=== PATIENT | male | born 1960 | race Caucasian/White ===

== ENCOUNTER 2017-08-27 10:00 | Inpatient (IN) | payer OTHER ==
[2017-08-27] MEDS ORDERED: SODIUM CHLORIDE 0.9% 2,000 ML IV STA (11:15)
[2017-08-27] MEDS ORDERED: SODIUM CHLORIDE 0.9% 1,000 ML IV STA (11:15)
[2017-08-27] MEDS ORDERED: ONDANSETRON 4 MG/2 ML VIAL IVP STA (11:15)
[2017-08-27] MEDS ORDERED: fentaNYL (PF) 50 MCG/ML 2 ML AMP IV STA ×2 (11:16→12:19)
--- NOTE | 2017-08-27 11:18 | ED ---
Nausea/Vomiting/Diarrhea HPI - General Chief complaint: Nausea/Vomiting/Diarrhea Stated complaint: Weakness Time Seen by Provider: 08/27/17 10:00 Source: patient, EMS, RN notes reviewed Mode of arrival: EMS Limitations: no limitations - History of Present Illness Initial comments: This is a 56-year-old male history diabetes and chronic low back pain who states she's had nausea vomiting for past several days not been able keep his medication down either food or drink. He does feel lightheaded and weak with tries walking said sweats he states his glucose was 407 when he was brought in here. He denies any diarrhea no other problems such as cough or phlegm production dysuria hematuria. He states the pain going down his legs from his low back disc problem is severe. MD complaint: nausea, vomiting, abdominal pain - Related Data Home Medications Medication Instructions Recorded Confirmed HYDROcodone/APAP 10-325MG [[place] 1 tab PO Q4HR PRN 08/27/17 08/27/17 10-325] INSULIN LISPRO (humaLOG) [humaLOG] See Protocol SQ AC-TID 08/27/17 08/27/17 Lisinopril [Zestril] 5 mg PO DAILY 08/27/17 08/27/17 Omeprazole 40 mg PO DAILY 08/27/17 08/27/17 Allergies Allergy/AdvReac Type Severity Reaction Status Date / Time No Known Allergies Allergy Verified 08/27/17 10:55 Review of Systems ROS Statement: Those systems with pertinent positive or pertinent negative responses have been documented in the HPI. ROS Other: All systems not noted in ROS Statement are negative. Past Medical History Past Medical History: COPD, Diabetes Mellitus, Hypertension Additional Past Medical History / Comment(s): chronic back pain History of Any Multi-Drug Resistant Organisms: None Reported Past Surgical History: Cholecystectomy Past Psychological History: No Psychological Hx Reported Smoking Status: Current every day smoker Past Alcohol Use History: None Reported Past Drug Use History: None Reported General Exam - General Exam Comments Initial Comments: This is a well-developed molars awake alert oriented 3 male Limitations: no limitations General appearance: alert, anxious, in distress Head exam: Present: atraumatic, normocephalic, normal inspection Eye exam: Present: normal appearance, PERRL, EOMI. Absent: scleral icterus, conjunctival injection, periorbital swelling ENT exam: Present: mucous membranes dry Neck exam: Present: normal inspection. Absent: tenderness, meningismus, lymphadenopathy Respiratory exam: Present: normal lung sounds bilaterally. Absent: respiratory distress, wheezes, rales, rhonchi, stridor Cardiovascular Exam: Present: regular rate, normal rhythm, normal heart sounds. Absent: systolic murmur, diastolic murmur, rubs, gallop, clicks GI/Abdominal exam: Present: soft, normal bowel sounds. Absent: distended, tenderness, guarding, rebound, rigid, bruit, pulsatile mass, hernia Extremities exam: Present: normal inspection, full ROM, normal capillary refill. Absent: tenderness, pedal edema, joint swelling, calf tenderness Back exam: Present: normal inspection Neurological exam: Present: alert, oriented X3, CN II-XII intact Psychiatric exam: Present: normal affect, normal mood Skin exam: Present: warm, dry, intact, normal color. Absent: rash Course Vital Signs 08/27/17 10:07 Temperature 98.6 F Pulse Rate 86 Respiratory 16 Rate Blood Pressure 119/59 O2 Sat by Pulse 95 Oximetry Medical Decision Making - EKG Data -: EKG Interpreted by [facility] EKG shows normal: sinus rhythm (Normal sinus rhythm rate 83. Avoid 50 to QRS 82 QT since QTC 376/[address]-T wave changes) Disposition Referrals: Zarina Smith MD [Primary Care Provider] - 1-2 days
[2017-08-27 11:39] LABS: Basophils # (A) 0.1 k/uL (0-0.2); Basophils % (A) 0 %; Eosinophils % (A) 0 %; HGB 11.5 gm/dL (13.0-17.5); Hypochromasia Slight; Lymphocytes # (A) 1.6 k/uL (1.0-4.8); Lymphocytes % (A) 12 %; MCH 30.7 pg (25.0-35.0); MCHC 31.8 g/dL (31.0-37.0); MCV 96.4 fL (80.0-100.0); Mean Platelet Volume 7.4; Monocytes # (A) 0.5 k/uL (0-1.0); Monocytes % (A) 3 %; Neutrophils # (A) 11.1 k/uL (1.3-7.7); Neutrophils % (A) 84 %; Platelet Count 326 k/uL (150-450); RBC 3.74 m/uL (4.30-5.90); RDW 15.7 % (11.5-15.5); WBC 13.3 k/uL (3.8-10.6)
[2017-08-27 11:50] LABS: Appearance,Urine Clear (Clear); Bilirubin,Urine Negative (Negative); Blood,Urine Negative (Negative); Color,Urine Yellow; Glucose,Urine (UA) 4+ (Negative); Leukocyte Esterase,Urine Negative (Negative); Nitrite,Urine Negative (Negative); Protein,Urine Trace (Negative); Specific Gravity,Urine 1.034 (1.001-1.035); Urobilinogen,Urine <2.0 mg/dL (<2.0)
[2017-08-27 11:52] LABS: ALT 23 U/L (21-72); AST 14 U/L (17-59); Albumin 3.8 g/dL (3.5-5.0); Alkaline Phosphatase 102 U/L (38-126); Amylase 41 U/L (30-110); Anion Gap 18 mmol/L; Blood Urea Nitrogen 14 mg/dL (9-20); Calcium 9.2 mg/dL (8.4-10.2); Carbon Dioxide 21 mmol/L (22-30); Chloride 99 mmol/L (98-107); Glucose 363 mg/dL (74-99); Lipase 46 U/L (23-300); Potassium 4.5 mmol/L (3.5-5.1); Sodium 138 mmol/L (137-145); Total Bilirubin 0.7 mg/dL (0.2-1.3); Total Protein 7.7 g/dL (6.3-8.2)
--- NOTE | 2017-08-27 12:20 | XR ---
Abdomen HISTORY: Pain and vomiting Frontal view of the abdomen submitted on 2 images Surgical clips present in the right upper quadrant. There is no evident bowel obstruction or pneumope ritoneum. Levoscoliosis is present in the mid lumbar spine, there is multilevel spondylosis, degenera tive disc change in the visualized spine. Vascular calcifications present within the pelvis, there ma y be prostate calcifications present. IMPRESSION: Nonobstructive bowel gas pattern. Scoliosis. Degenerative disc disease.
--- NOTE | 2017-08-27 12:21 | XR ---
EXAMINATION TYPE: XR chest 2V DATE OF EXAM: 08/27/2017 COMPARISON: NONE HISTORY: Chest pain TECHNIQUE: Frontal and lateral views of the chest are obtained. FINDINGS: There is a right upper lobe consolidation with volume loss evident as there is elevation o f the minor fissure. Remainder the lungs are clear. Mediastinal prominence could relate to adenopathy or prominent pulmonary vascularity. Cardiomediastinal silhouette is within normal limits. Osseous st ructures are grossly intact with mild multilevel degenerative changes of the thoracic spine and acrom ioclavicular joints. IMPRESSION: Lobar consolidation within the right upper lobe with component of atelectasis as there i s associated volume loss therefore findings could represent either focal pneumonia or obstructive pul monary mass. Correlation with symptomatology is recommended.
[2017-08-27] MEDS ORDERED: KETOROLAC 30 MG/ML 1 ML VIAL IVP STA (12:30)
[2017-08-27 12:34] LABS: Ketones,Urine 3+ (Negative)
[2017-08-27 13:56] LABS: Glucose,Whole Blood 361 mg/dL (75-99)
[2017-08-27] MEDS ORDERED: SODIUM CHLORIDE 0.9% 1,000 ML BAG ONE (16:40)
[2017-08-27 17:43] LABS: Glucose,Whole Blood 402 mg/dL (75-99)
[2017-08-27] MEDS ORDERED: INSULIN REGULAR BOLUS (FROM DRIP BAG) IV ONE (18:32)
[2017-08-27] MEDS ORDERED: Magnesium Replacement Protocol 1 EACH MISC MISCELLANE PRN (18:32)
[2017-08-27] MEDS ORDERED: Potassium Replacement Protocol 1 EACH MISC MISCELLANE PRN (18:32)
[2017-08-27 19:10] LABS: Basophils % (A) 0 %; Eosinophils # (A) 0.1 k/uL (0-0.7); Eosinophils % (A) 1 %; HCT 35.8 % (39.0-53.0); HGB 10.8 gm/dL (13.0-17.5); Hypochromasia Marked; Lymphocytes # (A) 1.3 k/uL (1.0-4.8); Lymphocytes % (A) 10 %; MCH 29.7 pg (25.0-35.0); MCHC 30.2 g/dL (31.0-37.0); MCV 98.4 fL (80.0-100.0); Mean Platelet Volume 7.1; Monocytes # (A) 0.3 k/uL (0-1.0); Monocytes % (A) 2 %; Neutrophils # (A) 10.5 k/uL (1.3-7.7); Neutrophils % (A) 86 %; Platelet Count 299 k/uL (150-450); RBC 3.64 m/uL (4.30-5.90); RDW 15.4 % (11.5-15.5); WBC 12.2 k/uL (3.8-10.6)
[2017-08-27 19:20] LABS: Anion Gap 19 mmol/L; Blood Urea Nitrogen 15 mg/dL (9-20); Carbon Dioxide 21 mmol/L (22-30); Chloride 103 mmol/L (98-107); Glucose 380 mg/dL (74-99); Phosphorus 4.2 mg/dL (2.5-4.5); Potassium 4.5 mmol/L (3.5-5.1); Sodium 143 mmol/L (137-145)
[2017-08-27] MEDS: SODIUM CHLORIDE 0.9% 1,000 ML IV SCH ×2 (19:46→22:22)
[2017-08-27] MEDS: MORPHINE SULFATE 2 MG/ML SYRINGE IVP PRN (19:53)
[2017-08-27] MEDS: ONDANSETRON 4 MG/2 ML VIAL IVP PRN (19:53)
[2017-08-27] MEDS ORDERED: AZITHROMYCIN 500 MG in DEXTROSE 5% IN WATER 250 ML IVPB SCH ×2 (20:00)
[2017-08-27 20:35] LABS: Glucose,Whole Blood 359 mg/dL (75-99)
[2017-08-27 20:44] LABS: Hemoglobin A1C 10.7 % (4.0-6.0)
[2017-08-27] MEDS: INSULIN REGULAR 100 UNIT in SODIUM CHLORIDE 0.9% 100 ML IV SCH (20:45)
[2017-08-27 20:59] LABS: Glucose,Whole Blood 364 mg/dL (75-99)
[2017-08-27] MEDS: cefTRIAXone IN SWFI 1,000 MG/10 ML SYRINGE IVP SCH (21:17)
[2017-08-27 22:07] LABS: Appearance,Urine Clear (Clear); Bilirubin,Urine Negative (Negative); Blood,Urine Negative (Negative); Color,Urine Light Yellow; Glucose,Urine (UA) 4+ (Negative); Leukocyte Esterase,Urine Negative (Negative); Nitrite,Urine Negative (Negative); PH, Urine 5.5 (5.0-8.0); Protein,Urine Negative (Negative); Specific Gravity,Urine 1.027 (1.001-1.035); Urobilinogen,Urine <2.0 mg/dL (<2.0)
[2017-08-27] MEDS: D5-0.45% NACL WITH KCL 20MEQ/L 1,000 ML IV SCH (22:10)
[2017-08-27 22:15] LABS: Ketones,Urine 4+ (Negative)
[2017-08-27 22:26] LABS: Glucose,Whole Blood 282 mg/dL (75-99)
[2017-08-27 23:08] LABS: Glucose,Whole Blood 276 mg/dL (75-99)
[2017-08-28 00:20] LABS: Glucose,Whole Blood 239 mg/dL (75-99)
[2017-08-28] MEDS: MORPHINE SULFATE 2 MG/ML SYRINGE IVP PRN ×7 (00:33→21:19)
[2017-08-28 00:42] LABS: Anion Gap 11 mmol/L; Blood Urea Nitrogen 16 mg/dL (9-20); Carbon Dioxide 28 mmol/L (22-30); Chloride 105 mmol/L (98-107); Glucose 246 mg/dL (74-99); Phosphorus 2.6 mg/dL (2.5-4.5); Sodium 144 mmol/L (137-145)
[2017-08-28 01:22] LABS: Glucose,Whole Blood 222 mg/dL (75-99)
[2017-08-28 02:37] LABS: Glucose,Whole Blood 186 mg/dL (75-99)
[2017-08-28 03:26] LABS: Glucose,Whole Blood 133 mg/dL (75-99)
[2017-08-28] MEDS: D5-0.45% NACL WITH KCL 20MEQ/L 1,000 ML IV SCH ×2 (03:48→09:52)
[2017-08-28 04:11] LABS: Glucose,Whole Blood 119 mg/dL (75-99)
[2017-08-28] MEDS: ONDANSETRON 4 MG/2 ML VIAL IVP PRN ×4 (04:15→22:26)
[2017-08-28 04:41] LABS: Anion Gap 9 mmol/L; Blood Urea Nitrogen 16 mg/dL (9-20); Carbon Dioxide 30 mmol/L (22-30); Chloride 104 mmol/L (98-107); Glucose 123 mg/dL (74-99); Phosphorus 2.6 mg/dL (2.5-4.5); Potassium 4.2 mmol/L (3.5-5.1); Sodium 143 mmol/L (137-145)
[2017-08-28] MEDS: INSULIN REGULAR 100 UNIT in SODIUM CHLORIDE 0.9% 100 ML IV SCH (05:01)
[2017-08-28 05:05] LABS: Glucose,Whole Blood 134 mg/dL (75-99)
[2017-08-28 05:53] LABS: Glucose,Whole Blood 192 mg/dL (75-99)
[2017-08-28 07:17] LABS: Glucose,Whole Blood 235 mg/dL (75-99)
[2017-08-28] MEDS ORDERED: INSULIN NPH 300 UNIT/3 ML VIAL SQ ONE (07:50)
[2017-08-28 08:22] LABS: Glucose,Whole Blood 263 mg/dL (75-99)
[2017-08-28] MEDS: HYDROcodone/APAP 5-325MG 1 EACH TAB PO PRN ×2 (08:58→16:53)
[2017-08-28] MEDS: AZITHROMYCIN 500 MG TAB PO SCH (09:18)
[2017-08-28 09:44] LABS: Basophils % (A) 0 %; Eosinophils # (A) 0.1 k/uL (0-0.7); Eosinophils % (A) 0 %; HCT 36.8 % (39.0-53.0); HGB 11.5 gm/dL (13.0-17.5); Hypochromasia Moderate; Lymphocytes # (A) 2.2 k/uL (1.0-4.8); Lymphocytes % (A) 14 %; MCH 30.4 pg (25.0-35.0); MCHC 31.2 g/dL (31.0-37.0); MCV 97.4 fL (80.0-100.0); Monocytes # (A) 0.8 k/uL (0-1.0); Monocytes % (A) 5 %; Neutrophils # (A) 12.4 k/uL (1.3-7.7); Neutrophils % (A) 79 %; Platelet Count 315 k/uL (150-450); RBC 3.77 m/uL (4.30-5.90); RDW 15.4 % (11.5-15.5); WBC 15.7 k/uL (3.8-10.6)
[2017-08-28] MEDS: cefTRIAXone IN SWFI 1,000 MG/10 ML SYRINGE IVP SCH (09:57)
[2017-08-28 10:00] LABS: Poikilocytosis (M) Present
[2017-08-28 12:19] LABS: Glucose,Whole Blood 277 mg/dL (75-99)
[2017-08-28] MEDS: INSULIN ASPART 100 UNIT/ML 1 ML 10 ML VIAL SQ SCH ×5 (12:39→21:23)
--- NOTE | 2017-08-28 13:34 | P.HPIM ---
History of Present Illness H&P Date: 08/28/17 Chief Complaint: Nausea and vomiting This is a 56-year-old male patient of Dr. Rice. Who presented to the emergency room having nausea and vomiting for several days and unable to his medication down. Patient also states he was feeling lightheaded and weak. Patient has a significant history for diabetes mellitus, COPD, chronic low back pain and hypertension. Urinalysis was positive for ketones and glucose, patient was started on insulin drip and DKA protocol. EKG completed emergency room showing normal sinus rhythm rate Chest x-ray completed emergency room showing lobar consolidation within the right upper lobe with component of atelectasis as there is associated volume loss therefore findings could represent either focal pneumonia obstructive pulmonary. Patient has been started on Rocephin and Zithromax. KUB completed emergency room showing nonobstructive bowel gas pattern. Scoliosis. Degenerative disc disease. Patient's anion gap on admission was 19 and carbon dioxide 21. Patient's anion gap has significantly improved at 9 and has been transitioned off insulin drip. Patient's white blood cell elevated at 15.7, blood and urine culture have been ordered. Patient also complaining of severe abdominal pain with nausea and vomiting. abdominal ultrasound has been ordered along with amylase and lipase. Patient denies chest pain or shortness breath at this time. Patient remains afebrile. Review of Systems Otherwise unremarkable please see HPI Past Medical History Past Medical History: COPD, Diabetes Mellitus, Hypertension Additional Past Medical History / Comment(s): chronic back pain History of Any Multi-Drug Resistant Organisms: None Reported Past Surgical History: Cholecystectomy Past Psychological History: No Psychological Hx Reported Smoking Status: Current every day smoker Past Alcohol Use History: None Reported Past Drug Use History: None Reported Medications and Allergies Home Medications Medication Instructions Recorded Confirmed Type HYDROcodone/APAP 10-325MG [[place] 1 tab PO Q4HR PRN 08/27/17 08/27/17 History 10-325] INSULIN LISPRO (humaLOG) [humaLOG] See Protocol SQ AC-TID 08/27/17 08/27/17 History Lisinopril [Zestril] 5 mg PO DAILY 08/27/17 08/27/17 History Omeprazole 40 mg PO DAILY 08/27/17 08/27/17 History Allergies Allergy/AdvReac Type Severity Reaction Status Date / Time No Known Allergies Allergy Verified 08/27/17 10:55 Physical Exam Vitals: Vital Signs Temp Pulse Resp BP Pulse Ox 08/28/17 08:00 61 18 128/70 90 L 08/28/17 04:00 98.1 F 71 16 118/56 100 08/27/17 23:24 69 16 08/27/17 23:20 97.3 F L 69 16 115/55 92 L 08/27/17 20:00 97.3 F L 85 18 132/65 96 08/27/17 18:27 98.5 F 77 16 135/74 95 Intake and Output 08/27/17 08/28/17 08/28/17 22:59 06:59 14:59 Intake Total 21.104 379.926 Output Total 420 Balance 21.104 -40.074 Intake: IV 322.2 D5-0.45% NaCl with KCl 300 20Meq/l 1,000 ml @ 150 mls/hr IV .Q6H40M [facility] Rx# :[id number] Insulin Regular 100 unit 22.2 In Sodium Chloride 0.9% 100 ml @ 0.1 UNITS/KG/HR 9.16 mls/hr IV .Q11H2M [facility] Rx#:[id number] Intake, IV Titration 21.104 57.726 Amount Insulin Regular 100 unit 21.104 57.726 In Sodium Chloride 0.9% 100 ml @ 0.1 UNITS/KG/HR 9.16 mls/hr IV .Q11H2M [facility] Rx#:[id number] Output: Urine 420 Other: Voiding Method Urinal Urinal Weight 90.718 kg 87.5 kg Head normocephalic Neck supple Lungs clear to auscultation bilaterally no wheezing or crackles Heart regular rate and rhythm S1-S2, no rub or gallop Abdomen is soft nontender nondistended positive bowel sounds no hepatosplenomegaly Extremities no edema Neuro alert and orientated to 3 Results CBC & Chem 7: 08/28/17 04:12 08/28/17 04:12 Labs: Abnormal Lab Results - Last 24 Hours (Table) 08/27/17 08/27/17 08/27/17 Range/Units 10:06 13:26 17:28 WBC (3.8-10.6) k/uL RBC (4.30-5.90) m/uL Hgb (13.0-17.5) gm/dL Hct (39.0-53.0) % MCHC (31.0-37.0) g/dL Neutrophils # (1.3-7.7) k/uL Carbon Dioxide (22-30) mmol/L Creatinine (0.66-1.25) mg/dL Glucose (74-99) mg/dL POC Glucose (mg/dL) 361 H 402 H (75-99) mg/dL Hemoglobin A1c 10.7 H (4.0-6.0) % Urine Glucose (UA) (Negative) Urine Ketones (Negative) 08/27/17 08/27/17 08/27/17 Range/Units 18:45 18:45 20:31 WBC 12.2 H (3.8-10.6) k/uL RBC 3.64 L (4.30-5.90) m/uL Hgb 10.8 L (13.0-17.5) gm/dL Hct 35.8 L (39.0-53.0) % MCHC 30.2 L (31.0-37.0) g/dL Neutrophils # 10.5 H (1.3-7.7) k/uL Carbon Dioxide 21 L (22-30) mmol/L Creatinine 0.60 L (0.66-1.25) mg/dL Glucose 380 H (74-99) mg/dL POC Glucose (mg/dL) 359 H (75-99) mg/dL Hemoglobin A1c (4.0-6.0) % Urine Glucose (UA) (Negative) Urine Ketones (Negative) 08/27/17 08/27/17 08/27/17 Range/Units 20:57 21:57 22:00 WBC (3.8-10.6) k/uL RBC (4.30-5.90) m/uL Hgb (13.0-17.5) gm/dL Hct (39.0-53.0) % MCHC (31.0-37.0) g/dL Neutrophils # (1.3-7.7) k/uL Carbon Dioxide (22-30) mmol/L Creatinine (0.66-1.25) mg/dL Glucose (74-99) mg/dL POC Glucose (mg/dL) 364 H 282 H (75-99) mg/dL Hemoglobin A1c (4.0-6.0) % Urine Glucose (UA) 4+ H (Negative) Urine Ketones 4+ H (Negative) 08/27/17 08/28/17 08/28/17 Range/Units 22:56 00:00 00:22 WBC (3.8-10.6) k/uL RBC (4.30-5.90) m/uL Hgb (13.0-17.5) gm/dL Hct (39.0-53.0) % MCHC (31.0-37.0) g/dL Neutrophils # (1.3-7.7) k/uL Carbon Dioxide (22-30) mmol/L Creatinine 0.50 L (0.66-1.25) mg/dL Glucose 246 H (74-99) mg/dL POC Glucose (mg/dL) 276 H 239 H (75-99) mg/dL Hemoglobin A1c (4.0-6.0) % Urine Glucose (UA) (Negative) Urine Ketones (Negative) 08/28/17 08/28/17 08/28/17 Range/Units 01:07 02:08 03:25 WBC (3.8-10.6) k/uL RBC (4.30-5.90) m/uL Hgb (13.0-17.5) gm/dL Hct (39.0-53.0) % MCHC (31.0-37.0) g/dL Neutrophils # (1.3-7.7) k/uL Carbon Dioxide (22-30) mmol/L Creatinine (0.66-1.25) mg/dL Glucose (74-99) mg/dL POC Glucose (mg/dL) 222 H 186 H 133 H (75-99) mg/dL Hemoglobin A1c (4.0-6.0) % Urine Glucose (UA) (Negative) Urine Ketones (Negative) 08/28/17 08/28/17 08/28/17 Range/Units 04:10 04:12 04:12 WBC 15.7 H (3.8-10.6) k/uL RBC 3.77 L (4.30-5.90) m/uL Hgb 11.5 L (13.0-17.5) gm/dL Hct 36.8 L (39.0-53.0) % MCHC (31.0-37.0) g/dL Neutrophils # 12.4 H (1.3-7.7) k/uL Carbon Dioxide (22-30) mmol/L Creatinine 0.50 L (0.66-1.25) mg/dL Glucose 123 H (74-99) mg/dL POC Glucose (mg/dL) 119 H (75-99) mg/dL Hemoglobin A1c (4.0-6.0) % Urine Glucose (UA) (Negative) Urine Ketones (Negative) 08/28/17 08/28/17 08/28/17 Range/Units 05:03 05:51 06:57 WBC (3.8-10.6) k/uL RBC (4.30-5.90) m/uL Hgb (13.0-17.5) gm/dL Hct (39.0-53.0) % MCHC (31.0-37.0) g/dL Neutrophils # (1.3-7.7) k/uL Carbon Dioxide (22-30) mmol/L Creatinine (0.66-1.25) mg/dL Glucose (74-99) mg/dL POC Glucose (mg/dL) 134 H 192 H 235 H (75-99) mg/dL Hemoglobin A1c (4.0-6.0) % Urine Glucose (UA) (Negative) Urine Ketones (Negative) 08/28/17 08/28/17 Range/Units 08:02 11:47 WBC (3.8-10.6) k/uL RBC (4.30-5.90) m/uL Hgb (13.0-17.5) gm/dL Hct (39.0-53.0) % MCHC (31.0-37.0) g/dL Neutrophils # (1.3-7.7) k/uL Carbon Dioxide (22-30) mmol/L Creatinine (0.66-1.25) mg/dL Glucose (74-99) mg/dL POC Glucose (mg/dL) 263 H 277 H (75-99) mg/dL Hemoglobin A1c (4.0-6.0) % Urine Glucose (UA) (Negative) Urine Ketones (Negative) Thrombosis Risk Factor Assmnt - Choose All That Apply Any of the Below Risk Factors Present?: Yes Each Factor Represents 1 point: Abnormal pulmonary function (COPD), Age 41-60 years Other Risk Factors: No Other congenital or acquired thrombophilia - If yes, enter type in comment: No Thrombosis Risk Factor Assessment Total Risk Factor Score: 2 Thrombosis Risk Factor Assessment Level: Low Risk Assessment and Plan Assessment: 1. Diabetic ketoacidosis. Upon admission urine positive for ketones and glucose and anion gap 19. Patient was on insulin drip has been transitioned off. Anion gap now 9. Patient currently on Levemir 26 units and sliding scale insulin. 2. Abdominal pain with nausea and vomiting. KUB completed in the emergency room showing nonobstructive bowel gas pattern. Scoliosis. Degenerative disc disease. Abdominal ultrasound has been ordered along with amylase and lipase levels 3. Possible pneumonia. Chest x-ray completed emergency room showing lobar consolidation within the right upper lobe component of atelectasis as there is associated volume loss there for findings could represent either focal pneumonia or obstructive pulmonary mass. Patient has been started on Rocephin and Zithromax. Sputum culture has been ordered 4. Leukocytosis. White blood cell 15.7. Blood urine and sputum cultures have been ordered. 5. History of diabetes mellitus type 2. A1c completed 10.7 6. COPD. No acute exacerbation at this time. 7. Hypertension. Continue on home medication lisinopril 8. History of chronic low back pain 9. History of nicotine dependence. Patient educated greater than 3 minutes on smoking cessation. DVT prophylaxis Lovenox, GI prophylaxis Pepcid Time with Patient: Greater than 30 (Greater than 60% of the total time spent in counseling and coordination of care.I performed an examination of the patient and discussed their management with the Nurse Practitioner. I have reviewed the Nurse Practitioner's notes and agree with the documented findings and plan of care)
--- NOTE | 2017-08-28 16:02 | US ---
EXAMINATION TYPE: US abdomen complete DATE OF EXAM: 08/28/2017 COMPARISON: NONE CLINICAL HISTORY: abdominal pain and vomiting. EXAM MEASUREMENTS: Liver Length: 14.5 cm Gallbladder Wall: Surgically absent CBD: 0.3 cm Spleen: 11.6 cm Right Kidney: not visualized sagittal, transverse 5.6 cm Left Kidney: 13.0 x 5.6 x 4.5 cm Severe exam limitations, patient unable to hold breath, exam done out of sequence due to poor patient cooperation. Patient would not let examiner apply pressure due to his pain. Extensive overlying midl ine bowel gas. Unable to evaluate organs fully. Pancreas: Obscured by bowel gas Liver: no evident mass seen in limited evaluation Gallbladder: Surgically absent Evidence for sonographic Cartwright's sign: no CBD: wnl Spleen: enlarged Right Kidney: unable to visualize is sagittal plane due to overlying bowel gas and limited patient cooperation Left Kidney: measures large, partially obscured by bowel gas Upper IVC: wnl Abd Aorta: not visualized Kidneys show normal cortical medullary differentiation. There is no ascites. IMPRESSION: Exam is limited. Splenomegaly. Postop change.
[2017-08-28 17:03] LABS: Glucose,Whole Blood 177 mg/dL (75-99)
[2017-08-28] MEDS: HYDROcodone/APAP 10-325MG 1 EACH TAB PO PRN (17:46)
[2017-08-28 20:51] LABS: Glucose,Whole Blood 223 mg/dL (75-99)
[2017-08-28] MEDS ORDERED: INSULIN DETEMIR 100 UNIT/ML 10 ML VIAL SQ SCH (21:00)
[2017-08-29] MEDS: MORPHINE SULFATE 2 MG/ML SYRINGE IVP PRN ×4 (00:29→08:57)
[2017-08-29] MEDS: HYDROcodone/APAP 10-325MG 1 EACH TAB PO PRN ×2 (01:21→07:34)
[2017-08-29 02:25] LABS: Glucose,Whole Blood 248 mg/dL (75-99)
[2017-08-29] MEDS: ONDANSETRON 4 MG/2 ML VIAL IVP PRN (04:44)
[2017-08-29 06:18] LABS: Basophils % (A) 0 %; Eosinophils # (A) 0.1 k/uL (0-0.7); Eosinophils % (A) 1 %; HCT 35.3 % (39.0-53.0); HGB 10.8 gm/dL (13.0-17.5); Hypochromasia Moderate; Lymphocytes # (A) 2.2 k/uL (1.0-4.8); Lymphocytes % (A) 16 %; MCHC 30.6 g/dL (31.0-37.0); MCV 98.1 fL (80.0-100.0); Macrocytosis Slight; Mean Platelet Volume 6.9; Monocytes # (A) 0.4 k/uL (0-1.0); Monocytes % (A) 3 %; Neutrophils # (A) 11.1 k/uL (1.3-7.7); Neutrophils % (A) 80 %; Platelet Count 253 k/uL (150-450); RDW 15.5 % (11.5-15.5); WBC 13.9 k/uL (3.8-10.6)
[2017-08-29 06:25] LABS: Glucose,Whole Blood 245 mg/dL (75-99)
[2017-08-29 06:46] LABS: ALT 43 U/L (21-72); AST 16 U/L (17-59); Albumin 3.1 g/dL (3.5-5.0); Alkaline Phosphatase 85 U/L (38-126); Amylase 37 U/L (30-110); Anion Gap 12 mmol/L; Blood Urea Nitrogen 14 mg/dL (9-20); Calcium 8.9 mg/dL (8.4-10.2); Carbon Dioxide 27 mmol/L (22-30); Chloride 103 mmol/L (98-107); Glucose 241 mg/dL (74-99); Lipase 37 U/L (23-300); Potassium 4.1 mmol/L (3.5-5.1); Sodium 142 mmol/L (137-145); Total Bilirubin 0.3 mg/dL (0.2-1.3); Total Protein 6.8 g/dL (6.3-8.2)
[2017-08-29] MEDS: cefTRIAXone IN SWFI 1,000 MG/10 ML SYRINGE IVP SCH (07:33)
[2017-08-29] MEDS: INSULIN ASPART 100 UNIT/ML 1 ML 10 ML VIAL SQ SCH ×2 (07:33→08:51)
[2017-08-29] MEDS: AZITHROMYCIN 500 MG TAB PO SCH (07:35)
[2017-08-29] MEDS ORDERED: FAMOTIDINE 20 MG TAB PO SCH (09:00)
[2017-08-29] MEDS ORDERED: ENOXAPARIN 40 MG/0.4 ML SYRINGE SQ SCH (09:00)
[2017-08-29] MEDS ORDERED: LISINOPRIL 5 MG TAB PO SCH (09:00)
[2017-08-29 09:14] VITALS: BP 131/72; PULSE 81; RESP 16; TEMP 98.2
--- NOTE | 2017-08-29 10:02 | P.PN ---
Subjective Progress Note Date: 08/29/17 This is a 56-year-old male patient of Dr. Rice. Who presented to the emergency room having nausea and vomiting for several days and unable to his medication down. Patient also states he was feeling lightheaded and weak. Patient has a significant history for diabetes mellitus, COPD, chronic low back pain and hypertension. Urinalysis was positive for ketones and glucose, patient was started on insulin drip and DKA protocol. EKG completed emergency room showing normal sinus rhythm rate Chest x-ray completed emergency room showing lobar consolidation within the right upper lobe with component of atelectasis as there is associated volume loss therefore findings could represent either focal pneumonia obstructive pulmonary. Patient has been started on Rocephin and Zithromax. KUB completed emergency room showing nonobstructive bowel gas pattern. Scoliosis. Degenerative disc disease. Patient's anion gap on admission was 19 and carbon dioxide 21. Patient's anion gap has significantly improved at 9 and has been transitioned off insulin drip. Patient's white blood cell elevated at 15.7, blood and urine culture have been ordered. Patient also complaining of severe abdominal pain with nausea and vomiting. abdominal ultrasound has been ordered along with amylase and lipase. Patient denies chest pain or shortness breath at this time. Patient remains afebrile. On 08/29/2017 patient currently lying in bed stating that he is still having abdominal pain and that the current pain medications are not working. Ultrasound of abdomen completed but was limited due to poor patient cooperation. Patient's white blood cell 13.9. Patient off insulin drip and on home medications. Denies chest pain or shortness of breath at this time. Objective - Vital Signs Vital signs: Vital Signs Temp 98.2 F 08/29/17 08:00 Pulse 81 08/29/17 08:00 Resp 16 08/29/17 08:00 BP 131/72 08/29/17 08:00 Pulse Ox 96 08/29/17 08:00 Intake & Output 08/28/17 08/29/17 08/29/17 18:59 06:59 18:59 Intake Total 150 1225 Output Total 500 400 Balance -350 825 Weight 89.5 kg Intake: IV 825 normal saline @75mls 825 Intake, IV Titration 150 Amount D5-0.45% NaCl with KCl 150 20Meq/l 1,000 ml @ 150 mls/hr IV .Q6H40M [facility] Rx# :[id number] Oral 400 Output: Urine 500 300 Emesis 100 Other: Voiding Method Urinal Urinal # Voids 1 - Exam Head normocephalic Neck supple Lungs clear to auscultation bilaterally no wheezing or crackles Heart regular rate and rhythm S1-S2, no rub or gallop Abdomen is soft nontender nondistended positive bowel sounds no hepatosplenomegaly Extremities no edema Neuro alert and orientated to 3 - Labs CBC & Chem 7: 08/29/17 05:57 08/29/17 05:57 Labs: Abnormal Lab Results - Last 24 Hours (Table) 08/28/17 08/28/17 08/28/17 Range/Units 04:12 11:47 16:42 WBC 15.7 H (3.8-10.6) k/uL RBC 3.77 L (4.30-5.90) m/uL Hgb 11.5 L (13.0-17.5) gm/dL Hct 36.8 L (39.0-53.0) % MCHC (31.0-37.0) g/dL Neutrophils # 12.4 H (1.3-7.7) k/uL Creatinine (0.66-1.25) mg/dL Glucose (74-99) mg/dL POC Glucose (mg/dL) 277 H 177 H (75-99) mg/dL AST (17-59) U/L Albumin (3.5-5.0) g/dL 08/28/17 08/29/17 08/29/17 Range/Units 20:47 02:23 05:57 WBC 13.9 H (3.8-10.6) k/uL RBC 3.60 L (4.30-5.90) m/uL Hgb 10.8 L (13.0-17.5) gm/dL Hct 35.3 L (39.0-53.0) % MCHC 30.6 L (31.0-37.0) g/dL Neutrophils # 11.1 H (1.3-7.7) k/uL Creatinine (0.66-1.25) mg/dL Glucose (74-99) mg/dL POC Glucose (mg/dL) 223 H 248 H (75-99) mg/dL AST (17-59) U/L Albumin (3.5-5.0) g/dL 08/29/17 08/29/17 Range/Units 05:57 06:20 WBC (3.8-10.6) k/uL RBC (4.30-5.90) m/uL Hgb (13.0-17.5) gm/dL Hct (39.0-53.0) % MCHC (31.0-37.0) g/dL Neutrophils # (1.3-7.7) k/uL Creatinine 0.59 L (0.66-1.25) mg/dL Glucose 241 H (74-99) mg/dL POC Glucose (mg/dL) 245 H (75-99) mg/dL AST 16 L (17-59) U/L Albumin 3.1 L (3.5-5.0) g/dL Microbiology - Last 24 Hours (Table) 08/27/17 17:30 Blood Culture - Preliminary Blood No Growth after 24 hours Assessment and Plan Assessment: 1. Diabetic ketoacidosis. Upon admission urine positive for ketones and glucose and anion gap 19. Patient was on insulin drip has been transitioned off. Anion gap now 9. Patient currently on Levemir 26 units and sliding scale insulin. 2. Abdominal pain with nausea and vomiting. KUB completed in the emergency room showing nonobstructive bowel gas pattern. Scoliosis. Degenerative disc disease. Ultrasound of abdomen completed but was a limited study due to lack of patient cooperation. 3. Possible pneumonia. Chest x-ray completed emergency room showing lobar consolidation within the right upper lobe component of atelectasis as there is associated volume loss there for findings could represent either focal pneumonia or obstructive pulmonary mass. Patient has been started on Rocephin and Zithromax. Sputum culture has been ordered. 4. Leukocytosis. White blood cell 15.7. Blood urine and sputum cultures have been ordered. Blood culture currently negative. White blood cell today 13.9 5. History of diabetes mellitus type 2. A1c completed 10.7 6. COPD. No acute exacerbation at this time. 7. Hypertension. Continue on home medication lisinopril 8. History of chronic low back pain 9. History of nicotine dependence. Patient educated greater than 3 minutes on smoking cessation. DVT prophylaxis Lovenox, GI prophylaxis Pepcid I performed an examination of the patient and discussed their management with the Nurse Practitioner. I have reviewed the Nurse Practitioner's notes and agree with the documented findings and plan of care
[2017-08-29] MEDS ORDERED: IOPAMIDOL-300 CONTRAST 30 ML VIAL (ORAL USE) PO PRN (10:26)
[2017-08-29 10:38] VITALS: BMI 26.0
--- NOTE | 2017-08-29 11:06 | P.DS ---
Providers Date of admission: 08/27/17 16:40 Expected date of discharge: 08/29/17 Attending physician: Crissy Gillespie Consults: 08/29/17 10:29 Consult Physician Routine Consulting Provider: Mitra Logan Consult Reason/Comments: pneumonia Do you want consulting provider notified?: Yes Primary care physician: Zarina Smith Hospital Course: Discharge diagnosis Patient is leaving AMA. 1. Diabetic ketoacidosis. Upon admission urine positive for ketones and glucose and anion gap 19. Patient was on insulin drip has been transitioned off. Anion gap now 9. Patient currently on Levemir 26 units and sliding scale insulin. 2. Abdominal pain with nausea and vomiting. KUB completed in the emergency room showing nonobstructive bowel gas pattern. Scoliosis. Degenerative disc disease. Ultrasound of abdomen completed but was a limited study due to lack of patient cooperation. Wanted to further workup patient with CAT scan but patient wanted to leave AMA. 3. Possible pneumonia. Chest x-ray completed emergency room showing lobar consolidation within the right upper lobe component of atelectasis as there is associated volume loss there for findings could represent either focal pneumonia or obstructive pulmonary mass. Patient has been started on Rocephin and Zithromax. Sputum culture has been ordered. Recommended continued treatment with antibiotics and pulmonary consult patient refused and left AMA 4. Leukocytosis. White blood cell 15.7. Blood urine and sputum cultures have been ordered. Blood culture currently negative. White blood cell today 13.9 5. History of diabetes mellitus type 2. A1c completed 10.7 6. COPD. No acute exacerbation at this time. 7. Hypertension. Continue on home medication lisinopril 8. History of chronic low back pain 9. History of nicotine dependence. Patient educated greater than 3 minutes on smoking cessation. DVT prophylaxis Lovenox, GI prophylaxis Pepcid I performed an examination of the patient and discussed their management with the Nurse Practitioner. I have reviewed the Nurse Practitioner's notes and agree with the documented findings and plan of care Hospital course This is a 56-year-old male patient of Dr. Rice. Who presented to the emergency room having nausea and vomiting for several days and unable to his medication down. Patient also states he was feeling lightheaded and weak. Patient has a significant history for diabetes mellitus, COPD, chronic low back pain and hypertension. Urinalysis was positive for ketones and glucose, patient was started on insulin drip and DKA protocol. EKG completed emergency room showing normal sinus rhythm rate Chest x-ray completed emergency room showing lobar consolidation within the right upper lobe with component of atelectasis as there is associated volume loss therefore findings could represent either focal pneumonia obstructive pulmonary. Patient has been started on Rocephin and Zithromax. KUB completed emergency room showing nonobstructive bowel gas pattern. Scoliosis. Degenerative disc disease. Patient's anion gap on admission was 19 and carbon dioxide 21. Patient's anion gap has significantly improved at 9 and has been transitioned off insulin drip. Patient's white blood cell elevated at 15.7, blood and urine culture have been ordered. Patient also complaining of severe abdominal pain with nausea and vomiting. abdominal ultrasound has been ordered along with amylase and lipase. Patient denies chest pain or shortness breath at this time. Patient remains afebrile. On 08/29/2017 patient currently lying in bed stating that he is still having abdominal pain and that the current pain medications are not working. Ultrasound of abdomen completed but was limited due to poor patient cooperation. Patient's white blood cell 13.9. Patient off insulin drip and on home medications. Denies chest pain or shortness of breath at this time. Patient is leaving AMA. Discussed the need for further workup with CAT scan for abdominal pain, patient declined. Recommended continued treatment with antibiotics and pulmonary consult for possible pneumonia the patient declined. Patient Condition at Discharge: Stable Plan - Discharge Summary Discharge Rx Participant: No New Discharge Prescriptions: No Action Lisinopril [Zestril] 5 mg PO DAILY INSULIN LISPRO (humaLOG) [humaLOG] See Protocol SQ AC-TID HYDROcodone/APAP 10-325MG [[place] 10-325] 1 tab PO Q4HR PRN PRN Reason: Pain Omeprazole 40 mg PO DAILY Discharge Medication List HYDROcodone/APAP 10-325MG [[place] 10-325] 1 tab PO Q4HR PRN 08/27/17 [History] INSULIN LISPRO (humaLOG) [humaLOG] See Protocol SQ AC-TID 08/27/17 [History] Lisinopril [Zestril] 5 mg PO DAILY 08/27/17 [History] Omeprazole 40 mg PO DAILY 08/27/17 [History] Follow up Appointment(s)/Referral(s): Zarina Smith MD [Primary Care Provider] - 1-2 days Patient Instructions/Handouts: Diabetic Ketoacidosis (DC)
== END 2017-08-29 11:31 | disposition left against medical advice (07) | DRG 637 ==
LOC: EC 10:00 → 6SEL 16:40 → EC 18:10
PROVIDERS: ADMIT Internal Medicine; ATTEND Internal Medicine
DX: E11.10 Type 2 diabetes mellitus with ketoacidosis without coma (principal); J18.9 Pneumonia, unspecified organism; J44.0 Chronic obstructive pulmonary disease with (acute) lower respiratory infection; J98.11 Atelectasis; F17.200 Nicotine dependence, unspecified, uncomplicated; Z71.6 Tobacco abuse counseling; I10 Essential (primary) hypertension; M41.9 Scoliosis, unspecified; Z79.4 Long term (current) use of insulin; Z79.899 Other long term (current) drug therapy; G89.29 Other chronic pain; R10.9 Unspecified abdominal pain; R11.2 Nausea with vomiting, unspecified
CPT/HCPCS: 36415; 71046; 74018; 76700; 80051; 80053; 81003; 82009; 82150; 82565; 82947; 83036; 83605; 83690; 83735; 84100; 84520; 85025; 87040; 87086; 93005; 96361; 96374; 96375; 96376; 99285

== ENCOUNTER 2018-05-03 11:20 | Inpatient (IN) | payer OTHER ==
[2018-05-03 11:53] LABS: Glucose,Whole Blood 455 mg/dL (75-99)
[2018-05-03] MEDS ORDERED: HYDROmorphone 0.5 MG/0.5 ML SYRINGE IVP STA ×2 (11:59→14:11)
[2018-05-03] MEDS ORDERED: ONDANSETRON 4 MG/2 ML VIAL IVP STA (11:59)
--- NOTE | 2018-05-03 12:06 | ED ---
Chest Pain HPI - General Chief Complaint: Chest Pain Stated Complaint: SOB Time Seen by Provider: 05/03/18 11:27 Source: patient Mode of arrival: wheelchair Limitations: no limitations - History of Present Illness Initial Comments: is a 57-year-old male presenting for chest pain and abdominal pain. 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 He states that since last night, his been having nausea and vomiting and complaining of shortness of breath. His also had right-sided chest pain as well as diffuse abdominal pain. He does not take any blood thinners and states that he is also been having a cough and fevers or chills. His last chemotherapy was on April 11 and he gets that every Saturday. His last radiation was on April 14 and he gets that Saturday through Saturday. - Related Data Home Medications Medication Instructions Recorded Confirmed HYDROcodone/APAP 10-325MG [[place] 1 tab PO QID 08/27/17 05/03/18 10-325] INSULIN LISPRO (humaLOG) [humaLOG] See Protocol SQ AC-TID 08/27/17 05/03/18 Insulin Glargine [Lantus] 20 unit SQ HS 05/03/18 05/03/18 Morphine Sulfate ER [Ms Contin] 15 mg PO Q12HR 05/03/18 05/03/18 Ondansetron [Zofran] 4 mg PO Q8HR PRN 05/03/18 05/03/18 Allergies Allergy/AdvReac Type Severity Reaction Status Date / Time No Known Allergies Allergy Verified 05/03/18 11:48 Review of Systems ROS Statement: Those systems with pertinent positive or pertinent negative responses have been documented in the HPI. Constitutional: Positive for chills, fatigue and fever. HENT: Negative for congestion. Respiratory: Negative for chest tightness, and wheezing. Positive for cough and shortness of breath Cardiovascular: Positive for chest pain and negative for palpitations. Gastrointestinal: Positive for abdominal pain. Negative for abdominal distention, diarrhea, positive for nausea and vomiting. Genitourinary: Negative for dysuria. Musculoskeletal: Negative for back pain, neck pain and neck stiffness. Skin: Negative for color change. Neurological: Negative for dizziness, speech difficulty, weakness and light- headedness. Psychiatric/Behavioral: Negative for agitation and confusion. Negative for anxiety ROS Other: All systems not noted in ROS Statement are negative. EKG Findings - EKG Comments: EKG Findings:: EKG shows sinus tachycardia with a rate of 1 20 bpm, GA interval 152, QRS 82, QTC 450. Past Medical History Past Medical History: Cancer, COPD, Diabetes Mellitus, Hypertension Additional Past Medical History / Comment(s): chronic back pain, Lung Cancer History of Any Multi-Drug Resistant Organisms: None Reported Past Surgical History: Cholecystectomy Past Psychological History: No Psychological Hx Reported Smoking Status: Current every day smoker Past Alcohol Use History: None Reported Past Drug Use History: None Reported General Exam - General Exam Comments Initial Comments: Constitutional: Pt appears well-developed and well-nourished. Patient is ill- appearing Head: Normocephalic and atraumatic. Eyes: EOM are normal. Neck: Normal range of motion. Neck supple. Cardiovascular: Tachycardia present, regular rhythm, S1 normal, S2 normal and normal heart sounds. Exam reveals no gallop and no friction rub. No murmur heard. Pulmonary/Chest: Effort normal and breath sounds normal. No tachypnea and no bradypnea. No respiratory distress. No wheezes or rales noted. Abdominal: Soft. Bowel sounds are normal. Pt exhibits no shifting dullness, no distension, no pulsatile liver, no fluid wave, no abdominal bruit and no ascites. There is no rigidity, no rebound, no guarding, no tenderness at McBurney's point and negative Cartwright's sign. There is diffuse tenderness Musculoskeletal: Normal range of motion. Neurological: Pt is alert and oriented to person, place, and time. No cranial nerve deficit. Skin: Skin is warm and dry. No rash noted. Pt is not diaphoretic. No erythema. No pallor. Psychiatric: Pt has a normal mood and affect. Pt behavior is normal. Thought content normal. Limitations: no limitations Course Vital Signs 05/03/18 05/03/18 05/03/18 11:24 11:47 12:00 Temperature 97.7 F Pulse Rate 125 H 120 H 121 H Respiratory 18 Rate Blood Pressure 115/72 138/86 138/86 O2 Sat by Pulse 98 97 Oximetry 05/03/18 05/03/18 05/03/18 12:30 13:00 13:30 Temperature Pulse Rate 125 H 113 H 114 H Respiratory Rate Blood Pressure 129/85 128/92 127/92 O2 Sat by Pulse 96 Oximetry 05/03/18 14:00 Temperature Pulse Rate 113 H Respiratory Rate Blood Pressure 135/86 O2 Sat by Pulse 94 L Oximetry Chest Pain MDM - MDM Laboratory studies showed that there was no significant leukocytosis but lactic acid was elevated at 2.1. There is also evidence of hyperglycemia but no evidence of DKA as bicarb was 24. From a cardiac standpoint, troponin was not elevated and EKG showed sinus tachycardia. Urinalysis was negative for infection and CT PE study was performed as well as CT abdomen as the patient was having chest pain and abdominal pain and showed no evidence of pulmonary embolism but did show sigmoid colitis. Because the family was continued to be tachycardic as well as having fevers and chills, patient was started on Zosyn. Explained all labs and diagnostic test results and that we will admit patient to hospital. Pt is agreeable to plan and case has been discussed with Dr. Olson and they agree to accept the pt. Disposition Clinical Impression: Mediastinal mass, Chest pain, Colitis Disposition: ADMITTED IP TO THIS HOSP Condition: Good Referrals: Abe rWight DO [Primary Care Provider] - 1-2 days Decision to Admit Reason: Admit from [facility] Decision Date: 05/03/18 Decision Time: 15:12
[2018-05-03 12:21] LABS: Basophils % (A) 0 %; Eosinophils % (A) 1 %; HCT 46.6 % (39.0-53.0); HGB 14.7 gm/dL (13.0-17.5); Lymphocytes # (A) 0.1 k/uL (1.0-4.8); Lymphocytes % (A) 3 %; MCH 31.5 pg (25.0-35.0); MCHC 31.6 g/dL (31.0-37.0); Macrocytosis Slight; Mean Platelet Volume 7.8; Monocytes # (A) 0.2 k/uL (0-1.0); Monocytes % (A) 3 %; Neutrophils # (A) 4.4 k/uL (1.3-7.7); Neutrophils % (A) 92 %; Platelet Count 122 k/uL (150-450); RBC 4.66 m/uL (4.30-5.90); RDW 15.9 % (11.5-15.5); WBC 4.8 k/uL (3.8-10.6)
[2018-05-03 12:23] LABS: VBG PH 7.41 (7.31-7.41)
[2018-05-03] MEDS: SODIUM CHLORIDE 0.9% 500 ML 500 ML IV SCH ×2 (12:28→13:30)
[2018-05-03 12:31] LABS: INR 0.9 (<1.2); Partial Thromboplastin Time 22.9 sec (22.0-30.0); Prothrombin Time 9.8 sec (9.0-12.0)
[2018-05-03 12:37] LABS: ALT 21 U/L (21-72); AST 13 U/L (17-59); Albumin 5.2 g/dL (3.5-5.0); Alkaline Phosphatase 85 U/L (38-126); Anion Gap 25 mmol/L; Blood Urea Nitrogen 17 mg/dL (9-20); Calcium 10.6 mg/dL (8.4-10.2); Carbon Dioxide 20 mmol/L (22-30); Chloride 98 mmol/L (98-107); Glucose 442 mg/dL (74-99); Lipase 35 U/L (23-300); Potassium 4.5 mmol/L (3.5-5.1); Sodium 143 mmol/L (137-145); Total Bilirubin 1.4 mg/dL (0.2-1.3); Total Protein 8.9 g/dL (6.3-8.2)
[2018-05-03 13:46] LABS: Appearance,Urine Clear (Clear); Bilirubin,Urine Negative (Negative); Blood,Urine Negative (Negative); Color,Urine Yellow; Glucose,Urine (UA) 4+ (Negative); Leukocyte Esterase,Urine Negative (Negative); Mucus,Urine Rare /hpf; Nitrite,Urine Negative (Negative); PH, Urine 5.5 (5.0-8.0); Protein,Urine 1+ (Negative); RBC,Urine <1 /hpf (0-5); Specific Gravity,Urine 1.029 (1.001-1.035); Urobilinogen,Urine <2.0 mg/dL (<2.0)
--- NOTE | 2018-05-03 13:51 | CT ---
EXAMINATION TYPE: CT abdomen pelvis w con, CT chest angio for PE DATE OF EXAM: 05/03/2018 COMPARISON: 08/27/2017 HISTORY: Abdominal pain (accession [id number]), Chest pain (accession [id number]) CT DLP: 538.7 (accession [id number]), 259.9 (accession [id number]) mGycm Automated exposure control for dose reduction was used. TECHNIQUE: Helical acquisition of images was performed from the lung bases through the pelvis. CTA o f the chest was performed with MIP reformatted images of the vasculature performed at a separate work station. CONTRAST: Performed without Oral Contrast and with IV Contrast, patient injected with 100 mL of Isovue 370. FINDINGS: MEDIASTINUM: There is slightly suboptimal bolus timing as there is a clinical and nonopacification of the thoracic aorta and pulmonary arteries. However there is no filling defect seen within the pulmon jodie arteries to suggest embolism. There is encasement of the right main, right segmental to the upper lobe and subsegmental pulmonary arteries to the upper lobe by the known pulmonary mass. This has a g reatest anterior posterior dimension of 9.2 cm on image 43 of series 401 and transverse dimension joseline sured on image 36 measures 4.6 cm. There is downstream atelectasis likely included in this measuremen t. Thoracic adenopathy is seen in the subcarinal lymph node measuring 1.7 cm in short axis, right hil ar adenopathy cannot be distinguished from the surrounding mass, and right paratracheal adenopathy me asures 1.4 cm in short axis. No contralateral adenopathy is seen. Trace pericardial effusion is noted . Severe coronary artery calcifications are seen. No thoracic aortic dissection is noted. LUNGS: The pulmonary mass invading the mediastinum and encasing the right hilar bronchi and pulmonary arteries as discussed above in the mediastinal section given its invasion into the mediastinum. Thro ughout the remainder the lungs there is multifocal subsegmental atelectasis. No additional pulmonary masses are seen. There is slight right hemidiaphragm elevation. LIVER/GB: Focal fatty infiltration is seen near the fissure for the falciform ligament. Gallbladder s urgically absent. PANCREAS: No significant abnormality is seen. SPLEEN: No significant abnormality is seen. ADRENALS: No significant abnormality is seen. KIDNEYS: 1 cm right renal lesion is not definitively cystic and should be further evaluated with ultr asound as it is suspected to represent a cyst with pseudoenhancement. Remainder the kidneys enhance s ymmetrically. FREE AIR: No free air is visualized. ADENOPATHY: No greater than 1 cm short axis lymph nodes are seen within the abdomen or pelvis. OSSEOUS STRUCTURES: Moderate multilevel degenerative changes of the spine are noted. BOWEL: There is long segment sigmoid bowel wall thickening and incomplete distention. Remainder the colon is unremarkable. Appendix is air-filled and within normal limits. Cluster loops of mildly dilat ed small bowel reside within the left mid abdomen. Stomach is dilated and fluid-filled. No evidence o f outlet obstruction within the stomach. OTHER: Right anterior abdominal wall fat stranding either relate to contusion or subcutaneous injecti on site. Extensive atherosclerosis is seen of the abdominal aorta and its branches. IMPRESSION: 1. NO EVIDENCE OF PULMONARY EMBOLISM. THE PATIENT'S KNOWN RIGHT UPPER LUNG PULMONARY MASS INVADES THE MEDIASTINUM AND SURROUNDS THE RIGHT UPPER LOBE PULMONARY ARTERIES ENCASING THE ARTERIES AND BRONCHI WITH DOWNSTREAM ATELECTASIS. NO THORACIC AORTIC DISSECTION. 2. SEVERE CORONARY ARTERY CALCIFICATIONS, A MARKER OF CORONARY ARTERY DISEASE. 3. FINDINGS SUGGESTING SIGMOID COLITIS ALTHOUGH CORRELATION CLINICALLY IS RECOMMENDED THIS COULD A LTERNATIVELY REPRESENT INCOMPLETE DISTENTION. REACTIVE SMALL BOWEL ILEUS IS SEEN IN THE LEFT UPPER QU ADRANT. STOMACH IS ALSO NOTED TO BE DILATED AND FLUID-FILLED WITHOUT EVIDENCE OF OBSTRUCTION. 4. RIGHT RENAL LESION IS FAVORED TO REPRESENT A CYST ALTHOUGH CONFIRMATION WITH ULTRASOUND IS RECOMME NDED.
[2018-05-03 13:59] LABS: Ketones,Urine 3+ (Negative)
--- NOTE | 2018-05-03 14:21 | XR ---
EXAMINATION TYPE: XR chest 2V DATE OF EXAM: 05/03/2018 COMPARISON: 08/27/2017 HISTORY: Lung cancer and fever TECHNIQUE: Frontal and lateral views of the chest are obtained. FINDINGS: Right upper lobe mass is redemonstrated abutting the mediastinum. Right hemidiaphragm elev ation is unchanged. Remainder the lungs are clear. Cardiomediastinal silhouette is within normal limi ts. IMPRESSION: Similar-appearing right upper lobe mass abutting the mediastinal border and right hemith orax volume loss.
[2018-05-03] MEDS: SODIUM CHLORIDE 0.9% 1,000 ML IV SCH ×2 (14:24→23:24)
[2018-05-03] MEDS ORDERED: NALOXONE 0.4 MG/ML 1 ML VIAL IV PRN (15:12)
[2018-05-03] MEDS ORDERED: ONDANSETRON 4 MG/2 ML VIAL IVP PRN (15:12)
[2018-05-03 15:54] LABS: ABG Base Excess -1.8 mmol/L; ABG HCO3 23 mmol/L (21-25); ABG Oxygen Saturation 98.5 % (94-97); ABG PCO2 34 mmHg (35-45); ABG PH 7.43 (7.35-7.45); ABG PO2 101 mmHg (83-108); ABG TCO2 24 mmol/L (19-24)
[2018-05-03] MEDS ORDERED: BENZOCAINE/MENTHOL LOZENG 1 EACH LOZENGE MUCOUS MEM PRN (16:16)
[2018-05-03] MEDS ORDERED: oxyCODONE-APAP 5-325MG 1 EACH TAB PO PRN (16:16)
[2018-05-03] MEDS: PIPERACILLIN-TAZOBACTAM 3.375 GM in SODIUM CHLORIDE 0.9% 100 ML IVPB SCH ×2 (16:37→23:22)
[2018-05-03 16:58] LABS: Glucose,Whole Blood 393 mg/dL (75-99)
--- NOTE | 2018-05-03 17:57 | P.HPIM ---
History of Present Illness H&P Date: 05/03/18 Chief Complaint: Chest discomfort, abdominal pain and nausea vomiting for couple days. This 57-year-old male past medical history significant for hypertension, COPD, chronic back pain, diverticulitis on insulin and recently diagnosed right lung mass currently on radiation and chemotherapy at [place], who was brought to the emergency room with the above complains. Patient stated that he was in his usual state of health until a few days ago when he started having the above symptoms. Patient stated that he is currently receiving chemotherapy every Saturday and radiation therapy to his right upper chest/lung mass daily from Saturday through Saturday. Most recent chemo and radiation treatment was yesterday. Patient described chest pain about a week for less than discomfort over the chest that he has noticed getting worse with the radiation treatment. Patient also complains of having difficulty swallowing due to the soreness in the throat that also started after the radiation treatment. Regarding his abdominal pain patient stated that he is 5 or 10 in intensity and nonradiating lower abdominal and they're constant in nature. Patient reports his it is dull that get worse with activity and nausea and vomiting. Patient reports there is no worsening of the pain with bowel movement and his last bowel movement was this morning. Patient denies fever, chills, cough, phlegm production, headache, dizziness, lightheadedness, palpitation, diaphoresis and denies rest of the review system. Patient was evaluated in the emergency department and EKG was done which showed sinus tachycardia chest x-ray was done which showed right upper lobe mass alrea dy known and CAT scan of the chest with pulmonary embolism protocol was done showed no pulmonary embolism or aortic dissection. Patient was reported to have severe coronary artery disease by calcium deposits in the coronaries. CT of the abdomen and pelvis was done which showed sigmoid colitis with the left-sided upper quadrant reactive his small bowel ES and dilated stomach with fluid filled cavity without evidence of obstruction. The CAT scan also reported that his right renal cyst for which they recommended ultrasound evaluation. Patient was also noted to have elevated anion gap of 25 white Slightly low of 20 and serum acetone which was positive lipase was okay and serum osmolality was increased at 317. Initial VBGs is was done which showed normal pH and bicarb. Patient's lactic acid was 2.1. Patient was then admitted to hospitalist service for further workup and evaluation and management of his condition. Review of Systems All systems: negative Past Medical History Past Medical History: Cancer, COPD, Diabetes Mellitus (Insuline Requiring.), Hypertension Additional Past Medical History / Comment(s): chronic back pain, Lung Cancer History of Any Multi-Drug Resistant Organisms: None Reported Past Surgical History: Cholecystectomy Past Psychological History: No Psychological Hx Reported Smoking Status: Current every day smoker (1 PPD.) Past Alcohol Use History: None Reported Past Drug Use History: None Reported - Past Family History Father Brother(s) Family Medical History: No Reported History Mother Family Medical History: No Reported History Medications and Allergies Home Medications Medication Instructions Recorded Confirmed Type HYDROcodone/APAP 10-325MG [[place] 1 tab PO QID 08/27/17 05/03/18 History 10-325] INSULIN LISPRO (humaLOG) [humaLOG] See Protocol SQ AC-TID 08/27/17 05/03/18 History Insulin Glargine [Lantus] 20 unit SQ HS 05/03/18 05/03/18 History Morphine Sulfate ER [Ms Contin] 15 mg PO Q12HR 05/03/18 05/03/18 History Ondansetron [Zofran] 4 mg PO Q8HR PRN 05/03/18 05/03/18 History Allergies Allergy/AdvReac Type Severity Reaction Status Date / Time No Known Allergies Allergy Verified 05/03/18 11:48 Physical Exam Vitals: Vital Signs Temp Pulse Resp BP Pulse Ox 05/03/18 14:00 113 H 135/86 94 L 05/03/18 13:30 114 H 127/92 96 05/03/18 13:00 113 H 128/92 05/03/18 12:30 125 H 129/85 05/03/18 12:00 121 H 138/86 05/03/18 11:47 120 H 138/86 97 05/03/18 11:24 97.7 F 125 H 18 115/72 98 Intake and Output 05/03/18 05/03/18 05/03/18 06:59 14:59 22:59 Other: Weight 86.636 kg - Constitutional General appearance: average body habitus, cooperative, no acute distress - EENT Eyes: anicteric sclerae, EOMI, PERRLA ENT: NA/AT - Neck Neck: no lymphadenopathy, normal ROM, no rigidity, no stridor, no thyromegaly - Respiratory Overall lungs were clear to auscultation but there are a few scattered wheezes heard more on the right. No crackles, rhonchi appreciated. - Cardiovascular Rhythm: regular Heart sounds: normal: S1, S2 Abnormal Heart Sounds: no systolic murmur, no diastolic murmur, no rub, no S3 Ga llop, no S4 Gallop, no click - Gastrointestinal Patient abdomen was soft, bowel sounds positive on the right upper and lower quadrant and around the umblicus. But there is sluggish to none bowel sounds in the left upper quadrant area. On palpation with mild palpation patient abdomen was sore all over but there was no guarding, rigidity, rebound detected. - Genitourinary Defferd. - Integumentary Integumentary: no cellulitis, no cyanotic, decreased turgor, no flushed, no jaundiced, normal, no pale, no rash, no ulcer - Neurologic Neurologic: CNII-XII intact - Musculoskeletal Unable to assess patient's gait due to his condition. Musculoskeletal: generalized weakness, strength equal bilaterally - Psychiatric Psychiatric: A&O x's 3, intact judgment & insight Results CBC & Chem 7: 05/03/18 12:00 05/03/18 12:00 Labs: Abnormal Lab Results - Last 24 Hours (Table) 05/03/18 05/03/18 05/03/18 Range/Units 11:48 12:00 12:00 RDW 15.9 H (11.5-15.5) % Plt Count 122 L (150-450) k/uL Lymphocytes # 0.1 L (1.0-4.8) k/uL ABG pCO2 (35-45) mmHg ABG O2 Saturation (94-97) % Carbon Dioxide 20 L (22-30) mmol/L Creatinine 0.64 L (0.66-1.25) mg/dL Glucose 442 H (74-99) mg/dL POC Glucose (mg/dL) 455 H (75-99) mg/dL Osmolality 322 H (280-301) mosm/kg Plasma Lactic Acid Rio (0.7-2.0) mmol/L Calcium 10.6 H (8.4-10.2) mg/dL Total Bilirubin 1.4 H (0.2-1.3) mg/dL AST 13 L (17-59) U/L Total Protein 8.9 H (6.3-8.2) g/dL Albumin 5.2 H (3.5-5.0) g/dL Urine Protein (Negative) Urine Glucose (UA) (Negative) Urine Ketones (Negative) Urine Mucus (None) /hpf 05/03/18 05/03/18 05/03/18 Range/Units 12:00 13:30 15:50 RDW (11.5-15.5) % Plt Count (150-450) k/uL Lymphocytes # (1.0-4.8) k/uL ABG pCO2 34 L (35-45) mmHg ABG O2 Saturation 98.5 H (94-97) % Carbon Dioxide (22-30) mmol/L Creatinine (0.66-1.25) mg/dL Glucose (74-99) mg/dL POC Glucose (mg/dL) (75-99) mg/dL Osmolality (280-301) mosm/kg Plasma Lactic Acid Rio 2.1 H* (0.7-2.0) mmol/L Calcium (8.4-10.2) mg/dL Total Bilirubin (0.2-1.3) mg/dL AST (17-59) U/L Total Protein (6.3-8.2) g/dL Albumin (3.5-5.0) g/dL Urine Protein 1+ H (Negative) Urine Glucose (UA) 4+ H (Negative) Urine Ketones 3+ H (Negative) Urine Mucus Rare H (None) /hpf Microbiology - Last 24 Hours (Table) 05/03/18 13:30 Urine Culture - Preliminary Urine,Voided Chest x-ray: report reviewed CT scan - abdomen: report reviewed CT scan - chest: report reviewed Thrombosis Risk Factor Assmnt - Choose All That Apply Any of the Below Risk Factors Present?: Yes Each Factor Represents 1 point: Age 41-60 years Thrombosis Risk Factor Assessment Total Risk Factor Score: 1 Thrombosis Risk Factor Assessment Level: Low Risk Assessment and Plan (1) Acute abdominal pain Current Visit: Yes Status: Acute Priority: High Onset Date: ~05/01/18 Code(s): R10.9 - UNSPECIFIED ABDOMINAL PAIN SNOMED Code(s): 187536326 (2) Gastroparesis due to DM Narrative/Plan: Presentation as nausea, vomiting and dehydration. Current Visit: Yes Status: Acute Priority: High Code(s): E11.43 - TYPE 2 DIABETES W DIABETIC AUTONOMIC (POLY)NEUROPATHY; K31.84 - GASTROPARESIS SNOMED Code(s): 539654675 (3) Hypertension, essential, benign Current Visit: Yes Status: Acute Priority: Medium Code(s): I10 - ESSENTIAL (PRIMARY) HYPERTENSION SNOMED Code(s): 7206216 (4) COPD (chronic obstructive pulmonary disease) Current Visit: Yes Status: Acute Priority: Medium Code(s): J44.9 - CHRONIC OBSTRUCTIVE PULMONARY DISEASE, UNSPECIFIED SNOMED Code(s): 81480039 (5) Smoking addiction Current Visit: Yes Status: Acute Priority: Medium Code(s): F17.200 - NICOTINE DEPENDENCE, UNSPECIFIED, UNCOMPLICATED SNOMED Code(s): 529604600 (6) Colitis Narrative/Plan: Associated with acute abdominal pain, lactic acidosis and mild decrease in bicarbonate with respiratory compensation. Current Visit: Yes Status: Acute Priority: High Code(s): K52.9 - NONINFECTIVE GASTROENTERITIS AND COLITIS, UNSPECIFIED SNOMED Code(s): 74578070 (7) Mediastinal mass Narrative/Plan: Due to right upper lobe lung cancer, patient is currently on chemotherapy along with daily radiation therapy. We'll consult oncology. Current Visit: Yes Status: Acute Priority: High Code(s): J98.59 - OTHER DISEASES OF MEDIASTINUM, NOT ELSEWHERE CLASSIFIED SNOMED Code(s): 05055028 (8) Dehydration Current Visit: No Status: Acute Priority: High Code(s): E86.0 - DEHYDRATION SNOMED Code(s): 22985584 (9) Uncontrolled diabetes mellitus Narrative/Plan: Could be uncontrolled diabetes leading to the patient's presentation symptoms or the other way around where patient unable to keep anything down and has decreased his insulin consumption now patient pressure is very high. Current Visit: No Status: Acute Priority: High Code(s): E11.65 - TYPE 2 DIABETES MELLITUS WITH HYPERGLYCEMIA SNOMED Code(s): 22829108 Plan: Patient was admitted to stepdown unit, I will keep him nothing by mouth and we'll consult general surgery for their input and recommendations regarding patient's acute abdominal pain and colitis of the sigmoid colon noted on the CAT scan. Also patient has possible gastroparesis with dilated stomach and fluid filled cavity recently presented with nausea and vomiting was noted to be dehydrated so if patient continues to have vomiting the patient will be managed with nasogastric suction along with NPO satus. For his dehydration due to N/V he will be given IV hydration and he will be monitored closely. Patient does have diagnosis of COPD but is not on current treatment with bronchodilators, we will initiate PRN the treatment with Alb via HHN. Patient was given smoking cessation counseling and it was not well taken by him and we will initiate Habitrol patch to decrease the cravings of nicotine. Patient's lung mass/cancer was being actively treated with chemotherapy and radiation treatment and we will consult oncology to follow him while in the hospital. Patient oncologist is out from [facility]. Patient is kept nothing by mouth and I will start him on sliding scale regular insulin and will hold his insulin glargine and NovoLog for now. I did a stat ABGs to look for possibility of DKA but it was not evident although patient does have elevated acetone in the serum. Beta hydroxybutyrate level will be ordered although it is not done locally and will be sent out to the outside lab on Saturday. For patient's renal cyst reported on CAT scan I will order ultrasound kidneys bilateral to further evaluate it. Expected length of stay is 3-4 days. Time with Patient: Greater than 30 (More than 50% tie spen with counseling and coordination of care.)
[2018-05-03] MEDS ORDERED: ALBUTEROL NEBULIZED 2.5 MG/3 ML INHALATION PRN (18:00)
[2018-05-03] MEDS: HYDROmorphone 0.5 MG/0.5 ML SYRINGE IVP PRN (18:44)
[2018-05-03] MEDS: HEPARIN SODIUM,PORCINE 5,000 UNIT/ML 1 ML VIAL SQ SCH ×2 (19:35→23:23)
[2018-05-03 20:42] LABS: Glucose,Whole Blood 530 mg/dL (75-99)
[2018-05-03] MEDS: INSULIN REGULAR 100 UNIT/ML VIAL SQ SCH ×2 (21:31→23:23)
[2018-05-03] MEDS: HYDROmorphone 1 MG/ML 1 ML SYRINGE IV PRN (22:33)
[2018-05-03 23:24] LABS: Glucose,Whole Blood 341 mg/dL (75-99)
[2018-05-03 23:27] LABS: Anion Gap 21 mmol/L; Blood Urea Nitrogen 24 mg/dL (9-20); Calcium 10.2 mg/dL (8.4-10.2); Carbon Dioxide 22 mmol/L (22-30); Chloride 105 mmol/L (98-107); Glucose 391 mg/dL (74-99); Potassium 4.2 mmol/L (3.5-5.1); Sodium 148 mmol/L (137-145)
[2018-05-04] MEDS: ONDANSETRON 4 MG/2 ML VIAL IVP PRN ×3 (00:12→20:28)
[2018-05-04] MEDS: HYDROmorphone 1 MG/ML 1 ML SYRINGE IV PRN ×7 (01:41→23:42)
[2018-05-04 04:45] LABS: Glucose,Whole Blood 340 mg/dL (75-99)
[2018-05-04] MEDS: INSULIN REGULAR 100 UNIT/ML VIAL SQ SCH (06:24)
[2018-05-04 07:40] LABS: Basophils % (A) 0 %; Eosinophils % (A) 0 %; HCT 42.8 % (39.0-53.0); HGB 13.5 gm/dL (13.0-17.5); Lymphocytes # (A) 0.3 k/uL (1.0-4.8); Lymphocytes % (A) 6 %; MCH 31.2 pg (25.0-35.0); MCHC 31.5 g/dL (31.0-37.0); MCV 99.1 fL (80.0-100.0); Macrocytosis Slight; Mean Platelet Volume 8.2; Monocytes # (A) 0.4 k/uL (0-1.0); Monocytes % (A) 7 %; Neutrophils # (A) 4.1 k/uL (1.3-7.7); Neutrophils % (A) 84 %; Platelet Count 136 k/uL (150-450); RBC 4.31 m/uL (4.30-5.90); RDW 15.8 % (11.5-15.5); WBC 4.8 k/uL (3.8-10.6)
[2018-05-04 07:57] LABS: ALT 26 U/L (21-72); AST 14 U/L (17-59); Albumin 4.3 g/dL (3.5-5.0); Alkaline Phosphatase 77 U/L (38-126); Anion Gap 15 mmol/L; Blood Urea Nitrogen 27 mg/dL (9-20); Calcium 9.8 mg/dL (8.4-10.2); Carbon Dioxide 25 mmol/L (22-30); Chloride 107 mmol/L (98-107); Glucose 353 mg/dL (74-99); Magnesium 2.1 mg/dL (1.6-2.3); Potassium 4.1 mmol/L (3.5-5.1); Sodium 147 mmol/L (137-145); Total Bilirubin 0.9 mg/dL (0.2-1.3); Total Protein 7.9 g/dL (6.3-8.2)
[2018-05-04] MEDS: NICOTINE 21MG/24HR PATCH TRANSDERM SCH (08:13)
[2018-05-04] MEDS: HEPARIN SODIUM,PORCINE 5,000 UNIT/ML 1 ML VIAL SQ SCH ×3 (08:13→23:42)
--- NOTE | 2018-05-04 08:59 | US ---
EXAMINATION TYPE: US kidneys/renal and bladder DATE OF EXAM: 05/04/2018 COMPARISON: CT dated 05/03/2018, US dated 08/28/2017 CLINICAL HISTORY: Renal cyst noted on CT-Abdomen exam today.. Right renal cyst in CT EXAM MEASUREMENTS: Right Kidney: 12.5 x 5.7 x 6.2 cm Left Kidney: 12.0 x 5.2 x 5.5 cm Pt in pain, unable to tolerate probe pressure during exam, somewhat limited Right Kidney: Cyst mid= 1.4 x 0.9 x 1.1 cm/ otherwise appeared wnl Left Kidney: Appeared wnl Bladder: wnl Bilateral Jets seen: Yes Cortical medullary differentiation is maintained. Cystic focus within the right renal cortex shows in creased through transmission, imperceptible wall and is anechoic compatible simple cyst. There is no ascites. IMPRESSION: Findings on CT are confirmed. Right renal cysts appear simple.
[2018-05-04] MEDS ORDERED: INSULIN DETEMIR (LEVEMIR) 100 UNIT/ML SYR SQ SCH (09:00)
[2018-05-04] MEDS: PIPERACILLIN-TAZOBACTAM 3.375 GM in SODIUM CHLORIDE 0.9% 100 ML IVPB SCH (09:23)
[2018-05-04] MEDS: MORPHINE SULFATE ER 15 MG TABLET PO SCH ×2 (09:24→20:29)
[2018-05-04] MEDS: SODIUM CHLORIDE 0.9% 1,000 ML IV SCH ×4 (09:24→23:42)
[2018-05-04] MEDS ORDERED: MAG HYDROX/AL HYDROX/SIMETH 30 ML, diphenhydrAMINE ELIXIR 75 MG, LIDOCAINE VISCOUS 30 ML PO PRN ×3 (10:36)
--- NOTE | 2018-05-04 10:54 | P.PN ---
Subjective Progress Note Date: 05/04/18 Principal diagnosis: abdominal pain Patient is a 57-year-old male to past medical history of lung cancer currently undergoing chemotherapy and radiation at [facility], hypertension, COPD, and chronic back pain who presented to the emergency department with complaints of abdominal pain. The ER he underwent an extensive evaluation. On his initial vital signs his found be tachycardic with a heart rate of 125. Initial laboratory analysis showed thrombocytopenia with platelets of 122, elevated blood sugar of 442, carbon dioxide of 20, an anion gap of 25. He was found have slightly elevated lactic acid at 2.1. His total calcium was elevated at 10.6. Osmolality elevated at 322. And positive acetone. He underwent a CT chest, abdomen and pelvis which showed no evidence of pulmonary embolism but no right upper lung pulmonary mass invading into the mediastinum and surrounding the right upper lobe pulmonary arteries and bronchitis, severe coronary artery c alcifications, and possible sigmoid colitis versus incomplete distention. There was a small bowel ileus and left upper quadrant and stomach was noted to be dilated and fluid-filled without evidence of obstruction. He was admitted to the general medical floor and was placed on IV fluids and insulin sliding scale. He was made nothing by mouth and surgery was consulted. Patient seen and examined at bedside. His abdominal pain is getting better. He still complains of dry mouth and throat pain. Abdominal pain is getting better. He has not been having any diarrhea. He reports that he was started on insulin by his oncologist due to elevated blood sugars from steroids associated with chemo. He does not have a PCP or contact lens flashing puncher. He has not seen a cosmetology educator or dietitian. He reports that at home he is having sugars in the upper 400s and then is overtreating and will plumit to the 40s. He has been feeling fatigued. His appetite is poor and he is eating one meal daily. Discussed with patient and he would be agreeable to palliative care at home as he is struggling with appetite, blood sugars, and fatigue. Objective - Vital Signs Vital signs: Vital Signs Temp 98.5 F 05/04/18 08:21 Pulse 123 H 05/04/18 08:21 Resp 20 05/04/18 08:21 BP 127/77 05/04/18 08:21 Pulse Ox 96 05/04/18 08:21 Intake & Output 05/03/18 05/04/18 05/04/18 17:59 06:59 18:59 Output Total 0 Balance 0 Weight Output: Urine 0 - Exam General: non toxic, mild distress, appears at stated age Derm: warm, dry Head: atraumatic, normocephalic, symmetric Eyes: EOMI, no lid lag, anicteric sclera Mouth: no lip lesion, mucus membranes dry Cardiovascular: S1S2 reg, no murmur, positive posterior tibial pulse bilateral, Lungs: wheeze b/l, no rhonchi, no rales , no accessory muscle use Abdominal: soft, + tender to palpation r/l LQ, no guarding, no appreciable organomegaly Ext: no gross muscle atrophy, trace edema, no contractures Neuro: CN II-XI grossly intact, no focal neuro deficits Psych: Alert, oriented, appropriate affect - Labs CBC & Chem 7: 05/04/18 07:14 05/04/18 07:14 Labs: Abnormal Lab Results - Last 24 Hours (Table) 05/03/18 05/03/18 05/03/18 Range/Units 11:48 12:00 12:00 RDW 15.9 H (11.5-15.5) % Plt Count 122 L (150-450) k/uL Lymphocytes # 0.1 L (1.0-4.8) k/uL ABG pCO2 (35-45) mmHg ABG O2 Saturation (94-97) % Sodium (137-145) mmol/L Carbon Dioxide 20 L (22-30) mmol/L BUN (9-20) mg/dL Creatinine 0.64 L (0.66-1.25) mg/dL Glucose 442 H (74-99) mg/dL POC Glucose (mg/dL) 455 H (75-99) mg/dL Osmolality 322 H (280-301) mosm/kg Plasma Lactic Acid Rio (0.7-2.0) mmol/L Calcium 10.6 H (8.4-10.2) mg/dL Total Bilirubin 1.4 H (0.2-1.3) mg/dL AST 13 L (17-59) U/L Total Protein 8.9 H (6.3-8.2) g/dL Albumin 5.2 H (3.5-5.0) g/dL Urine Protein (Negative) Urine Glucose (UA) (Negative) Urine Ketones (Negative) Urine Mucus (None) /hpf 05/03/18 05/03/18 05/03/18 Range/Units 12:00 13:30 15:50 RDW (11.5-15.5) % Plt Count (150-450) k/uL Lymphocytes # (1.0-4.8) k/uL ABG pCO2 34 L (35-45) mmHg ABG O2 Saturation 98.5 H (94-97) % Sodium (137-145) mmol/L Carbon Dioxide (22-30) mmol/L BUN (9-20) mg/dL Creatinine (0.66-1.25) mg/dL Glucose (74-99) mg/dL POC Glucose (mg/dL) (75-99) mg/dL Osmolality (280-301) mosm/kg Plasma Lactic Acid Rio 2.1 H* (0.7-2.0) mmol/L Calcium (8.4-10.2) mg/dL Total Bilirubin (0.2-1.3) mg/dL AST (17-59) U/L Total Protein (6.3-8.2) g/dL Albumin (3.5-5.0) g/dL Urine Protein 1+ H (Negative) Urine Glucose (UA) 4+ H (Negative) Urine Ketones 3+ H (Negative) Urine Mucus Rare H (None) /hpf 05/03/18 05/03/18 05/03/18 Range/Units 16:35 16:57 20:39 RDW (11.5-15.5) % Plt Count (150-450) k/uL Lymphocytes # (1.0-4.8) k/uL ABG pCO2 (35-45) mmHg ABG O2 Saturation (94-97) % Sodium (137-145) mmol/L Carbon Dioxide (22-30) mmol/L BUN (9-20) mg/dL Creatinine (0.66-1.25) mg/dL Glucose (74-99) mg/dL POC Glucose (mg/dL) 393 H 530 H (75-99) mg/dL Osmolality (280-301) mosm/kg Plasma Lactic Acid Rio 2.1 H* (0.7-2.0) mmol/L Calcium (8.4-10.2) mg/dL Total Bilirubin (0.2-1.3) mg/dL AST (17-59) U/L Total Protein (6.3-8.2) g/dL Albumin (3.5-5.0) g/dL Urine Protein (Negative) Urine Glucose (UA) (Negative) Urine Ketones (Negative) Urine Mucus (None) /hpf 05/03/18 05/03/18 05/04/18 Range/Units 22:46 23:21 04:42 RDW (11.5-15.5) % Plt Count (150-450) k/uL Lymphocytes # (1.0-4.8) k/uL ABG pCO2 (35-45) mmHg ABG O2 Saturation (94-97) % Sodium 148 H (137-145) mmol/L Carbon Dioxide (22-30) mmol/L BUN 24 H (9-20) mg/dL Creatinine (0.66-1.25) mg/dL Glucose 391 H (74-99) mg/dL POC Glucose (mg/dL) 341 H 340 H (75-99) mg/dL Osmolality (280-301) mosm/kg Plasma Lactic Acid Rio (0.7-2.0) mmol/L Calcium (8.4-10.2) mg/dL Total Bilirubin (0.2-1.3) mg/dL AST (17-59) U/L Total Protein (6.3-8.2) g/dL Albumin (3.5-5.0) g/dL Urine Protein (Negative) Urine Glucose (UA) (Negative) Urine Ketones (Negative) Urine Mucus (None) /hpf 05/04/18 05/04/18 Range/Units 07:14 07:14 RDW 15.8 H (11.5-15.5) % Plt Count 136 L (150-450) k/uL Lymphocytes # 0.3 L (1.0-4.8) k/uL ABG pCO2 (35-45) mmHg ABG O2 Saturation (94-97) % Sodium 147 H (137-145) mmol/L Carbon Dioxide (22-30) mmol/L BUN 27 H (9-20) mg/dL Creatinine (0.66-1.25) mg/dL Glucose 353 H (74-99) mg/dL POC Glucose (mg/dL) (75-99) mg/dL Osmolality (280-301) mosm/kg Plasma Lactic Acid Rio (0.7-2.0) mmol/L Calcium (8.4-10.2) mg/dL Total Bilirubin (0.2-1.3) mg/dL AST 14 L (17-59) U/L Total Protein (6.3-8.2) g/dL Albumin (3.5-5.0) g/dL Urine Protein (Negative) Urine Glucose (UA) (Negative) Urine Ketones (Negative) Urine Mucus (None) /hpf Microbiology - Last 24 Hours (Table) 05/03/18 13:30 Urine Culture - Preliminary Urine,Voided Assessment and Plan Assessment: Diabetic ketoacidosis -Pain Resolved -Doses of Levemir this morning, transitioned to short acting sliding scale, follow blood sugars -Check A1c, last A1c in August 2017 was 10.4 -Dietitian consultation and cosmetology educator consultation -He needs PCP on discharge - clear liquid diet, if tolerated increase to full liquids this evening Abdominal pain -Likely secondary to above. No diarrhea, correlate with colitis on CAT scan but may be reactive to patient currently getting chemotherapy and radiation therapy. -Resume patient's home morphine sulfate 15 mg and continue with IV Dilaudid -Advance diet to clear liquids, stop zosyn Thrombocytopenia, likely reactive to chemo -Follow CBC -Outpatient follow-up Dehydration with hypernatremia -Increase IV fluids, liberalize diet -Follow sodium level at 3 PM and in a.m. Lung cancer currently on chemoradiation therapy -needs to continue follow-up with [facility] where he is receiving active therapy Tobacco abuse -Cessation -Nicotine replacement Chronic: HTN COPD DVT prophylaxis: Lovenox Discussed with: Patient and nursing Anticipated discharge: 24-[address]: home A total of 35 minutes was spent on the care of this complex patient more than 50% of the time was spent in counseling and care coordination.
[2018-05-04 11:30] LABS: Glucose,Whole Blood 327 mg/dL (75-99)
--- NOTE | 2018-05-04 11:45 | P.GSCN ---
History of Present Illness Consult date: 05/04/18 Reason for Consult: Possible sigmoid colitis History of present illness: This a 57-year-old male with history of lung cancer. Patient had complaints of some nausea abdominal pain. He is mainly complaining of pain in his back currently. He had a CAT scan performed which showed possible sigmoid colitis. Past Medical History Past Medical History: Cancer, COPD, Diabetes Mellitus, Hypertension Additional Past Medical History / Comment(s): chronic back pain, Lung Cancer History of Any Multi-Drug Resistant Organisms: None Reported Past Surgical History: Cholecystectomy Past Anesthesia/Blood Transfusion Reactions: No Reported Reaction Past Psychological History: No Psychological Hx Reported Smoking Status: Current every day smoker Past Alcohol Use History: None Reported Past Drug Use History: None Reported - Past Family History Father Brother(s) Family Medical History: No Reported History Mother Family Medical History: No Reported History Medications and Allergies Home Medications Medication Instructions Recorded Confirmed Type HYDROcodone/APAP 10-325MG [D[place]e 1 tab PO QID 08/27/17 05/03/18 History 10-325] INSULIN LISPRO (humaLOG) [humaLOG] See Protocol SQ AC-TID 08/27/17 05/03/18 History Insulin Glargine [Lantus] 20 unit SQ HS 05/03/18 05/03/18 History Morphine Sulfate ER [Ms Contin] 15 mg PO Q12HR 05/03/18 05/03/18 History Ondansetron [Zofran] 4 mg PO Q8HR PRN 05/03/18 05/03/18 History Allergies Allergy/AdvReac Type Severity Reaction Status Date / Time No Known Allergies Allergy Verified 05/03/18 11:48 Surgical - Exam Vital Signs Temp Pulse Resp BP Pulse Ox 97.7 F 125 H 18 115/72 98 05/03/18 11:24 05/03/18 11:24 05/03/18 11:24 05/03/18 11:24 05/03/18 11:24 - General no distress - Eyes PERRL - Abdomen Abdomen soft. There is some minimal tenderness in the right left lower quadrant. There is no rebound or guarding. Results - Labs 05/04/18 07:14 05/04/18 07:14 Abnormal Lab Results - Last 24 Hours (Table) 05/03/18 05/03/18 05/03/18 Range/Units 11:48 12:00 12:00 RDW 15.9 H (11.5-15.5) % Plt Count 122 L (150-450) k/uL Lymphocytes # 0.1 L (1.0-4.8) k/uL ABG pCO2 (35-45) mmHg ABG O2 Saturation (94-97) % Sodium (137-145) mmol/L Carbon Dioxide 20 L (22-30) mmol/L BUN (9-20) mg/dL Creatinine 0.64 L (0.66-1.25) mg/dL Glucose 442 H (74-99) mg/dL POC Glucose (mg/dL) 455 H (75-99) mg/dL Osmolality 322 H (280-301) mosm/kg Plasma Lactic Acid Rio (0.7-2.0) mmol/L Calcium 10.6 H (8.4-10.2) mg/dL Total Bilirubin 1.4 H (0.2-1.3) mg/dL AST 13 L (17-59) U/L Total Protein 8.9 H (6.3-8.2) g/dL Albumin 5.2 H (3.5-5.0) g/dL Urine Protein (Negative) Urine Glucose (UA) (Negative) Urine Ketones (Negative) Urine Mucus (None) /hpf 05/03/18 05/03/18 05/03/18 Range/Units 12:00 13:30 15:50 RDW (11.5-15.5) % Plt Count (150-450) k/uL Lymphocytes # (1.0-4.8) k/uL ABG pCO2 34 L (35-45) mmHg ABG O2 Saturation 98.5 H (94-97) % Sodium (137-145) mmol/L Carbon Dioxide (22-30) mmol/L BUN (9-20) mg/dL Creatinine (0.66-1.25) mg/dL Glucose (74-99) mg/dL POC Glucose (mg/dL) (75-99) mg/dL Osmolality (280-301) mosm/kg Plasma Lactic Acid Rio 2.1 H* (0.7-2.0) mmol/L Calcium (8.4-10.2) mg/dL Total Bilirubin (0.2-1.3) mg/dL AST (17-59) U/L Total Protein (6.3-8.2) g/dL Albumin (3.5-5.0) g/dL Urine Protein 1+ H (Negative) Urine Glucose (UA) 4+ H (Negative) Urine Ketones 3+ H (Negative) Urine Mucus Rare H (None) /hpf 05/03/18 05/03/18 05/03/18 Range/Units 16:35 16:57 20:39 RDW (11.5-15.5) % Plt Count (150-450) k/uL Lymphocytes # (1.0-4.8) k/uL ABG pCO2 (35-45) mmHg ABG O2 Saturation (94-97) % Sodium (137-145) mmol/L Carbon Dioxide (22-30) mmol/L BUN (9-20) mg/dL Creatinine (0.66-1.25) mg/dL Glucose (74-99) mg/dL POC Glucose (mg/dL) 393 H 530 H (75-99) mg/dL Osmolality (280-301) mosm/kg Plasma Lactic Acid Rio 2.1 H* (0.7-2.0) mmol/L Calcium (8.4-10.2) mg/dL Total Bilirubin (0.2-1.3) mg/dL AST (17-59) U/L Total Protein (6.3-8.2) g/dL Albumin (3.5-5.0) g/dL Urine Protein (Negative) Urine Glucose (UA) (Negative) Urine Ketones (Negative) Urine Mucus (None) /hpf 05/03/18 05/03/18 05/04/18 Range/Units 22:46 23:21 04:42 RDW (11.5-15.5) % Plt Count (150-450) k/uL Lymphocytes # (1.0-4.8) k/uL ABG pCO2 (35-45) mmHg ABG O2 Saturation (94-97) % Sodium 148 H (137-145) mmol/L Carbon Dioxide (22-30) mmol/L BUN 24 H (9-20) mg/dL Creatinine (0.66-1.25) mg/dL Glucose 391 H (74-99) mg/dL POC Glucose (mg/dL) 341 H 340 H (75-99) mg/dL Osmolality (280-301) mosm/kg Plasma Lactic Acid Rio (0.7-2.0) mmol/L Calcium (8.4-10.2) mg/dL Total Bilirubin (0.2-1.3) mg/dL AST (17-59) U/L Total Protein (6.3-8.2) g/dL Albumin (3.5-5.0) g/dL Urine Protein (Negative) Urine Glucose (UA) (Negative) Urine Ketones (Negative) Urine Mucus (None) /hpf 05/04/18 05/04/18 05/04/18 Range/Units 07:14 07:14 11:29 RDW 15.8 H (11.5-15.5) % Plt Count 136 L (150-450) k/uL Lymphocytes # 0.3 L (1.0-4.8) k/uL ABG pCO2 (35-45) mmHg ABG O2 Saturation (94-97) % Sodium 147 H (137-145) mmol/L Carbon Dioxide (22-30) mmol/L BUN 27 H (9-20) mg/dL Creatinine (0.66-1.25) mg/dL Glucose 353 H (74-99) mg/dL POC Glucose (mg/dL) 327 H (75-99) mg/dL Osmolality (280-301) mosm/kg Plasma Lactic Acid Rio (0.7-2.0) mmol/L Calcium (8.4-10.2) mg/dL Total Bilirubin (0.2-1.3) mg/dL AST 14 L (17-59) U/L Total Protein (6.3-8.2) g/dL Albumin (3.5-5.0) g/dL Urine Protein (Negative) Urine Glucose (UA) (Negative) Urine Ketones (Negative) Urine Mucus (None) /hpf Microbiology - Last 24 Hours (Table) 05/03/18 13:30 Urine Culture - Preliminary Urine,Voided Diabetes panel 05/03/18 05/03/18 05/04/18 Range/Units 12:00 22:46 07:14 Sodium 143 148 H 147 H (137-145) mmol/L Potassium 4.5 4.2 4.1 (3.5-5.1) mmol/L Chloride 98 105 107 (98-107) mmol/L Carbon Dioxide 20 L 22 25 (22-30) mmol/L BUN 17 24 H 27 H (9-20) mg/dL Creatinine 0.64 L 0.68 0.82 (0.66-1.25) mg/dL Glucose 442 H 391 H 353 H (74-99) mg/dL Calcium 10.6 H 10.2 9.8 (8.4-10.2) mg/dL AST 13 L 14 L (17-59) U/L ALT 21 26 (21-72) U/L Alkaline Phosphatase 85 77 (38-126) U/L Total Protein 8.9 H 7.9 (6.3-8.2) g/dL Albumin 5.2 H 4.3 (3.5-5.0) g/dL Calcium panel 05/03/18 05/03/18 05/04/18 Range/Units 12:00 22:46 07:14 Calcium 10.6 H 10.2 9.8 (8.4-10.2) mg/dL Albumin 5.2 H 4.3 (3.5-5.0) g/dL Pituitary panel 05/03/18 05/03/18 05/04/18 Range/Units 12:00 22:46 07:14 Sodium 143 148 H 147 H (137-145) mmol/L Potassium 4.5 4.2 4.1 (3.5-5.1) mmol/L Chloride 98 105 107 (98-107) mmol/L Carbon Dioxide 20 L 22 25 (22-30) mmol/L BUN 17 24 H 27 H (9-20) mg/dL Creatinine 0.64 L 0.68 0.82 (0.66-1.25) mg/dL Glucose 442 H 391 H 353 H (74-99) mg/dL Calcium 10.6 H 10.2 9.8 (8.4-10.2) mg/dL Adrenal panel 05/03/18 05/03/18 05/04/18 Range/Units 12:00 22:46 07:14 Sodium 143 148 H 147 H (137-145) mmol/L Potassium 4.5 4.2 4.1 (3.5-5.1) mmol/L Chloride 98 105 107 (98-107) mmol/L Carbon Dioxide 20 L 22 25 (22-30) mmol/L BUN 17 24 H 27 H (9-20) mg/dL Creatinine 0.64 L 0.68 0.82 (0.66-1.25) mg/dL Glucose 442 H 391 H 353 H (74-99) mg/dL Calcium 10.6 H 10.2 9.8 (8.4-10.2) mg/dL Total Bilirubin 1.4 H 0.9 (0.2-1.3) mg/dL AST 13 L 14 L (17-59) U/L ALT 21 26 (21-72) U/L Alkaline Phosphatase 85 77 (38-126) U/L Total Protein 8.9 H 7.9 (6.3-8.2) g/dL Albumin 5.2 H 4.3 (3.5-5.0) g/dL - Imaging CT scan - abdomen: report reviewed (Possible sigmoid colon colitis, this may be due to incomplete distention of the bowel.) Assessment and Plan Assessment: 57-year-old male with multiple medical problems and lung cancer. The the patient may have mild sigmoid colitis. At this point we will observe him. We'll repeat his labs in the a.m.
[2018-05-04] MEDS: INSULIN ASPART (NovoLOG) 100 UNIT/ML VIAL SQ SCH ×3 (12:27→20:29)
[2018-05-04 14:28] LABS: Glucose,Whole Blood 285 mg/dL (75-99)
[2018-05-04 15:30] LABS: Anion Gap 10 mmol/L; Blood Urea Nitrogen 26 mg/dL (9-20); Calcium 9.4 mg/dL (8.4-10.2); Carbon Dioxide 28 mmol/L (22-30); Chloride 108 mmol/L (98-107); Glucose 292 mg/dL (74-99); Potassium 4.2 mmol/L (3.5-5.1); Sodium 146 mmol/L (137-145)
[2018-05-04 16:33] LABS: Glucose,Whole Blood 256 mg/dL (75-99)
[2018-05-04] MEDS: HYDROmorphone 0.5 MG/0.5 ML SYRINGE IVP PRN (20:19)
[2018-05-04 20:27] LABS: Glucose,Whole Blood 225 mg/dL (75-99)
[2018-05-04] MEDS ORDERED: HYDROmorphone 0.5 MG/0.5 ML SYRINGE IVP STA (21:26)
[2018-05-05] MEDS: HYDROmorphone 1 MG/ML 1 ML SYRINGE IV PRN ×7 (02:13→21:22)
[2018-05-05 05:55] LABS: Glucose,Whole Blood 266 mg/dL (75-99)
[2018-05-05] MEDS: INSULIN ASPART (NovoLOG) 100 UNIT/ML VIAL SQ SCH ×4 (06:44→21:15)
[2018-05-05] MEDS: SODIUM CHLORIDE 0.9% 1,000 ML IV SCH ×3 (06:46→17:09)
[2018-05-05] MEDS: ONDANSETRON 4 MG/2 ML VIAL IVP PRN (07:09)
[2018-05-05] MEDS ORDERED: INSULIN DETEMIR (LEVEMIR) 100 UNIT/ML SYR SQ ONE (08:45)
[2018-05-05] MEDS: HEPARIN SODIUM,PORCINE 5,000 UNIT/ML 1 ML VIAL SQ SCH ×2 (09:10→15:13)
[2018-05-05] MEDS: MORPHINE SULFATE ER 15 MG TABLET PO SCH (09:11)
[2018-05-05] MEDS: NICOTINE 21MG/24HR PATCH TRANSDERM SCH (09:21)
[2018-05-05] MEDS ORDERED: MORPHINE SULFATE ER 15 MG TABLET PO STA (09:44)
[2018-05-05 09:52] LABS: Anisocytosis Slight; HCT 38.9 % (39.0-53.0); HGB 12.5 gm/dL (13.0-17.5); MCH 31.9 pg (25.0-35.0); MCV 99.5 fL (80.0-100.0); Macrocytosis Slight; Mean Platelet Volume 6.9; Platelet Count 100 k/uL (150-450); RBC 3.91 m/uL (4.30-5.90); RDW 16.4 % (11.5-15.5); WBC 4.8 k/uL (3.8-10.6)
[2018-05-05] MEDS ORDERED: METOCLOPRAMIDE ORAL SOLN 10 MG/10 ML CUP PO ONE (10:00)
[2018-05-05 10:03] LABS: Anion Gap 8 mmol/L; Blood Urea Nitrogen 18 mg/dL (9-20); Carbon Dioxide 27 mmol/L (22-30); Chloride 107 mmol/L (98-107); Glucose 216 mg/dL (74-99); Potassium 3.9 mmol/L (3.5-5.1); Sodium 142 mmol/L (137-145)
--- NOTE | 2018-05-05 10:48 | P.PN ---
Subjective Progress Note Date: 05/05/18 CHIEF COMPLAINT: Abdominal pain HISTORY OF PRESENT ILLNESS: Patient examined this morning the bedside. Patient states he is having pain in multiple areas this morning including his legs, arms, and back. Upon asking the patient if he had pain anywhere else he said "no". When questioned about his abdominal pain, he stated "oh yeah, there too". Patient reports having a bowel movement yesterday, normal in characteristics. He reports some mild nausea this morning. He denies vomiting. He is on a clear liquid diet. Patient states he is tolerating without difficulty. PHYSICAL EXAM: VITAL SIGNS: Currently stable. GENERAL: Well-developed in no acute distress. HEENT: No sclera icterus. Extraocular movements grossly intact. Moist buccal mucosa. Head is atraumatic, normocephalic. Hears conversational speech. No nasal drainage. CHEST: Non-labored respirations and equal bilateral excursions. CARDIOVASCULAR: Regular rate with regular rhythm. Palpable 2+ radial pulses. ABDOMEN: Soft. Nondistended. Minimal tenderness upon palpation. MUSCULOSKELETAL: No clubbing, cyanosis or edema. NEUROLOGIC: No focal or lateralizing signs. Cranial nerves II through XII grossly intact. PSYCH: Appropriate affect. Alert and oriented to person, place and time. SKIN: Well perfused. Good skin turgor. ASSESSMENT: 1. Possible mild sigmoid colitis PLAN: 1. Pain control per medicine 2. Continue conservative measures 3. Advance diet as tolerated Nurse practitioner note has been reviewed by physician. Signing provider agrees with the documented findings, assessment, and plan of care. Objective - Vital Signs Vital signs: Vital Signs Temp 98.3 F 05/05/18 08:00 Pulse 95 05/05/18 08:00 Resp 18 05/05/18 08:00 BP 147/88 05/05/18 08:00 Pulse Ox 95 05/05/18 08:00 Intake & Output 05/04/18 05/05/18 05/05/18 18:59 06:59 18:59 Intake Total 300 1200 10 Output Total 400 1000 400 Balance -100 200 -390 Weight 86.6 kg 81.6 kg Intake: IV 10 Invasive Line 1 10 Intake, IV Titration 1200 Amount Sodium Chloride 0.9% 1, 1200 000 ml @ 150 mls/hr IV . Q6H40M [facility] Rx#:[id number] Oral 300 Output: Urine 400 1000 400 Other: Voiding Method Toilet Urinal # Voids 1 - Labs CBC & Chem 7: 05/05/18 09:26 05/05/18 09:26 Labs: Abnormal Lab Results - Last 24 Hours (Table) 05/04/18 05/04/18 05/04/18 Range/Units 11:29 14:15 14:45 RBC (4.30-5.90) m/uL Hgb (13.0-17.5) gm/dL Hct (39.0-53.0) % RDW (11.5-15.5) % Plt Count (150-450) k/uL Sodium (137-145) mmol/L Chloride (98-107) mmol/L BUN (9-20) mg/dL Creatinine (0.66-1.25) mg/dL Glucose (74-99) mg/dL POC Glucose (mg/dL) 327 H 285 H (75-99) mg/dL Hemoglobin A1c 12.0 H (4.0-6.0) % 05/04/18 05/04/18 05/04/18 Range/Units 14:45 16:31 20:25 RBC (4.30-5.90) m/uL Hgb (13.0-17.5) gm/dL Hct (39.0-53.0) % RDW (11.5-15.5) % Plt Count (150-450) k/uL Sodium 146 H (137-145) mmol/L Chloride 108 H (98-107) mmol/L BUN 26 H (9-20) mg/dL Creatinine (0.66-1.25) mg/dL Glucose 292 H (74-99) mg/dL POC Glucose (mg/dL) 256 H 225 H (75-99) mg/dL Hemoglobin A1c (4.0-6.0) % 05/05/18 05/05/18 05/05/18 Range/Units 05:54 09:26 09:26 RBC 3.91 L (4.30-5.90) m/uL Hgb 12.5 L (13.0-17.5) gm/dL Hct 38.9 L (39.0-53.0) % RDW 16.4 H (11.5-15.5) % Plt Count 100 L (150-450) k/uL Sodium (137-145) mmol/L Chloride (98-107) mmol/L BUN (9-20) mg/dL Creatinine 0.61 L (0.66-1.25) mg/dL Glucose 216 H (74-99) mg/dL POC Glucose (mg/dL) 266 H (75-99) mg/dL Hemoglobin A1c (4.0-6.0) % Microbiology - Last 24 Hours (Table) 05/03/18 12:00 Blood Culture - Preliminary Blood No Growth after 24 hours 05/03/18 13:30 Urine Culture - Final Urine,Voided
[2018-05-05 11:29] LABS: Glucose,Whole Blood 224 mg/dL (75-99)
[2018-05-05 14:29] VITALS: BMI 26.5
--- NOTE | 2018-05-05 16:12 | P.PN ---
Subjective Progress Note Date: 05/05/18 Principal diagnosis: abdominal pain Patient is a 57-year-old male to past medical history of lung cancer currently undergoing chemotherapy and radiation at [facility], hypertension, COPD, and chronic back pain who presented to the emergency department with complaints of abdominal pain. The ER he underwent an extensive evaluation. On his initial vital signs his found be tachycardic with a heart rate of 125. Initial laboratory analysis showed thrombocytopenia with platelets of 122, elevated blood sugar of 442, carbon dioxide of 20, an anion gap of 25. He was found have slightly elevated lactic acid at 2.1. His total calcium was elevated at 10.6. Osmolality elevated at 322. And positive acetone. He underwent a CT chest, abdomen and pelvis which showed no evidence of pulmonary embolism but no right upper lung pulmonary mass invading into the mediastinum and surrounding the right upper lobe pulmonary arteries and bronchitis, severe coronary artery c alcifications, and possible sigmoid colitis versus incomplete distention. There was a small bowel ileus and left upper quadrant and stomach was noted to be dilated and fluid-filled without evidence of obstruction. He was admitted to the general medical floor and was placed on IV fluids and insulin sliding scale. He was made nothing by mouth and surgery was consulted. He was treated with conservative management. His DKA Improved with SSI. His A1C was noted to be 12 he was seen by the parts salvager as he was having both high and low sugars at home. He was struggling with pain all over. He did have several episode of vomiting though to be due to gastroparesis as noted on CT. Patient seen and examined at bedside. Complaining of pain all over. He denies any nausea at this point in time. He states he did vomit 1. Morning. He states the pain is severe in the morphine is not helping with the Dilaudid is. He states is also taking [place] tens at home which he felt was ineffective. He denies any cough, but nursing hands hurt from coughing and there appears to be an emesis basin with sputum in it. No chest pain. No shortness of breath. Patient does not seem to be coping with his symptoms associated with chemotherapy well. He also struggling with control of his sugars at home. Objective - Vital Signs Vital signs: Vital Signs Temp 98.0 F 05/05/18 15:09 Pulse 95 05/05/18 15:22 Resp 18 05/05/18 15:22 BP 138/85 05/05/18 15:09 Pulse Ox 98 05/05/18 15:09 Intake & Output 05/04/18 05/05/18 05/05/18 18:59 06:59 18:59 Intake Total 300 1200 10 Output Total 400 1000 400 Balance -100 200 -390 Weight 86.6 kg 81.6 kg 81.6 kg Intake: IV 10 Invasive Line 1 10 Intake, IV Titration 1200 Amount Sodium Chloride 0.9% 1, 1200 000 ml @ 150 mls/hr IV . Q6H40M [facility] Rx#:[id number] Oral 300 Output: Urine 400 1000 400 Other: Voiding Method Toilet Toilet Urinal Urinal # Voids 1 - Exam General: non toxic, mild distress, appears at stated age Derm: warm, dry Head: atraumatic, normocephalic, symmetric Eyes: EOMI, no lid lag, anicteric sclera Mouth: no lip lesion, mucus membranes dry Cardiovascular: S1S2 reg, no murmur, positive posterior tibial pulse bilateral, Lungs: Decreased breath sounds bilateral, no rales , no accessory muscle use Abdominal: soft, tender to palpation diffusely, no guarding, no appreciable organomegaly Ext: no gross muscle atrophy, trace edema, no contractures Neuro: CN II-XI grossly intact, no focal neuro deficits Psych: Alert, oriented, appropriate affect - Labs CBC & Chem 7: 05/05/18 09:26 05/05/18 09:26 Labs: Abnormal Lab Results - Last 24 Hours (Table) 05/04/18 05/04/18 05/04/18 Range/Units 14:45 16:31 20:25 RBC (4.30-5.90) m/uL Hgb (13.0-17.5) gm/dL Hct (39.0-53.0) % RDW (11.5-15.5) % Plt Count (150-450) k/uL Creatinine (0.66-1.25) mg/dL Glucose (74-99) mg/dL POC Glucose (mg/dL) 256 H 225 H (75-99) mg/dL Hemoglobin A1c 12.0 H (4.0-6.0) % 05/05/18 05/05/18 05/05/18 Range/Units 05:54 09:26 09:26 RBC 3.91 L (4.30-5.90) m/uL Hgb 12.5 L (13.0-17.5) gm/dL Hct 38.9 L (39.0-53.0) % RDW 16.4 H (11.5-15.5) % Plt Count 100 L (150-450) k/uL Creatinine 0.61 L (0.66-1.25) mg/dL Glucose 216 H (74-99) mg/dL POC Glucose (mg/dL) 266 H (75-99) mg/dL Hemoglobin A1c (4.0-6.0) % 05/05/18 Range/Units 11:25 RBC (4.30-5.90) m/uL Hgb (13.0-17.5) gm/dL Hct (39.0-53.0) % RDW (11.5-15.5) % Plt Count (150-450) k/uL Creatinine (0.66-1.25) mg/dL Glucose (74-99) mg/dL POC Glucose (mg/dL) 224 H (75-99) mg/dL Hemoglobin A1c (4.0-6.0) % Microbiology - Last 24 Hours (Table) 05/03/18 12:00 Blood Culture - Preliminary Blood No Growth after 48 hours 05/03/18 13:30 Urine Culture - Final Urine,Voided Assessment and Plan Assessment: Vomiting 1 likely related to diabetic gastroparesis -Reglan 1 -Continue with clear liquid diet, advance if tolerated lunch Intractable pain related to advance cancer - increase morphine sulfate to 30mg BID - continue with IV dilaudid for break through pain - Palliative care consult placed for discharge. DM 2 with hyperglycemia -Doses of Levemir this morning and increase night time dose , transitioned to short acting sliding scale, follow blood sugars -A1c 12, last A1c in August 2017 was 10.4 -Dietitian consultation and parts salvager consultation pending -He needs PCP on discharge vs endocrine Thrombocytopenia, likely reactive to chemo -Follow CBC -Outpatient follow-up Abdominal pain -Likely secondary to above. No diarrhea, correlate with colitis on CAT scan but may be reactive to patient currently getting chemotherapy and radiation therapy. -Resume patient's home morphine sulfate 15 mg and continue with IV Dilaudid -Advance diet to full liquid this afternoon if tolerating Lung cancer currently on chemoradiation therapy -needs to continue follow-up with [facility] where he is receiving active therapy Tobacco abuse -Cessation -Nicotine replacement Chronic: HTN COPD Diabetic ketoacidosis, resolved Dehydration with hypernatremia, resolved DVT prophylaxis: Lovenox Discussed with: Patient and nursing, parts salvager Anticipated discharge: [address]: home A total of 35 minutes was spent on the care of this complex patient more than 50% of the time was spent in counseling and care coordination.
[2018-05-05 16:56] LABS: Glucose,Whole Blood 199 mg/dL (75-99)
[2018-05-05 20:52] LABS: Glucose,Whole Blood 158 mg/dL (75-99)
[2018-05-05] MEDS ORDERED: INSULIN DETEMIR (LEVEMIR) 100 UNIT/ML SYR SQ SCH (21:00)
[2018-05-05] MEDS: MORPHINE SULFATE ER 30 MG TABLET PO SCH (21:14)
[2018-05-06] MEDS: HEPARIN SODIUM,PORCINE 5,000 UNIT/ML 1 ML VIAL SQ SCH (00:09)
[2018-05-06] MEDS: HYDROmorphone 1 MG/ML 1 ML SYRINGE IV PRN ×3 (00:10→06:12)
[2018-05-06] MEDS: SODIUM CHLORIDE 0.9% 1,000 ML IV SCH ×2 (03:56→10:37)
[2018-05-06 06:58] LABS: Glucose,Whole Blood 103 mg/dL (75-99)
[2018-05-06 07:12] VITALS: BP 106/67; PULSE 78; RESP 16; TEMP 97.9
[2018-05-06] MEDS: INSULIN ASPART (NovoLOG) 100 UNIT/ML VIAL SQ SCH ×2 (07:17→13:06)
[2018-05-06] MEDS: MORPHINE SULFATE ER 30 MG TABLET PO SCH (09:16)
--- NOTE | 2018-05-06 10:30 | P.PN ---
Subjective Progress Note Date: 05/06/18 CHIEF COMPLAINT: Abdominal pain HISTORY OF PRESENT ILLNESS: Patient examined this morning the bedside. Patient denies any abdominal pain this morning. Denies nausea or vomiting. Reports BM this morning. Tolerating full liquid diet and asking for diet to be advanced. PHYSICAL EXAM: VITAL SIGNS: Currently stable. GENERAL: Well-developed in no acute distress. HEENT: No sclera icterus. Extraocular movements grossly intact. Moist buccal mucosa. Head is atraumatic, normocephalic. Hears conversational speech. No nasal drainage. CHEST: Non-labored respirations and equal bilateral excursions. CARDIOVASCULAR: Regular rate with regular rhythm. Palpable 2+ radial pulses. ABDOMEN: Soft. Nondistended. Nontender. Positive bowel sounds. MUSCULOSKELETAL: No clubbing, cyanosis or edema. NEUROLOGIC: No focal or lateralizing signs. Cranial nerves II through XII grossly intact. PSYCH: Appropriate affect. Alert and oriented to person, place and time. SKIN: Well perfused. Good skin turgor. ASSESSMENT: 1. Abdominal pain, possible mild sigmoid colitis, clinically improved PLAN: 1. Advance diet 2. Patient is stable from a surgical perspective for discharge Nurse practitioner note has been reviewed by physician. Signing provider agrees with the documented findings, assessment, and plan of care. Objective - Vital Signs Vital signs: Vital Signs Temp 97.9 F 05/06/18 07:10 Pulse 78 05/06/18 07:10 Resp 16 05/06/18 07:10 BP 106/67 05/06/18 07:10 Pulse Ox 95 05/06/18 07:10 Intake & Output 05/05/18 05/06/18 05/06/18 18:59 06:59 18:59 Intake Total 10 1200 Output Total 700 300 Balance -690 900 Weight 81.6 kg Intake: IV 10 Invasive Line 1 10 Intake, IV Titration 1200 Amount Sodium Chloride 0.9% 1, 1200 000 ml @ 150 mls/hr IV . Q6H40M [facility] Rx#:[id number] Output: Urine 700 300 Other: Voiding Method Toilet Toilet Urinal Urinal # Voids 1 # Bowel Movements 0 - Labs CBC & Chem 7: 05/05/18 09:26 05/05/18 09:26 Labs: Abnormal Lab Results - Last 24 Hours (Table) 05/05/18 05/05/18 05/05/18 Range/Units 11:25 16:52 20:45 POC Glucose (mg/dL) 224 H 199 H 158 H (75-99) mg/dL 05/06/18 Range/Units 06:47 POC Glucose (mg/dL) 103 H (75-99) mg/dL Microbiology - Last 24 Hours (Table) 05/03/18 12:00 Blood Culture - Preliminary Blood No Growth after 48 hours
[2018-05-06] MEDS: NICOTINE 21MG/24HR PATCH TRANSDERM SCH (10:42)
--- NOTE | 2018-05-06 11:28 | P.DS ---
Providers Date of admission: 05/04/18 15:32 Expected date of discharge: 05/06/18 Attending physician: Vincenzo Olson MD Consults: 05/03/18 16:37 Consult Physician Routine Consulting Provider: Tony Camilo Consult Reason/Comments: Acute abdominal pain with Sigmoid colitis on CT scan and dilated stomach Do you want consulting provider notified?: Yes Primary care physician: Abe Wright Hospital Course: Discharge Diagnosis: DKA DM 2 on insulin with hyperglycemia Gastroparesis Intractable pain releated to advanced cancer Lung cancer undergoing active chemo and radiation Tobacco abuse HTN COPD Dehydration Hypernatremia Hospital Course: Patient is a 57-year-old male to past medical history of lung cancer currently undergoing chemotherapy and radiation at [facility], hypertension, COPD, and chronic back pain who presented to the emergency department with complaints of abdominal pain. In the ER he underwent an extensive evaluation. On his initial vital signs his found be tachycardic with a heart rate of 125. Initial laboratory analysis showed thrombocytopenia with platelets of 122, elevated blood sugar of 442, carbon dioxide of 20, an anion gap of 25. He was found have slightly elevated lactic acid at 2.1. His total calcium was elevated at 10.6. Osmolality elevated at 322 and was positive for acetone. He underwent a CT chest, abdomen and pelvis which showed no evidence of pulmonary embolism but no right upper lung pulmonary mass invading into the mediastinum and surrounding the right upper lobe pulmonary arteries and bronchitis, severe coronary artery calcifications, and possible sigmoid colitis versus incomplete distention. There was a small bowel ileus and left upper quadrant and stomach was noted to be dilated and fluid-filled without evidence of obstruction. He was admitted to the general medical floor and was placed on IV fluids and insulin sliding scale. He was made nothing by mouth and surgery was consulted. He was treated with conservative management as presentation was not consistent with infectious colitis. His DKA Improved with SSI. His A1C was noted to be 12 he was seen by the elementary educator as he was having both high and low sugars at home. He was struggling with pain all over and his morphine sulfate was increased with good response. He did have several episode of vomiting though to be due to gastroparesis as noted on CT which resolved with reglan X 1. He was toerlating a diet and was determined stable for discharge. He was given extensive education on insulin and his sugars increased after receiving steroids with chemo on saturday. He will use a high sliding scale on Saturday, Sat, Saturday, Saturday and lower dose sliding scale on Saturday, Saturday, or . He was set up with Dr. Trivedi for a PCP. He will have home health and palliative care [facility] following him. He was given a 7 day Rx for increased morphine sulfate. Unfortunately due to his advanced disease, availability of PCP follow-up, and his new insulin he is at high risk for readmission. Patient seen and examined at bedside. Abdominal pain resolved, vomiting resolved. tolerating diet, feeling very well and wants to go home. Vital signs reviewed and stable. General: non toxic, no distress, appears at stated age Derm: warm, dry Head: atraumatic, normocephalic, symmetric Eyes: EOMI, no lid lag, anicteric sclera Mouth: no lip lesion, mucus membranes moist Cardiovascular: S1S2 reg, no murmur, positive posterior tibial pulse bilateral, Lungs: CTA bilateral, no rhonchi, no rales , no accessory muscle use Abdominal: soft, nontender to palpation, no guarding, no appreciable organomegaly Ext: no gross muscle atrophy, no edema, no contractures Neuro: CN II-XI grossly intact, no focal neuro deficits Psych: Alert, oriented, appropriate affect A total of 45 minutes of time were spent preparing this complex discharge summary . Patient Condition at Discharge: Good Plan - Discharge Summary Discharge Rx Participant: No New Discharge Prescriptions: New Morphine Sulfate ER [Ms Contin] 30 mg PO Q12HR #14 tablet INSULIN ASPART (NovoLOG) [NovoLOG (formulary)] 0 unit SQ ACHS vial Continue HYDROcodone/APAP 10-325MG [[place] 10-325] 1 tab PO QID Ondansetron [Zofran] 4 mg PO Q8HR PRN PRN Reason: Nausea Changed Insulin Glargine [Lantus] 22 unit SQ HS #0 Discontinued INSULIN LISPRO (humaLOG) [humaLOG] See Protocol SQ AC-TID Morphine Sulfate ER [Ms Contin] 15 mg PO Q12HR Discharge Medication List HYDROcodone/APAP 10-325MG [[place] 10-325] 1 tab PO QID 08/27/17 [History] Ondansetron [Zofran] 4 mg PO Q8HR PRN 05/03/18 [History] INSULIN ASPART (NovoLOG) [NovoLOG (formulary)] 0 unit SQ ACHS vial 05/06/18 [Rx] Insulin Glargine [Lantus] 22 unit SQ HS #0 05/06/18 [Rx] Morphine Sulfate ER [Ms Contin] 30 mg PO Q12HR #14 tablet 05/06/18 [Rx] Follow up Appointment(s)/Referral(s): Bernabe Trivedi MD [STAFF PHYSICIAN] - 05/19/18 2:00 pm Abe Wright DO [Primary Care Provider] - 05/15/18 9:00 am [facility], [NON-STAFF] - (Palliative care ) Patient Instructions/Handouts: Insulin Scale A (MPH) Activity/Diet/Wound Care/Special Instructions: Check Blood sugars before meals and with evening snack on Saturday, Saturday, , and Saturday prior to chemo use Insulin sliding scale A, When you see you sugars start to elevate from the steroids on Saturday night or Saturday morning switch to your sliding scale. Goal sugars for now are 120-250. [employer] will mail Glucometer and supplies [phone] Discharge Disposition: HOME WITH HOME HEALTH SERVICES
[2018-05-06 11:40] LABS: Glucose,Whole Blood 95 mg/dL (75-99)
[2018-05-06] MEDS ORDERED: HYDROmorphone 4 MG TABLET PO PRN (13:29)
== END 2018-05-06 14:24 | disposition home or self-care (01) | DRG 74 ==
LOC: EC 11:20 → INTOOBSV 15:12 → 3SCARD 15:12 → OBSVTOIN 05-04 15:32 → 4SSUR 05-05 22:56
PROVIDERS: ADMIT Internal Medicine Geriatric Medicine; ATTEND Internal Medicine Geriatric Medicine
DX: E11.43 Type 2 diabetes mellitus with diabetic autonomic (poly)neuropathy (principal); K56.7 Ileus, unspecified; C34.11 Malignant neoplasm of upper lobe, right bronchus or lung; E87.0 Hyperosmolality and hypernatremia; D69.6 Thrombocytopenia, unspecified; N28.1 Cyst of kidney, acquired; E11.65 Type 2 diabetes mellitus with hyperglycemia; R13.10 Dysphagia, unspecified; E86.0 Dehydration; E11.10 Type 2 diabetes mellitus with ketoacidosis without coma; K52.9 Noninfective gastroenteritis and colitis, unspecified; R00.0 Tachycardia, unspecified; F17.210 Nicotine dependence, cigarettes, uncomplicated; J44.9 Chronic obstructive pulmonary disease, unspecified; I10 Essential (primary) hypertension; G89.29 Other chronic pain; M54.9 Dorsalgia, unspecified; I25.10 Atherosclerotic heart disease of native coronary artery without angina pectoris; E11.42 Type 2 diabetes mellitus with diabetic polyneuropathy; K31.84 Gastroparesis; G89.3 Neoplasm related pain (acute) (chronic); T45.1X5A Adverse effect of antineoplastic and immunosuppressive drugs, initial encounter; Z71.6 Tobacco abuse counseling; Z71.3 Dietary counseling and surveillance; Z79.4 Long term (current) use of insulin; Z90.49 Acquired absence of other specified parts of digestive tract; Z92.21 Personal history of antineoplastic chemotherapy; Z92.3 Personal history of irradiation
CPT/HCPCS: 36415; 36600; 71046; 71275; 74177; 76770; 80048; 80053; 81001; 82009; 82010; 82803; 82805; 83036; 83605; 83690; 83735; 83930; 84484; 85025; 85027; 85610; 85730; 87040; 87086; 87502; 93005; 94760; 96361; 96365; 96375; 96376; 99285

== ENCOUNTER 2019-09-19 13:40 | Inpatient (IN) | payer OTHER ==
[2019-09-19] MEDS ORDERED: SODIUM CHLORIDE 0.9% 1,000 ML IV STA (13:56)
[2019-09-19] MEDS ORDERED: ONDANSETRON 4 MG/2 ML VIAL IVP STA (13:57)
[2019-09-19] MEDS ORDERED: HYDROmorphone 1 MG/ML 1 ML SYRINGE IVP STA ×2 (13:57→14:50)
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
[2019-09-19 14:38] LABS: Basophils % (A) 1 %; Eosinophils % (A) 0 %; HCT 45.1 % (39.0-53.0); HGB 14.4 gm/dL (13.0-17.5); Hypochromasia Slight; Lymphocytes # (A) 0.7 k/uL (1.0-4.8); Lymphocytes % (A) 7 %; MCH 33.1 pg (25.0-35.0); MCHC 31.9 g/dL (31.0-37.0); MCV 103.9 fL (80.0-100.0); Macrocytosis Slight; Mean Platelet Volume 7.7; Monocytes # (A) 0.2 k/uL (0-1.0); Monocytes % (A) 2 %; Neutrophils # (A) 8.8 k/uL (1.3-7.7); Neutrophils % (A) 89 %; Platelet Count 156 k/uL (150-450); RBC 4.34 m/uL (4.30-5.90); RDW 14.2 % (11.5-15.5); WBC 9.9 k/uL (3.8-10.6)
[2019-09-19 14:39] LABS: Appearance,Urine Clear (Clear); Bilirubin,Urine Negative (Negative); Blood,Urine Negative (Negative); Color,Urine Yellow; Glucose,Urine (UA) 4+ (Negative); Leukocyte Esterase,Urine Negative (Negative); Nitrite,Urine Negative (Negative); Protein,Urine Trace (Negative); Specific Gravity,Urine 1.039 (1.001-1.035); Urobilinogen,Urine <2.0 mg/dL (<2.0)
[2019-09-19 14:48] LABS: ALT 14 U/L (4-49); AST 16 U/L (17-59); African American GFR (CKD) >90 (>60 ml/min/1.73 sqM); Albumin 4.7 g/dL (3.5-5.0); Alkaline Phosphatase 95 U/L (38-126); Amylase 50 U/L (30-110); Anion Gap 17 mmol/L; Blood Urea Nitrogen 17 mg/dL (9-20); Carbon Dioxide 18 mmol/L (22-30); Chloride 101 mmol/L (98-107); Glucose 394 mg/dL (74-99); Magnesium 1.8 mg/dL (1.6-2.3); Non-African American GFR(CKD) >90 (>60 ml/min/1.73 sqM); Potassium 4.9 mmol/L (3.5-5.1); Sodium 136 mmol/L (137-145); Total Protein 8.2 g/dL (6.3-8.2)
[2019-09-19 15:05] LABS: INR 0.9 (<1.2); Partial Thromboplastin Time 23.1 sec (22.0-30.0); Prothrombin Time 9.9 sec (9.0-12.0)
[2019-09-19 15:29] LABS: Ketones,Urine 2+ (Negative)
--- NOTE | 2019-09-19 16:00 | XR ---
EXAMINATION TYPE: XR KUB DATE OF EXAM: 09/19/2019 COMPARISON: 08/27/2017 HISTORY: Nausea and vomiting TECHNIQUE: 2 views supine FINDINGS: There is no sign of intestinal obstruction or pneumoperitoneum. Fecal pattern is normal. Kimberly ng bases are clear. There is elevated right diaphragm. There are no pathologic calcifications over th e kidneys. There are clips from cholecystectomy. IMPRESSION: Nonacute abdomen. No change.
--- NOTE | 2019-09-19 16:04 | XR ---
EXAMINATION TYPE: XR chest 2V DATE OF EXAM: 09/19/2019 COMPARISON: 05/03/2018 HISTORY: Chest pain TECHNIQUE: 2 views. There is some consolidation at the superior right pulmonary hilum extending into the right upper lobe . There is elevated right diaphragm. Left lung is relatively clear. There is no heart failure. Heart size is normal. There are chest leads. There is no pleural effusion. Thoracic spine is intact. IMPRESSION: Chronic masslike infiltrate in the right upper lobe at the right pulmonary hilum similar to old exam. No heart failure.
[2019-09-19] MEDS ORDERED: DIAZEPAM 5 MG/ML 2 ML INJ IVP STA (16:42)
[2019-09-19] MEDS ORDERED: METOCLOPRAMIDE 5 MG/ML 2 ML VIAL IVP STA (16:42)
--- NOTE | 2019-09-19 18:04 | CT ---
EXAMINATION TYPE: CT abdomen pelvis w con CT angiogram of the chest. DATE OF EXAM: 09/19/2019 COMPARISON: 05/03/2018 HISTORY: Back pain, vomiting, history of cancer. Attention spine. Short of breath. CT DLP: 987.9 mGycm Automated exposure control for dose reduction was used. CONTRAST: Performed with IV Contrast, patient injected with mL of Isovue 370. There are 3-D post processed images. There is 2.7 x 1.5 cm area of pleural thickening at the anterior aspect of the right upper lobe. Ther e is 1.7 cm nodular density in the superior segment right lower lobe lateral to the right pulmonary h ilum. There is right bronchial adenopathy with lymph nodes measuring up to 1.7 cm. The pleural thicke rodolfo and adenopathy are improved compared to old CT scan and suggestive of favorable treatment respon se. The mass in the right lower lobe right midlung field is a change compared to old exam. I see no filling defects in the pulmonary arteries. Thoracic aorta is atheromatous. There is on the u pper abdominal images severe stenosis at the origins of the celiac artery and superior mesenteric art shaggy with subtotal occlusion. Heart size is normal. There is no pericardial effusion. There is no pleural effusion. There is spurring in the thoracic spine. I see no bony destructive process. IMPRESSION: No evidence of pulmonary embolism. There is a new mass in the anterior aspect of the superior segment right lower lobe compared to old e xam suggestive of recurrent tumor. There is decrease in the mediastinal and bronchial adenopathy comp ared to old exam. There is decrease in the pleural thickening and mass at the anterior aspect right u pper lobe adjacent to the pleura compared to old exam. Abdomen pelvis. Images obtained from the diaphragm to the floor the pelvis with IV contrast. There are clips from cholecystectomy. Liver spleen pancreas appear normal. Bile ducts are not dilated . Stomach is intact. There is no adrenal mass. Kidneys show satisfactory contrast opacification. Ther e is no hydronephrosis. There is 1 cm cortical cyst lateral right kidney. There is no retroperitoneal adenopathy. Abdominal aorta is atheromatous. Bladder distends smoothly. There is no inguinal hernia. There is no free fluid in the pelvis. Appendix is posterior and appears normal. There is no abdominal aortic aneurysm or dissection. There is atherosclerotic vascular calcification in the abdominal aorta and its branches. There is moderately severe stenosis at the origins of the ce liac artery and superior mesenteric artery. There is no mesenteric edema. There is no ascites or free air. There is no bowel obstruction. There a re spondylotic changes in the lumbar spine. There is no compression fracture. Bony pelvis is intact. There is multilevel spinal stenosis in the lower lumbar spine. IMPRESSION: Atherosclerotic vascular disease. Severe stenosis at the origins of the celiac artery and superior me senteric artery. No acute abnormality within the abdomen pelvis. Lumbar spinal stenosis.
[2019-09-19] MEDS ORDERED: ASPIRIN 325 MG TAB PO STA (18:41)
[2019-09-19] MEDS ORDERED: INSULIN REGULAR 100 UNIT/ML VIAL IV ONE (18:41)
[2019-09-19] MEDS ORDERED: SODIUM CHLORIDE 0.9% 1,000 ML IV ONE (18:41)
[2019-09-19] MEDS ORDERED: NALOXONE 0.4 MG/ML 1 ML VIAL IV PRN (18:45)
[2019-09-19] MEDS ORDERED: HYDROmorphone 0.5 MG/0.5 ML SYRINGE IVP PRN (18:45)
[2019-09-19] MEDS ORDERED: ACETAMINOPHEN TAB 325 MG TAB PO PRN (18:45)
[2019-09-19] MEDS ORDERED: IBUPROFEN 400 MG TAB PO PRN (18:45)
[2019-09-19] MEDS: HYDROmorphone 1 MG/ML 1 ML SYRINGE IVP PRN ×2 (19:39→22:19)
[2019-09-19] MEDS: ONDANSETRON 4 MG/2 ML VIAL IVP PRN (21:14)
[2019-09-20] MEDS: HYDROmorphone 1 MG/ML 1 ML SYRINGE IVP PRN ×7 (01:15→20:46)
[2019-09-20] MEDS: METOCLOPRAMIDE 5 MG/ML 2 ML VIAL IVP PRN ×2 (02:05→13:32)
[2019-09-20] MEDS: SODIUM CHLORIDE 0.9% 1,000 ML IV SCH ×2 (02:06→12:37)
[2019-09-20] MEDS: INSULIN ASPART (NovoLOG) 100 UNIT/ML VIAL SQ SCH ×4 (07:40→20:47)
[2019-09-20 07:43] LABS: Glucose,Whole Blood 461 mg/dL (75-99)
[2019-09-20] MEDS: ONDANSETRON 4 MG/2 ML VIAL IVP PRN ×2 (07:43→17:07)
[2019-09-20 12:05] LABS: Glucose,Whole Blood 339 mg/dL (75-99)
[2019-09-20] MEDS ORDERED: HYDROcodone/APAP 10-325MG 1 EACH TAB PO PRN (14:30)
[2019-09-20] MEDS ORDERED: oxyCODONE-APAP 10-325MG 1 EACH TAB PO PRN (14:30)
[2019-09-20] MEDS ORDERED: TRIMETHOBENZAMIDE 100 MG/ML 2 ML VIAL IM PRN (14:49)
--- NOTE | 2019-09-20 14:51 | P.HPIM ---
History of Present Illness This is a pleasant 58 years old male with stage IV lung cancer, diabetes mellitus, COPD, hypertension. Patient he does not follow up with PCP. He was diagnosed with right-sided lung cancer about 2 years ago and he follow-up with oncologist at [facility] and his oncologist and [place]. He has chronic history of back pain, possibly related to metastases as patient states, in the middle of his back for the last year however recently is getting worse, also he has recurrent nausea vomiting and he cannot keep anything down. He says that his pain is the middle back and both legs severe, nonspecific. He denies any weakness or numbness in his leg, he denies urine or bowel incontinence or problems. He denies chest pain or shortness of breath, no coughing, no fever. He states the medication he got to the emergency room was not enough to control his pain Patient is tachycardic at 118. 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 No pulmonary embolism EKG showing sinus tachycardia at 113, no significant ST-T changes and QTC 448 In the emergency room was started on aspirin 325 mg 1, Dilaudid several times, also Reglan and Review of Systems CONSTITUTIONAL: No fever, no malaise, no fatigue. HEENT: No recent visual problems or hearing problems. Denied any sore throat. CARDIOVASCULAR: No orthopnea, PND, no palpitations, no syncope. PULMONARY: No shortness of breath, no cough, no hemoptysis. GASTROINTESTINAL: No diarrhea, no nausea, no vomiting, no abdominal pain. Normoactive bowel sounds. NEUROLOGICAL: No headaches, no weakness, no numbness. HEMATOLOGICAL: Denies any bleeding or petechiae. GENITOURINARY: Denies any burning micturition, frequency, or urgency. MUSCULOSKELETAL/RHEUMATOLOGICAL: Denies any joint pain, swelling, or any muscle pain. ENDOCRINE: Denies any polyuria or polydipsia. Past Medical History Past Medical History: Cancer, COPD, Diabetes Mellitus, Hypertension Additional Past Medical History / Comment(s): chronic back pain, Lung Cancer History of Any Multi-Drug Resistant Organisms: None Reported Past Surgical History: Cholecystectomy Past Anesthesia/Blood Transfusion Reactions: No Reported Reaction Past Psychological History: No Psychological Hx Reported Smoking Status: Current every day smoker Past Alcohol Use History: None Reported Past Drug Use History: None Reported - Past Family History Father Brother(s) Family Medical History: No Reported History Mother Family Medical History: No Reported History Medications and Allergies Home Medications Medication Instructions Recorded Confirmed Type HYDROcodone/APAP 10-325MG [[place] 1 - 2 tab PO Q6H PRN 08/27/17 09/20/19 History 10-325] INSULIN ASPART (NovoLOG) [NovoLOG 0 unit SQ ACHS vial 05/06/18 Rx (formulary)] Insulin Glargine [Lantus] 22 unit SQ HS #0 05/06/18 05/03/18 Rx Morphine Sulfate ER [Ms Contin] 30 mg PO Q12HR #14 tablet 05/06/18 09/20/19 Rx Apixaban [Eliquis] 2.5 mg PO BID 09/20/19 09/20/19 History Diltiazem HCl [Diltiazem HCl 24Hr 300 mg PO DAILY 09/20/19 09/20/19 History ER] Metoprolol Tartrate [Lopressor] 25 mg PO BID 09/20/19 09/20/19 History oxyCODONE-APAP 10-325MG [Percocet 2 tab PO Q6H PRN 09/20/19 09/20/19 History 10-325 mg] Allergies Allergy/AdvReac Type Severity Reaction Status Date / Time No Known Allergies Allergy Verified 09/20/19 11:34 Physical Exam Vitals: Vital Signs Temp Pulse Pulse Resp BP BP Pulse Ox 09/20/19 07:20 98.4 F 118 H 18 147/77 95 09/20/19 01:00 97.8 F 117 H 20 145/81 97 09/19/19 19:30 110 H 18 141/84 09/19/19 19:13 105 H 18 141/74 95 09/19/19 19:00 110 H 18 143/81 09/19/19 18:30 109 H 16 142/82 09/19/19 18:00 108 H 16 147/82 96 09/19/19 17:30 109 H 18 141/83 98 09/19/19 17:00 108 H 18 142/87 09/19/19 16:30 107 H 10 L 145/85 09/19/19 16:00 105 H 26 H 145/77 09/19/19 15:30 105 H 19 138/76 97 09/19/19 15:00 105 H 20 139/82 95 09/19/19 14:30 99 12 115/66 94 L Intake and Output 09/19/19 09/20/19 09/20/19 22:59 06:59 14:59 Intake Total 200 Output Total 900 Balance -700 Intake: Oral 200 Output: Other 900 Other: # Voids 1 3 Weight 81.647 kg GENERAL: The patient is alert and oriented x3, not in any acute distress. HEENT: Pupils are round and equally reacting to light. EOMI. No scleral icterus. No conjunctival pallor. Normocephalic, atraumatic. No pharyngeal erythema. No thyromegaly. CARDIOVASCULAR: S1 and S2 present. No murmurs, rubs, or gallops. PULMONARY: Chest is clear to auscultation, no wheezing or crackles. ABDOMEN: Soft, nontender, nondistended, normoactive bowel sounds. No palpable organomegaly. MUSCULOSKELETAL: No joint swelling or deformity. EXTREMITIES: No cyanosis, clubbing, or pedal edema. -NEUROLOGICAL: Gross neurological examination did not reveal any focal deficits. Patient refused motor exam of the lower extremity because it hurts however he denies weakness in his legs. Arms looks equal strength. Cranial nerves are grossly intact SKIN: No rashes. No petechiae Results CBC & Chem 7: 09/19/19 14:25 09/19/19 14:25 Labs: Abnormal Lab Results - Last 24 Hours (Table) 09/19/19 09/19/19 09/19/19 Range/Units 14:25 14:25 14:25 MCV 103.9 H (80.0-100.0) fL Neutrophils # 8.8 H (1.3-7.7) k/uL Lymphocytes # 0.7 L (1.0-4.8) k/uL Sodium 136 L (137-145) mmol/L Carbon Dioxide 18 L (22-30) mmol/L Glucose 394 H (74-99) mg/dL POC Glucose (mg/dL) (75-99) mg/dL Plasma Lactic Acid [place] (0.7-2.0) mmol/L AST 16 L (17-59) U/L Ur Specific [place] 1.039 H (1.001-1.035) Urine Protein Trace H (Negative) Urine Glucose (UA) 4+ H (Negative) Urine Ketones 2+ H (Negative) 09/19/19 09/19/19 09/19/19 Range/Units 14:25 18:04 20:53 MCV (80.0-100.0) fL Neutrophils # (1.3-7.7) k/uL Lymphocytes # (1.0-4.8) k/uL Sodium (137-145) mmol/L Carbon Dioxide (22-30) mmol/L Glucose (74-99) mg/dL POC Glucose (mg/dL) (75-99) mg/dL Plasma Lactic Acid [place] 2.3 H* 2.5 H* 2.8 H* (0.7-2.0) mmol/L AST (17-59) U/L Ur Specific [place] (1.001-1.035) Urine Protein (Negative) Urine Glucose (UA) (Negative) Urine Ketones (Negative) 09/20/19 09/20/19 Range/Units 07:21 11:53 MCV (80.0-100.0) fL Neutrophils # (1.3-7.7) k/uL Lymphocytes # (1.0-4.8) k/uL Sodium (137-145) mmol/L Carbon Dioxide (22-30) mmol/L Glucose (74-99) mg/dL POC Glucose (mg/dL) 461 H 339 H (75-99) mg/dL Plasma Lactic Acid [place] (0.7-2.0) mmol/L AST (17-59) U/L Ur Specific [place] (1.001-1.035) Urine Protein (Negative) Urine Glucose (UA) (Negative) Urine Ketones (Negative) Thrombosis Risk Factor Assmnt - Choose All That Apply Any of the Below Risk Factors Present?: Yes Each Factor Represents 1 point: Age 41-60 years Thrombosis Risk Factor Assessment Total Risk Factor Score: 1 Thrombosis Risk Factor Assessment Level: Low Risk Assessment and Plan Assessment: Stage IV lung cancer, for the last 2 years Severe back and leg pain, secondary to above. Related to metastases as per patient Diabetes mellitus, with hyperglycemia Hypertension COPD, not an active issue with Plan: This is a pleasant 68 years old male who presents with severe back and leg pain secondary to metastic lung cancer. Get records from her report, consult oncology team. Continue with pain medication. Continue with IV fluids and Zofran. And Tigan as needed. Continue with Accu-Chek and insulin sliding scale Labs and medication were reviewed.. Continue same treatment. Continue with symptomatic treatment. Resume home medication. Monitor lytes and vitals. DVT and GI prophylaxis. Further recommendations of the clinical course of the patient DVT prophylaxis: Subcutaneous heparin GI Prophylaxis: Pepcid Prognosis is guarded
[2019-09-20 16:57] LABS: Glucose,Whole Blood 341 mg/dL (75-99)
[2019-09-20 20:18] LABS: Glucose,Whole Blood 296 mg/dL (75-99)
[2019-09-20] MEDS: APIXABAN 2.5 MG TABLET PO SCH (20:46)
[2019-09-20] MEDS: MORPHINE SULFATE ER 30 MG TABLET PO SCH (20:47)
[2019-09-21] MEDS: ONDANSETRON 4 MG/2 ML VIAL IVP PRN (01:17)
[2019-09-21] MEDS: HYDROmorphone 1 MG/ML 1 ML SYRINGE IVP PRN ×5 (01:17→20:47)
[2019-09-21] MEDS: SODIUM CHLORIDE 0.9% 1,000 ML IV SCH ×2 (01:18→17:37)
[2019-09-21] MEDS: METOCLOPRAMIDE 5 MG/ML 2 ML VIAL IVP PRN (04:32)
[2019-09-21 07:31] LABS: Glucose,Whole Blood 296 mg/dL (75-99)
[2019-09-21] MEDS: MORPHINE SULFATE ER 30 MG TABLET PO SCH ×2 (08:46→20:47)
[2019-09-21] MEDS: DILTIAZEM CD 300 MG CAP.ER.24H PO SCH (08:46)
[2019-09-21] MEDS: APIXABAN 2.5 MG TABLET PO SCH ×2 (08:46→20:47)
[2019-09-21] MEDS: INSULIN ASPART (NovoLOG) 100 UNIT/ML VIAL SQ SCH ×4 (08:46→20:48)
[2019-09-21 11:53] LABS: Glucose,Whole Blood 246 mg/dL (75-99)
--- NOTE | 2019-09-21 14:45 | P.CONS ---
History of Present Illness - Reason for Consult Consult date: 09/21/19 Lung cancer Requesting physician: Abbe E Sheet - Chief Complaint Intractable right side pain, nausea, vomiting - History of Present Illness Patient is unable to give us an accurate recollection of recent events leading to his hospitalization. He is unable to relay much of his past medical history only that he has had some chemotherapy, radiation, his treating Oncologist is Dr. Kyle mata [facility]. When seen patient visibly looks uncomfortable, he is tearful at times, he is able to sit up on his own and manage the urinal independently. He is having pain, on the the right axilla, he is able to localize it, he is not able to qualify it, he quantifies it is severe, persistent, he does not recall having a fever, recent illness, chest pain, difficulty breathing but, not sure what patient is communicating correctly/accurately. He does know he gets chemotherapy every other week. Summary from [facility]. Last clinic note is dictated 06/16/2019. Patient has an extensive smoking history, was seen at [facility] December 2017. CT CAP 01/07/18 showed a right apical mass 4.7 x 3.8 cm extending into the mediastinum with enlarged right hilar lymph nodes and an additional inferior right upper lobe 1.4 cm nodule. No other malignant process identified. Core biopsy 01/09/18 revealed squamous cell carcinoma moderate to poorly differentiated. Patient left AGAINST MEDICAL ADVICE, was eventually tract on by nurse navigator. Patient is currently status post 3 cycles of infancy for inoperable stage III squamous cell carcinoma. It is reported the patient hasn't been tolerating the a quite well. His CBC within normal limits, blood s ugars in the 300 range. Last imaging 04/09/19 showed 3 PET avid lymph nodes right axilla, supraclavicular area. He is supposed to be following up. Review of Systems Pt unable to answer most questions, defers to daughter to relay his PMH. He has difficulty expressing his current physical condition ROS unobtainable: due to mental status Past Medical History Past Medical History: Cancer, COPD, Diabetes Mellitus, Hypertension Additional Past Medical History / Comment(s): chronic back pain, Lung Cancer History of Any Multi-Drug Resistant Organisms: None Reported Past Surgical History: Cholecystectomy Past Anesthesia/Blood Transfusion Reactions: No Reported Reaction Past Psychological History: No Psychological Hx Reported Smoking Status: Current every day smoker Past Alcohol Use History: None Reported Past Drug Use History: None Reported - Past Family History Father Brother(s) Family Medical History: No Reported History Mother Family Medical History: No Reported History Medications and Allergies Home Medications Medication Instructions Recorded Confirmed Type HYDROcodone/APAP 10-325MG [[place] 1 - 2 tab PO Q6H PRN 08/27/17 09/20/19 History 10-325] INSULIN ASPART (NovoLOG) [NovoLOG 0 unit SQ ACHS vial 05/06/18 09/21/19 Rx (formulary)] Insulin Glargine [Lantus] 22 unit SQ HS #0 05/06/18 09/21/19 Rx Morphine Sulfate ER [Ms Contin] 30 mg PO Q12HR #14 tablet 05/06/18 09/20/19 Rx Apixaban [Eliquis] 2.5 mg PO BID 09/20/19 09/20/19 History Diltiazem HCl [Diltiazem HCl 24Hr 300 mg PO DAILY 09/20/19 09/20/19 History ER] Metoprolol Tartrate [Lopressor] 25 mg PO BID 09/20/19 09/20/19 History oxyCODONE-APAP 10-325MG [Percocet 2 tab PO Q6H PRN 09/20/19 09/20/19 History 10-325 mg] Allergies Allergy/AdvReac Type Severity Reaction Status Date / Time No Known Allergies Allergy Verified 09/20/19 11:34 Physical Exam Vitals: Vital Signs Temp Pulse Resp BP Pulse Ox 09/21/19 08:49 98.4 F 108 H 18 152/83 97 09/21/19 00:45 98.4 F 96 18 104/62 96 09/20/19 18:50 98.5 F 108 H 20 99/67 96 09/20/19 14:31 98.2 F 120 H 20 137/79 96 Intake and Output 09/20/19 09/21/19 09/21/19 22:59 06:59 14:59 Output Total 300 400 Balance -300 -400 Output: Urine 300 400 Other: # Voids 3 - Constitutional General appearance: average body habitus, cooperative, mild distress - EENT Hoarse voice Eyes: anicteric sclerae, EOMI ENT: hearing grossly normal - Neck Neck: no lymphadenopathy - Respiratory Respiratory: bilateral: CTA, diminished - Cardiovascular Rhythm: regular Heart sounds: normal: S1, S2 Abnormal Heart Sounds: no systolic murmur, no diastolic murmur, no rub, no S3 Gallop, no S4 Gallop, no click, no other leg Peripheral Edema: bilateral: None - Gastrointestinal General gastrointestinal: no absent bowel sounds, no decreased bowel sounds, no distended, no hepatomegaly, no hyperactive bowel sounds, normal bowel sounds, no organomegaly, no rigid, no scaphoid, soft, no splenomegaly, no tenderness, no umbilical hernia, no ventral hernia - Integumentary Integumentary: normal - Musculoskeletal Pain with palpation of the right inferior axilla area, no deformities Musculoskeletal: generalized weakness - Psychiatric Lethargic, patient has difficulty recalling his own medical history, he is tearful at times, he is not able to answer basic questions about his own physical being at the moment. Psychiatric: no A&O x's 3, no appropriate affect, no intact judgment & insight Results CBC & Chem 7: 09/19/19 14:25 09/19/19 14:25 Labs: Abnormal Lab Results - Last 24 Hours (Table) 09/20/19 09/20/19 09/20/19 Range/Units 11:53 16:40 20:16 POC Glucose (mg/dL) 339 H 341 H 296 H (75-99) mg/dL 09/21/19 Range/Units 07:26 POC Glucose (mg/dL) 296 H (75-99) mg/dL Microbiology - Last 24 Hours (Table) 09/19/19 14:14 Blood Culture - Preliminary Blood No Growth after 24 hours Chest x-ray: report reviewed Abdominal x-ray: report reviewed CT scan - abdomen: report reviewed CT scan - chest: report reviewed CT scan - pelvis: report reviewed Assessment and Plan (1) Intractable pain Narrative/Plan: Unclear the cause. We'll do a nuclear medicine bone scan, possibly some x-rays of the right ribs as nothing currently would suggest that pain is related to malignancy. Patient's medication list is very confusing. Oncologist note from June 15 shows Percocet was prescribed #30 with no refills, for a sore great toe. Unclear who prescribed the MS Contin and Marion. Unable to get much information from the patient. Patient has had a Physician prescribe narcotics, we will not prescribe any narcotics for the patient. Current Visit: Yes Status: Acute Priority: High Code(s): R52 - PAIN, UNSPECIFIED SNOMED Code(s): 63447331 (2) Squamous cell carcinoma of right lung Narrative/Plan: Based on reports from treating oncologist patient is on maintenance in [place] for stage III squamous cell lung cancer. No evidence of metastasis at this time. When compared to the initial diagnosis the right upper lobe mass as well as the additional nodule appears to be stable. Patient should be followed up by his treating Oncologist as he would be due for imaging. Return to treating Oncologist STEFANI for follow-up. No evidence to suggest metastatic disease to the bones. We will order nuclear medicine bone scan. Current Visit: Yes Status: Chronic Priority: Medium Code(s): C34.91 - MALIGNANT NEOPLASM OF UNSP PART OF RIGHT BRONCHUS OR LUNG SNOMED Code(s): 50291089315326256 (3) Uncontrolled diabetes mellitus Current Visit: Yes Status: Acute Priority: High Code(s): E11.65 - TYPE 2 DIABETES MELLITUS WITH HYPERGLYCEMIA SNOMED Code(s): 39493599 (4) Dehydration Current Visit: Yes Status: Acute Priority: High Code(s): E86.0 - DEHYDRATION SNOMED Code(s): 63464759 (5) Nausea & vomiting Current Visit: Yes Status: Acute Priority: High Code(s): R11.2 - NAUSEA WITH VOMITING, UNSPECIFIED SNOMED Code(s): 39315047 Plan: Uncontrolled nausea and vomiting. Some suspicion that uncontrolled diabetes mellitus could be contributing to patient's mental status and general unwellness. Patient blood sugar was greater than 400 on admit. Patient doesn't seem to have a good understanding of his medical conditions as evidenced by him not able to give any history. Recommend diabetes education. Doctor attests: I performed a history and physical examination of this patient, developed impression and plan of care. Discussed with dictator. I agree with dictators note, documented as a scribe.
--- NOTE | 2019-09-21 16:21 | P.PN ---
Subjective Progress Note Date: 09/21/19 Principal diagnosis: This is a pleasant 58 years old male with stage IV lung cancer, diabetes mellitus, COPD, hypertension. Patient he does not follow up with PCP. He was diagnosed with right-sided lung cancer about 2 years ago and he follow-up with oncologist at [facility] and his oncologist and [place]. He has chronic history of back pain, possibly related to metastases as patient states, in the middle of his back for the last year however recently is getting worse, also he has recurrent nausea vomiting and he cannot keep anything down. He says that his pain is the middle back and both legs severe, nonspecific. He denies any weakness or numbness in his leg, he denies urine or bowel incontinence or problems. He denies chest pain or shortness of breath, no coughing, no fever. He states the medication he got to the emergency room was not enough to control his pain Patient is tachycardic at 118. 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 No pulmonary embolism EKG showing sinus tachycardia at 113, no significant ST-T changes and QTC 448 In the emergency room was started on aspirin 325 mg 1, Dilaudid several times, also Reglan and 09/21/2019 Patient is seen and evaluated in follow-up today and states that the nausea and vomiting has subsided. Patient has a sore throat which he states is due to the multiple episodes of vomiting previously. Patient continues to have generalized pain and has recently been on a number of narcotics for previous diagnosis and history of stage IV lung cancer. Patient's blood sugars continued to be uncontrolled and currently maintained on sliding scale and will continue at this time. Oncology following and ordering a bone scan and patient should be following with his primary oncologist in the outpatient setting. Patient is very agitated that multiple medical consultations are questioning his health history and patient becomes very upset during conversation. Patient told nursing staff he will be leaving in the morning. Currently no reports of chest pain, shortness of breath, or palpitations. Patient is afebrile. We'll continue to monitor closely. Objective - Vital Signs Vital signs: Vital Signs Temp 97.8 F 09/21/19 14:59 Pulse 92 09/21/19 14:59 Resp 20 09/21/19 14:59 BP 91/51 09/21/19 14:59 Pulse Ox 96 09/21/19 14:59 Intake & Output 09/20/19 09/21/19 09/21/19 18:59 06:59 18:59 Output Total 700 600 Balance -700 -600 Output: Urine 700 600 Other: # Voids 3 - Exam GENERAL: The patient is alert and oriented x3, not in any acute distress. Easily agitated HEENT: Pupils are round and equally reacting to light. EOMI. No scleral icterus. No conjunctival pallor. Normocephalic, atraumatic. No pharyngeal erythema. No thyromegaly. CARDIOVASCULAR: S1 and S2 present. No murmurs, rubs, or gallops. PULMONARY: Chest is clear to auscultation, no wheezing or crackles. ABDOMEN: Soft, nontender, nondistended, normoactive bowel sounds. No palpable organomegaly. MUSCULOSKELETAL: No joint swelling or deformity. EXTREMITIES: No cyanosis, clubbing, or pedal edema. -NEUROLOGICAL: Gross neurological examination did not reveal any focal deficits. Patient refused motor exam of the lower extremity because it hurts however he denies weakness in his legs. Arms looks equal strength. Cranial nerves are grossly intact SKIN: No rashes. No petechiae - Labs CBC & Chem 7: 09/19/19 14:25 09/19/19 14:25 Labs: Abnormal Lab Results - Last 24 Hours (Table) 09/20/19 09/20/19 09/21/19 Range/Units 16:40 20:16 07: POC Glucose (mg/dL) 341 H 296 H 296 H (75-99) mg/dL 09/21/19 Range/Units 11:41 POC Glucose (mg/dL) 246 H (75-99) mg/dL Microbiology - Last 24 Hours (Table) 09/19/19 14:14 Blood Culture - Preliminary Blood No Growth after 24 hours Assessment and Plan Assessment: Stage IV lung cancer, for the last 2 years Severe back and leg pain, secondary to above. Related to metastases as per patient Diabetes mellitus, with hyperglycemia Hypertension COPD, no acute exacerbation DVT prophylaxis: Subcu heparin GI prophylaxis: Pepcid Plan: Continue current medications, management, and symptomatic treatment. Oncology is following and recommending a bone scan. Discussed with the patient at length about following with his primary oncologist in the outpatient setting. Continue with sliding scale and monitoring blood sugars closely. Patient's vomiting has subsided and encouraged the patient to increase oral intake. Due to multiple complex medical issues, prognosis is guarded. Further recommendations to follow. Anticipate discharge in 24 hours.
[2019-09-21 16:59] LABS: Glucose,Whole Blood 195 mg/dL (75-99)
[2019-09-21 20:38] LABS: Glucose,Whole Blood 184 mg/dL (75-99)
[2019-09-22] MEDS: HYDROmorphone 1 MG/ML 1 ML SYRINGE IVP PRN ×2 (01:40→05:30)
[2019-09-22 02:52] VITALS: TEMP 98.1
[2019-09-22 07:23] LABS: Glucose,Whole Blood 211 mg/dL (75-99)
[2019-09-22 07:36] VITALS: BP 129/72; PULSE 90; RESP 16
[2019-09-22] MEDS: SODIUM CHLORIDE 0.9% 1,000 ML IV SCH (07:39)
[2019-09-22] MEDS: MORPHINE SULFATE ER 30 MG TABLET PO SCH (07:48)
[2019-09-22] MEDS: APIXABAN 2.5 MG TABLET PO SCH (07:48)
[2019-09-22] MEDS: DILTIAZEM CD 300 MG CAP.ER.24H PO SCH (07:49)
[2019-09-22] MEDS: INSULIN ASPART (NovoLOG) 100 UNIT/ML VIAL SQ SCH (07:49)
--- NOTE | 2019-09-23 10:31 | P.DS ---
Providers Date of admission: 09/19/19 18:45 Expected date of discharge: 09/22/19 Attending physician: Shruti Guy Consults: 09/20/19 14:47 Consult Physician Urgent Consulting Provider: Malcolm Day Consult Reason/Comments: Metastatic lung cancer with severe back pain Do you want consulting provider notified?: Yes 09/21/19 07:27 Consult Physician Urgent Consulting Provider: Pal Lbuin Consult Reason/Comments: back pain Do you want consulting provider notified?: Yes Primary care physician: Stated None Hospital Course: Final diagnosis Stage IV lung cancer, for the last 2 years Severe back and leg pain, secondary to above. Related to metastases as per patient Diabetes mellitus, with hyperglycemia Hypertension COPD, no acute exacerbation DVT prophylaxis GI prophylaxis Discharge disposition Patient is being discharged in a stable condition with guarded prognosis to home. Patient will follow-up with primary care provider upon discharge. Patient also instructed to follow-up with his primary oncologist in the outpatient setting. Total time taken is 35 minutes. History of present illness This is an 58-year-old male who was recently admitted with generalized back pain along with some nausea and vomiting and was being closely monitored. Patient was seen and evaluated by oncology recommending a bone scan although patient refused. Patient reportedly has been following with an oncologist out of [facility] but according to family patient is noncompliant with follow-up. Patient's vomiting and nausea has improved and continues to have some generalized pain but takes narcotics for this. Patient states he feels better and wants to be discharged today. Currently no reports of chest pain, shortness of breath, or palpitations. Patient is afebrile. No reports of nausea or vomiting and patient is tolerating diet. Guarded prognosis. Please refer to previous dictations for further HPI On exam vital signs are stable. Temp is 98.1F, pulse is 90, respirations are 16, blood pressure is 129/72, oxygen saturation is 96% on room air. Cardio S1, S2 are muffled. Respiratory shows diminished breath sounds at the bases with some scattered rhonchi noted. Abdomen is soft and nontender. Nervous system shows no focal deficits. Please refer to medication reconciliation sheet for a list of medications. Patient Condition at Discharge: Stable Plan - Discharge Summary New Discharge Prescriptions: Continue HYDROcodone/APAP 10-325MG [[place] 10-325] 1 - 2 tab PO Q6H PRN PRN Reason: Pain Morphine Sulfate ER [Ms Contin] 30 mg PO Q12HR #14 tablet INSULIN ASPART (NovoLOG) [NovoLOG (formulary)] 0 unit SQ ACHS vial Insulin Glargine [Lantus] 22 unit SQ HS #0 Metoprolol Tartrate [Lopressor] 25 mg PO BID Diltiazem HCl [Diltiazem HCl 24Hr ER] 300 mg PO DAILY Apixaban [Eliquis] 2.5 mg PO BID oxyCODONE-APAP 10-325MG [Percocet 10-325 mg] 2 tab PO Q6H PRN PRN Reason: Pain Discharge Medication List HYDROcodone/APAP 10-325MG [[place] 10-325] 1 - 2 tab PO Q6H PRN 08/27/17 [History] INSULIN ASPART (NovoLOG) [NovoLOG (formulary)] 0 unit SQ ACHS vial 05/06/18 [Rx] Insulin Glargine [Lantus] 22 unit SQ HS #0 05/06/18 [Rx] Morphine Sulfate ER [Ms Contin] 30 mg PO Q12HR #14 tablet 05/06/18 [Rx] Apixaban [Eliquis] 2.5 mg PO BID 09/20/19 [History] Diltiazem HCl [Diltiazem HCl 24Hr ER] 300 mg PO DAILY 09/20/19 [History] Metoprolol Tartrate [Lopressor] 25 mg PO BID 09/20/19 [History] oxyCODONE-APAP 10-325MG [Percocet 10-325 mg] 2 tab PO Q6H PRN 09/20/19 [History] Follow up Appointment(s)/Referral(s): None,Stated [Primary Care Provider] - 1-2 days Activity/Diet/Wound Care/Special Instructions: Activity Limited until follow-up Follow-up with primary oncologist Follow up with primary care provider Follow-up with pain management Continue current diet Discharge Disposition: HOME SELF-CARE
== END 2019-09-22 09:19 | disposition home or self-care (01) | DRG 392 ==
LOC: EC 13:40 → 4SSUR 18:45
PROVIDERS: ADMIT Hospitalist; ATTEND Hospitalist
DX: R11.2 Nausea with vomiting, unspecified (principal); C34.91 Malignant neoplasm of unspecified part of right bronchus or lung; E87.2 Acidosis; G89.3 Neoplasm related pain (acute) (chronic); E11.65 Type 2 diabetes mellitus with hyperglycemia; E86.0 Dehydration; F17.200 Nicotine dependence, unspecified, uncomplicated; I10 Essential (primary) hypertension; J44.9 Chronic obstructive pulmonary disease, unspecified; Z11.59 Encounter for screening for other viral diseases; Z79.01 Long term (current) use of anticoagulants; Z79.4 Long term (current) use of insulin; Z79.899 Other long term (current) drug therapy; Z91.19 Patient's noncompliance with other medical treatment and regimen; Z90.49 Acquired absence of other specified parts of digestive tract
CPT/HCPCS: 36415; 71046; 71275; 74018; 74177; 80053; 81003; 82150; 83605; 83690; 83735; 84484; 85025; 85610; 85730; 87040; 93005; 96361; 96374; 96375; 96376; 99285

== ENCOUNTER 2019-12-29 07:45 | Inpatient (IN) | payer OTHER ==
[2019-12-29] MEDS ORDERED: SODIUM CHLORIDE 0.9% 1,000 ML IV ONE ×3 (07:55→13:49)
[2019-12-29] MEDS ORDERED: SODIUM CHLORIDE 0.9% 1,000 ML IV STA (07:55)
--- NOTE | 2019-12-29 08:00 | ED ---
Altered Mental Status HPI - General Chief Complaint: Altered Mental Status Stated Complaint: AMS Time Seen by Provider: 12/29/19 07:49 Source: patient, EMS, RN notes reviewed, old records reviewed Mode of arrival: EMS Limitations: altered mental status, physical limitation - History of Present Illness Initial Comments: Patient is a 39-year-old male who presents via EMS for altered mental status and weakness dehydration. Patient reportedly received chemo for lung cancer on Saturday and since then he's been more tired confused and weak. Patient arrived via EMS and only answering yes or no questions. Patient reportedly has stage IV lung cancer. No orders for DO NOT RESUSCITATE or hospice at this time according to EMS. - Related Data Home Medications Medication Instructions Recorded Confirmed HYDROcodone/APAP 10-325MG [[place] 2 mg PO Q6H PRN 08/27/17 12/29/19 10-325] oxyCODONE-APAP 10-325MG [Percocet 2 tab PO Q6H PRN 09/20/19 12/29/19 10-325 mg] Dexamethasone [Decadron] 4 mg PO BID 12/29/19 12/29/19 Ondansetron [Zofran] 4 mg PO Q8H PRN 12/29/19 12/29/19 Prochlorperazine [Compazine] 10 mg PO Q6H PRN 12/29/19 12/29/19 Previous Rx's Medication Instructions Recorded Morphine Sulfate ER [Ms Contin] 30 mg PO Q12HR #14 tablet 05/06/18 Allergies Allergy/AdvReac Type Severity Reaction Status Date / Time No Known Allergies Allergy Verified 12/29/19 09:09 Review of Systems ROS Statement: Those systems with pertinent positive or pertinent negative responses have been documented in the HPI. ROS Other: All systems not noted in ROS Statement are negative. Past Medical History Past Medical History: Cancer, COPD, Diabetes Mellitus, Hypertension Additional Past Medical History / Comment(s): chronic back pain, Lung Cancer History of Any Multi-Drug Resistant Organisms: None Reported Past Surgical History: Cholecystectomy Past Anesthesia/Blood Transfusion Reactions: No Reported Reaction Past Psychological History: No Psychological Hx Reported Smoking Status: Current every day smoker Past Alcohol Use History: None Reported Past Drug Use History: None Reported - Past Family History Father Brother(s) Family Medical History: No Reported History Mother Family Medical History: No Reported History General Exam - General Exam Comments Initial Comments: 59-year-old male. He is very weak. Answer yes or no questions. Limitations: altered mental status, physical limitation General appearance: alert, in no apparent distress Head exam: Present: atraumatic, normocephalic, normal inspection Eye exam: Present: normal appearance, PERRL, EOMI. Absent: scleral icterus, conjunctival injection, periorbital swelling ENT exam: Present: mucous membranes dry (Patient's mucous members are extremely dry. Smell of acetone.), mucous membranes moist. Absent: normal exam Neck exam: Present: normal inspection. Absent: tenderness, meningismus, lymphadenopathy Respiratory exam: Present: other (Wheezing on the right upper lung). Absent: normal lung sounds bilaterally, respiratory distress, wheezes, rales, rhonchi, stridor Cardiovascular Exam: Present: regular rate, normal rhythm, normal heart sounds. Absent: systolic murmur, diastolic murmur, rubs, gallop, clicks GI/Abdominal exam: Present: soft, normal bowel sounds. Absent: distended, tenderness, guarding, rebound, rigid Extremities exam: Present: normal inspection, full ROM, normal capillary refill, other (A thin cachectic extremity. ). Absent: tenderness, pedal edema, joint swelling, calf tenderness Back exam: Present: normal inspection Neurological exam: Present: alert, altered (answering yes or no questions. Weak ) Psychiatric exam: Present: normal affect, normal mood Skin exam: Present: warm, dry, intact, normal color. Absent: rash Course Vital Signs 12/29/19 12/29/19 12/29/19 07:48 08:45 09:59 Temperature 97.9 F 97.9 F Pulse Rate 126 H 118 H 120 H Respiratory 18 22 18 Rate Blood Pressure 92/70 103/75 103/75 O2 Sat by Pulse 98 100 99 Oximetry Medical Decision Making - Medical Decision Making 59-year-old male presents emergency Department today with complaint altered mental status. He has stage IV lung cancer and currently receives chemotherapy on Saturday. Patient is a poor story and only answering yes or no questions. He appears extremely dehydrated and weak. Patient was found to be in DKA with a bl ood sugar of 700. He also has a elevated potassium 6.2. Patient was given 2 L bolus and started on 200 mL an hour of normal saline. He was given insulin bolus and on insulin drip. With elevated potassium he is started on hyperkalemia protocol given calcium gluconate, sodium bicarb albuterol Valentine xalate as well. Patient case was discussed with Dr. Vieyra who discussed with Dr. ramos. Patient will be admitted at this time for altered mental status, severe dehydration, DKA. - Lab Data Result diagrams: 12/29/19 08:01 12/29/19 08:01 Lab Results 12/29/19 12/29/19 12/29/19 Range/Units 07:58 08:00 08:01 WBC 13.7 H (3.8-10.6) k/uL RBC 5.33 (4.30-5.90) m/uL Hgb 17.7 H (13.0-17.5) gm/dL Hct 59.9 H* (39.0-53.0) % MCV 112.4 H (80.0-100.0) fL MCH 33.3 (25.0-35.0) pg MCHC 29.6 L (31.0-37.0) g/dL RDW 13.9 (11.5-15.5) % Plt Count 139 L (150-450) k/uL Neutrophils % 95 % Lymphocytes % 2 % Monocytes % 2 % Eosinophils % 0 % Basophils % 0 % Neutrophils # 13.0 H (1.3-7.7) k/uL Lymphocytes # 0.3 L (1.0-4.8) k/uL Monocytes # 0.3 (0-1.0) k/uL Eosinophils # 0.1 (0-0.7) k/uL Basophils # 0.0 (0-0.2) k/uL Manual Slide Review Performed Hypochromasia Marked Macrocytosis Marked A PT (9.0-12.0) sec INR (<1.2) APTT (22.0-30.0) sec VBG pH 7.17 L* (7.31-7.41) VBG pCO2 35 L (37-51) mmHg VBG HCO3 12 L (24-28) mmol/L Sodium (137-145) mmol/L Potassium (3.5-5.1) mmol/L Chloride (98-107) mmol/L Carbon Dioxide (22-30) mmol/L Anion Gap mmol/L BUN (9-20) mg/dL Creatinine (0.66-1.25) mg/dL Est GFR (CKD-EPI)AfAm (>60 ml/min/1.73 sqM) Est GFR (CKD-EPI)NonAf (>60 ml/min/1.73 sqM) Glucose (74-99) mg/dL POC Glucose (mg/dL) >600 H (75-99) mg/dL POC Glu Repair Table Operator ID Shonda Reinoso Plasma Lactic Acid Rio (0.7-2.0) mmol/L Calcium (8.4-10.2) mg/dL Total Bilirubin (0.2-1.3) mg/dL AST (17-59) U/L ALT (4-49) U/L Alkaline Phosphatase (38-126) U/L Troponin I (0.000-0.034) ng/mL Total Protein (6.3-8.2) g/dL Albumin (3.5-5.0) g/dL Acetone, Qual (Negative) 12/29/19 12/29/19 12/29/19 Range/Units 08:01 08:01 08:01 WBC (3.8-10.6) k/uL RBC (4.30-5.90) m/uL Hgb (13.0-17.5) gm/dL Hct (39.0-53.0) % MCV (80.0-100.0) fL MCH (25.0-35.0) pg MCHC (31.0-37.0) g/dL RDW (11.5-15.5) % Plt Count (150-450) k/uL Neutrophils % % Lymphocytes % % Monocytes % % Eosinophils % % Basophils % % Neutrophils # (1.3-7.7) k/uL Lymphocytes # (1.0-4.8) k/uL Monocytes # (0-1.0) k/uL Eosinophils # (0-0.7) k/uL Basophils # (0-0.2) k/uL Manual Slide Review Hypochromasia Macrocytosis PT 9.7 (9.0-12.0) sec INR 0.9 (<1.2) APTT 21.3 L (22.0-30.0) sec VBG pH (7.31-7.41) VBG pCO2 (37-51) mmHg VBG HCO3 (24-28) mmol/L Sodium 143 (137-145) mmol/L Potassium 6.2 H* (3.5-5.1) mmol/L Chloride 98 (98-107) mmol/L Carbon Dioxide 10 L (22-30) mmol/L Anion Gap 35 mmol/L BUN 83 H (9-20) mg/dL Creatinine 2.17 H (0.66-1.25) mg/dL Est GFR (CKD-EPI)AfAm 38 (>60 ml/min/1.73 sqM) Est GFR (CKD-EPI)NonAf 33 (>60 ml/min/1.73 sqM) Glucose 763 H* (74-99) mg/dL POC Glucose (mg/dL) (75-99) mg/dL POC Glu Repair Table Operator ID Plasma Lactic Acid Rio (0.7-2.0) mmol/L Calcium 9.7 (8.4-10.2) mg/dL Total Bilirubin 1.5 H (0.2-1.3) mg/dL AST 15 L (17-59) U/L ALT 14 (4-49) U/L Alkaline Phosphatase 117 (38-126) U/L Troponin I <0.012 (0.000-0.034) ng/mL Total Protein 9.1 H (6.3-8.2) g/dL Albumin 5.2 H (3.5-5.0) g/dL Acetone, Qual Positive (Negative) 12/29/19 12/29/19 12/29/19 Range/Units 08:01 09:29 09:56 WBC (3.8-10.6) k/uL RBC (4.30-5.90) m/uL Hgb (13.0-17.5) gm/dL Hct (39.0-53.0) % MCV (80.0-100.0) fL MCH (25.0-35.0) pg MCHC (31.0-37.0) g/dL RDW (11.5-15.5) % Plt Count (150-450) k/uL Neutrophils % % Lymphocytes % % Monocytes % % Eosinophils % % Basophils % % Neutrophils # (1.3-7.7) k/uL Lymphocytes # (1.0-4.8) k/uL Monocytes # (0-1.0) k/uL Eosinophils # (0-0.7) k/uL Basophils # (0-0.2) k/uL Manual Slide Review Hypochromasia Macrocytosis PT (9.0-12.0) sec INR (<1.2) APTT (22.0-30.0) sec VBG pH (7.31-7.41) VBG pCO2 (37-51) mmHg VBG HCO3 (24-28) mmol/L Sodium (137-145) mmol/L Potassium (3.5-5.1) mmol/L Chloride (98-107) mmol/L Carbon Dioxide (22-30) mmol/L Anion Gap mmol/L BUN (9-20) mg/dL Creatinine (0.66-1.25) mg/dL Est GFR (CKD-EPI)AfAm (>60 ml/min/1.73 sqM) Est GFR (CKD-EPI)NonAf (>60 ml/min/1.73 sqM) Glucose (74-99) mg/dL POC Glucose (mg/dL) >600 H >600 H (75-99) mg/dL POC Glu Repair Table Operator ID Plasma Lactic Acid Rio 2.6 H* (0.7-2.0) mmol/L Calcium (8.4-10.2) mg/dL Total Bilirubin (0.2-1.3) mg/dL AST (17-59) U/L ALT (4-49) U/L Alkaline Phosphatase (38-126) U/L Troponin I (0.000-0.034) ng/mL Total Protein (6.3-8.2) g/dL Albumin (3.5-5.0) g/dL Acetone, Qual (Negative) 12/29/19 08:00 EKG shows sinus tachycardia with occasional premature ventricular complexes. Otherwise normal EKG. integrative 126 bpm. Was 136 most seconds. QS duration a 64 ms. QT QTC 320/466 ms. 12/29/19 08:02 - Radiology Data Radiology results: report reviewed CT brain shows No Acute intracranial hemorrhage midline shift or mass effect. Consultations a posterior globes are nonspecific recommended outpatient follow- up with ophthalmology. Chest x-ray shows right upper lobe density is again seen lung volumes are low Patient is rotated. No evident pneumothorax or pleural effusion. Findings are not significantly changed. Right hemidiaphragm is elevated. Cardiac silhouette size is normal. Osseous structures intact. There is threaded sick spondylolisthesis. Surgical clips present in upper abdomen. It is consistent with patient's history of carcinoma. Disposition Clinical Impression: Altered mental status, Dehydration, Lung cancer, DKA (diabetic ketoacidoses) Disposition: ADMITTED IP TO THIS HOSP Condition: Stable Is patient prescribed a controlled substance at d/c from ED?: No Referrals: None,Stated [Primary Care Provider] - 1-2 days Time of Disposition: 10:07
[2019-12-29 08:02] LABS: Glucose,Whole Blood >600 mg/dL (75-99)
[2019-12-29 08:15] LABS: Basophils % (A) 0 %; Eosinophils # (A) 0.1 k/uL (0-0.7); Eosinophils % (A) 0 %; HGB 17.7 gm/dL (13.0-17.5); Hypochromasia Marked; Lymphocytes # (A) 0.3 k/uL (1.0-4.8); Lymphocytes % (A) 2 %; MCH 33.3 pg (25.0-35.0); MCHC 29.6 g/dL (31.0-37.0); MCV 112.4 fL (80.0-100.0); Macrocytosis Marked; Mean Platelet Volume 9.5; Monocytes # (A) 0.3 k/uL (0-1.0); Monocytes % (A) 2 %; Neutrophils % (A) 95 %; Platelet Count 139 k/uL (150-450); RBC 5.33 m/uL (4.30-5.90); RDW 13.9 % (11.5-15.5); WBC 13.7 k/uL (3.8-10.6)
[2019-12-29 08:29] LABS: ALT 14 U/L (4-49); AST 15 U/L (17-59); African American GFR (CKD) 38 (>60 ml/min/1.73 sqM); Albumin 5.2 g/dL (3.5-5.0); Alkaline Phosphatase 117 U/L (38-126); Anion Gap 35 mmol/L; Blood Urea Nitrogen 83 mg/dL (9-20); Calcium 9.7 mg/dL (8.4-10.2); Carbon Dioxide 10 mmol/L (22-30); Chloride 98 mmol/L (98-107); Non-African American GFR(CKD) 33 (>60 ml/min/1.73 sqM); Sodium 143 mmol/L (137-145); Total Bilirubin 1.5 mg/dL (0.2-1.3); Total Protein 9.1 g/dL (6.3-8.2)
[2019-12-29 08:31] LABS: VBG PH 7.17 (7.31-7.41)
--- NOTE | 2019-12-29 08:35 | XR ---
EXAMINATION TYPE: XR chest 2V DATE OF EXAM: 12/29/2019 COMPARISON: Prior chest x-ray 09/19/2019, chest CT 09/19/2019 HISTORY: Altered mental status TECHNIQUE: Frontal and lateral views of the chest are obtained. FINDINGS: Right upper lobe density is again seen, lung volumes are low and the patient is rotated. N o evident pneumothorax or pleural effusion. Findings are not significantly changed. Right hemidiaphr agm is elevated The cardiac silhouette size is within normal limits. The osseous structures are int act, there is thoracic spondylosis. Surgical clips present in the upper abdomen. IMPRESSION: Findings consistent with patient's history of carcinoma
--- NOTE | 2019-12-29 08:36 | CT ---
EXAMINATION TYPE: CT brain wo con DATE OF EXAM: 12/29/2019 HISTORY: altered mental status. CT DLP: 1099.4 mGycm. Automated Exposure Control for Dose Reduction was Utilized. TECHNIQUE: CT scan of the head is performed without contrast. COMPARISON: None FINDINGS: There is no acute intracranial hemorrhage, midline shift, or mass effect identified. Calcifications o f the bilateral basal ganglia. The ventricles, sulci, and cisterns are normal in size and configurati on. No extra-axial fluid collection. Bones and extracranial soft tissues are intact. The globes are gross ly symmetric, with subtle calcifications posteriorly bilaterally. Visualized sinuses and mastoid air cells are clear. IMPRESSION: 1. No acute intracranial hemorrhage, midline shift, or mass effect. 2. Thin calcifications of the bilateral posterior globes are nonspecific. Recommend outpatient follow -up with ophthalmology.
[2019-12-29 08:37] LABS: Glucose 763 mg/dL (74-99)
[2019-12-29] MEDS ORDERED: INSULIN REGULAR BOLUS (FROM DRIP BAG) IV ONE (08:37)
[2019-12-29 08:38] LABS: Potassium 6.2 mmol/L (3.5-5.1)
[2019-12-29] MEDS ORDERED: ALBUTEROL NEB (CONC) 2.5 MG/0.5 ML INHALATION ONE (08:38)
[2019-12-29] MEDS ORDERED: SODIUM BICARB 8.4% 50 ML SYR (1 MEQ/ML) IV ONE (08:38)
[2019-12-29] MEDS ORDERED: SODIUM POLYSTYRENE SULFONATE 15 GM/60 ML BOTTLE PO ONE (08:38)
[2019-12-29] MEDS ORDERED: INSULIN REGULAR 100 UNIT in SODIUM CHLORIDE 0.9% 100 ML IV SCH (08:45)
[2019-12-29] MEDS ORDERED: CALCIUM GLUCONATE 1 GM in SODIUM CHLORIDE 0.9% 100 ML IVPB ONE (08:45)
[2019-12-29] MEDS: SODIUM CHLORIDE 0.9% 1,000 ML IV SCH ×3 (08:47→20:23)
[2019-12-29 09:05] LABS: INR 0.9 (<1.2); Prothrombin Time 9.7 sec (9.0-12.0)
[2019-12-29 09:06] LABS: Partial Thromboplastin Time 21.3 sec (22.0-30.0)
[2019-12-29 09:08] LABS: HCT 59.9 % (39.0-53.0)
[2019-12-29 09:31] LABS: Glucose,Whole Blood >600 mg/dL (75-99)
[2019-12-29 09:56] LABS: Appearance,Urine Clear (Clear); Bilirubin,Urine Negative (Negative); Blood,Urine Negative (Negative); Color,Urine Yellow; Glucose,Urine (UA) 4+ (Negative); Leukocyte Esterase,Urine Negative (Negative); Nitrite,Urine Negative (Negative); Protein,Urine Negative (Negative); Specific Gravity,Urine 1.022 (1.001-1.035); Urobilinogen,Urine <2.0 mg/dL (<2.0)
[2019-12-29 09:58] LABS: Glucose,Whole Blood >600 mg/dL (75-99)
[2019-12-29] MEDS ORDERED: ONDANSETRON 4 MG TAB PO PRN (10:08)
[2019-12-29] MEDS ORDERED: PROCHLORPERAZINE 10 MG TAB PO PRN (10:08)
[2019-12-29] MEDS ORDERED: oxyCODONE-APAP 10-325MG 1 EACH TAB PO PRN (10:08)
[2019-12-29] MEDS ORDERED: HYDROcodone/APAP 10-325MG 1 EACH TAB PO PRN (10:08)
[2019-12-29 10:09] LABS: Amphetamine Screen,Urine Not Detected (NotDetected); Barbiturate Screen,Urine Not Detected (NotDetected); Benzodiazepines Screen,Urine Not Detected (NotDetected); Cocaine Screen,Urine Not Detected (NotDetected); Methadone Screen, Urine Not Detected (NotDetected); Opiate Screen,Urine Detected (NotDetected); Oxycodone Screen, Urine Not Detected (NotDetected); Phencyclidine Screen,Urine Not Detected (NotDetected); Tricyclic Antidepressant,Urine Not Detected (NotDetected); Urn Cannabinoid Scrn Not Detected (NotDetected)
[2019-12-29] MEDS ORDERED: SODIUM CHLORIDE 0.9% 1,000 ML IV SCH (10:15)
[2019-12-29 10:18] LABS: Ketones,Urine 4+ (Negative)
[2019-12-29 11:11] LABS: Glucose,Whole Blood 459 mg/dL (75-99)
[2019-12-29 12:10] LABS: Glucose,Whole Blood 404 mg/dL (75-99)
[2019-12-29 12:30] LABS: Potassium 5.4 mmol/L (3.5-5.1)
[2019-12-29 12:56] LABS: Glucose,Whole Blood 419 mg/dL (75-99)
[2019-12-29 13:49] LABS: Glucose,Whole Blood 397 mg/dL (75-99)
--- NOTE | 2019-12-29 13:52 | P.HPIM ---
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 He was diagnosed with right-sided lung cancer about 2 years ago and he follow-up with oncologist at [facility] and his oncologist and [place]. This time he presents because of altered mental status and generalized weakness and dehydration. Patient is poor story and he's awake but he is also tired that he cannot give information, however he opens eyes spontaneously, he follows command s, and when asking him if he has pain he notes his head slightly as no., On admission he is tachycardic, hypertensive with a blood pressure 80/71 leukocytosis of 13.7, hemoglobin 17.7 and platelets 1:30 9k, q slack hemoconcentrated sample. venous ph is 7.1, sodium is 148, creatinine is 2.1, and 1.5. Glucose more than 620 came in to the hospital. Lactic acid was elevated at 2.6 came back to normal at 1.9. Troponin is negative as less than 0.012 Review of Systems n/a, could not provide information Past Medical History Past Medical History: Cancer, COPD, Diabetes Mellitus, Hypertension Additional Past Medical History / Comment(s): chronic back pain, Lung Cancer History of Any Multi-Drug Resistant Organisms: None Reported Past Surgical History: Cholecystectomy Past Anesthesia/Blood Transfusion Reactions: No Reported Reaction Past Psychological History: No Psychological Hx Reported Smoking Status: Current every day smoker Past Alcohol Use History: None Reported Past Drug Use History: None Reported - Past Family History Father Brother(s) Family Medical History: No Reported History Mother Family Medical History: No Reported History Medications and Allergies Home Medications Medication Instructions Recorded Confirmed Type HYDROcodone/APAP 10-325MG [[place] 2 mg PO Q6H PRN 08/27/17 12/29/19 History 10-325] Morphine Sulfate ER [Ms Contin] 30 mg PO Q12HR #14 tablet 05/06/18 12/29/19 Rx oxyCODONE-APAP 10-325MG [Percocet 2 tab PO Q6H PRN 09/20/19 12/29/19 History 10-325 mg] Dexamethasone [Decadron] 4 mg PO BID 12/29/19 12/29/19 History Ondansetron [Zofran] 4 mg PO Q8H PRN 12/29/19 12/29/19 History Prochlorperazine [Compazine] 10 mg PO Q6H PRN 12/29/19 12/29/19 History Allergies Allergy/AdvReac Type Severity Reaction Status Date / Time No Known Allergies Allergy Verified 12/29/19 09:09 Physical Exam Vitals: Vital Signs Temp Pulse Resp BP Pulse Ox 12/29/19 12:59 97.9 F 123 H 14 88/71 100 12/29/19 12:09 98.1 F 123 H 18 96/71 99 12/29/19 11:09 97.9 F 120 H 18 99/75 99 12/29/19 10:27 120 H 28 H 99/75 100 12/29/19 09:59 97.9 F 120 H 18 103/75 99 12/29/19 08:45 118 H 22 103/75 100 12/29/19 07:48 97.9 F 126 H 18 92/70 98 Intake and Output 12/28/19 12/29/19 12/29/19 22:59 06:59 14:59 Intake Total 25.870 Balance 25.870 Intake: Intake, IV Titration 25.870 Amount Insulin Regular 100 unit 25.870 In Sodium Chloride 0.9% 100 ml @ 0.1 UNITS/KG/HR 6.414 mls/hr IV .[id number] [facility] Rx#:[id number] Other: Weight 63.503 kg -GENERAL: The patient is alert , follows command, he felt so tired and does not answer questions verbally, he notes his head yes or no, not in any acute distress. looks severely dehydrated HEENT: Pupils are round and equally reacting to light. EOMI. No scleral icterus. No conjunctival pallor. Normocephalic, atraumatic. No pharyngeal erythema. No thyromegaly. CARDIOVASCULAR: S1 and S2 present. No murmurs, rubs, or gallops. PULMONARY: Chest is clear to auscultation, no wheezing or crackles. ABDOMEN: Soft, nontender, nondistended, normoactive bowel sounds. No palpable organomegaly. MUSCULOSKELETAL: No joint swelling or deformity. EXTREMITIES: No cyanosis, clubbing, or pedal edema. NEUROLOGICAL: Gross neurological examination did not reveal any focal deficits. SKIN: No rashes. No petechiae Results CBC & Chem 7: 12/29/19 08:01 12/29/19 11:29 Labs: Abnormal Lab Results - Last 24 Hours (Table) 12/29/19 12/29/19 12/29/19 Range/Units 07:58 08:00 08:01 WBC 13.7 H (3.8-10.6) k/uL Hgb 17.7 H (13.0-17.5) gm/dL Hct 59.9 H* (39.0-53.0) % MCV 112.4 H (80.0-100.0) fL MCHC 29.6 L (31.0-37.0) g/dL Plt Count 139 L (150-450) k/uL Neutrophils # 13.0 H (1.3-7.7) k/uL Lymphocytes # 0.3 L (1.0-4.8) k/uL Macrocytosis Marked A APTT (22.0-30.0) sec VBG pH 7.17 L* (7.31-7.41) VBG pCO2 35 L (37-51) mmHg VBG HCO3 12 L (24-28) mmol/L Sodium (137-145) mmol/L Potassium (3.5-5.1) mmol/L Chloride (98-107) mmol/L Carbon Dioxide (22-30) mmol/L BUN (9-20) mg/dL Creatinine (0.66-1.25) mg/dL Glucose (74-99) mg/dL POC Glucose (mg/dL) >600 H (75-99) mg/dL Plasma Lactic Acid Rio (0.7-2.0) mmol/L Total Bilirubin (0.2-1.3) mg/dL AST (17-59) U/L Total Protein (6.3-8.2) g/dL Albumin (3.5-5.0) g/dL Urine Glucose (UA) (Negative) Urine Ketones (Negative) Urine Opiates Screen (NotDetected) 12/29/19 12/29/19 12/29/19 Range/Units 08:01 08:01 08:01 WBC (3.8-10.6) k/uL Hgb (13.0-17.5) gm/dL Hct (39.0-53.0) % MCV (80.0-100.0) fL MCHC (31.0-37.0) g/dL Plt Count (150-450) k/uL Neutrophils # (1.3-7.7) k/uL Lymphocytes # (1.0-4.8) k/uL Macrocytosis APTT 21.3 L (22.0-30.0) sec VBG pH (7.31-7.41) VBG pCO2 (37-51) mmHg VBG HCO3 (24-28) mmol/L Sodium (137-145) mmol/L Potassium 6.2 H* (3.5-5.1) mmol/L Chloride (98-107) mmol/L Carbon Dioxide 10 L (22-30) mmol/L BUN 83 H (9-20) mg/dL Creatinine 2.17 H (0.66-1.25) mg/dL Glucose 763 H* (74-99) mg/dL POC Glucose (mg/dL) (75-99) mg/dL Plasma Lactic Acid Rio (0.7-2.0) mmol/L Total Bilirubin 1.5 H (0.2-1.3) mg/dL AST 15 L (17-59) U/L Total Protein 9.1 H (6.3-8.2) g/dL Albumin 5.2 H (3.5-5.0) g/dL Urine Glucose (UA) 4+ H (Negative) Urine Ketones 4+ H (Negative) Urine Opiates Screen Detected H (NotDetected) 12/29/19 12/29/19 12/29/19 Range/Units 08:01 09:29 09:56 WBC (3.8-10.6) k/uL Hgb (13.0-17.5) gm/dL Hct (39.0-53.0) % MCV (80.0-100.0) fL MCHC (31.0-37.0) g/dL Plt Count (150-450) k/uL Neutrophils # (1.3-7.7) k/uL Lymphocytes # (1.0-4.8) k/uL Macrocytosis APTT (22.0-30.0) sec VBG pH (7.31-7.41) VBG pCO2 (37-51) mmHg VBG HCO3 (24-28) mmol/L Sodium (137-145) mmol/L Potassium (3.5-5.1) mmol/L Chloride (98-107) mmol/L Carbon Dioxide (22-30) mmol/L BUN (9-20) mg/dL Creatinine (0.66-1.25) mg/dL Glucose (74-99) mg/dL POC Glucose (mg/dL) >600 H >600 H (75-99) mg/dL Plasma Lactic Acid Rio 2.6 H* (0.7-2.0) mmol/L Total Bilirubin (0.2-1.3) mg/dL AST (17-59) U/L Total Protein (6.3-8.2) g/dL Albumin (3.5-5.0) g/dL Urine Glucose (UA) (Negative) Urine Ketones (Negative) Urine Opiates Screen (NotDetected) 12/29/19 12/29/19 12/29/19 Range/Units 11:08 11:29 12:08 WBC (3.8-10.6) k/uL Hgb (13.0-17.5) gm/dL Hct (39.0-53.0) % MCV (80.0-100.0) fL MCHC (31.0-37.0) g/dL Plt Count (150-450) k/uL Neutrophils # (1.3-7.7) k/uL Lymphocytes # (1.0-4.8) k/uL Macrocytosis APTT (22.0-30.0) sec VBG pH (7.31-7.41) VBG pCO2 (37-51) mmHg VBG HCO3 (24-28) mmol/L Sodium 148 H (137-145) mmol/L Potassium 5.4 H (3.5-5.1) mmol/L Chloride 110 H (98-107) mmol/L Carbon Dioxide 8 L* (22-30) mmol/L BUN 77 H (9-20) mg/dL Creatinine 1.57 H (0.66-1.25) mg/dL Glucose 518 H* (74-99) mg/dL POC Glucose (mg/dL) 459 H 404 H (75-99) mg/dL Plasma Lactic Acid Rio (0.7-2.0) mmol/L Total Bilirubin (0.2-1.3) mg/dL AST (17-59) U/L Total Protein (6.3-8.2) g/dL Albumin (3.5-5.0) g/dL Urine Glucose (UA) (Negative) Urine Ketones (Negative) Urine Opiates Screen (NotDetected) 12/29/19 Range/Units 12:55 WBC (3.8-10.6) k/uL Hgb (13.0-17.5) gm/dL Hct (39.0-53.0) % MCV (80.0-100.0) fL MCHC (31.0-37.0) g/dL Plt Count (150-450) k/uL Neutrophils # (1.3-7.7) k/uL Lymphocytes # (1.0-4.8) k/uL Macrocytosis APTT (22.0-30.0) sec VBG pH (7.31-7.41) VBG pCO2 (37-51) mmHg VBG HCO3 (24-28) mmol/L Sodium (137-145) mmol/L Potassium (3.5-5.1) mmol/L Chloride (98-107) mmol/L Carbon Dioxide (22-30) mmol/L BUN (9-20) mg/dL Creatinine (0.66-1.25) mg/dL Glucose (74-99) mg/dL POC Glucose (mg/dL) 419 H (75-99) mg/dL Plasma Lactic Acid Rio (0.7-2.0) mmol/L Total Bilirubin (0.2-1.3) mg/dL AST (17-59) U/L Total Protein (6.3-8.2) g/dL Albumin (3.5-5.0) g/dL Urine Glucose (UA) (Negative) Urine Ketones (Negative) Urine Opiates Screen (NotDetected)
[2019-12-29 14:40] LABS: Glucose,Whole Blood 350 mg/dL (75-99)
[2019-12-29 15:45] LABS: Glucose,Whole Blood 230 mg/dL (75-99)
[2019-12-29 16:44] LABS: Glucose,Whole Blood 266 mg/dL (75-99)
[2019-12-29] MEDS ORDERED: Potassium Replacement Protocol 1 EACH MISC MISCELLANE PRN (16:49)
[2019-12-29] MEDS ORDERED: Magnesium Replacement Protocol 1 EACH MISC MISCELLANE PRN (16:49)
[2019-12-29 17:18] LABS: African American GFR (CKD) >90 (>60 ml/min/1.73 sqM); Anion Gap 9 mmol/L; Blood Urea Nitrogen 57 mg/dL (9-20); Carbon Dioxide 23 mmol/L (22-30); Chloride 121 mmol/L (98-107); Glucose 207 mg/dL (74-99); Non-African American GFR(CKD) >90 (>60 ml/min/1.73 sqM); Phosphorus 1.2 mg/dL (2.5-4.5); Sodium 153 mmol/L (137-145)
[2019-12-29 17:21] LABS: Potassium 4.2 mmol/L (3.5-5.1)
[2019-12-29 17:32] LABS: Glucose,Whole Blood 156 mg/dL (75-99)
[2019-12-29] MEDS: D5-0.45% NACL WITH KCL 20MEQ/L 1,000 ML IV SCH (18:03)
[2019-12-29 18:42] LABS: Glucose,Whole Blood 123 mg/dL (75-99)
[2019-12-29] MEDS: INSULIN DETEMIR (LEVEMIR) 100 UNIT/ML SYR SQ SCH (19:18)
[2019-12-29 19:28] LABS: Glucose,Whole Blood 145 mg/dL (75-99)
[2019-12-29 20:27] LABS: African American GFR (CKD) >90 (>60 ml/min/1.73 sqM); Anion Gap 10 mmol/L; Blood Urea Nitrogen 51 mg/dL (9-20); Carbon Dioxide 24 mmol/L (22-30); Chloride 119 mmol/L (98-107); Glucose 190 mg/dL (74-99); Non-African American GFR(CKD) >90 (>60 ml/min/1.73 sqM); Phosphorus 1.4 mg/dL (2.5-4.5); Potassium 3.8 mmol/L (3.5-5.1); Sodium 153 mmol/L (137-145)
[2019-12-29 20:32] LABS: Glucose,Whole Blood 183 mg/dL (75-99)
[2019-12-29] MEDS ORDERED: INSULIN DETEMIR (LEVEMIR) 100 UNIT/ML SYR SQ SCH (21:00)
[2019-12-29 21:32] LABS: Glucose,Whole Blood 242 mg/dL (75-99)
[2019-12-29] MEDS ORDERED: Phosphorus Replacement Protoco 1 EACH MISC MISCELLANE PRN (21:40)
[2019-12-29] MEDS: INSULIN ASPART (NovoLOG) 100 UNIT/ML VIAL SQ SCH (21:44)
[2019-12-29] MEDS: MORPHINE SULFATE ER 30 MG TABLET PO SCH (21:50)
[2019-12-29] MEDS: HEPARIN SODIUM,PORCINE 5,000 UNIT/ML 1 ML VIAL SQ SCH (21:51)
[2019-12-29] MEDS: FAMOTIDINE 20 MG/2 ML VIAL IV SCH (21:51)
[2019-12-29 22:34] LABS: Glucose,Whole Blood 269 mg/dL (75-99)
[2019-12-29] MEDS: dexAMETHasone 4 MG TAB PO SCH (23:00)
[2019-12-29 23:34] LABS: Glucose,Whole Blood 252 mg/dL (75-99)
[2019-12-30 00:25] LABS: African American GFR (CKD) >90 (>60 ml/min/1.73 sqM); Anion Gap 6 mmol/L; Blood Urea Nitrogen 41 mg/dL (9-20); Carbon Dioxide 26 mmol/L (22-30); Chloride 122 mmol/L (98-107); Glucose 271 mg/dL (74-99); Non-African American GFR(CKD) >90 (>60 ml/min/1.73 sqM); Phosphorus 1.4 mg/dL (2.5-4.5); Sodium 154 mmol/L (137-145)
[2019-12-30 00:33] LABS: Glucose,Whole Blood 248 mg/dL (75-99)
[2019-12-30 01:33] LABS: Glucose,Whole Blood 240 mg/dL (75-99)
[2019-12-30 02:35] LABS: Glucose,Whole Blood 218 mg/dL (75-99)
[2019-12-30 03:35] LABS: Glucose,Whole Blood 196 mg/dL (75-99)
[2019-12-30] MEDS: D5-0.45% NACL WITH KCL 20MEQ/L 1,000 ML IV SCH (03:49)
[2019-12-30 06:13] LABS: Glucose,Whole Blood 253 mg/dL (75-99)
[2019-12-30] MEDS: INSULIN ASPART (NovoLOG) 100 UNIT/ML VIAL SQ SCH ×4 (06:35→22:56)
[2019-12-30 08:00] LABS: African American GFR (CKD) >90 (>60 ml/min/1.73 sqM); Anion Gap 8 mmol/L; Blood Urea Nitrogen 36 mg/dL (9-20); Calcium 8.8 mg/dL (8.4-10.2); Carbon Dioxide 26 mmol/L (22-30); Chloride 123 mmol/L (98-107); Glucose 277 mg/dL (74-99); Non-African American GFR(CKD) >90 (>60 ml/min/1.73 sqM); Potassium 3.9 mmol/L (3.5-5.1); Sodium 157 mmol/L (137-145)
[2019-12-30 08:01] LABS: HCT 47.6 % (39.0-53.0); MCH 32.2 pg (25.0-35.0); MCHC 29.6 g/dL (31.0-37.0); MCV 108.5 fL (80.0-100.0); Macrocytosis Marked; Mean Platelet Volume 8.9; RBC 4.39 m/uL (4.30-5.90); RDW 14.6 % (11.5-15.5)
[2019-12-30 08:02] LABS: HGB 14.1 gm/dL (13.0-17.5)
[2019-12-30] MEDS: FAMOTIDINE 20 MG/2 ML VIAL IV SCH ×2 (08:44→21:42)
[2019-12-30] MEDS: HEPARIN SODIUM,PORCINE 5,000 UNIT/ML 1 ML VIAL SQ SCH ×2 (08:50→21:41)
[2019-12-30] MEDS: dexAMETHasone 4 MG TAB PO SCH ×2 (08:55→22:57)
[2019-12-30 09:47] LABS: Anisocytosis (M) Present; Band Neutrophils % 4 %; Lymphocytes # (M) 0.63 k/uL (1.0-4.8); Monocytes # (M) 0.03 k/uL (0-1.0); Neutrophils % (M) 74 %; Nucleated Red Blood Cells 0 /100 WBC (0-0); Poikilocytosis (M) Present; Total Cells Counted 100
[2019-12-30 09:48] LABS: Platelet Count 76 k/uL (150-450)
[2019-12-30] MEDS ORDERED: DEXTROSE 5% IN WATER 1,000 ML IV ONE (11:15)
[2019-12-30 12:04] LABS: Glucose,Whole Blood 291 mg/dL (75-99)
[2019-12-30] MEDS: MORPHINE SULFATE ER 30 MG TABLET PO SCH ×2 (12:14→22:40)
[2019-12-30 17:28] LABS: Glucose,Whole Blood 251 mg/dL (75-99)
--- NOTE | 2019-12-30 19:26 | P.PN ---
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 He was diagnosed with right-sided lung cancer about 2 years ago and he follow-up with oncologist at [facility] and his oncologist and [facility]. This time he presents because of altered mental status and generalized weakness and dehydration. Patient is poor story and he's awake but he is also tired that he cannot give information, however he opens eyes spontaneously, he follows commands, and when asking him if he has pain he notes his head slightly as no., On admission he is tachycardic, hypertensive with a blood pressure 80/71 leukocytosis of 13.7, hemoglobin 17.7 and platelets 1:30 9k, q slack h emoconcentrated sample. venous ph is 7.1, sodium is 148, creatinine is 2.1, and 1.5. Glucose more than 620 came in to the hospital. Lactic acid was elevated at 2.6 came back to normal at 1.9. Troponin is negative as less than 0.012 12/30/2019 Patient is more confused today, however was due to hypernatremia with sodium significantly elevated at 153, we'll change his IV fluids from D5 half normal saline to D5W and keep monitoring sodium. Discussed with the staff, we will keep patient nothing by mouth for now and will reassess tomorrow, his blood pressure is improved however still low normal and he is tachycardic. His pro-calcitonin is elevated, no clear evidence of infection, but possible pneumonia versus other, we'll repeat workup tomorrow however start the patient on Zosyn now and follow-up culture results, blood culture is ordered and check chest x-ray tomorrow. Review of systems: N/a Active Medications Generic Name Dose Route Start Last Admin Trade Name Freq PRN Reason Stop Dose Admin Hydrocodone Bitart/Acetaminophen 2 each 12/29/19 10:08 Hydrocodone/Apap 10-325mg 1 Each Tab PO Q6H PRN Pain Dexamethasone 4 mg 12/29/19 21:00 12/30/19 08:55 Dexamethasone 4 Mg Tab PO 4 mg BID RAJ Administration Famotidine 20 mg 12/29/19 21:00 12/30/19 08:44 Famotidine 20 Mg/2 Ml Vial IV 20 mg Q12HR RAJ Administration Heparin Sodium (Porcine) 5,000 unit 12/29/19 21:00 12/30/19 08:50 Heparin Sodium,Porcine 5,000 Unit/Ml 1 Ml Vial SQ 5,000 unit Q12HR RAJ Administration Dextrose/Water 1,000 mls @ 50 mls/hr 12/30/19 11:15 12/30/19 12:27 Dextrose 5%-Water Iv Soln IV 12/31/19 07:14 50 mls/hr .Q20H ONE Administration Piperacillin Sod/Tazobactam 100 mls @ 25 mls/hr 12/30/19 20:00 Sod 3.375 gm/ Sodium Chloride IVPB Q8H [facility] Insulin Aspart 0 unit 12/29/19 21:00 12/30/19 18:19 Insulin Aspart (Novolog) 100 Unit/Ml Vial SQ 4 unit ACHS RAJ Administration Protocol Insulin Detemir 15 unit 12/29/19 19:00 12/29/19 19:18 Insulin Detemir (Levemir) 100 Unit/Ml Syr SQ 15 unit HS RAJ Administration Miscellaneous Information 1 each 12/29/19 16:49 Magnesium Replacement Protocol 1 Each Misc MISCELLANE DAILY PRN Per Protocol Protocol Miscellaneous Information 1 each 12/29/19 16:49 Potassium Replacement Protocol 1 Each Misc MISCELLANE DAILY PRN Per Protocol Miscellaneous Information 1 each 12/29/19 21:40 Phosphorus Replacement Protoco 1 Each Misc MISCELLANE DAILY PRN Per Protocol Protocol Morphine Sulfate 30 mg 12/29/19 21:00 12/30/19 12:14 Morphine Sulfate Er 30 Mg Tablet PO Not Given Q12HR [facility] Ondansetron HCl 4 mg 12/29/19 10:08 Ondansetron 4 Mg Tab PO Q8H PRN Nausea Oxycodone/Acetaminophen 2 each 12/29/19 10:08 Oxycodone-Apap 10-325mg 1 Each Tab PO Q6H PRN Pain Prochlorperazine Maleate 10 mg 12/29/19 10:08 Prochlorperazine 10 Mg Tab PO Q6H PRN Nausea Objective - Vital Signs Vital signs: Vital Signs Temp 97.8 F 12/30/19 08:45 Pulse 121 H 12/30/19 08:45 Resp 18 12/30/19 08:45 BP 107/65 12/30/19 08:45 Pulse Ox 96 12/30/19 08:45 Intake & Output 12/29/19 12/30/19 12/30/19 18:59 06:59 18:59 Intake Total 64.009 955.334 Balance 64.009 955.334 Weight 63.503 kg 72.5 kg 72.5 kg Intake: Intake, IV Titration 64.009 905.334 Amount D5-0.45% NaCl with KCl 900 20Meq/l 1,000 ml @ 150 mls/hr IV .Q6H40M RAJ Rx# :[id number] Insulin Regular 100 unit 64.009 5.334 In Sodium Chloride 0.9% 100 ml @ 0.1 UNITS/KG/HR 6.414 mls/hr IV .[id number] RAJ Rx#:[id number] Oral 0 50 Other: Voiding Method Diaper Diaper # Voids 1 3 # Bowel Movements 2 - Exam -GENERAL: The patient is open and spontaneously however he is confused and does not follow commands HEENT: Pupils are round and equally reacting to light. EOMI. No scleral icterus. No conjunctival pallor. Normocephalic, atraumatic. No pharyngeal erythema. No thyromegaly. CARDIOVASCULAR: S1 and S2 present. No murmurs, rubs, or gallops. PULMONARY: Chest is clear to auscultation, no wheezing or crackles. ABDOMEN: Soft, nontender, nondistended, normoactive bowel sounds. No palpable organomegaly. MUSCULOSKELETAL: No joint swelling or deformity. EXTREMITIES: No cyanosis, clubbing, or pedal edema. NEUROLOGICAL: Gross neurological examination did not reveal any focal deficits. SKIN: No rashes. no petechiae. - Labs CBC & Chem 7: 12/30/19 07:10 12/30/19 07:10 Labs: Abnormal Lab Results - Last 24 Hours (Table) 12/29/19 12/29/19 12/29/19 Range/Units 11:29 12:08 12:55 WBC (3.8-10.6) k/uL MCV (80.0-100.0) fL MCHC (31.0-37.0) g/dL Plt Count (150-450) k/uL Lymphocytes # (Manual) (1.0-4.8) k/uL Macrocytosis Sodium 148 H (137-145) mmol/L Potassium 5.4 H (3.5-5.1) mmol/L Chloride 110 H (98-107) mmol/L Carbon Dioxide 8 L* (22-30) mmol/L BUN 77 H (9-20) mg/dL Creatinine 1.57 H (0.66-1.25) mg/dL Glucose 518 H* (74-99) mg/dL POC Glucose (mg/dL) 404 H 419 H (75-99) mg/dL Hemoglobin A1c (4.0-6.0) % Phosphorus (2.5-4.5) mg/dL 12/29/19 12/29/19 12/29/19 Range/Units 13:48 14:38 15:44 WBC (3.8-10.6) k/uL MCV (80.0-100.0) fL MCHC (31.0-37.0) g/dL Plt Count (150-450) k/uL Lymphocytes # (Manual) (1.0-4.8) k/uL Macrocytosis Sodium (137-145) mmol/L Potassium (3.5-5.1) mmol/L Chloride (98-107) mmol/L Carbon Dioxide (22-30) mmol/L BUN (9-20) mg/dL Creatinine (0.66-1.25) mg/dL Glucose (74-99) mg/dL POC Glucose (mg/dL) 397 H 350 H 230 H (75-99) mg/dL Hemoglobin A1c (4.0-6.0) % Phosphorus (2.5-4.5) mg/dL 12/29/19 12/29/19 12/29/19 Range/Units 16:18 16:18 16:42 WBC (3.8-10.6) k/uL MCV (80.0-100.0) fL MCHC (31.0-37.0) g/dL Plt Count (150-450) k/uL Lymphocytes # (Manual) (1.0-4.8) k/uL Macrocytosis Sodium 153 H (137-145) mmol/L Potassium (3.5-5.1) mmol/L Chloride 121 H (98-107) mmol/L Carbon Dioxide (22-30) mmol/L BUN 57 H (9-20) mg/dL Creatinine (0.66-1.25) mg/dL Glucose 207 H (74-99) mg/dL POC Glucose (mg/dL) 266 H (75-99) mg/dL Hemoglobin A1c 12.0 H (4.0-6.0) % Phosphorus 1.2 L (2.5-4.5) mg/dL 12/29/19 12/29/19 12/29/19 Range/Units 17:31 18:40 19:27 WBC (3.8-10.6) k/uL MCV (80.0-100.0) fL MCHC (31.0-37.0) g/dL Plt Count (150-450) k/uL Lymphocytes # (Manual) (1.0-4.8) k/uL Macrocytosis Sodium (137-145) mmol/L Potassium (3.5-5.1) mmol/L Chloride (98-107) mmol/L Carbon Dioxide (22-30) mmol/L BUN (9-20) mg/dL Creatinine (0.66-1.25) mg/dL Glucose (74-99) mg/dL POC Glucose (mg/dL) 156 H 123 H 145 H (75-99) mg/dL Hemoglobin A1c (4.0-6.0) % Phosphorus (2.5-4.5) mg/dL 12/29/19 12/29/19 12/29/19 Range/Units 19:50 20:30 21:31 WBC (3.8-10.6) k/uL MCV (80.0-100.0) fL MCHC (31.0-37.0) g/dL Plt Count (150-450) k/uL Lymphocytes # (Manual) (1.0-4.8) k/uL Macrocytosis Sodium 153 H (137-145) mmol/L Potassium (3.5-5.1) mmol/L Chloride 119 H (98-107) mmol/L Carbon Dioxide (22-30) mmol/L BUN 51 H (9-20) mg/dL Creatinine (0.66-1.25) mg/dL Glucose 190 H (74-99) mg/dL POC Glucose (mg/dL) 183 H 242 H (75-99) mg/dL Hemoglobin A1c (4.0-6.0) % Phosphorus 1.4 L (2.5-4.5) mg/dL 12/29/19 12/29/19 12/30/19 Range/Units 22:33 23:32 00:02 WBC (3.8-10.6) k/uL MCV (80.0-100.0) fL MCHC (31.0-37.0) g/dL Plt Count (150-450) k/uL Lymphocytes # (Manual) (1.0-4.8) k/uL Macrocytosis Sodium 154 H (137-145) mmol/L Potassium (3.5-5.1) mmol/L Chloride 122 H (98-107) mmol/L Carbon Dioxide (22-30) mmol/L BUN 41 H (9-20) mg/dL Creatinine (0.66-1.25) mg/dL Glucose 271 H (74-99) mg/dL POC Glucose (mg/dL) 269 H 252 H (75-99) mg/dL Hemoglobin A1c (4.0-6.0) % Phosphorus 1.4 L (2.5-4.5) mg/dL 12/30/19 12/30/19 12/30/19 Range/Units 00:30 01:32 02:33 WBC (3.8-10.6) k/uL MCV (80.0-100.0) fL MCHC (31.0-37.0) g/dL Plt Count (150-450) k/uL Lymphocytes # (Manual) (1.0-4.8) k/uL Macrocytosis Sodium (137-145) mmol/L Potassium (3.5-5.1) mmol/L Chloride (98-107) mmol/L Carbon Dioxide (22-30) mmol/L BUN (9-20) mg/dL Creatinine (0.66-1.25) mg/dL Glucose (74-99) mg/dL POC Glucose (mg/dL) 248 H 240 H 218 H (75-99) mg/dL Hemoglobin A1c (4.0-6.0) % Phosphorus (2.5-4.5) mg/dL 12/30/19 12/30/19 12/30/19 Range/Units 03:33 06:11 07:10 WBC 3.0 L (3.8-10.6) k/uL MCV 108.5 H (80.0-100.0) fL MCHC 29.6 L (31.0-37.0) g/dL Plt Count 76 L (150-450) k/uL Lymphocytes # (Manual) 0.63 L (1.0-4.8) k/uL Macrocytosis Marked A Sodium (137-145) mmol/L Potassium (3.5-5.1) mmol/L Chloride (98-107) mmol/L Carbon Dioxide (22-30) mmol/L BUN (9-20) mg/dL Creatinine (0.66-1.25) mg/dL Glucose (74-99) mg/dL POC Glucose (mg/dL) 196 H 253 H (75-99) mg/dL Hemoglobin A1c (4.0-6.0) % Phosphorus (2.5-4.5) mg/dL 12/30/19 Range/Units 07:10 WBC (3.8-10.6) k/uL MCV (80.0-100.0) fL MCHC (31.0-37.0) g/dL Plt Count (150-450) k/uL Lymphocytes # (Manual) (1.0-4.8) k/uL Macrocytosis Sodium 157 H (137-145) mmol/L Potassium (3.5-5.1) mmol/L Chloride 123 H (98-107) mmol/L Carbon Dioxide (22-30) mmol/L BUN 36 H (9-20) mg/dL Creatinine (0.66-1.25) mg/dL Glucose 277 H (74-99) mg/dL POC Glucose (mg/dL) (75-99) mg/dL Hemoglobin A1c (4.0-6.0) % Phosphorus (2.5-4.5) mg/dL Assessment and Plan Assessment: Assessment Diagnoses diabetic ketoacidosis Hypernatremia Metabolic encephalopathy secondary to above Diabetes mellitus, uncontrolled with hyperglycemia Stage IV lung cancer, squamous cell carcinoma Elevated lactic acid, came back to normal History of Hypertension Chronic back pain COPD, no acute exacerbation Plan: This is a pleasant 59 years old male who presents with DKA and altered mental status, currently his abdomen Is closed, continue with insulin sliding scale and monitor glucose clearly continue with insulin. Change IV fluids to D5 W at 50 mL/h monitor sodium level. He did patient nothing by mouth for now and will reassess Labs and medication were reviewed.. Continue same treatment. Continue with symptomatic treatment. Resume home medication. Monitor lytes and vitals. DVT and GI prophylaxis. Further recommendations as per clinical course of the patient DVT prophylaxis: Subcutaneous heparin GI Prophylaxis: Pepcid PT/OT: Pending Prognosis is guarded
[2019-12-30 20:19] LABS: Potassium 3.7 mmol/L (3.5-5.1)
[2019-12-30 20:37] LABS: Glucose,Whole Blood 254 mg/dL (75-99)
[2019-12-30] MEDS: INSULIN DETEMIR (LEVEMIR) 100 UNIT/ML SYR SQ SCH (21:42)
[2019-12-30] MEDS ORDERED: SODIUM CHLORIDE 0.9% 500 ML 500 ML IV PRN (22:19)
[2019-12-30] MEDS: PIPERACILLIN-TAZOBACTAM 3.375 GM in SODIUM CHLORIDE 0.9% 100 ML IVPB SCH (22:28)
[2019-12-31 01:06] LABS: Glucose,Whole Blood 178 mg/dL (75-99)
[2019-12-31 01:16] LABS: ABG Base Excess 5.4 mmol/L; ABG HCO3 28 mmol/L (21-25); ABG Oxygen Saturation 89.3 % (94-97); ABG PCO2 33 mmHg (35-45); ABG PH 7.53 (7.35-7.45); ABG TCO2 29 mmol/L (19-24); Allen Test Performed? Yes
[2019-12-31 01:21] LABS: ABG PO2 48 mmHg (83-108)
--- NOTE | 2019-12-31 01:34 | XR ---
EXAM: XR Chest, 1 View CLINICAL HISTORY: ITS.REASON XR Reason: SOB TECHNIQUE: Frontal view of the chest. COMPARISON: December 29, 2019 chest x-ray. FINDINGS: Lungs: Increase in left basilar plexus or infiltrate since the comparison study. Pleural space: Unremarkable. No pneumothorax. Heart: Unremarkable. No cardiomegaly. Mediastinum: Unremarkable. Bones/joints: Unremarkable. Tubes, lines and devices: Possible right perihilar mass measuring approximately 2 cm obscured by EKG clip. There is adjacent infiltrate and/or partial consolidation of the right upper lobe in the suprahilar region. Consider CT scan for further characterization and possible neoplasm if not already performed. IMPRESSION: 1. Possible right perihilar mass measuring approximately 2 cm obscured by EKG clip. There is adjacent infiltrate and/or partial consolidation of the right upper lobe in the suprahilar region. Consider CT scan for further characterization and possible neoplasm if not already performed. 2. Increase in left basilar plexus or infiltrate since the comparison study.
[2019-12-31] MEDS ORDERED: propofoL 100 ML IV ONE (01:54)
[2019-12-31 01:56] LABS: ALT 10 U/L (4-49); AST 18 U/L (17-59); African American GFR (CKD) >90 (>60 ml/min/1.73 sqM); Albumin 3.3 g/dL (3.5-5.0); Alkaline Phosphatase 63 U/L (38-126); Anion Gap 10 mmol/L; Blood Urea Nitrogen 25 mg/dL (9-20); Calcium 8.7 mg/dL (8.4-10.2); Carbon Dioxide 26 mmol/L (22-30); Chloride 126 mmol/L (98-107); Glucose 181 mg/dL (74-99); Non-African American GFR(CKD) >90 (>60 ml/min/1.73 sqM); Potassium 3.2 mmol/L (3.5-5.1); Total Bilirubin 1.7 mg/dL (0.2-1.3); Total Protein 6.6 g/dL (6.3-8.2)
[2019-12-31 02:02] LABS: Sodium 162 mmol/L (137-145)
[2019-12-31 02:04] LABS: HCT 48.4 % (39.0-53.0); HGB 14.7 gm/dL (13.0-17.5); Hypochromasia Slight; MCH 32.4 pg (25.0-35.0); MCHC 30.3 g/dL (31.0-37.0); MCV 106.9 fL (80.0-100.0); Macrocytosis Moderate; Mean Platelet Volume 8.9; RBC 4.53 m/uL (4.30-5.90)
[2019-12-31 02:09] LABS: Platelet Count 68 k/uL (150-450); WBC 0.5 k/uL (3.8-10.6)
[2019-12-31] MEDS ORDERED: NALOXONE 0.4 MG/ML 1 ML VIAL IV PRN (02:10)
[2019-12-31] MEDS ORDERED: NOREPINEPHRIN 4 MG-0.9% NS PMX 4 MG/250 ML ML IV ONE (02:12)
[2019-12-31] MEDS ORDERED: DEXTROSE 5% IN WATER 1,000 ML IV SCH (02:15)
--- NOTE | 2019-12-31 02:27 | XR ---
EXAM: XR Chest, 1 View CLINICAL HISTORY: ITS.REASON XR Reason: Tube placement TECHNIQUE: Frontal view of the chest. COMPARISON: December 31, 2019 0114 hrs. FINDINGS: Lungs: Left lower lobe infiltrate consistent with pneumonia or atelectasis. Right hilar fullness, improved since previous. Pleural space: Unremarkable. No pneumothorax. Heart: Unremarkable. No cardiomegaly. Mediastinum: Unremarkable. Bones/joints: Osteophytosis of the lower thoracic spine. Tubes, lines and devices: Endotracheal tube tip in stent position located 3 cm from the benny. There is an NG tube extending through the esophagus and into the stomach. Upper abdomen: No pneumoperitoneum under the diaphragm. IMPRESSION: 1. Endotracheal tube tip in stent position located 3 cm from the benny. 2. There is an NG tube extending through the esophagus and into the stomach. 3. Left lower lobe infiltrate consistent with pneumonia or atelectasis. 4. Right hilar fullness, improved since previous.
[2019-12-31] MEDS: NOREPINEPHRINE 4 MG in SODIUM CHLORIDE 0.9% 250 ML IV SCH ×2 (02:28→12:00)
[2019-12-31 02:38] LABS: ABG HCO3 28 mmol/L (21-25); ABG Oxygen Saturation 99.4 % (94-97); ABG PCO2 43 mmHg (35-45); ABG PH 7.42 (7.35-7.45); ABG PO2 355 mmHg (83-108); ABG TCO2 29 mmol/L (19-24); Allen Test Performed? Yes
[2019-12-31] MEDS: PIPERACILLIN-TAZOBACTAM 3.375 GM in SODIUM CHLORIDE 0.9% 100 ML IVPB SCH (03:53)
[2019-12-31 04:06] LABS: HGB 13.3 gm/dL (13.0-17.5); Hypochromasia Slight; MCH 33.4 pg (25.0-35.0); MCHC 30.9 g/dL (31.0-37.0); MCV 108.1 fL (80.0-100.0); Macrocytosis Moderate; Mean Platelet Volume 9.2; RBC 3.97 m/uL (4.30-5.90); RDW 13.5 % (11.5-15.5)
[2019-12-31 04:10] LABS: Appearance,Urine Clear (Clear); Bilirubin,Urine Negative (Negative); Blood,Urine Negative (Negative); Color,Urine Yellow; Glucose,Urine (UA) 4+ (Negative); Ketones,Urine Negative (Negative); Leukocyte Esterase,Urine Negative (Negative); Nitrite,Urine Negative (Negative); Protein,Urine Trace (Negative); Urobilinogen,Urine <2.0 mg/dL (<2.0)
[2019-12-31 04:11] LABS: Platelet Count 63 k/uL (150-450); WBC 0.5 k/uL (3.8-10.6)
--- NOTE | 2019-12-31 04:11 | CT ---
EXAM: CT Angiography Chest With Intravenous Contrast CLINICAL HISTORY: ITS.REASON CT Reason: r/o PE TECHNIQUE: Axial computed tomographic angiography images of the chest with intravenous contrast. CTDI is 20.57 mGy and DLP is 401.00 mGy-cm. This CT exam was performed using one or more of the following dose reduction techniques: automated exposure control, adjustment of the mA and/or kV according to patient size, and/or use of iterative reconstruction technique. MIP reconstructed images were created and reviewed. COMPARISON: September 19, 2019 FINDINGS: Pulmonary arteries: The pulmonary arterial tree is well opacified with contrast. No pulmonary emboli are identified. Aorta: The thoracic aorta is mildly calcified but nondilated. No aneurysm or dissection. Lungs: 1.6 cm right central lung mass is in the right lower lobe, suspicious for neoplasm. Approximately 1.8 x 3.8 cm area of consolidation in the medial right upper lobe, possible neoplasm versus atelectasis. Left lower lobe infiltrate consistent with pneumonia. Pleural space: Unremarkable. No significant effusion. No pneumothorax. Heart: Unremarkable. No cardiomegaly. No significant pericardial effusion. No evidence of RV dysfunction. Bones/joints: Moderate multilevel degenerative changes in the lower thoracic spine. No fracture or destructive bone lesion. No dislocation. Soft tissues: Unremarkable. Lymph nodes: Unremarkable. No enlarged lymph nodes. Stomach and bowel: Severe coronary constipation is present for the heart is not enlarged. Tubes, lines and devices: Endotracheal and NG tubes in standard position. IMPRESSION: 1. 1.6 cm right central lung mass is in the right lower lobe, suspicious for neoplasm. 2. Approximately 1.8 x 3.8 cm area of consolidation in the medial right upper lobe, possible neoplasm versus atelectasis. 3. Left lower lobe infiltrate consistent with pneumonia. 4. Tubes and lines in good position. 5. No evidence of pulmonary embolism or acute aortic abnormality.
[2019-12-31 04:15] LABS: Specific Gravity,Urine >1.050 (1.001-1.035)
[2019-12-31 04:27] LABS: African American GFR (CKD) >90 (>60 ml/min/1.73 sqM); Anion Gap 6 mmol/L; Blood Urea Nitrogen 28 mg/dL (9-20); Calcium 8.3 mg/dL (8.4-10.2); Carbon Dioxide 27 mmol/L (22-30); Chloride 120 mmol/L (98-107); Glucose 377 mg/dL (74-99); Non-African American GFR(CKD) 86 (>60 ml/min/1.73 sqM); Phosphorus 2.2 mg/dL (2.5-4.5); Potassium 3.6 mmol/L (3.5-5.1); Sodium 153 mmol/L (137-145)
[2019-12-31] MEDS ORDERED: POTASSIUM PHOSPHATE 10 MMOL in SODIUM CHLORIDE 0.9% 250 ML IV ONE (04:54)
[2019-12-31 06:35] LABS: Glucose,Whole Blood 375 mg/dL (75-99)
[2019-12-31] MEDS: INSULIN ASPART (NovoLOG) 100 UNIT/ML VIAL SQ SCH ×2 (06:43→12:45)
[2019-12-31] MEDS ORDERED: VANCOMYCIN IV PER PHARMACY 1 EACH MISC MISCELLANE PRN (08:39)
[2019-12-31 08:41] LABS: ABG Base Excess 1.3 mmol/L; ABG HCO3 26 mmol/L (21-25); ABG Oxygen Saturation 98.8 % (94-97); ABG PCO2 44 mmHg (35-45); ABG PH 7.39 (7.35-7.45); ABG PO2 178 mmHg (83-108); ABG TCO2 28 mmol/L (19-24); Allen Test Performed? Yes
[2019-12-31] MEDS ORDERED: CISATRACURIUM 2 MG/ML 5 ML VIAL IV ONE (08:53)
[2019-12-31] MEDS ORDERED: DEXTROSE 5% IN WATER 100 ML with AMIODARONE 150 MG IV ONE (09:00)
[2019-12-31] MEDS ORDERED: AMIODARONE 360 MG in DEXTROSE 5% IN WATER 200 ML IV ONE ×2 (09:00)
[2019-12-31 09:54] LABS: Glucose,Whole Blood 385 mg/dL (75-99)
[2019-12-31] MEDS ORDERED: VANCOMYCIN 1,500 MG in SODIUM CHLORIDE 0.9% 250 ML IVPB ONE (10:00)
[2019-12-31 10:10] LABS: ABG Base Excess -0.9 mmol/L; ABG HCO3 24 mmol/L (21-25); ABG Oxygen Saturation 98.3 % (94-97); ABG PCO2 40 mmHg (35-45); ABG PH 7.39 (7.35-7.45); ABG PO2 133 mmHg (83-108); ABG TCO2 25 mmol/L (19-24)
[2019-12-31 10:12] LABS: Allen Test Performed? no
[2019-12-31] MEDS ORDERED: INSULIN REGULAR BOLUS (FROM DRIP BAG) IV PRN (10:13)
[2019-12-31] MEDS ORDERED: INSULIN REGULAR 100 UNIT in SODIUM CHLORIDE 0.9% 100 ML IV SCH (10:15)
[2019-12-31 10:37] LABS: Glucose,Whole Blood 371 mg/dL (75-99)
[2019-12-31] MEDS: HEPARIN SODIUM,PORCINE 5,000 UNIT/ML 1 ML VIAL SQ SCH (11:12)
[2019-12-31 11:21] LABS: Glucose,Whole Blood 301 mg/dL (75-99)
[2019-12-31] MEDS: MORPHINE SULFATE ER 30 MG TABLET PO SCH ×2 (11:23→20:04)
[2019-12-31] MEDS: CEFEPIME 2 GM in SODIUM CHLORIDE 0.9% 100 ML IVPB SCH ×2 (11:50→20:04)
[2019-12-31] MEDS: dexAMETHasone 4 MG TAB PO SCH ×2 (11:54→20:04)
[2019-12-31] MEDS: SODIUM CHLORIDE 0.9% 1,000 ML IV SCH ×2 (11:55→19:55)
[2019-12-31] MEDS: FAMOTIDINE 20 MG/2 ML VIAL IV SCH ×2 (11:55→20:05)
[2019-12-31 12:26] LABS: Glucose,Whole Blood 230 mg/dL (75-99)
[2019-12-31 12:59] LABS: Glucose,Whole Blood 205 mg/dL (75-99)
--- NOTE | 2019-12-31 13:28 | US ---
EXAMINATION TYPE: US renals and bladder DATE OF EXAM: 12/31/2019 COMPARISON: NONE CLINICAL HISTORY: septic shock, history of right kidney metastasis. Septic exam limited patient on ve nt unable to move. EXAM MEASUREMENTS: Right Kidney: 10.6 x 5.4 x 5.0 cm Left Kidney: 11.3 x 4.6 x 3.4 cm Right Kidney: No hydronephrosis, nephrolithiasis or masses seen Left Kidney: No hydronephrosis, nephrolithiasis or masses seen Bladder: Cather in. Bladder is nondiagnostic due to Choudhury catheter. Bilateral Jets seen: No IMPRESSION: No acute process.
[2019-12-31 14:38] LABS: Glucose,Whole Blood 126 mg/dL (75-99)
[2019-12-31] MEDS: AMIODARONE 300 MG in DEXTROSE 5% IN WATER 250 ML IV SCH ×2 (15:05)
--- NOTE | 2019-12-31 15:16 | P.CNPUL ---
History of Present Illness Consult date: 12/31/19 Requesting physician: Abbe E Sheet Reason for consult: other (Acute hypoxic respiratory failure requiring intubation and mechanical ventilation.) Chief complaint: Altered mental status History of present illness: This is a 59-year-old white male with history of right apical mass measuring 4.73.8 cm extending into the mediastinum with enlarged hilar lymph nodes back in 2018. Core biopsy on 01/09/2018 revealed a squamous cell carcinoma, moderately to poorly differentiated. Patient is now status post 3 cycles of chemotherapy, and he was staged as having an operable stage III squamous cell carcinoma. Since then, the patient was diagnosed as having distant metastasis including the right axilla and supraclavicular area, that means the patient had a stage IV squamous cell bronchogenic carcinoma. His last hospital admission was on 09/19/19, and he was discharged home on 09/22/19. At that time the patient presented with back pain along with nausea and vomiting, and he was seen by onco logy for recommended bone scan were and the patient refused to have it done. Apparently the patient is following up with an oncologist out of [facility]. At any rate the patient was brought in yesterday with mostly symptoms of altered mental status, patient was noted to have hyperglycemia, hy pernatremia, metabolic encephalopathy, and elevated lactic acid. Patient was admitted to 3 [address] and early this morning, I was notified about the patient extremely short of breath, and unresponsive. ABG this morning showed a pO2 of 48 pCO2 of 33 and pH of 7.53. This was on 36% FiO2. Hence I have recommended immediate intubation of the patient and immediate transfer to the ICU. Patient was intubated, follow-up ABG on 100% showed pO2 of 355 pCO2 of 43 pH of 7.42. And his most recent ABG on 50% showed a pO2 of 133 pCO2 of 40 pH of 7.39. I evaluated the patient in the ICU, and he was noted to be hypotensive. Patient was given fluids, and he was also given norepinephrine, patient went into atrial fibrillation with RVR, requiring cardioversion with 50 J given at bedside. While the patient was in A. fib/RVR, his blood pressure was as low as 60 systolic. However patient responded well to the cardioversion, and went into sinus rhythm, in the meantime patient was given amiodarone, and placed on amiodarone drip. Presently the patient is on tidal volume is 450 FiO2 is 40% assist control rate of 26 and PEEP is at 5. He is also on amiodarone drip, and he is on propofol, norepinephrine at 10 mcg/m, patient is also on antibiotics in the form of vancomycin and cefepime. His sodium earlier was as high as 159 and a sodium now is 153. Patient did receive fluid boluses in the form of D5W and D5 45. Review of Systems ROS unobtainable: due to endotracheal tube Past Medical History Past Medical History: Cancer, COPD, Diabetes Mellitus, Hypertension Additional Past Medical History / Comment(s): chronic back pain, Lung Cancer History of Any Multi-Drug Resistant Organisms: None Reported Past Surgical History: Cholecystectomy Additional Past Surgical History / Comment(s): R lung core biopsy. Gadiel believes pt has had orthopedic surgery to one of his legs with hardware. Past Anesthesia/Blood Transfusion Reactions: No Reported Reaction Past Psychological History: No Psychological Hx Reported Smoking Status: Current every day smoker Past Alcohol Use History: None Reported Past Drug Use History: None Reported - Past Family History Father Brother(s) Family Medical History: No Reported History Additional Family Medical History / Comment(s): Father was healthy Mother Family Medical History: No Reported History Medications and Allergies Home Medications Medication Instructions Recorded Confirmed Type HYDROcodone/APAP 10-325MG [[place] 2 mg PO Q6H PRN 08/27/17 12/29/19 History 10-325] Morphine Sulfate ER [Ms Contin] 30 mg PO Q12HR #14 tablet 05/06/18 12/29/19 Rx oxyCODONE-APAP 10-325MG [Percocet 2 tab PO Q6H PRN 09/20/19 12/29/19 History 10-325 mg] Dexamethasone [Decadron] 4 mg PO BID 12/29/19 12/29/19 History Ondansetron [Zofran] 4 mg PO Q8H PRN 12/29/19 12/29/19 History Prochlorperazine [Compazine] 10 mg PO Q6H PRN 12/29/19 12/29/19 History Allergies Allergy/AdvReac Type Severity Reaction Status Date / Time No Known Allergies Allergy Verified 12/29/19 09:09 Physical Exam Vitals: Vital Signs Temp Pulse Pulse Pulse Resp BP BP 12/31/19 14:30 107 H 32 H 12/31/19 14:00 96 30 H 12/31/19 13:30 92 34 H 12/31/19 13:00 92 31 H 12/31/19 12:30 106 H 32 H 12/31/19 12:00 99.3 F 107 H 37 H 12/31/19 11:30 105 H 34 H 12/31/19 11:00 111 H 36 H 12/31/19 10:30 105 H 32 H 12/31/19 10:00 106 H 32 H 12/31/19 09:30 118 H 21 12/31/19 09:00 200 H 30 H 12/31/19 08:30 130 H 37 H 69/58 12/31/19 08:00 99.6 F 130 H 30 H 66/55 12/31/19 07:30 133 H 36 H 76/61 12/31/19 07:00 130 H 38 H 79/66 12/31/19 06:30 130 H 38 H 74/59 12/31/19 06:00 129 H 29 H 80/57 12/31/19 05:30 130 H 33 H 75/52 12/31/19 05:00 128 H 43 H 74/58 12/31/19 04:30 128 H 11 L 80/57 12/31/19 04:15 128 H 26 H 73/53 12/31/19 04:00 99.3 F 126 H 36 H 74/58 12/31/19 03:45 126 H 36 H 70/54 12/31/19 03:30 126 H 32 H 95/61 12/31/19 00:35 142 H 28 H 106/59 12/30/19 20:00 98.2 F 129 H 18 104/69 12/30/19 16:00 98.2 F 126 H 18 102/67 Pulse Ox 12/31/19 14:30 97 12/31/19 14:00 96 12/31/19 13:30 96 12/31/19 13:00 97 12/31/19 12:30 97 12/31/19 12:00 97 12/31/19 11:30 97 12/31/19 11:00 97 12/31/19 10:30 97 12/31/19 10:00 98 12/31/19 09:30 96 12/31/19 09:00 96 12/31/19 08:30 98 12/31/19 08:00 98 12/31/19 07:30 98 12/31/19 07:00 98 12/31/19 06:30 98 12/31/19 06:00 96 12/31/19 05:30 96 12/31/19 05:00 95 12/31/19 04:30 97 12/31/19 04:15 97 12/31/19 04:00 98 12/31/19 03:45 100 12/31/19 03:30 97 12/31/19 00:35 88 L 12/30/19 20:00 94 L 12/30/19 16:00 94 L Intake and Output 12/30/19 12/31/19 12/31/19 22:59 06:59 14:59 Intake Total 8664.117 1428.982 Output Total 496 505 Balance 336.841 2448.982 Intake: IV 1000 1725 Cefepime 2 gm In Sodium 100 Chloride 0.9% 100 ml @ 25 mls/hr IVPB Q12HR [facility] Rx #:[id number] D5 0.45NS bolus 1000 Dextrose 5% in Water 1, 1000 000 ml @ 1000 mls/hr IV . Q1H [facility] Rx#:[id number] Sodium Chloride 0.9% 1, 375 000 ml @ 125 mls/hr IV . Q8H [facility] Rx#:[id number] Vancomycin 1,500 mg In 250 Sodium Chloride 0.9% 250 ml @ 125 mls/hr IVPB ONCE ONE Rx#:[id number] Intake, IV Titration 164.380 767.982 Amount Insulin Regular 100 unit 15.234 In Sodium Chloride 0.9% 100 ml @ Per Protocol IV .Q0M [facility] Rx#:[id number] Norepinephrine 4 mg In 402.748 Sodium Chloride 0.9% 250 ml @ 0.55 MCG/KG/MIN 151. 924 mls/hr IV .Q1H41M [facility] Rx#:[id number] Piperacillin-Tazobactam 3 100 .375 gm In Sodium Chloride 0.9% 100 ml @ 25 mls/hr IVPB Q8H [facility] Rx#: [id number] Potassium Phosphate 10 250 mmol In Sodium Chloride 0 .9% 250 ml @ 125 mls/hr IV ONCE ONE Rx#:[id number] propofoL 1,000 mg In 64.380 100 Empty Bag 1 bag @ Titrate IV .Q0M [facility] Rx#: [id number] Output: Urine 495 505 Urine/Stool Mix 1 Other: Voiding Method Diaper Indwelling Catheter # Voids 3 # Bowel Movements 1 Weight 72.5 kg ABP, PAP, CO, CI - Last 8 Hours Arterial Blood Pressure 102/52 Arterial Blood Pressure 116/54 Arterial Blood Pressure 123/56 Arterial Blood Pressure 130/62 Arterial Blood Pressure 92/46 Arterial Blood Pressure 93/48 Arterial Blood Pressure 95/49 Arterial Blood Pressure 82/44 Arterial Blood Pressure 119/56 Arterial Blood Pressure 102/51 Arterial Blood Pressure 71/40 Arterial Blood Pressure 46/33 Physical Exam: Revealed a 59-year-old white male on mechanical ventilation, sedated, on propofol. Head: Atraumatic, normocephalic. Endotracheal tube and orogastric tube are intact. HEENT:[Neck is supple.] [No neck masses.] [No thyromegaly.] [No JVD.]EOMI, no icterus. Chest: [Symmetrical chest expansion, diminished breath sounds at the bases, no rhonchi and no wheezes. Cardiac Exam: [Normal S1 and S2, no S3 gallop, no murmur.] Abdomen: [Soft, nontender, no megaly, no rebound, no guarding, normal bowel sounds.] Extremities: [No clubbing, no edema, no cyanosis.] Diminished pulses bilaterally. Neurological Exam: Could not be assessed, patient is intubated and mechanically ventilated is also on propofol. Skin: No rashes, no petechiae. Musculoskeletal: No deformities, range of motion could not be assessed. Results - Laboratory Findings CBC and BMP: 12/31/19 03:46 12/31/19 03:46 ABG ABG pH 7.39 (7.35-7.45) 12/31/19 10:06 ABG pCO2 40 mmHg (35-45) 12/31/19 10:06 ABG pO2 133 mmHg (83-108) H 12/31/19 10:06 ABG O2 Saturation 98.3 % (94-97) H 12/31/19 10:06 PT/INR, D-dimer PT 9.7 sec (9.0-12.0) 12/29/19 08:01 INR 0.9 (<1.2) 12/29/19 08:01 Abnormal lab findings: Abnormal Labs 12/29/19 12/29/19 12/29/19 07:58 08:00 08:01 WBC 13.7 H RBC Hgb 17.7 H Hct 59.9 H* MCV 112.4 H MCHC 29.6 L Plt Count 139 L Neutrophils # 13.0 H Lymphocytes # 0.3 L Lymphocytes # (Manual) Macrocytosis Marked A APTT ABG pH ABG pCO2 ABG pO2 ABG HCO3 ABG Total CO2 ABG O2 Saturation VBG pH 7.17 L* VBG pCO2 35 L VBG HCO3 12 L Sodium Potassium Chloride Carbon Dioxide BUN Creatinine Glucose POC Glucose (mg/dL) >600 H Hemoglobin A1c Plasma Lactic Acid [place] Calcium Phosphorus Total Bilirubin AST Total Protein Albumin Procalcitonin Ur Specific [place] Urine Protein Urine Glucose (UA) Urine Ketones Urine Opiates Screen 12/29/19 12/29/19 12/29/19 08:01 08:01 08:01 WBC RBC Hgb Hct MCV MCHC Plt Count Neutrophils # Lymphocytes # Lymphocytes # (Manual) Macrocytosis APTT 21.3 L ABG pH ABG pCO2 ABG pO2 ABG HCO3 ABG Total CO2 ABG O2 Saturation VBG pH VBG pCO2 VBG HCO3 Sodium Potassium 6.2 H* Chloride Carbon Dioxide 10 L BUN 83 H Creatinine 2.17 H Glucose 763 H* POC Glucose (mg/dL) Hemoglobin A1c Plasma Lactic Acid [place] Calcium Phosphorus Total Bilirubin 1.5 H AST 15 L Total Protein 9.1 H Albumin 5.2 H Procalcitonin Ur Specific [place] Urine Protein Urine Glucose (UA) 4+ H Urine Ketones 4+ H Urine Opiates Screen Detected H 12/29/19 12/29/19 12/29/19 08:01 09:29 09:56 WBC RBC Hgb Hct MCV MCHC Plt Count Neutrophils # Lymphocytes # Lymphocytes # (Manual) Macrocytosis APTT ABG pH ABG pCO2 ABG pO2 ABG HCO3 ABG Total CO2 ABG O2 Saturation VBG pH VBG pCO2 VBG HCO3 Sodium Potassium Chloride Carbon Dioxide BUN Creatinine Glucose POC Glucose (mg/dL) >600 H >600 H Hemoglobin A1c Plasma Lactic Acid [place] 2.6 H* Calcium Phosphorus Total Bilirubin AST Total Protein Albumin Procalcitonin Ur Specific [place] Urine Protein Urine Glucose (UA) Urine Ketones Urine Opiates Screen 12/29/19 12/29/19 12/29/19 11:08 11:29 12:08 WBC RBC Hgb Hct MCV MCHC Plt Count Neutrophils # Lymphocytes # Lymphocytes # (Manual) Macrocytosis APTT ABG pH ABG pCO2 ABG pO2 ABG HCO3 ABG Total CO2 ABG O2 Saturation VBG pH VBG pCO2 VBG HCO3 Sodium 148 H Potassium 5.4 H Chloride 110 H Carbon Dioxide 8 L* BUN 77 H Creatinine 1.57 H Glucose 518 H* POC Glucose (mg/dL) 459 H 404 H Hemoglobin A1c Plasma Lactic Acid [place] Calcium Phosphorus Total Bilirubin AST Total Protein Albumin Procalcitonin Ur Specific [place] Urine Protein Urine Glucose (UA) Urine Ketones Urine Opiates Screen 12/29/19 12/29/19 12/29/19 12:55 13:48 14:38 WBC RBC Hgb Hct MCV MCHC Plt Count Neutrophils # Lymphocytes # Lymphocytes # (Manual) Macrocytosis APTT ABG pH ABG pCO2 ABG pO2 ABG HCO3 ABG Total CO2 ABG O2 Saturation VBG pH VBG pCO2 VBG HCO3 Sodium Potassium Chloride Carbon Dioxide BUN Creatinine Glucose POC Glucose (mg/dL) 419 H 397 H 350 H Hemoglobin A1c Plasma Lactic Acid [place] Calcium Phosphorus Total Bilirubin AST Total Protein Albumin Procalcitonin Ur Specific [place] Urine Protein Urine Glucose (UA) Urine Ketones Urine Opiates Screen 12/29/19 12/29/19 12/29/19 15:44 16:18 16:18 WBC RBC Hgb Hct MCV MCHC Plt Count Neutrophils # Lymphocytes # Lymphocytes # (Manual) Macrocytosis APTT ABG pH ABG pCO2 ABG pO2 ABG HCO3 ABG Total CO2 ABG O2 Saturation VBG pH VBG pCO2 VBG HCO3 Sodium 153 H Potassium Chloride 121 H Carbon Dioxide BUN 57 H Creatinine Glucose 207 H POC Glucose (mg/dL) 230 H Hemoglobin A1c 12.0 H Plasma Lactic Acid [place] Calcium Phosphorus 1.2 L Total Bilirubin AST Total Protein Albumin Procalcitonin Ur Specific [place] Urine Protein Urine Glucose (UA) Urine Ketones Urine Opiates Screen 12/29/19 12/29/19 12/29/19 16:42 17:31 18:40 WBC RBC Hgb Hct MCV MCHC Plt Count Neutrophils # Lymphocytes # Lymphocytes # (Manual) Macrocytosis APTT ABG pH ABG pCO2 ABG pO2 ABG HCO3 ABG Total CO2 ABG O2 Saturation VBG pH VBG pCO2 VBG HCO3 Sodium Potassium Chloride Carbon Dioxide BUN Creatinine Glucose POC Glucose (mg/dL) 266 H 156 H 123 H Hemoglobin A1c Plasma Lactic Acid [place] Calcium Phosphorus Total Bilirubin AST Total Protein Albumin Procalcitonin Ur Specific [place] Urine Protein Urine Glucose (UA) Urine Ketones Urine Opiates Screen 12/29/19 12/29/19 12/29/19 19:27 19:50 20:30 WBC RBC Hgb Hct MCV MCHC Plt Count Neutrophils # Lymphocytes # Lymphocytes # (Manual) Macrocytosis APTT ABG pH ABG pCO2 ABG pO2 ABG HCO3 ABG Total CO2 ABG O2 Saturation VBG pH VBG pCO2 VBG HCO3 Sodium 153 H Potassium Chloride 119 H Carbon Dioxide BUN 51 H Creatinine Glucose 190 H POC Glucose (mg/dL) 145 H 183 H Hemoglobin A1c Plasma Lactic Acid [place] Calcium Phosphorus 1.4 L Total Bilirubin AST Total Protein Albumin Procalcitonin Ur Specific [place] Urine Protein Urine Glucose (UA) Urine Ketones Urine Opiates Screen 12/29/19 12/29/19 12/29/19 21:31 22:33 23:32 WBC RBC Hgb Hct MCV MCHC Plt Count Neutrophils # Lymphocytes # Lymphocytes # (Manual) Macrocytosis APTT ABG pH ABG pCO2 ABG pO2 ABG HCO3 ABG Total CO2 ABG O2 Saturation VBG pH VBG pCO2 VBG HCO3 Sodium Potassium Chloride Carbon Dioxide BUN Creatinine Glucose POC Glucose (mg/dL) 242 H 269 H 252 H Hemoglobin A1c Plasma Lactic Acid [place] Calcium Phosphorus Total Bilirubin AST Total Protein Albumin Procalcitonin Ur Specific [place] Urine Protein Urine Glucose (UA) Urine Ketones Urine Opiates Screen 12/30/19 12/30/19 12/30/19 00:02 00:30 01:32 WBC RBC Hgb Hct MCV MCHC Plt Count Neutrophils # Lymphocytes # Lymphocytes # (Manual) Macrocytosis APTT ABG pH ABG pCO2 ABG pO2 ABG HCO3 ABG Total CO2 ABG O2 Saturation VBG pH VBG pCO2 VBG HCO3 Sodium 154 H Potassium Chloride 122 H Carbon Dioxide BUN 41 H Creatinine Glucose 271 H POC Glucose (mg/dL) 248 H 240 H Hemoglobin A1c Plasma Lactic Acid [place] Calcium Phosphorus 1.4 L Total Bilirubin AST Total Protein Albumin Procalcitonin Ur Specific [place] Urine Protein Urine Glucose (UA) Urine Ketones Urine Opiates Screen 1112/30/19 12/30/19 02:33 03:33 06:11 WBC RBC Hgb Hct MCV MCHC Plt Count Neutrophils # Lymphocytes # Lymphocytes # (Manual) Macrocytosis APTT ABG pH ABG pCO2 ABG pO2 ABG HCO3 ABG Total CO2 ABG O2 Saturation VBG pH VBG pCO2 VBG HCO3 Sodium Potassium Chloride Carbon Dioxide BUN Creatinine Glucose POC Glucose (mg/dL) 218 H 196 H 253 H Hemoglobin A1c Plasma Lactic Acid [place] Calcium Phosphorus Total Bilirubin AST Total Protein Albumin Procalcitonin Ur Specific [place] Urine Protein Urine Glucose (UA) Urine Ketones Urine Opiates Screen 12/30/19 12/30/19 12/30/19 07:10 07:10 07:10 WBC 3.0 L RBC Hgb Hct MCV 108.5 H MCHC 29.6 L Plt Count 76 L Neutrophils # Lymphocytes # Lymphocytes # (Manual) 0.63 L Macrocytosis Marked A APTT ABG pH ABG pCO2 ABG pO2 ABG HCO3 ABG Total CO2 ABG O2 Saturation VBG pH VBG pCO2 VBG HCO3 Sodium 157 H Potassium Chloride 123 H Carbon Dioxide BUN 36 H Creatinine Glucose 277 H POC Glucose (mg/dL) Hemoglobin A1c Plasma Lactic Acid [place] Calcium Phosphorus Total Bilirubin AST Total Protein Albumin Procalcitonin 0.31 H Ur Specific [place] Urine Protein Urine Glucose (UA) Urine Ketones Urine Opiates Screen 12/30/19 12/30/19 12/30/19 12:02 17:27 19:53 WBC RBC Hgb Hct MCV MCHC Plt Count Neutrophils # Lymphocytes # Lymphocytes # (Manual) Macrocytosis APTT ABG pH ABG pCO2 ABG pO2 ABG HCO3 ABG Total CO2 ABG O2 Saturation VBG pH VBG pCO2 VBG HCO3 Sodium 159 H Potassium Chloride 125 H Carbon Dioxide BUN Creatinine Glucose POC Glucose (mg/dL) 291 H 251 H Hemoglobin A1c Plasma Lactic Acid [place] Calcium Phosphorus Total Bilirubin AST Total Protein Albumin Procalcitonin Ur Specific [place] Urine Protein Urine Glucose (UA) Urine Ketones Urine Opiates Screen 12/30/19 12/31/19 12/31/19 20:35 00:55 01:09 WBC RBC Hgb Hct MCV MCHC Plt Count Neutrophils # Lymphocytes # Lymphocytes # (Manual) Macrocytosis APTT ABG pH 7.53 H ABG pCO2 33 L ABG pO2 48 L* ABG HCO3 28 H ABG Total CO2 29 H ABG O2 Saturation 89.3 L VBG pH VBG pCO2 VBG HCO3 Sodium Potassium Chloride Carbon Dioxide BUN Creatinine Glucose POC Glucose (mg/dL) 254 H 178 H Hemoglobin A1c Plasma Lactic Acid [place] Calcium Phosphorus Total Bilirubin AST Total Protein Albumin Procalcitonin Ur Specific [place] Urine Protein Urine Glucose (UA) Urine Ketones Urine Opiates Screen 12/31/19 12/31/19 12/31/19 01:24 01:24 02:36 WBC 0.5 L* RBC Hgb Hct MCV 106.9 H MCHC 30.3 L Plt Count 68 L Neutrophils # Lymphocytes # Lymphocytes # (Manual) Macrocytosis APTT ABG pH ABG pCO2 ABG pO2 355 H ABG HCO3 28 H ABG Total CO2 29 H ABG O2 Saturation 99.4 H VBG pH VBG pCO2 VBG HCO3 Sodium 162 H* Potassium 3.2 L Chloride 126 H Carbon Dioxide BUN 25 H Creatinine Glucose 181 H POC Glucose (mg/dL) Hemoglobin A1c Plasma Lactic Acid [place] Calcium Phosphorus Total Bilirubin 1.7 H AST Total Protein Albumin 3.3 L Procalcitonin Ur Specific [place] Urine Protein Urine Glucose (UA) Urine Ketones Urine Opiates Screen 12/31/19 12/31/19 12/31/19 03:46 03:46 03:53 WBC 0.5 L* RBC 3.97 L Hgb Hct MCV 108.1 H MCHC 30.9 L Plt Count 63 L Neutrophils # Lymphocytes # Lymphocytes # (Manual) Macrocytosis APTT ABG pH ABG pCO2 ABG pO2 ABG HCO3 ABG Total CO2 ABG O2 Saturation VBG pH VBG pCO2 VBG HCO3 Sodium 153 H Potassium Chloride 120 H Carbon Dioxide BUN 28 H Creatinine Glucose 377 H POC Glucose (mg/dL) Hemoglobin A1c Plasma Lactic Acid [place] Calcium 8.3 L Phosphorus 2.2 L Total Bilirubin AST Total Protein Albumin Procalcitonin Ur Specific [place] >1.050 H Urine Protein Trace H Urine Glucose (UA) 4+ H Urine Ketones Urine Opiates Screen 12/31/19 12/31/19 12/31/19 06:34 08:39 09:53 WBC RBC Hgb Hct MCV MCHC Plt Count Neutrophils # Lymphocytes # Lymphocytes # (Manual) Macrocytosis APTT ABG pH ABG pCO2 ABG pO2 178 H ABG HCO3 26 H ABG Total CO2 28 H ABG O2 Saturation 98.8 H VBG pH VBG pCO2 VBG HCO3 Sodium Potassium Chloride Carbon Dioxide BUN Creatinine Glucose POC Glucose (mg/dL) 375 H 385 H Hemoglobin A1c Plasma Lactic Acid [place] Calcium Phosphorus Total Bilirubin AST Total Protein Albumin Procalcitonin Ur Specific [place] Urine Protein Urine Glucose (UA) Urine Ketones Urine Opiates Screen 12/31/19 12/31/19 12/31/19 10:06 10:35 11:20 WBC RBC Hgb Hct MCV MCHC Plt Count Neutrophils # Lymphocytes # Lymphocytes # (Manual) Macrocytosis APTT ABG pH ABG pCO2 ABG pO2 133 H ABG HCO3 ABG Total CO2 25 H ABG O2 Saturation 98.3 H VBG pH VBG pCO2 VBG HCO3 Sodium Potassium Chloride Carbon Dioxide BUN Creatinine Glucose POC Glucose (mg/dL) 371 H 301 H Hemoglobin A1c Plasma Lactic Acid [place] Calcium Phosphorus Total Bilirubin AST Total Protein Albumin Procalcitonin Ur Specific [place] Urine Protein Urine Glucose (UA) Urine Ketones Urine Opiates Screen 12/31/19 12/31/19 12/31/19 12:13 12:57 14:37 WBC RBC Hgb Hct MCV MCHC Plt Count Neutrophils # Lymphocytes # Lymphocytes # (Manual) Macrocytosis APTT ABG pH ABG pCO2 ABG pO2 ABG HCO3 ABG Total CO2 ABG O2 Saturation VBG pH VBG pCO2 VBG HCO3 Sodium Potassium Chloride Carbon Dioxide BUN Creatinine Glucose POC Glucose (mg/dL) 230 H 205 H 126 H Hemoglobin A1c Plasma Lactic Acid [place] Calcium Phosphorus Total Bilirubin AST Total Protein Albumin Procalcitonin Ur Specific [place] Urine Protein Urine Glucose (UA) Urine Ketones Urine Opiates Screen - Diagnostic Findings CT scan - chest: image reviewed (CT angiogram of the chest was done earlier to rule out pulmonary embolism, and it showed a 1.6 cm right central lung mass in the right lower lobe and a 1.83.8 area of consolidation in the medial right upper lobe, there is also infiltrate in the left lower lobe. No evidence of pulmonary embolism. ) Assessment and Plan Assessment: Impression: Acute hypoxic respiratory failure secondary to healthcare acquired pneumonia, in an immunocompromised host with known malignancy, likely gram-negative pneumonia. Advanced bronchogenic carcinoma stage IV. Sepsis and septic shock requiring fluids and norepinephrine to maintain reasonable blood pressure. Hyperglycemia on presentation, but no clear-cut evidence of diabetic ketoacidosis as his urine ketones were negative. Poorly controlled diabetes. Acute metabolic encephalopathy with hypoxemia and hypoxic respiratory failure as well as hypernatremia causing his acute metabolic encephalopathy. Elevated lactic acid on presentation secondary to sepsis and septic shock. History of chronic obstructive pulmonary disease, presently inactive History of hypertension. History of chronic back pain Suspect dehydration and free water deficit on presentation. With hypernatremia New onset atrial fibrillation with RVR, likely induced by norepinephrine while in the ICU, patient responded to amiodarone and cardioversion./Patient was defibrillated using 50 J as he was quite hypotensive while in A. fib/RVR Recommendation: Continue ventilatory support, ventilator settings were adjusted he is now on tidal volume is 450 FiO2 is 40% rate is 26 and PEEP of 5. Start the nutritional support/enteral feeding. Broad-spectrum antibiotics in the form of cefepime and vancomycin until further cultures are available including blood cultures and sputum cultures. Insulin drip for poorly controlled diabetes. Bronchodilators for underlying COPD and continue steroids. GI prophylaxis, and use Venodyne boots for DVT prophylaxis as the patient has low platelets Continue amiodarone drip, and likely discontinue in the next 24 hours. Address CODE STATUS with family in the next 24 hours. Overall prognosis is extremely poor and guarded. Just based on the fact that the patient has terminal illness, and presented with multiple comorbidities as noted above. We'll continue to follow. Critical care time is 55 minutes not including the time spent on procedures and cardioverting the patient. Time with Patient: Greater than 30
[2019-12-31 15:26] LABS: Glucose,Whole Blood 135 mg/dL (75-99)
[2019-12-31] MEDS: NOREPINEPHRINE 8 MG in SODIUM CHLORIDE 0.9% 250 ML IV SCH (15:40)
[2019-12-31] MEDS: IPRATROPIUM-ALBUTEROL 3 ML NEB INHALATION SCH ×2 (16:01→21:51)
[2019-12-31 16:32] LABS: Glucose,Whole Blood 122 mg/dL (75-99)
[2019-12-31 17:36] LABS: Glucose,Whole Blood 206 mg/dL (75-99)
[2019-12-31] MEDS: VANCOMYCIN 1,250 MG in SODIUM CHLORIDE 0.9% 250 ML IVPB SCH (17:46)
[2019-12-31 18:26] LABS: Glucose,Whole Blood 188 mg/dL (75-99)
--- NOTE | 2019-12-31 19:01 | P.PN ---
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 He was diagnosed with right-sided lung cancer about 2 years ago and he follow-up with oncologist at [facility] and his oncologist and [place]. This time he presents because of altered mental status and generalized weakness and dehydration. Patient is poor story and he's awake but he is also tired that he cannot give information, however he opens eyes spontaneously, he follows commands, and when asking him if he has pain he notes his head slightly as no., On admission he is tachycardic, hypertensive with a blood pressure 80/71 leukocytosis of 13.7, hemoglobin 17.7 and platelets 1:30 9k, q slack h emoconcentrated sample. venous ph is 7.1, sodium is 148, creatinine is 2.1, and 1.5. Glucose more than 620 came in to the hospital. Lactic acid was elevated at 2.6 came back to normal at 1.9. Troponin is negative as less than 0.012 12/30/2019 Patient is more confused today, however was due to hypernatremia with sodium significantly elevated at 153, we'll change his IV fluids from D5 half normal saline to D5W and keep monitoring sodium. Discussed with the staff, we will keep patient nothing by mouth for now and will reassess tomorrow, his blood pressure is improved however still low normal and he is tachycardic. His pro-calcitonin is elevated, no clear evidence of infection, but possible pneumonia versus other, we'll repeat workup tomorrow however start the patient on Zosyn now and follow-up culture results, blood culture is ordered and check chest x-ray tomorrow. 12/31/2019 Patient got into respiratory distress overnight and he got intubated and placed on mechanical ventilation, also he went into shock states and started on norepinephrine at 0.3 g per KG per minute this morning. Also his course was complicated with A. fib and RVR and he was placed on amiodarone drip after cardioversion and switch to sinus rhythm, his heart rate is in the 90s right now, is still tachypneic and blood pressure 82/44. Patient is also on insulin drip. CTA of the chest showing no pulmonary embolism, which shows 1.6 cm right central line mass suspicious for neoplasm and 1.8 x 3.8 area of consolidation in the right upper lobe possible metastatic neoplasm versus atelectasis and left lower lobe infiltrate consistent with pneumonia. Tube in good position. Antibiotics were changed from Zosyn to cefepime and IV vancomycin by pulmonary team I discussed the case with the daughter Precious over the phone. She states that he follows with [facility] [place], and he was getting chemotherapy and radiotherapy. As per daughter he has 5 masses of metastasis is between his right armpit and right kidney. I updated her with the patient condition and all her questions were answered to her satisfaction. Review of systems: N/a Active Medications Generic Name Dose Route Start Last Admin Trade Name Freq PRN Reason Stop Dose Admin Hydrocodone Bitart/Acetaminophen 2 each 12/29/19 10:08 Hydrocodone/Apap 10-325mg 1 Each Tab PO Q6H PRN Pain Dexamethasone 4 mg 12/29/19 21:00 12/31/19 11:54 Dexamethasone 4 Mg Tab PO 4 mg BID RAJ Administration Famotidine 20 mg 12/29/19 21:00 12/31/19 11:55 Famotidine 20 Mg/2 Ml Vial IV 20 mg Q12HR RAJ Administration Sodium Chloride 500 mls @ 999 mls/hr 12/30/19 22:19 Saline 0.9% IV .Q31M PRN SBP < 100 Propofol 1,000 mg/ IV Solution 100 mls @ 0 mls/hr 12/31/19 02:15 12/31/19 11:54 IV 50 mcg/kg/min .Q0M RAJ 21.75 mls/hr Administration Protocol Titrate Norepinephrine Bitartrate 4 mg 254 mls @ 13.811 mls/hr 12/31/19 02:15 12/31/19 09:45 / Sodium Chloride IV 0.3 mcg/kg/min .[id number] RAJ 82.868 mls/hr Titration Protocol 0.05 MCG/KG/MIN Cefepime HCl 2 gm/ Sodium 100 mls @ 25 mls/hr 12/31/19 09:00 12/31/19 11:50 Chloride IVPB 25 mls/hr Q12HR RAJ Administration Vancomycin HCl 1,250 mg/ 250 mls @ 125 mls/hr 12/31/19 18:00 Sodium Chloride IVPB Q8H RAJ Amiodarone HCl 360 mg/ 200 mls @ 33.333 mls/hr 12/31/19 09:00 12/31/19 09:36 Dextrose/Water IV 12/31/19 14:59 1 mg/min .Q6H ONE 33.333 mls/hr Administration Protocol 1 MG/MIN Amiodarone HCl 300 mg/ 250 mls @ 25 mls/hr 12/31/19 15:00 Dextrose/Water IV 01/01/20 08:59 .Q10H RAJ Protocol 0.5 MG/MIN Insulin Human Regular 100 unit 101 mls @ 0 mls/hr 12/31/19 10:15 12/31/19 11:21 / Sodium Chloride IV 7 units/hr .Q0M RAJ 7.07 mls/hr Titration Protocol Per Protocol Sodium Chloride 1,000 mls @ 125 mls/hr 12/31/19 11:15 12/31/19 11:55 Saline 0.9% IV 125 mls/hr .Q8H RAJ Administration Insulin Aspart 0 unit 12/31/19 06:00 12/31/19 06:43 Insulin Aspart (Novolog) 100 Unit/Ml Vial SQ 7 unit Q6H RAJ Administration Protocol Insulin Detemir 15 unit 12/29/19 19:00 12/30/19 21:42 Insulin Detemir (Levemir) 100 Unit/Ml Syr SQ 15 unit HS RAJ Administration Miscellaneous Information 1 each 12/29/19 16:49 Magnesium Replacement Protocol 1 Each Misc MISCELLANE DAILY PRN Per Protocol Protocol Miscellaneous Information 1 each 12/29/19 16:49 Potassium Replacement Protocol 1 Each Misc MISCELLANE DAILY PRN Per Protocol Miscellaneous Information 1 each 12/29/19 21:40 Phosphorus Replacement Protoco 1 Each Misc MISCELLANE DAILY PRN Per Protocol Protocol Miscellaneous Information 0 each 01/01/20 17:00 Vancomycin Trough Due 1 Each Misc MISCELLANE 01/01/20 17:01 DIRECTED ONE Morphine Sulfate 30 mg 12/29/19 21:00 12/31/19 11:23 Morphine Sulfate Er 30 Mg Tablet PO Not Given Q12HR RAJ Naloxone HCl 0.2 mg 12/31/19 02:10 Naloxone 0.4 Mg/Ml 1 Ml Vial IV Q2M PRN Opioid Reversal Ondansetron HCl 4 mg 12/29/19 10:08 Ondansetron 4 Mg Tab PO Q8H PRN Nausea Oxycodone/Acetaminophen 2 each 12/29/19 10:08 Oxycodone-Apap 10-325mg 1 Each Tab PO Q6H PRN Pain Prochlorperazine Maleate 10 mg 12/29/19 10:08 Prochlorperazine 10 Mg Tab PO Q6H PRN Nausea Objective - Vital Signs Vital signs: Vital Signs Temp 99.6 F 12/31/19 08:00 Pulse 111 H 12/31/19 11:00 Resp 36 H 12/31/19 11:00 BP 69/58 12/31/19 08:30 Pulse Ox 97 12/31/19 11:00 Intake & Output 12/30/19 12/31/19 12/31/19 18:59 06:59 18:59 Intake Total 1164.380 456.347 Output Total 496 60 Balance 668.380 396.347 Weight 72.5 kg 72.5 kg Intake: IV 1000 Dextrose 5% in Water 1, 1000 000 ml @ 1000 mls/hr IV . Q1H RAJ Rx#:[id number] Intake, IV Titration 164.380 456.347 Amount Insulin Regular 100 unit 5.757 In Sodium Chloride 0.9% 100 ml @ Per Protocol IV .Q0M RAJ Rx#:[id number] Norepinephrine 4 mg In 100.59 Sodium Chloride 0.9% 250 ml @ 0.05 MCG/KG/MIN 13. 811 mls/hr IV .[id number] RAJ Rx#:[id number] Piperacillin-Tazobactam 3 100 .375 gm In Sodium Chloride 0.9% 100 ml @ 25 mls/hr IVPB Q8H RAJ Rx#: [id number] Potassium Phosphate 10 250 mmol In Sodium Chloride 0 .9% 250 ml @ 125 mls/hr IV ONCE ONE Rx#:[id number] propofoL 1,000 mg In 64.380 100 Empty Bag 1 bag @ Titrate IV .Q0M RAJ Rx#: [id number] Output: Urine 495 60 Urine/Stool Mix 1 Other: Voiding Method Diaper Indwelling Catheter # Voids 3 # Bowel Movements 1 ABP, PAP, CO, CI - Last Documented Arterial Blood Pressure 82/44 - Exam -GENERAL: The patient is intubated and sedated HEENT: Pupils are round and equally reacting to light. EOMI. No scleral icterus. No conjunctival pallor. Normocephalic, atraumatic. No pharyngeal erythema. No thyromegaly. CARDIOVASCULAR: S1 and S2 present. No murmurs, rubs, or gallops. PULMONARY: Chest is clear to auscultation, no wheezing or crackles. ABDOMEN: Soft, nontender, nondistended, normoactive bowel sounds. No palpable organomegaly. MUSCULOSKELETAL: No joint swelling or deformity. EXTREMITIES: No cyanosis, clubbing, or pedal edema. NEUROLOGICAL: Gross neurological examination did not reveal any focal deficits. SKIN: No rashes. no petechiae. - Labs CBC & Chem 7: 12/31/19 03:46 12/31/19 03:46 Labs: Abnormal Lab Results - Last 24 Hours (Table) 12/30/19 12/30/19 12/30/19 Range/Units 12:02 17:27 19:53 WBC (3.8-10.6) k/uL RBC (4.30-5.90) m/uL MCV (80.0-100.0) fL MCHC (31.0-37.0) g/dL Plt Count (150-450) k/uL ABG pH (7.35-7.45) ABG pCO2 (35-45) mmHg ABG pO2 (83-108) mmHg ABG HCO3 (21-25) mmol/L ABG Total CO2 (19-24) mmol/L ABG O2 Saturation (94-97) % Sodium 159 H (137-145) mmol/L Potassium (3.5-5.1) mmol/L Chloride 125 H (98-107) mmol/L BUN (9-20) mg/dL Glucose (74-99) mg/dL POC Glucose (mg/dL) 291 H 251 H (75-99) mg/dL Calcium (8.4-10.2) mg/dL Phosphorus (2.5-4.5) mg/dL Total Bilirubin (0.2-1.3) mg/dL Albumin (3.5-5.0) g/dL Ur Specific Vincent (1.001-1.035) Urine Protein (Negative) Urine Glucose (UA) (Negative) 12/30/19 12/31/1912/30/20 Range/Units 20:35 00:55 01:09 WBC (3.8-10.6) k/uL RBC (4.30-5.90) m/uL MCV (80.0-100.0) fL MCHC (31.0-37.0) g/dL Plt Count (150-450) k/uL ABG pH 7.53 H (7.35-7.45) ABG pCO2 33 L (35-45) mmHg ABG pO2 48 L* (83-108) mmHg ABG HCO3 28 H (21-25) mmol/L ABG Total CO2 29 H (19-24) mmol/L ABG O2 Saturation 89.3 L (94-97) % Sodium (137-145) mmol/L Potassium (3.5-5.1) mmol/L Chloride (98-107) mmol/L BUN (9-20) mg/dL Glucose (74-99) mg/dL POC Glucose (mg/dL) 254 H 178 H (75-99) mg/dL Calcium (8.4-10.2) mg/dL Phosphorus (2.5-4.5) mg/dL Total Bilirubin (0.2-1.3) mg/dL Albumin (3.5-5.0) g/dL Ur Specific Vincent (1.001-1.035) Urine Protein (Negative) Urine Glucose (UA) (Negative) 12/31/19 12/31/19 12/31/19 Range/Units 01:24 01:24 02:36 WBC 0.5 L* (3.8-10.6) k/uL RBC (4.30-5.90) m/uL MCV 106.9 H (80.0-100.0) fL MCHC 30.3 L (31.0-37.0) g/dL Plt Count 68 L (150-450) k/uL ABG pH (7.35-7.45) ABG pCO2 (35-45) mmHg ABG pO2 355 H (83-108) mmHg ABG HCO3 28 H (21-25) mmol/L ABG Total CO2 29 H (19-24) mmol/L ABG O2 Saturation 99.4 H (94-97) % Sodium 162 H* (137-145) mmol/L Potassium 3.2 L (3.5-5.1) mmol/L Chloride 126 H (98-107) mmol/L BUN 25 H (9-20) mg/dL Glucose 181 H (74-99) mg/dL POC Glucose (mg/dL) (75-99) mg/dL Calcium (8.4-10.2) mg/dL Phosphorus (2.5-4.5) mg/dL Total Bilirubin 1.7 H (0.2-1.3) mg/dL Albumin 3.3 L (3.5-5.0) g/dL Ur Specific Vincent (1.001-1.035) Urine Protein (Negative) Urine Glucose (UA) (Negative) 12/31/19 12/31/19 12/31/19 Range/Units 03:46 03:46 03:53 WBC 0.5 L* (3.8-10.6) k/uL RBC 3.97 L (4.30-5.90) m/uL MCV 108.1 H (80.0-100.0) fL MCHC 30.9 L (31.0-37.0) g/dL Plt Count 63 L (150-450) k/uL ABG pH (7.35-7.45) ABG pCO2 (35-45) mmHg ABG pO2 (83-108) mmHg ABG HCO3 (21-25) mmol/L ABG Total CO2 (19-24) mmol/L ABG O2 Saturation (94-97) % Sodium 153 H (137-145) mmol/L Potassium (3.5-5.1) mmol/L Chloride 120 H (98-107) mmol/L BUN 28 H (9-20) mg/dL Glucose 377 H (74-99) mg/dL POC Glucose (mg/dL) (75-99) mg/dL Calcium 8.3 L (8.4-10.2) mg/dL Phosphorus 2.2 L (2.5-4.5) mg/dL Total Bilirubin (0.2-1.3) mg/dL Albumin (3.5-5.0) g/dL Ur Specific Vincent >1.050 H (1.001-1.035) Urine Protein Trace H (Negative) Urine Glucose (UA) 4+ H (Negative) 12/31/19 12/31/19 12/31/19 Range/Units 06:34 08:39 09:53 WBC (3.8-10.6) k/uL RBC (4.30-5.90) m/uL MCV (80.0-100.0) fL MCHC (31.0-37.0) g/dL Plt Count (150-450) k/uL ABG pH (7.35-7.45) ABG pCO2 (35-45) mmHg ABG pO2 178 H (83-108) mmHg ABG HCO3 26 H (21-25) mmol/L ABG Total CO2 28 H (19-24) mmol/L ABG O2 Saturation 98.8 H (94-97) % Sodium (137-145) mmol/L Potassium (3.5-5.1) mmol/L Chloride (98-107) mmol/L BUN (9-20) mg/dL Glucose (74-99) mg/dL POC Glucose (mg/dL) 375 H 385 H (75-99) mg/dL Calcium (8.4-10.2) mg/dL Phosphorus (2.5-4.5) mg/dL Total Bilirubin (0.2-1.3) mg/dL Albumin (3.5-5.0) g/dL Ur Specific Vincent (1.001-1.035) Urine Protein (Negative) Urine Glucose (UA) (Negative) 12/31/19 12/31/19 12/31/19 Range/Units 10:06 10:35 11:20 WBC (3.8-10.6) k/uL RBC (4.30-5.90) m/uL MCV (80.0-100.0) fL MCHC (31.0-37.0) g/dL Plt Count (150-450) k/uL ABG pH (7.35-7.45) ABG pCO2 (35-45) mmHg ABG pO2 133 H (83-108) mmHg ABG HCO3 (21-25) mmol/L ABG Total CO2 25 H (19-24) mmol/L ABG O2 Saturation 98.3 H (94-97) % Sodium (137-145) mmol/L Potassium (3.5-5.1) mmol/L Chloride (98-107) mmol/L BUN (9-20) mg/dL Glucose (74-99) mg/dL POC Glucose (mg/dL) 371 H 301 H (75-99) mg/dL Calcium (8.4-10.2) mg/dL Phosphorus (2.5-4.5) mg/dL Total Bilirubin (0.2-1.3) mg/dL Albumin (3.5-5.0) g/dL Ur Specific Vincent (1.001-1.035) Urine Protein (Negative) Urine Glucose (UA) (Negative) Assessment and Plan Assessment: Assessment acute hypoxic respiratory failure needing intubation and mechanical ventilation Septic shock Left lower lobe pneumonia Stage IV lung cancer, squamous cell carcinoma A. fib and RVR diabetic ketoacidosis Hypernatremia Metabolic encephalopathy secondary to above Diabetes mellitus, uncontrolled with hyperglycemia Elevated lactic acid, came back to normal History of Hypertension Chronic back pain COPD, no acute exacerbation Plan: This is a pleasant 59 years old male who presents with DKA and altered mental status, patient was transferred to the ICU, We appreciate pulmonary/critical care team input. continue with mechanical ventilation and pressors as per pulmonary/critical care team. Continue with broad-spectrum antibiotics. Follow-up culture results. Consult hematology/oncology team. Continue with insulin drip. Continue with amiodarone. Check urinary ultrasound Labs and medication were reviewed.. Continue same treatment. Continue with symptomatic treatment. Resume home medication. Monitor lytes and vitals. DVT and GI prophylaxis. Further recommendations as per clinical course of the patient DVT prophylaxis: Subcutaneous heparin GI Prophylaxis: Pepcid Prognosis is guarded. Most likely patient has a terminal illness with multiple and complex medical problems
--- NOTE | 2019-12-31 20:25 | P.CONS ---
History of Present Illness - Reason for Consult Consult date: 12/31/19 Pancytopenia and lung cancer Requesting physician: Sánchez Marley - Chief Complaint Mental Status Changes - History of Present Illness Mr. Woodard is a 59 year old male who follows with Dr. Wright out of [facility] for treatment and monitoring of his known non-small cell lung cancer - squamous cell carcinoma. He originally was diagnosed by core biopsy on January 09, 2018. CT CAP 01/07/2018 revealed a right apical mass 4.7x3.8cm, which showed extion into the mediastinum with enlarged right hilar lymph nodes and an additional inferior RUL 1.4cm nodule.Per the medical record there was also evidence of right axilla and supraclavicular involvement, which would place his disease group stage as IV. He was admitted last to [facility] in August of this year for complaints of back pain, nausea and vomiting. We recommended further work-up with bone scan, although patient refused and subsequently was discharged stating he will follow-up with his primary oncologist. He now presents with altered mental status, on arrival patient was noted to have hyperglycemia, hypernatremia, metabolic encephalopathy, and elevated lactic acid. On Morning the patient was found to be hypoxic, in atrial fib with RVR, was transferred to ICU for intubation, cardioversion, and was requiring amio, drip and pressors: In ER complete velez cultures and septic work- up performed, CTA negative for PE, re-revealing known malignancy, CT Head without contrast did not reveal any acute issue. To further assess for metastatic disease MRI would be preferred but at this time patient is intubated and stabilizing. Review of Systems ROS unobtainable: due to endotracheal tube Past Medical History Past Medical History: Cancer, COPD, Diabetes Mellitus, Hypertension Additional Past Medical History / Comment(s): chronic back pain, Lung Cancer History of Any Multi-Drug Resistant Organisms: None Reported Past Surgical History: Cholecystectomy Additional Past Surgical History / Comment(s): R lung core biopsy. Gadiel believes pt has had orthopedic surgery to one of his legs with hardware. Past Anesthesia/Blood Transfusion Reactions: No Reported Reaction Past Psychological History: No Psychological Hx Reported Smoking Status: Current every day smoker Past Alcohol Use History: None Reported Past Drug Use History: None Reported - Past Family History Father Brother(s) Family Medical History: No Reported History Additional Family Medical History / Comment(s): Father was healthy Mother Family Medical History: No Reported History Medications and Allergies Home Medications Medication Instructions Recorded Confirmed Type HYDROcodone/APAP 10-325MG [[place] 2 mg PO Q6H PRN 08/27/17 12/29/19 History 10-325] Morphine Sulfate ER [Ms Contin] 30 mg PO Q12HR #14 tablet 05/06/18 12/29/19 Rx oxyCODONE-APAP 10-325MG [Percocet 2 tab PO Q6H PRN 09/20/19 12/29/19 History 10-325 mg] Dexamethasone [Decadron] 4 mg PO BID 12/29/19 12/29/19 History Ondansetron [Zofran] 4 mg PO Q8H PRN 12/29/19 12/29/19 History Prochlorperazine [Compazine] 10 mg PO Q6H PRN 12/29/19 12/29/19 History Allergies Allergy/AdvReac Type Severity Reaction Status Date / Time No Known Allergies Allergy Verified 12/29/19 09:09 Physical Exam Vitals: Vital Signs Temp Pulse Pulse Pulse Resp BP BP 12/31/19 19:00 112 H 29 H 12/31/19 18:30 114 H 32 H 12/31/19 18:00 113 H 32 H 12/31/19 17:30 99 31 H 12/31/19 17:00 98 31 H 12/31/19 16:30 99 28 H 12/31/19 16:15 98 12/31/19 16:03 100 12/31/19 16:00 99.8 F H 101 H 32 H 12/31/19 15:30 102 H 31 H 12/31/19 15:00 105 H 33 H 12/31/19 14:30 107 H 32 H 12/31/19 14:00 96 30 H 12/31/19 13:30 92 34 H 12/31/19 13:00 92 31 H 12/31/19 12:30 106 H 32 H 12/31/19 12:00 99.3 F 107 H 37 H 12/31/19 11:30 105 H 34 H 12/31/19 11:00 111 H 36 H 12/31/19 10:30 105 H 32 H 12/31/19 10:00 106 H 32 H 12/31/19 09:30 118 H 21 12/31/19 09:00 200 H 30 H 12/31/19 08:30 130 H 37 H 69/58 12/31/19 08:00 99.6 F 130 H 30 H 66/55 12/31/19 07:30 133 H 36 H 76/61 12/31/19 07:00 130 H 38 H 79/66 12/31/19 06:30 130 H 38 H 74/59 12/31/19 06:00 129 H 29 H 80/57 12/31/19 05:30 130 H 33 H 75/52 12/31/19 05:00 128 H 43 H 74/58 12/31/19 04:30 128 H 11 L 80/57 12/31/19 04:15 128 H 26 H 73/53 12/31/19 04:00 99.3 F 126 H 36 H 74/58 12/31/19 03:45 126 H 36 H 70/54 12/31/19 03:30 126 H 32 H 95/61 12/31/19 00:35 142 H 28 H 106/59 12/30/19 20:00 98.2 F 129 H 18 104/69 Pulse Ox 12/31/19 19:00 97 12/31/19 18:30 97 12/31/19 18:00 96 12/31/19 17:30 97 12/31/19 17:00 97 12/31/19 16:30 97 12/31/19 16:15 12/31/19 16:03 12/31/19 16:00 97 12/31/19 15:30 97 12/31/19 15:00 97 12/31/19 14:30 97 12/31/19 14:00 96 12/31/19 13:30 96 12/31/19 13:00 97 12/31/19 12:30 97 12/31/19 12:00 97 12/31/19 11:30 97 12/31/19 11:00 97 12/31/19 10:30 97 12/31/19 10:00 98 12/31/19 09:30 96 12/31/19 09:00 96 12/31/19 08:30 98 12/31/19 08:00 98 12/31/19 07:30 98 12/31/19 07:00 98 12/31/19 06:30 98 12/31/19 06:00 96 12/31/19 05:30 96 12/31/19 05:00 95 12/31/19 04:30 97 12/31/19 04:15 97 12/31/19 04:00 98 12/31/19 03:45 100 12/31/19 03:30 97 12/31/19 00:35 88 L 12/30/19 20:00 94 L Intake and Output 12/31/19 12/31/19 12/31/19 06:59 14:59 22:59 Intake Total 6230.789 1577.446 1064.575 Output Total 496 680 475 Balance 086.985 8389.446 589.575 Intake: IV 1000 1975 875 Cefepime 2 gm In Sodium 100 Chloride 0.9% 100 ml @ 25 mls/hr IVPB Q12HR [facility] Rx #:[id number] D5 0.45NS bolus 1000 Dextrose 5% in Water 1, 1000 000 ml @ 1000 mls/hr IV . Q1H [facility] Rx#:[id number] Sodium Chloride 0.9% 1, 625 625 000 ml @ 125 mls/hr IV . Q8H [facility] Rx#:[id number] Vancomycin 1,500 mg In 250 250 Sodium Chloride 0.9% 250 ml @ 125 mls/hr IVPB ONCE ONE Rx#:[id number] Intake, IV Titration 164.380 774.446 189.575 Amount Insulin Regular 100 unit 21.698 2.525 In Sodium Chloride 0.9% 100 ml @ Per Protocol IV .Q0M [facility] Rx#:[id number] Norepinephrine 4 mg In 402.748 Sodium Chloride 0.9% 250 ml @ 0.55 MCG/KG/MIN 151. 924 mls/hr IV .Q1H41M [facility] Rx#:[id number] Norepinephrine 8 mg In 187.05 Sodium Chloride 0.9% 250 ml @ 0.05 MCG/KG/MIN 7. 014 mls/hr IV .Q24H [facility] Rx#:[id number] Piperacillin-Tazobactam 3 100 .375 gm In Sodium Chloride 0.9% 100 ml @ 25 mls/hr IVPB Q8H [facility] Rx#: [id number] Potassium Phosphate 10 250 mmol In Sodium Chloride 0 .9% 250 ml @ 125 mls/hr IV ONCE ONE Rx#:[id number] propofoL 1,000 mg In 64.380 100 Empty Bag 1 bag @ Titrate IV .Q0M [facility] Rx#: [id number] Output: Urine 495 680 475 Urine/Stool Mix 1 Other: Voiding Method Indwelling Catheter Indwelling Catheter Indwelling Catheter Weight 72.5 kg 78.2 kg ABP, PAP, CO, CI - Last 8 Hours Arterial Blood Pressure 80/44 Arterial Blood Pressure 84/46 Arterial Blood Pressure 106/52 Arterial Blood Pressure 121/55 Arterial Blood Pressure 119/55 Arterial Blood Pressure 112/55 Arterial Blood Pressure 111/54 Arterial Blood Pressure 102/51 Arterial Blood Pressure 100/51 Arterial Blood Pressure 102/52 Arterial Blood Pressure 116/54 Arterial Blood Pressure 123/56 Arterial Blood Pressure 130/62 Arterial Blood Pressure 92/46 Arterial Blood Pressure 93/48 Arterial Blood Pressure 95/49 intubated ICU Care Sedated Ill appearing Tachypneic no rashes Results CBC & Chem 7: 12/31/19 03:46 12/31/19 03:46 Labs: Abnormal Lab Results - Last 24 Hours (Table) 12/30/19 12/30/19 12/31/19 Range/Units 19:53 20:35 00:55 WBC (3.8-10.6) k/uL RBC (4.30-5.90) m/uL MCV (80.0-100.0) fL MCHC (31.0-37.0) g/dL Plt Count (150-450) k/uL ABG pH (7.35-7.45) ABG pCO2 (35-45) mmHg ABG pO2 (83-108) mmHg ABG HCO3 (21-25) mmol/L ABG Total CO2 (19-24) mmol/L ABG O2 Saturation (94-97) % Sodium 159 H (137-145) mmol/L Potassium (3.5-5.1) mmol/L Chloride 125 H (98-107) mmol/L BUN (9-20) mg/dL Glucose (74-99) mg/dL POC Glucose (mg/dL) 254 H 178 H (75-99) mg/dL Calcium (8.4-10.2) mg/dL Phosphorus (2.5-4.5) mg/dL Total Bilirubin (0.2-1.3) mg/dL Albumin (3.5-5.0) g/dL Ur Specific [place] (1.001-1.035) Urine Protein (Negative) Urine Glucose (UA) (Negative) 12/31/19 12/31/19 12/31/19 Range/Units 01:09 01:24 01:24 WBC 0.5 L* (3.8-10.6) k/uL RBC (4.30-5.90) m/uL MCV 106.9 H (80.0-100.0) fL MCHC 30.3 L (31.0-37.0) g/dL Plt Count 68 L (150-450) k/uL ABG pH 7.53 H (7.35-7.45) ABG pCO2 33 L (35-45) mmHg ABG pO2 48 L* (83-108) mmHg ABG HCO3 28 H (21-25) mmol/L ABG Total CO2 29 H (19-24) mmol/L ABG O2 Saturation 89.3 L (94-97) % Sodium 162 H* (137-145) mmol/L Potassium 3.2 L (3.5-5.1) mmol/L Chloride 126 H (98-107) mmol/L BUN 25 H (9-20) mg/dL Glucose 181 H (74-99) mg/dL POC Glucose (mg/dL) (75-99) mg/dL Calcium (8.4-10.2) mg/dL Phosphorus (2.5-4.5) mg/dL Total Bilirubin 1.7 H (0.2-1.3) mg/dL Albumin 3.3 L (3.5-5.0) g/dL Ur Specific [place] (1.001-1.035) Urine Protein (Negative) Urine Glucose (UA) (Negative) 12/31/19 12/31/19 12/31/19 Range/Units 02:36 03:46 03:46 WBC 0.5 L* (3.8-10.6) k/uL RBC 3.97 L (4.30-5.90) m/uL MCV 108.1 H (80.0-100.0) fL MCHC 30.9 L (31.0-37.0) g/dL Plt Count 63 L (150-450) k/uL ABG pH (7.35-7.45) ABG pCO2 (35-45) mmHg ABG pO2 355 H (83-108) mmHg ABG HCO3 28 H (21-25) mmol/L ABG Total CO2 29 H (19-24) mmol/L ABG O2 Saturation 99.4 H (94-97) % Sodium 153 H (137-145) mmol/L Potassium (3.5-5.1) mmol/L Chloride 120 H (98-107) mmol/L BUN 28 H (9-20) mg/dL Glucose 377 H (74-99) mg/dL POC Glucose (mg/dL) (75-99) mg/dL Calcium 8.3 L (8.4-10.2) mg/dL Phosphorus 2.2 L (2.5-4.5) mg/dL Total Bilirubin (0.2-1.3) mg/dL Albumin (3.5-5.0) g/dL Ur Specific [place] (1.001-1.035) Urine Protein (Negative) Urine Glucose (UA) (Negative) 12/31/19 12/31/19 12/31/19 Range/Units 03:53 06:34 08:39 WBC (3.8-10.6) k/uL RBC (4.30-5.90) m/uL MCV (80.0-100.0) fL MCHC (31.0-37.0) g/dL Plt Count (150-450) k/uL ABG pH (7.35-7.45) ABG pCO2 (35-45) mmHg ABG pO2 178 H (83-108) mmHg ABG HCO3 26 H (21-25) mmol/L ABG Total CO2 28 H (19-24) mmol/L ABG O2 Saturation 98.8 H (94-97) % Sodium (137-145) mmol/L Potassium (3.5-5.1) mmol/L Chloride (98-107) mmol/L BUN (9-20) mg/dL Glucose (74-99) mg/dL POC Glucose (mg/dL) 375 H (75-99) mg/dL Calcium (8.4-10.2) mg/dL Phosphorus (2.5-4.5) mg/dL Total Bilirubin (0.2-1.3) mg/dL Albumin (3.5-5.0) g/dL Ur Specific [place] >1.050 H (1.001-1.035) Urine Protein Trace H (Negative) Urine Glucose (UA) 4+ H (Negative) 12/31/19 12/31/19 12/31/19 Range/Units 09:53 10:06 10:35 WBC (3.8-10.6) k/uL RBC (4.30-5.90) m/uL MCV (80.0-100.0) fL MCHC (31.0-37.0) g/dL Plt Count (150-450) k/uL ABG pH (7.35-7.45) ABG pCO2 (35-45) mmHg ABG pO2 133 H (83-108) mmHg ABG HCO3 (21-25) mmol/L ABG Total CO2 25 H (19-24) mmol/L ABG O2 Saturation 98.3 H (94-97) % Sodium (137-145) mmol/L Potassium (3.5-5.1) mmol/L Chloride (98-107) mmol/L BUN (9-20) mg/dL Glucose (74-99) mg/dL POC Glucose (mg/dL) 385 H 371 H (75-99) mg/dL Calcium (8.4-10.2) mg/dL Phosphorus (2.5-4.5) mg/dL Total Bilirubin (0.2-1.3) mg/dL Albumin (3.5-5.0) g/dL Ur Specific [place] (1.001-1.035) Urine Protein (Negative) Urine Glucose (UA) (Negative) 12/31/19 12/31/19 12/31/19 Range/Units 11:20 12:13 12:57 WBC (3.8-10.6) k/uL RBC (4.30-5.90) m/uL MCV (80.0-100.0) fL MCHC (31.0-37.0) g/dL Plt Count (150-450) k/uL ABG pH (7.35-7.45) ABG pCO2 (35-45) mmHg ABG pO2 (83-108) mmHg ABG HCO3 (21-25) mmol/L ABG Total CO2 (19-24) mmol/L ABG O2 Saturation (94-97) % Sodium (137-145) mmol/L Potassium (3.5-5.1) mmol/L Chloride (98-107) mmol/L BUN (9-20) mg/dL Glucose (74-99) mg/dL POC Glucose (mg/dL) 301 H 230 H 205 H (75-99) mg/dL Calcium (8.4-10.2) mg/dL Phosphorus (2.5-4.5) mg/dL Total Bilirubin (0.2-1.3) mg/dL Albumin (3.5-5.0) g/dL Ur Specific [place] (1.001-1.035) Urine Protein (Negative) Urine Glucose (UA) (Negative) 12/31/19 12/31/19 12/31/19 Range/Units 14:37 15:25 16:30 WBC (3.8-10.6) k/uL RBC (4.30-5.90) m/uL MCV (80.0-100.0) fL MCHC (31.0-37.0) g/dL Plt Count (150-450) k/uL ABG pH (7.35-7.45) ABG pCO2 (35-45) mmHg ABG pO2 (83-108) mmHg ABG HCO3 (21-25) mmol/L ABG Total CO2 (19-24) mmol/L ABG O2 Saturation (94-97) % Sodium (137-145) mmol/L Potassium (3.5-5.1) mmol/L Chloride (98-107) mmol/L BUN (9-20) mg/dL Glucose (74-99) mg/dL POC Glucose (mg/dL) 126 H 135 H 122 H (75-99) mg/dL Calcium (8.4-10.2) mg/dL Phosphorus (2.5-4.5) mg/dL Total Bilirubin (0.2-1.3) mg/dL Albumin (3.5-5.0) g/dL Ur Specific [place] (1.001-1.035) Urine Protein (Negative) Urine Glucose (UA) (Negative) 12/31/19 12/31/19 Range/Units 17:35 18:25 WBC (3.8-10.6) k/uL RBC (4.30-5.90) m/uL MCV (80.0-100.0) fL MCHC (31.0-37.0) g/dL Plt Count (150-450) k/uL ABG pH (7.35-7.45) ABG pCO2 (35-45) mmHg ABG pO2 (83-108) mmHg ABG HCO3 (21-25) mmol/L ABG Total CO2 (19-24) mmol/L ABG O2 Saturation (94-97) % Sodium (137-145) mmol/L Potassium (3.5-5.1) mmol/L Chloride (98-107) mmol/L BUN (9-20) mg/dL Glucose (74-99) mg/dL POC Glucose (mg/dL) 206 H 188 H (75-99) mg/dL Calcium (8.4-10.2) mg/dL Phosphorus (2.5-4.5) mg/dL Total Bilirubin (0.2-1.3) mg/dL Albumin (3.5-5.0) g/dL Ur Specific [place] (1.001-1.035) Urine Protein (Negative) Urine Glucose (UA) (Negative) CT scan - chest: report reviewed CT Scan - head: report reviewed Assessment and Plan (1) Altered mental status Current Visit: Yes Status: Acute Code(s): R41.82 - ALTERED MENTAL STATUS, UNSPECIFIED SNOMED Code(s): 195544357 (2) Lung cancer Current Visit: Yes Status: Acute Code(s): C34.90 - MALIGNANT NEOPLASM OF UNSP PART OF UNSP BRONCHUS OR LUNG SNOMED Code(s): 033148220 Plan: Acute Hypoxic Respiratory Failure: - Concern of gram Negative Pneumonia, hospital acquired - Continue care per pulmonary and ICU team. - Mechanical Ventilation Septic Shock: - Continues on pressors in ICU care - Velez Cultures Pending - IV antibiotics to continue - Lactic Acidosis trended Pancytopenia: Secondary to above - Continue daily monitor of CBC with Diff - Monitor for s/s of bleeding, DIC - Transfuse PRBC hemoglobin less than 7, platelets less than 10K. Non-Small Cell Lung Cancer: Squamous Cell Carcinoma: Stage IV - Primary oncologist Orville Ballesteros - I did speak to his primary Oncologist today, and will keep posted as patients daughter has been calling there to check in. He did not receive any recent growth factors, therefore if GCSF is indicated patient may receive. Acute Metabolic Encephalopathy: Likely Secondary to Hypoxemia, respiratory failure - Possible component of Hypernatremia as well - Treatment of the underlying problem - Antibiotics continued and cultures pending Recommendations: - Agree with Broad Spectrum Antibiotics in the immunocompromised patient - Defer above to ICU/Pulmonary and Primary teams - Daily CBC, monitoring for fevers, bleeding - If encephalopathy does not improve apon resolution of above further imaging Brain resonable Thank you for allowing us to participate in the care of your patient will follow along with you COOPER Agosto
[2019-12-31 20:26] LABS: Glucose,Whole Blood 157 mg/dL (75-99)
--- NOTE | 2019-12-31 22:26 | OP ---
OPERATIVE REPORT OPERATIVE REPORT: Placement of a right femoral triple-lumen catheter. PREOPERATIVE DIAGNOSIS: Sepsis and hypotension/septic shock. POSTOPERATIVE DIAGNOSIS: Sepsis and hypotension/septic shock. ANESTHESIA USED: Lidocaine 1%, 2 mL. PROCEDURE DESCRIPTION: The patient was placed in supine position. The right groin was prepared in a sterile fashion. Drapes were applied. The area was locally anesthetized with lidocaine. Then the right femoral vein was easily cannulated, and a guidewire was placed. The area was dilated around the guidewire. Then a triple-lumen catheter was inserted over the guidewire, and the guidewire was removed. Good blood flow was noted in the 3 different ports of the triple-lumen catheter. Line was secured using 3.0 silk sutures. No evidence of any immediate complications. MMODL / IJN: [id number] /
--- NOTE | 2019-12-31 22:32 | OP ---
OPERATIVE REPORT OPERATIVE REPORT: Placement of a right radial arterial line. PREOPERATIVE DIAGNOSIS: Hypotension and sepsis. POSTOPERATIVE DIAGNOSIS: Hypotension and sepsis. ANESTHESIA USED: None deployed. PROCEDURE DESCRIPTION: The patient was placed in supine position. The area of the right wrist was prepared in a sterile fashion. Drapes were applied. The right radial artery was palpated, cannulated, and a guidewire was placed. A Cook's catheter was inserted over the guidewire, and the guidewire was removed. Good blood flow, good waveform; no evidence of any immediate complications. Line was secured using 3.0 silk sutures. MMODL / IJN: [id number] /
[2019-12-31 22:38] LABS: Glucose,Whole Blood 150 mg/dL (75-99)
[2019-12-31] MEDS: INSULIN DETEMIR (LEVEMIR) 100 UNIT/ML SYR SQ SCH (22:50)
[2020-01-01 00:23] LABS: Glucose,Whole Blood 145 mg/dL (75-99)
[2020-01-01] MEDS: AMIODARONE 300 MG in DEXTROSE 5% IN WATER 250 ML IV SCH ×2 (00:53)
[2020-01-01] MEDS: NOREPINEPHRINE 8 MG in SODIUM CHLORIDE 0.9% 250 ML IV SCH ×2 (01:00→22:59)
[2020-01-01 02:05] LABS: Glucose,Whole Blood 141 mg/dL (75-99)
[2020-01-01] MEDS: VANCOMYCIN 1,250 MG in SODIUM CHLORIDE 0.9% 250 ML IVPB SCH ×3 (02:38→17:03)
[2020-01-01 03:43] LABS: Glucose,Whole Blood 122 mg/dL (75-99)
[2020-01-01] MEDS: SODIUM CHLORIDE 0.9% 1,000 ML IV SCH ×2 (03:55→11:38)
[2020-01-01 04:09] LABS: Glucose,Whole Blood 134 mg/dL (75-99)
[2020-01-01 05:15] LABS: HCT 34.6 % (39.0-53.0); Hypochromasia Moderate; MCH 33.8 pg (25.0-35.0); MCHC 31.7 g/dL (31.0-37.0); MCV 106.4 fL (80.0-100.0); Macrocytosis Moderate; Mean Platelet Volume 9.7; RBC 3.25 m/uL (4.30-5.90); RDW 13.7 % (11.5-15.5)
[2020-01-01 05:17] LABS: Platelet Count 58 k/uL (150-450); WBC 0.6 k/uL (3.8-10.6)
[2020-01-01 05:22] LABS: Glucose,Whole Blood 133 mg/dL (75-99)
[2020-01-01 05:29] LABS: ALT 9 U/L (4-49); AST 15 U/L (17-59); African American GFR (CKD) >90 (>60 ml/min/1.73 sqM); Albumin 2.4 g/dL (3.5-5.0); Alkaline Phosphatase 52 U/L (38-126); Anion Gap 3 mmol/L; Blood Urea Nitrogen 17 mg/dL (9-20); Calcium 7.5 mg/dL (8.4-10.2); Carbon Dioxide 26 mmol/L (22-30); Chloride 124 mmol/L (98-107); Glucose 140 mg/dL (74-99); Non-African American GFR(CKD) >90 (>60 ml/min/1.73 sqM); Potassium 2.8 mmol/L (3.5-5.1); Sodium 153 mmol/L (137-145); Total Bilirubin 0.8 mg/dL (0.2-1.3); Total Protein 5.2 g/dL (6.3-8.2)
[2020-01-01] MEDS: POTASSIUM CHLORIDE 20 MEQ in WATER FOR INJECTION 1 100ML.BAG IVPB SCH ×3 (06:45→10:40)
[2020-01-01 06:48] LABS: Glucose,Whole Blood 147 mg/dL (75-99)
[2020-01-01 07:15] LABS: Glucose,Whole Blood 138 mg/dL (75-99)
[2020-01-01 07:21] LABS: ABG Base Excess 0.6 mmol/L; ABG HCO3 25 mmol/L (21-25); ABG Oxygen Saturation 99.7 % (94-97); ABG PCO2 37 mmHg (35-45); ABG PH 7.43 (7.35-7.45); ABG PO2 133 mmHg (83-108); ABG TCO2 26 mmol/L (19-24)
[2020-01-01 07:23] LABS: Allen Test Performed? no
[2020-01-01] MEDS: dexAMETHasone 4 MG TAB PO SCH ×2 (08:10→22:24)
[2020-01-01] MEDS: FAMOTIDINE 20 MG/2 ML VIAL IV SCH ×2 (08:10→20:57)
[2020-01-01] MEDS: CEFEPIME 2 GM in SODIUM CHLORIDE 0.9% 100 ML IVPB SCH ×2 (08:10→20:57)
[2020-01-01] MEDS: MORPHINE SULFATE ER 30 MG TABLET PO SCH ×2 (08:11→21:00)
[2020-01-01 08:15] LABS: Glucose,Whole Blood 132 mg/dL (75-99)
[2020-01-01] MEDS: IPRATROPIUM-ALBUTEROL 3 ML NEB INHALATION SCH ×4 (08:47→20:12)
--- NOTE | 2020-01-01 09:18 | XR ---
EXAMINATION TYPE: XR chest 1V portable DATE OF EXAM: 01/01/2020 COMPARISON: Chest x-ray and CT 12/31/2019 HISTORY: Intubated TECHNIQUE: Single frontal view of the chest is obtained. FINDINGS: Patient is rotated. Lung volumes are low. Endotracheal tube, NG tube are overlying appropr iate positions. No evident pneumothorax or pleural effusion. Patchy basilar density is present as on prior exam. There is perihilar density on the right. IMPRESSION: Rotated expiratory exam, correlate for pneumonia. There is a right lower lobe mass
[2020-01-01 09:36] LABS: Glucose,Whole Blood 144 mg/dL (75-99)
[2020-01-01 11:48] LABS: Glucose,Whole Blood 170 mg/dL (75-99)
[2020-01-01] MEDS: INSULIN ASPART (NovoLOG) 100 UNIT/ML VIAL SQ SCH ×4 (11:50→23:49)
[2020-01-01] MEDS: DEXTROSE 5% IN WATER 1,000 ML IV SCH ×2 (11:51→22:26)
--- NOTE | 2020-01-01 12:00 | P.PN ---
<Pascale Reid - Last Filed: 01/01/20 14:59> Subjective Progress Note Date: 01/01/20 Principal diagnosis: Acute Hypoxic respiratory Failure Increased temp this am 100.1, continues on mechanical ventilation and full ICU support. IV abx as well. Neutrophils are appropriate, although lymphocytes are very low TOtal WBC only 0.5 will initiate Zarxio. COVID test not performed this admission, feel it is reasonable. Potassium 2.8 today, sodium remains increased. He is off levo and when approaching room today eyes open and lifting head up, RN aware and sedation adjusted. He has no obvious swelling. Still copious secretions from suction. Zarxio started and he is now one week post chemotherapy, therefore his low blood counts are also reflective of his chemotherapy Alison in the picture of sepsis. Continue on antibiotics, await covid. His renal and liver function remains emaculate. Long discussion with daughter Precious today and plan for continue aggressive supportive care through the weekend, if conditions worsens before Saturday they are realistic and agree to move to comfort only. Recheck BMP and Mag now to re-supp if needed. Discussion with primary oncologist Dr. Wright and patients overall disease burden is minimal and at baseline his performance status is great - 0/1. Therefore would like to attempt recovery of septic picture as body recovers from chemotherapy induced cytopenias. Objective - Vital Signs Vital signs: Vital Signs Temp 98.6 F 01/01/20 08:00 Pulse 93 01/01/20 08:57 Resp 28 H 01/01/20 08:30 BP 106/58 01/01/20 07:00 Pulse Ox 100 01/01/20 08:30 Intake & Output 12/31/19 01/01/20 01/01/20 18:59 06:59 18:59 Intake Total 3601.971 2991.876 1126.169 Output Total 1080 1405 275 Balance 2521.971 1586.876 851.169 Weight 78.2 kg Intake: IV 9625 2095 725 Cefepime 2 gm In Sodium 100 50 100 Chloride 0.9% 100 ml @ 25 mls/hr IVPB Q12HR [facility] Rx #:[id number] D5 0.45NS bolus 1000 Sodium Chloride 0.9% 1, 1125 1625 375 000 ml @ 125 mls/hr IV . Q8H [facility] Rx#:[id number] Vancomycin 1,500 mg In 500 500 250 Sodium Chloride 0.9% 250 ml @ 125 mls/hr IVPB ONCE ONE Rx#:[id number] Intake, IV Titration 876.971 816.876 311.169 Amount Amiodarone 300 mg In 245 214.583 Dextrose 5% in Water 250 ml @ 0.5 MG/MIN 25 mls/hr IV .Q10H [facility] Rx#: [id number] Insulin Regular 100 unit 24.223 12.424 0.53 In Sodium Chloride 0.9% 100 ml @ Per Protocol IV .Q0M [facility] Rx#:[id number] Norepinephrine 4 mg In 402.748 Sodium Chloride 0.9% 250 ml @ 0.55 MCG/KG/MIN 151. 924 mls/hr IV .Q1H41M [facility] Rx#:[id number] Norepinephrine 8 mg In 421.389 20.202 Sodium Chloride 0.9% 250 ml @ 0.05 MCG/KG/MIN 7. 014 mls/hr IV .Q24H [facility] Rx#:[id number] Potassium Phosphate 10 250 mmol In Sodium Chloride 0 .9% 250 ml @ 125 mls/hr IV ONCE ONE Rx#:[id number] propofoL 1,000 mg In 200 138.063 75.854 Empty Bag 1 bag @ Titrate IV .Q0M [facility] Rx#: [id number] Tube Feeding 60 Other 30 Output: Urine 1080 1405 275 Other: Voiding Method Indwelling Catheter Indwelling Catheter ABP, PAP, CO, CI - Last Documented Arterial Blood Pressure 108/51 - Exam intubated ICU Care Sedated Ill appearing Tachypneic no rashes - Labs CBC & Chem 7: 01/01/20 05:01 01/01/20 05:01 Labs: Abnormal Lab Results - Last 24 Hours (Table) 12/31/19 12/31/19 12/31/19 Range/Units 12:13 12:57 14:37 WBC (3.8-10.6) k/uL RBC (4.30-5.90) m/uL Hgb (13.0-17.5) gm/dL Hct (39.0-53.0) % MCV (80.0-100.0) fL Plt Count (150-450) k/uL ABG pO2 (83-108) mmHg ABG Total CO2 (19-24) mmol/L ABG O2 Saturation (94-97) % Sodium (137-145) mmol/L Potassium (3.5-5.1) mmol/L Chloride (98-107) mmol/L Glucose (74-99) mg/dL POC Glucose (mg/dL) 230 H 205 H 126 H (75-99) mg/dL Calcium (8.4-10.2) mg/dL AST (17-59) U/L Total Protein (6.3-8.2) g/dL Albumin (3.5-5.0) g/dL 12/31/19 12/31/19 12/31/19 Range/Units 15:25 16:30 17:35 WBC (3.8-10.6) k/uL RBC (4.30-5.90) m/uL Hgb (13.0-17.5) gm/dL Hct (39.0-53.0) % MCV (80.0-100.0) fL Plt Count (150-450) k/uL ABG pO2 (83-108) mmHg ABG Total CO2 (19-24) mmol/L ABG O2 Saturation (94-97) % Sodium (137-145) mmol/L Potassium (3.5-5.1) mmol/L Chloride (98-107) mmol/L Glucose (74-99) mg/dL POC Glucose (mg/dL) 135 H 122 H 206 H (75-99) mg/dL Calcium (8.4-10.2) mg/dL AST (17-59) U/L Total Protein (6.3-8.2) g/dL Albumin (3.5-5.0) g/dL 12/31/19 12/31/19 12/31/19 Range/Units 18:25 20:24 22:37 WBC (3.8-10.6) k/uL RBC (4.30-5.90) m/uL Hgb (13.0-17.5) gm/dL Hct (39.0-53.0) % MCV (80.0-100.0) fL Plt Count (150-450) k/uL ABG pO2 (83-108) mmHg ABG Total CO2 (19-24) mmol/L ABG O2 Saturation (94-97) % Sodium (137-145) mmol/L Potassium (3.5-5.1) mmol/L Chloride (98-107) mmol/L Glucose (74-99) mg/dL POC Glucose (mg/dL) 188 H 157 H 150 H (75-99) mg/dL Calcium (8.4-10.2) mg/dL AST (17-59) U/L Total Protein (6.3-8.2) g/dL Albumin (3.5-5.0) g/dL 01/01/20 01/01/20 01/01/20 Range/Units 00:22 02:04 03:43 WBC (3.8-10.6) k/uL RBC (4.30-5.90) m/uL Hgb (13.0-17.5) gm/dL Hct (39.0-53.0) % MCV (80.0-100.0) fL Plt Count (150-450) k/uL ABG pO2 (83-108) mmHg ABG Total CO2 (19-24) mmol/L ABG O2 Saturation (94-97) % Sodium (137-145) mmol/L Potassium (3.5-5.1) mmol/L Chloride (98-107) mmol/L Glucose (74-99) mg/dL POC Glucose (mg/dL) 145 H 141 H 122 H (75-99) mg/dL Calcium (8.4-10.2) mg/dL AST (17-59) U/L Total Protein (6.3-8.2) g/dL Albumin (3.5-5.0) g/dL 01/01/20 01/01/20 01/01/20 Range/Units 04:08 05:01 05:01 WBC 0.6 L* (3.8-10.6) k/uL RBC 3.25 L (4.30-5.90) m/uL Hgb 11.0 L (13.0-17.5) gm/dL Hct 34.6 L (39.0-53.0) % MCV 106.4 H (80.0-100.0) fL Plt Count 58 L (150-450) k/uL ABG pO2 (83-108) mmHg ABG Total CO2 (19-24) mmol/L ABG O2 Saturation (94-97) % Sodium 153 H (137-145) mmol/L Potassium 2.8 L (3.5-5.1) mmol/L Chloride 124 H (98-107) mmol/L Glucose 140 H (74-99) mg/dL POC Glucose (mg/dL) 134 H (75-99) mg/dL Calcium 7.5 L (8.4-10.2) mg/dL AST 15 L (17-59) U/L Total Protein 5.2 L (6.3-8.2) g/dL Albumin 2.4 L (3.5-5.0) g/dL 01/01/20 01/01/20 01/01/20 Range/Units 05:21 06:47 07:14 WBC (3.8-10.6) k/uL RBC (4.30-5.90) m/uL Hgb (13.0-17.5) gm/dL Hct (39.0-53.0) % MCV (80.0-100.0) fL Plt Count (150-450) k/uL ABG pO2 (83-108) mmHg ABG Total CO2 (19-24) mmol/L ABG O2 Saturation (94-97) % Sodium (137-145) mmol/L Potassium (3.5-5.1) mmol/L Chloride (98-107) mmol/L Glucose (74-99) mg/dL POC Glucose (mg/dL) 133 H 147 H 138 H (75-99) mg/dL Calcium (8.4-10.2) mg/dL AST (17-59) U/L Total Protein (6.3-8.2) g/dL Albumin (3.5-5.0) g/dL 01/01/20 01/01/20 01/01/20 Range/Units 07:19 08:14 09:35 WBC (3.8-10.6) k/uL RBC (4.30-5.90) m/uL Hgb (13.0-17.5) gm/dL Hct (39.0-53.0) % MCV (80.0-100.0) fL Plt Count (150-450) k/uL ABG pO2 133 H (83-108) mmHg ABG Total CO2 26 H (19-24) mmol/L ABG O2 Saturation 99.7 H (94-97) % Sodium (137-145) mmol/L Potassium (3.5-5.1) mmol/L Chloride (98-107) mmol/L Glucose (74-99) mg/dL POC Glucose (mg/dL) 132 H 144 H (75-99) mg/dL Calcium (8.4-10.2) mg/dL AST (17-59) U/L Total Protein (6.3-8.2) g/dL Albumin (3.5-5.0) g/dL Microbiology - Last 24 Hours (Table) 12/31/19 23:38 Gram Stain - Preliminary Sputum Sputum Culture - Preliminary 12/30/19 19:53 Blood Culture - Preliminary Blood No Growth after 24 hours Assessment and Plan (1) Altered mental status Current Visit: Yes Status: Acute Code(s): R41.82 - ALTERED MENTAL STATUS, UNSPECIFIED SNOMED Code(s): 220714765 (2) Lung cancer Current Visit: Yes Status: Acute Code(s): C34.90 - MALIGNANT NEOPLASM OF UNSP PART OF UNSP BRONCHUS OR LUNG SNOMED Code(s): 783749395 Plan: Acute Hypoxic Respiratory Failure: - Concern of gram Negative Pneumonia, hospital acquired - Continue care per pulmonary and ICU team. - Mechanical Ventilation Septic Shock: - Continues on pressors in ICU care - Betancur Cultures Pending - IV antibiotics to continue - Lactic Acidosis trended Pancytopenia: Secondary to above - Continue daily monitor of CBC with Diff - Monitor for s/s of bleeding, DIC - Transfuse PRBC hemoglobin less than 7, platelets less than 10K. Non-Small Cell Lung Cancer: Squamous Cell Carcinoma: Stage IV - Primary oncologist Orville Ballesteros - I did speak to his primary Oncologist today, and will keep posted as patients daughter has been calling there to check in. He did not receive any recent growth factors, therefore if GCSF is indicated patient may receive. Acute Metabolic Encephalopathy: Likely Secondary to Hypoxemia, respiratory failure - Possible component of Hypernatremia as well - Treatment of the underlying problem - Antibiotics continued and cultures pending Recommendations: - Agree with Broad Spectrum Antibiotics in the immunocompromised patient - Defer above to ICU/Pulmonary and Primary teams - Daily CBC, monitoring for fevers, bleeding - Recheck BMP now and supp if appropriate - COVID test - Long discussion with primary oncologist and Daughter as in HPI - Plan to continue aggressive care through weekend in treatment of septic picture, allow a few more days (given no drastic worsening changes) for body to recover from chemotherapy alison with the help of growth factor. If further decline or no improvements early next week resonable to convert to comfort measures only. <Barb,Malcolm - Last Filed: 01/03/20 20:59> Objective - Vital Signs Vital signs: Vital Signs Temp 98.3 F 01/03/20 20:00 Pulse 105 H 01/03/20 20:00 Resp 28 H 01/03/20 20:00 BP 106/59 01/03/20 20:00 Pulse Ox 97 01/03/20 20:00 Intake & Output 01/03/20 01/03/20 01/04/20 06:59 18:59 06:59 Intake Total 4043.544 3384.450 263 Output Total 595 845 75 Balance 0668.678 9322.450 188 Weight 80.2 kg 80.2 kg Intake: IV 1183 2939 203 Cefepime 2 gm In Sodium 100 100 100 Chloride 0.9% 100 ml @ 25 mls/hr IVPB Q12HR [facility] Rx #:[id number] Potassium Chloride 20 meq 100 In Water For Injection 1 100ml.bag @ 50 mls/hr IVPB Q2H [facility] Rx#: [id number] Pressure bag 33 39 3 Sodium Chloride 0.9% 1, 700 1300 100 000 ml @ 100 mls/hr IV . Q10H [facility] Rx#:[id number] Sodium Chloride 0.9% 1, 1000 000 ml @ 999 mls/hr IV . Q1H1M [facility] Rx#:[id number] Vancomycin 1,250 mg In 250 500 Sodium Chloride 0.9% 250 ml @ 125 mls/hr IVPB Q8H [facility] Rx#:[id number] Intake, IV Titration 471.865 212.450 Amount Amiodarone 300 mg In 226.667 Dextrose 5% in Water 250 ml @ 0.5 MG/MIN 25 mls/hr IV .Q10H [facility] Rx#: [id number] Norepinephrine 8 mg In 156.632 19.266 Sodium Chloride 0.9% 250 ml @ 0.05 MCG/KG/MIN 7. 014 mls/hr IV .Q24H [facility] Rx#:[id number] propofoL 1,000 mg In 88.566 193.184 Empty Bag 1 bag @ Titrate IV .Q0M [facility] Rx#: [id number] Tube Feeding 140 30 Other 60 30 Output: Urine 595 845 75 Other: Voiding Method Indwelling Catheter Indwelling Catheter ABP, PAP, CO, CI - Last Documented Arterial Blood Pressure 103/60 - Labs CBC & Chem 7: 01/03/20 04:05 01/03/20 04:05 Labs: Abnormal Lab Results - Last 24 Hours (Table) 01/02/20 01/03/20 01/03/20 Range/Units 23:37 03:59 04:05 RBC 3.44 L (4.30-5.90) m/uL Hgb 11.6 L (13.0-17.5) gm/dL Hct 36.4 L (39.0-53.0) % MCV 105.8 H (80.0-100.0) fL Plt Count 90 L D (150-450) k/uL Lymphocytes # (Manual) 0.71 L (1.0-4.8) k/uL Metamyelocytes # (Man) 0.08 H (0) k/uL Myelocytes # (Manual) 0.04 H (0) k/uL Nucleated RBCs 3 H (0-0) /100 WBC ABG pH (7.35-7.45) ABG pO2 (83-108) mmHg ABG Total CO2 (19-24) mmol/L ABG O2 Saturation (94-97) % Chloride (98-107) mmol/L Glucose (74-99) mg/dL POC Glucose (mg/dL) 183 H 203 H (75-99) mg/dL Calcium (8.4-10.2) mg/dL Total Protein (6.3-8.2) g/dL Albumin (3.5-5.0) g/dL 01/03/20 01/03/20 01/03/20 Range/Units 04:05 07:39 08:00 RBC (4.30-5.90) m/uL Hgb (13.0-17.5) gm/dL Hct (39.0-53.0) % MCV (80.0-100.0) fL Plt Count (150-450) k/uL Lymphocytes # (Manual) (1.0-4.8) k/uL Metamyelocytes # (Man) (0) k/uL Myelocytes # (Manual) (0) k/uL Nucleated RBCs (0-0) /100 WBC ABG pH 7.46 H (7.35-7.45) ABG pO2 131 H (83-108) mmHg ABG Total CO2 26 H (19-24) mmol/L ABG O2 Saturation 99.6 H (94-97) % Chloride 111 H (98-107) mmol/L Glucose 224 H (74-99) mg/dL POC Glucose (mg/dL) 213 H (75-99) mg/dL Calcium 8.0 L (8.4-10.2) mg/dL Total Protein 5.2 L (6.3-8.2) g/dL Albumin 2.4 L (3.5-5.0) g/dL 01/03/20 01/03/20 01/03/20 Range/Units 12:02 15:29 19:51 RBC (4.30-5.90) m/uL Hgb (13.0-17.5) gm/dL Hct (39.0-53.0) % MCV (80.0-100.0) fL Plt Count (150-450) k/uL Lymphocytes # (Manual) (1.0-4.8) k/uL Metamyelocytes # (Man) (0) k/uL Myelocytes # (Manual) (0) k/uL Nucleated RBCs (0-0) /100 WBC ABG pH (7.35-7.45) ABG pO2 (83-108) mmHg ABG Total CO2 (19-24) mmol/L ABG O2 Saturation (94-97) % Chloride (98-107) mmol/L Glucose (74-99) mg/dL POC Glucose (mg/dL) 192 H 159 H 128 H (75-99) mg/dL Calcium (8.4-10.2) mg/dL Total Protein (6.3-8.2) g/dL Albumin (3.5-5.0) g/dL Microbiology - Last 24 Hours (Table) 12/31/19 23:38 Gram Stain - Final Sputum Sputum Culture - Final Mavis albicans 12/30/19 19:53 Blood Culture - Preliminary Blood No Growth after 72 hours Assessment and Plan Plan: As above Will also check influenza and CMV Hopeful of recovery as WBC recovers from chemo
--- NOTE | 2020-01-01 14:54 | P.PN ---
Subjective Progress Note Date: 01/01/20 Principal diagnosis: Acute hypoxic respiratory failure This is a 59-year-old white male with history of right apical mass measuring 4.73.8 cm extending into the mediastinum with enlarged hilar lymph nodes back in 2018. Core biopsy on 01/09/2018 revealed a squamous cell carcinoma, moderately to poorly differentiated. Patient is now status post 3 cycles of chemotherapy, and he was staged as having an operable stage III squamous cell carcinoma. Since then, the patient was diagnosed as having distant metastasis including the right axilla and supraclavicular area, that means the patient had a stage IV squamous cell bronchogenic carcinoma. His last hospital admission was on 09/19/19, and he was discharged home on 09/22/19. At that time the patient presented with back pain along with nausea and vomiting, and he was seen by oncology for recommended bone scan were and the patient refused to have it done. Apparently the patient is following up with an oncologist out of [facility]. At any rate the patient was brought in yesterday with mostly symptoms of altered mental status, patient was noted to have hyperglycemia, hypernatremia, metabolic encephalopathy, and elevated lactic acid. Patient was admitted to 3 [address] and early this morning, I was notified about the patient extremely short of breath, and unresponsive. ABG this morning showed a pO2 of 48 pCO2 of 33 and pH of 7.53. This was on 36% FiO2. Hence I have recommended immediate intubation of the patient and immediate transfer to the ICU. Patient was intubated, follow-up ABG on 100% showed pO2 of 355 pCO2 of 43 pH of 7.42. And his most recent ABG on 50% showed a pO2 of 133 pCO2 of 40 pH of 7.39. I evaluated the patient in the ICU, and he was noted to be hypotensive. Patient was given fluids, and he was also given norepinephrine, patient went into atrial fibrillation with RVR, requiring cardioversion with 50 J given at bedside. While the patient was in A. fib/RVR, his blood pressure was as low as 60 systolic. However patient responded well to the cardioversion, and went into sinus rhythm, in the meantime patient was given amiodarone, and placed on amiodarone drip. Presently the patient is on tidal volume is 450 FiO2 is 40% assist control rate of 26 and PEEP is at 5. He is also on amiodarone drip, and he is on propofol, norepinephrine at 10 mcg/m, patient is also on antibiotics in the form of vancomycin and cefepime. His sodium earlier was as high as 159 and a sodium now is 153. Patient did receive fluid boluses in the form of D5W and D5 45. Patient was reevaluated today on 01/01/20, patient remains in the ICU, intubated and mechanically ventilated. His ventilator settings are assist control rate of 26 tidal volume is 450 FiO2 is 40% and PEEP of 5. ABG today showed a pO2 of 133 pCO2 of 37 pH of 7.43, hence I recommended cutting down the FiO2 to 35%. Patient was on amiodarone until early this morning which I have discontinued. He was also on norepinephrine at 0.12 mcg/kg/m which I have discontinued. He is on propofol at 20 mcg/kg/m, IV fluid in the form of 0.9 normal saline which I have switched to D5 W he is also on cefepime and vancomycin. Receiving free water through the nasogastric tube, and he has been on sliding scale for his elevated blood sugar. Patient remains sedated, and today I plan to hold propofol, and at least get a chance to assess his mental status. Patient is not quite ready for weaning. His chest x-ray continues to show significant left lower lobe opacity/consolidation, underlying mass is not entirely ruled out however on CT of the chest, the abnormality in the left lower lobe was more of a pneumonic process. WBC count today is 0.6, hemoglobin is 11. Platelets are 58,000. Basic metabolic profile showed sodium down to 153 potassium is 2.8 bicarb is normal renal profile is normal. Cultures including blood and sputum are nondiagnostic so far. Objective - Vital Signs Vital signs: Vital Signs Temp 98.3 F 01/01/20 12:00 Pulse 88 01/01/20 14:00 Resp 26 H 01/01/20 14:00 BP 106/58 01/01/20 07:00 Pulse Ox 98 01/01/20 14:00 Intake & Output 12/31/19 01/01/20 01/01/20 18:59 06:59 18:59 Intake Total 3601.971 2991.876 1936.198 Output Total 1080 1405 625 Balance 2521.971 3332.376 0280.198 Weight 78.2 kg Intake: IV 2725 2175 1225 Cefepime 2 gm In Sodium 100 50 100 Chloride 0.9% 100 ml @ 25 mls/hr IVPB Q12HR [facility] Rx #:[id number] D5 0.45NS bolus 1000 Dextrose 5% in Water 1, 300 000 ml @ 100 mls/hr IV . Q10H [facility] Rx#:[id number] Potassium Chloride 20 meq 200 In Water For Injection 1 100ml.bag @ 50 mls/hr IVPB Q2H [facility] Rx#: [id number] Sodium Chloride 0.9% 1, 1125 1625 375 000 ml @ 125 mls/hr IV . Q8H [facility] Rx#:[id number] Vancomycin 1,500 mg In 500 500 250 Sodium Chloride 0.9% 250 ml @ 125 mls/hr IVPB ONCE ONE Rx#:[id number] Intake, IV Titration 876.971 816.876 341.198 Amount Amiodarone 300 mg In 245 214.583 Dextrose 5% in Water 250 ml @ 0.5 MG/MIN 25 mls/hr IV .Q10H [facility] Rx#: [id number] Insulin Regular 100 unit 24.223 12.424 0.53 In Sodium Chloride 0.9% 100 ml @ Per Protocol IV .Q0M [facility] Rx#:[id number] Norepinephrine 4 mg In 402.748 Sodium Chloride 0.9% 250 ml @ 0.55 MCG/KG/MIN 151. 924 mls/hr IV .Q1H41M [facility] Rx#:[id number] Norepinephrine 8 mg In 421.389 20.202 Sodium Chloride 0.9% 250 ml @ 0.05 MCG/KG/MIN 7. 014 mls/hr IV .Q24H [facility] Rx#:[id number] Potassium Phosphate 10 250 mmol In Sodium Chloride 0 .9% 250 ml @ 125 mls/hr IV ONCE ONE Rx#:[id number] propofoL 1,000 mg In 200 138.063 105.883 Empty Bag 1 bag @ Titrate IV .Q0M [facility] Rx#: [id number] Tube Feeding 140 Other 230 Output: Urine 1080 1405 625 Other: Voiding Method Indwelling Catheter Indwelling Catheter ABP, PAP, CO, CI - Last Documented Arterial Blood Pressure 98/42 - Exam Physical Exam: Revealed a 59-year-old white male on mechanical ventilation, sedated, in no distress. Seems to be synchronous with mechanical ventilation. Head: Atraumatic, normocephalic. Endotracheal tube and orogastric tube are intact. HEENT:[Neck is supple.] [No neck masses.] [No thyromegaly.] [No JVD.]EOMI, no icterus. Chest: [Symmetrical chest expansion, fine crackles at the bases, no rhonchi no wheezes. Cardiac Exam: [Normal S1 and S2, no S3 gallop, no murmur.] Abdomen: [Soft, nontender, no megaly, no rebound, no guarding, normal bowel s ounds.] Extremities: [No clubbing, no edema, no cyanosis.] Good pulses bilaterally. Neurological Exam: Could not be assessed, patient is on propofol. Skin: No rashes, no petechiae. Musculoskeletal: No deformities Psychiatric: Could not be assessed - Labs CBC & Chem 7: 01/01/20 05:01 01/01/20 05:01 Labs: Abnormal Lab Results - Last 24 Hours (Table) 12/31/19 12/31/19 12/31/19 Range/Units 15:25 16:30 17:35 WBC (3.8-10.6) k/uL RBC (4.30-5.90) m/uL Hgb (13.0-17.5) gm/dL Hct (39.0-53.0) % MCV (80.0-100.0) fL Plt Count (150-450) k/uL ABG pO2 (83-108) mmHg ABG Total CO2 (19-24) mmol/L ABG O2 Saturation (94-97) % Sodium (137-145) mmol/L Potassium (3.5-5.1) mmol/L Chloride (98-107) mmol/L Glucose (74-99) mg/dL POC Glucose (mg/dL) 135 H 122 H 206 H (75-99) mg/dL Calcium (8.4-10.2) mg/dL AST (17-59) U/L Total Protein (6.3-8.2) g/dL Albumin (3.5-5.0) g/dL 12/31/19 12/31/19 12/31/19 Range/Units 18:25 20:24 22:37 WBC (3.8-10.6) k/uL RBC (4.30-5.90) m/uL Hgb (13.0-17.5) gm/dL Hct (39.0-53.0) % MCV (80.0-100.0) fL Plt Count (150-450) k/uL ABG pO2 (83-108) mmHg ABG Total CO2 (19-24) mmol/L ABG O2 Saturation (94-97) % Sodium (137-145) mmol/L Potassium (3.5-5.1) mmol/L Chloride (98-107) mmol/L Glucose (74-99) mg/dL POC Glucose (mg/dL) 188 H 157 H 150 H (75-99) mg/dL Calcium (8.4-10.2) mg/dL AST (17-59) U/L Total Protein (6.3-8.2) g/dL Albumin (3.5-5.0) g/dL 01/01/20 01/01/20 01/01/20 Range/Units 00:22 02:04 03:43 WBC (3.8-10.6) k/uL RBC (4.30-5.90) m/uL Hgb (13.0-17.5) gm/dL Hct (39.0-53.0) % MCV (80.0-100.0) fL Plt Count (150-450) k/uL ABG pO2 (83-108) mmHg ABG Total CO2 (19-24) mmol/L ABG O2 Saturation (94-97) % Sodium (137-145) mmol/L Potassium (3.5-5.1) mmol/L Chloride (98-107) mmol/L Glucose (74-99) mg/dL POC Glucose (mg/dL) 145 H 141 H 122 H (75-99) mg/dL Calcium (8.4-10.2) mg/dL AST (17-59) U/L Total Protein (6.3-8.2) g/dL Albumin (3.5-5.0) g/dL 01/01/20 01/01/20 01/01/20 Range/Units 04:08 05:01 05:01 WBC 0.6 L* (3.8-10.6) k/uL RBC 3.25 L (4.30-5.90) m/uL Hgb 11.0 L (13.0-17.5) gm/dL Hct 34.6 L (39.0-53.0) % MCV 106.4 H (80.0-100.0) fL Plt Count 58 L (150-450) k/uL ABG pO2 (83-108) mmHg ABG Total CO2 (19-24) mmol/L ABG O2 Saturation (94-97) % Sodium 153 H (137-145) mmol/L Potassium 2.8 L (3.5-5.1) mmol/L Chloride 124 H (98-107) mmol/L Glucose 140 H (74-99) mg/dL POC Glucose (mg/dL) 134 H (75-99) mg/dL Calcium 7.5 L (8.4-10.2) mg/dL AST 15 L (17-59) U/L Total Protein 5.2 L (6.3-8.2) g/dL Albumin 2.4 L (3.5-5.0) g/dL 01/01/20 01/01/20 01/01/20 Range/Units 05:21 06:47 07:14 WBC (3.8-10.6) k/uL RBC (4.30-5.90) m/uL Hgb (13.0-17.5) gm/dL Hct (39.0-53.0) % MCV (80.0-100.0) fL Plt Count (150-450) k/uL ABG pO2 (83-108) mmHg ABG Total CO2 (19-24) mmol/L ABG O2 Saturation (94-97) % Sodium (137-145) mmol/L Potassium (3.5-5.1) mmol/L Chloride (98-107) mmol/L Glucose (74-99) mg/dL POC Glucose (mg/dL) 133 H 147 H 138 H (75-99) mg/dL Calcium (8.4-10.2) mg/dL AST (17-59) U/L Total Protein (6.3-8.2) g/dL Albumin (3.5-5.0) g/dL 11/06/20 11/06/20 11/06/20 Range/Units 07:19 08:14 09:35 WBC (3.8-10.6) k/uL RBC (4.30-5.90) m/uL Hgb (13.0-17.5) gm/dL Hct (39.0-53.0) % MCV (80.0-100.0) fL Plt Count (150-450) k/uL ABG pO2 133 H (83-108) mmHg ABG Total CO2 26 H (19-24) mmol/L ABG O2 Saturation 99.7 H (94-97) % Sodium (137-145) mmol/L Potassium (3.5-5.1) mmol/L Chloride (98-107) mmol/L Glucose (74-99) mg/dL POC Glucose (mg/dL) 132 H 144 H (75-99) mg/dL Calcium (8.4-10.2) mg/dL AST (17-59) U/L Total Protein (6.3-8.2) g/dL Albumin (3.5-5.0) g/dL 01/01/20 Range/Units 11:47 WBC (3.8-10.6) k/uL RBC (4.30-5.90) m/uL Hgb (13.0-17.5) gm/dL Hct (39.0-53.0) % MCV (80.0-100.0) fL Plt Count (150-450) k/uL ABG pO2 (83-108) mmHg ABG Total CO2 (19-24) mmol/L ABG O2 Saturation (94-97) % Sodium (137-145) mmol/L Potassium (3.5-5.1) mmol/L Chloride (98-107) mmol/L Glucose (74-99) mg/dL POC Glucose (mg/dL) 170 H (75-99) mg/dL Calcium (8.4-10.2) mg/dL AST (17-59) U/L Total Protein (6.3-8.2) g/dL Albumin (3.5-5.0) g/dL Microbiology - Last 24 Hours (Table) 12/31/19 23:38 Gram Stain - Preliminary Sputum Sputum Culture - Preliminary 12/30/19 19:53 Blood Culture - Preliminary Blood No Growth after 24 hours Assessment and Plan Assessment: Impression: Acute hypoxic respiratory failure secondary to healthcare acquired pneumonia, in an immunocompromised host with known malignancy, likely gram-negative pneumonia. Patient required intubation and mechanical ventilation on 12/31/19 Advanced bronchogenic carcinoma stage IV. Sepsis and septic shock requiring fluids and norepinephrine to maintain reasonable blood pressure. Hyperglycemia on presentation, but no clear-cut evidence of diabetic ketoacidosis as his urine ketones were negative. Poorly controlled diabetes. Acute metabolic encephalopathy with hypoxemia and hypoxic respiratory failure as well as hypernatremia causing his acute metabolic encephalopathy. Elevated lactic acid on presentation secondary to sepsis and septic shock. Resolved. History of chronic obstructive pulmonary disease, presently inactive History of hypertension. History of chronic back pain dehydration and free water deficit on presentation. With hypernatremia New onset atrial fibrillation with RVR, likely induced by norepinephrine while in the ICU, patient responded to amiodarone and cardioversion./Patient was defibrillated using 50 J as he was quite hypotensive while in A. fib/RVR Recommendation: Start patient on filgrastim 480 g subcu daily because of his neutropenia. Continue to monitor platelets. No need for latest transfusion at present. Continue ventilatory support, ventilator settings were adjusted he is now on tidal volume is 450 FiO2 is 35%. rate is 26 and PEEP of 5. Start the nutritional support/enteral feeding. Discontinue amiodarone. Discontinue norepinephrine for now. Patient is in sinus rhythm, and he is hemodynamically stable. Continue cefepime and vancomycin. Increase free water by changing his IV fluid to D5W and free water via the nasog astric tube. That will help correct his hypernatremia. Bronchodilators for underlying COPD and continue steroids. GI prophylaxis, and use Venodyne boots for DVT prophylaxis as the patient has low platelets Patient will be tested for COVID 19 Critical care time is 35 minutes Patient remains critically ill, and prognosis is guarded Time with Patient: Greater than 30
[2020-01-01 16:46] LABS: Glucose,Whole Blood 232 mg/dL (75-99)
[2020-01-01] MEDS: FILGRASTIM-SNDZ 480 MCG/0.8 ML SYRINGE SQ SCH (16:52)
[2020-01-01] MEDS ORDERED: VANCOMYCIN TROUGH DUE 1 EACH MISC MISCELLANE ONE (17:00)
[2020-01-01 17:29] LABS: African American GFR (CKD) >90 (>60 ml/min/1.73 sqM); Anion Gap 5 mmol/L; Blood Urea Nitrogen 16 mg/dL (9-20); Calcium 7.6 mg/dL (8.4-10.2); Carbon Dioxide 23 mmol/L (22-30); Chloride 120 mmol/L (98-107); Glucose 242 mg/dL (74-99); Magnesium 1.8 mg/dL (1.6-2.3); Non-African American GFR(CKD) >90 (>60 ml/min/1.73 sqM); Potassium 2.9 mmol/L (3.5-5.1); Sodium 148 mmol/L (137-145)
--- NOTE | 2020-01-01 19:35 | P.PN ---
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 He was diagnosed with right-sided lung cancer about 2 years ago and he follow-up with oncologist at [facility] and his oncologist and [place]. This time he presents because of altered mental status and generalized weakness and dehydration. Patient is poor story and he's awake but he is also tired that he cannot give information, however he opens eyes spontaneously, he follows commands, and when asking him if he has pain he notes his head slightly as no., On admission he is tachycardic, hypertensive with a blood pressure 80/71 leukocytosis of 13.7, hemoglobin 17.7 and platelets 1:30 9k, q slack h emoconcentrated sample. venous ph is 7.1, sodium is 148, creatinine is 2.1, and 1.5. Glucose more than 620 came in to the hospital. Lactic acid was elevated at 2.6 came back to normal at 1.9. Troponin is negative as less than 0.012 12/30/2019 Patient is more confused today, however was due to hypernatremia with sodium significantly elevated at 153, we'll change his IV fluids from D5 half normal saline to D5W and keep monitoring sodium. Discussed with the staff, we will keep patient nothing by mouth for now and will reassess tomorrow, his blood pressure is improved however still low normal and he is tachycardic. His pro-calcitonin is elevated, no clear evidence of infection, but possible pneumonia versus other, we'll repeat workup tomorrow however start the patient on Zosyn now and follow-up culture results, blood culture is ordered and check chest x-ray tomorrow. 12/31/2019 Patient got into respiratory distress overnight and he got intubated and placed on mechanical ventilation, also he went into shock states and started on norepinephrine at 0.3 g per KG per minute this morning. Also his course was complicated with A. fib and RVR and he was placed on amiodarone drip after cardioversion and switch to sinus rhythm, his heart rate is in the 90s right now, is still tachypneic and blood pressure 82/44. Patient is also on insulin drip. CTA of the chest showing no pulmonary embolism, which shows 1.6 cm right central line mass suspicious for neoplasm and 1.8 x 3.8 area of consolidation in the right upper lobe possible metastatic neoplasm versus atelectasis and left lower lobe infiltrate consistent with pneumonia. Tube in good position. Antibiotics were changed from Zosyn to cefepime and IV vancomycin by pulmonary team I discussed the case with the daughter Precious over the phone. She states that he follows with [facility] at [place], and he was getting chemotherapy and radiotherapy. As per daughter he has 5 masses of metastasis is between his right armpit and right kidney. I updated her with the patient condition and all her questions were answered to her satisfaction. 01/01/2020 This is a pleasant 59 years old male with stage IV lung cancer with chemotherapy present altered mental status and DKA, he was found to have possible infection and started on Zosyn, however he developed respiratory distress and hypotension that needed transfer to the ICU, he was on Levophed yesterday, which is stopped now And blood pressure currently insulin 111/52. Also insulin drip stopped today at his sugar is better controlled on insulin sliding scale. Plus Levemir 15 units. NG tube is placed and his water flushes increased to 200 mL every 4 hours, continue with D5W, her sodium today is better at 148. Patient remains on mechanical ventilation, he underwent sedation holiday and he was able to follow some commands. CT of the chest showing no pulmonary embolism, right lower lobe neoplasm with possible metastasis to the right upper lobe and left lower lobe pneumonia. Patient is currently kept on IV vancomycin and cefepime. Pancytopenia is a due to recent chemotherapy plus sepsis. Continue with amiodarone drip for A. fib and RVR, currently on sinus rhythm status post cardioversion Patient is monitored closely by pulmonary/critical care team and oncology team Review of systems: N/a Active Medications Generic Name Dose Route Start Last Admin Trade Name Freq PRN Reason Stop Dose Admin Hydrocodone Bitart/Acetaminophen 2 each 12/29/19 10:08 Hydrocodone/Apap 10-325mg 1 Each Tab PO Q6H PRN Pain Albuterol/Ipratropium 3 ml 12/31/19 16:00 01/01/20 16:15 Ipratropium-Albuterol 3 Ml Neb INHALATION 3 ml RT-QID RAJ Administration Chlorhexidine Gluconate 15 ml 01/01/20 21:00 Chlorhexidine Gluconate 15 Ml Cup MUCOUS MEM BID RAJ Dexamethasone 4 mg 12/29/19 21:00 01/01/20 08:10 Dexamethasone 4 Mg Tab PO 4 mg BID RAJ Administration Famotidine 20 mg 12/29/19 21:00 01/01/20 08:10 Famotidine 20 Mg/2 Ml Vial IV 20 mg Q12HR RAJ Administration Filgrastim-Sndz 480 mcg 01/01/20 12:00 01/01/20 16:52 Filgrastim-Sndz 480 Mcg/0.8 Ml Syringe SQ 480 mcg DAILY RJA Administration Sodium Chloride 500 mls @ 999 mls/hr 12/30/19 22:19 Saline 0.9% IV .Q31M PRN SBP < 100 Propofol 1,000 mg/ IV Solution 100 mls @ 0 mls/hr 12/31/19 02:15 01/01/20 13:15 IV 50 mcg/kg/min .Q0M RAJ 23.46 mls/hr Titration Protocol Titrate Cefepime HCl 2 gm/ Sodium 100 mls @ 25 mls/hr 12/31/19 09:00 01/01/20 08:10 Chloride IVPB 25 mls/hr Q12HR RAJ Administration Vancomycin HCl 1,250 mg/ 250 mls @ 125 mls/hr 12/31/19 18:00 01/01/20 17:03 Sodium Chloride IVPB 125 mls/hr Q8H RAJ Administration Norepinephrine Bitartrate 8 mg 258 mls @ 7.014 mls/hr 12/31/19 14:00 01/01/20 12:50 / Sodium Chloride IV 0.05 mcg/kg/min .Q24H RAJ 7.014 mls/hr Titration Protocol 0.05 MCG/KG/MIN Dextrose/Water 1,000 mls @ 100 mls/hr 01/01/20 12:00 01/01/20 11:51 Dextrose 5%-Water Iv Soln IV 100 mls/hr .Q10H RAJ Administration Magnesium Sulfate/Dextrose 1 100 mls @ 100 mls/hr 01/01/20 20:00 gm/ IV Solution IVPB 01/01/20 21:59 Q1H RAJ Insulin Aspart 0 unit 01/01/20 20:00 Insulin Aspart (Novolog) 100 Unit/Ml Vial SQ Q4H RJA Protocol Insulin Detemir 15 unit 12/29/19 19:00 12/31/19 22:50 Insulin Detemir (Levemir) 100 Unit/Ml Syr SQ 15 unit HS [facility] Administration Miscellaneous Information 1 each 12/29/19 16:49 Magnesium Replacement Protocol 1 Each Mis MISCELLANE DAILY PRN Per Protocol Protocol Miscellaneous Information 1 each 12/29/19 16:49 Potassium Replacement Protocol 1 Each [facility] MISCELLANE DAILY PRN Per Protocol Miscellaneous Information 1 each 12/29/19 21:40 Phosphorus Replacement Protoco 1 Each [facility] MISCELLANE DAILY PRN Per Protocol Protocol Morphine Sulfate 30 mg 12/29/19 21:00 01/01/20 08:11 Morphine Sulfate Er 30 Mg Tablet PO Not Given Q12HR [facility] Naloxone HCl 0.2 mg 12/31/19 02:10 Naloxone 0.4 Mg/Ml 1 Ml Vial IV Q2M PRN Opioid Reversal Ondansetron HCl 4 mg 12/29/19 10:08 Ondansetron 4 Mg Tab PO Q8H PRN Nausea Oxycodone/Acetaminophen 2 each 12/29/19 10:08 Oxycodone-Apap 10-325mg 1 Each Tab PO Q6H PRN Pain Potassium Bicarbonate 20 meq 01/01/20 20:00 Potassium Bicarbonate/Cit Ac 20 Meq Tablet.Eff NG-TUBE 01/01/20 22:01 Q1HR [facility] Protocol Prochlorperazine Maleate 10 mg 12/29/19 10:08 Prochlorperazine 10 Mg Tab PO Q6H PRN Nausea Objective - Vital Signs Vital signs: Vital Signs Temp 98.3 F 01/01/20 12:00 Pulse 91 01/01/20 13:00 Resp 26 H 01/01/20 13:00 BP 106/58 01/01/20 07:00 Pulse Ox 100 01/01/20 13:00 Intake & Output 12/31/19 01/01/20 01/01/20 18:59 06:59 18:59 Intake Total 3601.971 2991.876 1126.169 Output Total 1080 1405 275 Balance 2521.971 1586.876 851.169 Weight 78.2 kg Intake: IV 3575 0815 725 Cefepime 2 gm In Sodium 100 50 100 Chloride 0.9% 100 ml @ 25 mls/hr IVPB Q12HR RAJ Rx #:[id number] D5 0.45NS bolus 1000 Sodium Chloride 0.9% 1, 1125 1625 375 000 ml @ 125 mls/hr IV . Q8H ARJ Rx#:[id number] Vancomycin 1,500 mg In 500 500 250 Sodium Chloride 0.9% 250 ml @ 125 mls/hr IVPB ONCE ONE Rx#:[id number] Intake, IV Titration 876.971 816.876 311.169 Amount Amiodarone 300 mg In 245 214.583 Dextrose 5% in Water 250 ml @ 0.5 MG/MIN 25 mls/hr IV .Q10H RAJ Rx#: [id number] Insulin Regular 100 unit 24.223 12.424 0.53 In Sodium Chloride 0.9% 100 ml @ Per Protocol IV .Q0M [facility] Rx#:[id number] Norepinephrine 4 mg In 402.748 Sodium Chloride 0.9% 250 ml @ 0.55 MCG/KG/MIN 151. 924 mls/hr IV .Q1H41M RAJ Rx#:[id number] Norepinephrine 8 mg In 421.389 20.202 Sodium Chloride 0.9% 250 ml @ 0.05 MCG/KG/MIN 7. 014 mls/hr IV .Q24H [facility] Rx#:[id number] Potassium Phosphate 10 250 mmol In Sodium Chloride 0 .9% 250 ml @ 125 mls/hr IV ONCE ONE Rx#:[id number] propofoL 1,000 mg In 200 138.063 75.854 Empty Bag 1 bag @ Titrate IV .Q0M [facility] Rx#: [id number] Tube Feeding 60 Other 30 Output: Urine 1080 1405 275 Other: Voiding Method Indwelling Catheter Indwelling Catheter ABP, PAP, CO, CI - Last Documented Arterial Blood Pressure 90/49 - Exam -GENERAL: The patient is intubated and sedated HEENT: Pupils are round and equally reacting to light. EOMI. No scleral icterus. No conjunctival pallor. Normocephalic, atraumatic. No pharyngeal erythema. No thyromegaly. CARDIOVASCULAR: S1 and S2 present. No murmurs, rubs, or gallops. PULMONARY: Chest is clear to auscultation, no wheezing or crackles. ABDOMEN: Soft, nontender, nondistended, normoactive bowel sounds. No palpable organomegaly. MUSCULOSKELETAL: No joint swelling or deformity. EXTREMITIES: No cyanosis, clubbing, or pedal edema. NEUROLOGICAL: Gross neurological examination did not reveal any focal deficits. SKIN: No rashes. no petechiae. - Labs CBC & Chem 7: 01/01/20 05:01 01/01/20 16:46 Labs: Abnormal Lab Results - Last 24 Hours (Table) 12/31/19 12/31/19 12/31/19 Range/Units 14:37 15:25 16:30 WBC (3.8-10.6) k/uL RBC (4.30-5.90) m/uL Hgb (13.0-17.5) gm/dL Hct (39.0-53.0) % MCV (80.0-100.0) fL Plt Count (150-450) k/uL ABG pO2 (83-108) mmHg ABG Total CO2 (19-24) mmol/L ABG O2 Saturation (94-97) % Sodium (137-145) mmol/L Potassium (3.5-5.1) mmol/L Chloride (98-107) mmol/L Glucose (74-99) mg/dL POC Glucose (mg/dL) 126 H 135 H 122 H (75-99) mg/dL Calcium (8.4-10.2) mg/dL AST (17-59) U/L Total Protein (6.3-8.2) g/dL Albumin (3.5-5.0) g/dL 12/31/19 12/31/19 12/31/19 Range/Units 17:35 18:25 20:24 WBC (3.8-10.6) k/uL RBC (4.30-5.90) m/uL Hgb (13.0-17.5) gm/dL Hct (39.0-53.0) % MCV (80.0-100.0) fL Plt Count (150-450) k/uL ABG pO2 (83-108) mmHg ABG Total CO2 (19-24) mmol/L ABG O2 Saturation (94-97) % Sodium (137-145) mmol/L Potassium (3.5-5.1) mmol/L Chloride (98-107) mmol/L Glucose (74-99) mg/dL POC Glucose (mg/dL) 206 H 188 H 157 H (75-99) mg/dL Calcium (8.4-10.2) mg/dL AST (17-59) U/L Total Protein (6.3-8.2) g/dL Albumin (3.5-5.0) g/dL 12/31/19 01/01/20 01/01/20 Range/Units 22:37 00:22 02:04 WBC (3.8-10.6) k/uL RBC (4.30-5.90) m/uL Hgb (13.0-17.5) gm/dL Hct (39.0-53.0) % MCV (80.0-100.0) fL Plt Count (150-450) k/uL ABG pO2 (83-108) mmHg ABG Total CO2 (19-24) mmol/L ABG O2 Saturation (94-97) % Sodium (137-145) mmol/L Potassium (3.5-5.1) mmol/L Chloride (98-107) mmol/L Glucose (74-99) mg/dL POC Glucose (mg/dL) 150 H 145 H 141 H (75-99) mg/dL Calcium (8.4-10.2) mg/dL AST (17-59) U/L Total Protein (6.3-8.2) g/dL Albumin (3.5-5.0) g/dL 01/01/20 01/01/20 01/01/20 Range/Units 03:43 04:08 05:01 WBC 0.6 L* (3.8-10.6) k/uL RBC 3.25 L (4.30-5.90) m/uL Hgb 11.0 L (13.0-17.5) gm/dL Hct 34.6 L (39.0-53.0) % MCV 106.4 H (80.0-100.0) fL Plt Count 58 L (150-450) k/uL ABG pO2 (83-108) mmHg ABG Total CO2 (19-24) mmol/L ABG O2 Saturation (94-97) % Sodium (137-145) mmol/L Potassium (3.5-5.1) mmol/L Chloride (98-107) mmol/L Glucose (74-99) mg/dL POC Glucose (mg/dL) 122 H 134 H (75-99) mg/dL Calcium (8.4-10.2) mg/dL AST (17-59) U/L Total Protein (6.3-8.2) g/dL Albumin (3.5-5.0) g/dL 01/01/20 01/01/20 01/01/20 Range/Units 05:01 05:21 06:47 WBC (3.8-10.6) k/uL RBC (4.30-5.90) m/uL Hgb (13.0-17.5) gm/dL Hct (39.0-53.0) % MCV (80.0-100.0) fL Plt Count (150-450) k/uL ABG pO2 (83-108) mmHg ABG Total CO2 (19-24) mmol/L ABG O2 Saturation (94-97) % Sodium 153 H (137-145) mmol/L Potassium 2.8 L (3.5-5.1) mmol/L Chloride 124 H (98-107) mmol/L Glucose 140 H (74-99) mg/dL POC Glucose (mg/dL) 133 H 147 H (75-99) mg/dL Calcium 7.5 L (8.4-10.2) mg/dL AST 15 L (17-59) U/L Total Protein 5.2 L (6.3-8.2) g/dL Albumin 2.4 L (3.5-5.0) g/dL 01/01/20 01/01/20 01/01/20 Range/Units 07:14 07:19 08:14 WBC (3.8-10.6) k/uL RBC (4.30-5.90) m/uL Hgb (13.0-17.5) gm/dL Hct (39.0-53.0) % MCV (80.0-100.0) fL Plt Count (150-450) k/uL ABG pO2 133 H (83-108) mmHg ABG Total CO2 26 H (19-24) mmol/L ABG O2 Saturation 99.7 H (94-97) % Sodium (137-145) mmol/L Potassium (3.5-5.1) mmol/L Chloride (98-107) mmol/L Glucose (74-99) mg/dL POC Glucose (mg/dL) 138 H 132 H (75-99) mg/dL Calcium (8.4-10.2) mg/dL AST (17-59) U/L Total Protein (6.3-8.2) g/dL Albumin (3.5-5.0) g/dL 01/01/20 01/01/20 Range/Units 09:35 11:47 WBC (3.8-10.6) k/uL RBC (4.30-5.90) m/uL Hgb (13.0-17.5) gm/dL Hct (39.0-53.0) % MCV (80.0-100.0) fL Plt Count (150-450) k/uL ABG pO2 (83-108) mmHg ABG Total CO2 (19-24) mmol/L ABG O2 Saturation (94-97) % Sodium (137-145) mmol/L Potassium (3.5-5.1) mmol/L Chloride (98-107) mmol/L Glucose (74-99) mg/dL POC Glucose (mg/dL) 144 H 170 H (75-99) mg/dL Calcium (8.4-10.2) mg/dL AST (17-59) U/L Total Protein (6.3-8.2) g/dL Albumin (3.5-5.0) g/dL Microbiology - Last 24 Hours (Table) 12/31/19 23:38 Gram Stain - Preliminary Sputum Sputum Culture - Preliminary 12/30/19 19:53 Blood Culture - Preliminary Blood No Growth after 24 hours Assessment and Plan Assessment: Assessment acute hypoxic respiratory failure needing intubation and mechanical ventilation Septic shock, improved Left lower lobe pneumonia Stage IV lung cancer, squamous cell carcinoma . On chemotherapy currently A. fib and RVR, on amiodarone drip diabetic ketoacidosis, improved and currently off insulin drip Hypernatremia, improving Metabolic encephalopathy secondary to above Diabetes mellitus, uncontrolled with hyperglycemia Elevated lactic acid, came back to normal History of Hypertension Chronic back pain COPD, no acute exacerbation Plan: This is a pleasant 59 years old male who presents with DKA and altered mental status, patient was transferred to the ICU, We appreciate pulmonary/critical care team input. continue with mechanical ventilation and pressors as per pulmonary/critical care team. Continue with broad-spectrum antibiotics. Follow -up culture results. Consult hematology/oncology team. Continue with insulin sliding scale. Continue with amiodarone. Labs and medication were reviewed.. Continue same treatment. Continue with symptomatic treatment. Resume home medication. Monitor lytes and vitals. DVT and GI prophylaxis. Further recommendations as per clinical course of the patient DVT prophylaxis: Subcutaneous heparin GI Prophylaxis: Pepcid Prognosis is guarded. Long-term prognosis remains guarded
[2020-01-01 20:53] LABS: Glucose,Whole Blood 211 mg/dL (75-99)
[2020-01-01] MEDS: POTASSIUM BICARBONATE/CIT AC 20 MEQ TABLET.EFF NG-TUBE SCH ×3 (20:57→23:11)
[2020-01-01] MEDS: INSULIN DETEMIR (LEVEMIR) 100 UNIT/ML SYR SQ SCH (20:57)
[2020-01-01] MEDS: MAGNESIUM SULFATE-D5W PMX 1 GM in DEXTROSE/WATER 1 100ML.BAG IVPB SCH ×2 (20:57→22:23)
[2020-01-01] MEDS: CHLORHEXIDINE GLUCONATE 15 ML CUP MUCOUS MEM SCH (20:57)
[2020-01-01 23:46] LABS: Glucose,Whole Blood 279 mg/dL (75-99)
[2020-01-02] MEDS: VANCOMYCIN 1,250 MG in SODIUM CHLORIDE 0.9% 250 ML IVPB SCH ×3 (02:00→17:02)
[2020-01-02 04:12] LABS: Glucose,Whole Blood 286 mg/dL (75-99)
[2020-01-02] MEDS: INSULIN ASPART (NovoLOG) 100 UNIT/ML VIAL SQ SCH ×6 (04:18→23:39)
[2020-01-02 04:25] LABS: HCT 31.1 % (39.0-53.0); HGB 9.8 gm/dL (13.0-17.5); Hypochromasia Moderate; MCHC 31.7 g/dL (31.0-37.0); MCV 107.3 fL (80.0-100.0); Macrocytosis Moderate; Mean Platelet Volume 10.1; RBC 2.89 m/uL (4.30-5.90); RDW 13.5 % (11.5-15.5)
[2020-01-02 04:33] LABS: WBC 0.8 k/uL (3.8-10.6)
[2020-01-02 04:34] LABS: Platelet Count 54 k/uL (150-450)
[2020-01-02 04:36] LABS: INR 0.9 (<1.2); Partial Thromboplastin Time 27.1 sec (22.0-30.0); Prothrombin Time 9.4 sec (9.0-12.0)
[2020-01-02 04:37] LABS: ALT 8 U/L (4-49); AST 13 U/L (17-59); African American GFR (CKD) >90 (>60 ml/min/1.73 sqM); Albumin 2.3 g/dL (3.5-5.0); Alkaline Phosphatase 59 U/L (38-126); Anion Gap 3 mmol/L; Blood Urea Nitrogen 14 mg/dL (9-20); Calcium 7.5 mg/dL (8.4-10.2); Carbon Dioxide 27 mmol/L (22-30); Chloride 113 mmol/L (98-107); Glucose 294 mg/dL (74-99); Magnesium 2.1 mg/dL (1.6-2.3); Non-African American GFR(CKD) >90 (>60 ml/min/1.73 sqM); Phosphorus 2.6 mg/dL (2.5-4.5); Potassium 3.6 mmol/L (3.5-5.1); Sodium 143 mmol/L (137-145); Total Bilirubin 0.6 mg/dL (0.2-1.3)
[2020-01-02 04:53] LABS: Large Platelets Present
[2020-01-02] MEDS: POTASSIUM BICARBONATE/CIT AC 20 MEQ TABLET.EFF NG-TUBE SCH ×2 (05:30→07:01)
[2020-01-02] MEDS: MORPHINE SULFATE ER 30 MG TABLET PO SCH ×2 (09:02→20:45)
[2020-01-02] MEDS: CHLORHEXIDINE GLUCONATE 15 ML CUP MUCOUS MEM SCH (09:02)
[2020-01-02] MEDS: dexAMETHasone 4 MG TAB PO SCH ×2 (09:02→20:42)
[2020-01-02] MEDS: FILGRASTIM-SNDZ 480 MCG/0.8 ML SYRINGE SQ SCH (09:22)
[2020-01-02] MEDS: CEFEPIME 2 GM in SODIUM CHLORIDE 0.9% 100 ML IVPB SCH ×2 (09:22→20:42)
[2020-01-02] MEDS: FAMOTIDINE 20 MG/2 ML VIAL IV SCH ×2 (09:22→20:44)
[2020-01-02] MEDS: SODIUM CHLORIDE 0.9% 1,000 ML IV SCH ×2 (09:24→17:02)
[2020-01-02] MEDS: DEXTROSE 5% IN WATER 1,000 ML IV SCH (09:25)
[2020-01-02] MEDS: IPRATROPIUM-ALBUTEROL 3 ML NEB INHALATION SCH ×4 (09:25→20:22)
--- NOTE | 2020-01-02 09:26 | XR ---
EXAMINATION TYPE: XR chest 1V portable DATE OF EXAM: 01/02/2020 CLINICAL HISTORY: Tube placement. TECHNIQUE: Portable semiupright view of the chest. COMPARISON: 01/01/2020 chest radiograph. 12/31/2019 CTA chest. FINDINGS: Endotracheal tube and enteric tube redemonstrated. The cardiomediastinal silhouette is wit hin normal limits for size. Pulmonary vasculature is normal. Mid right lung mass redemonstrated. Patc hy airspace opacity of the left lung base is mildly decreased versus 01/01/2020. Right apical thickeni ng redemonstrated. No pleural effusion. No pneumothorax. IMPRESSION: 1. Left basilar airspace opacity is mildly decreased versus 01/01/2020. 2. Known right mid lung mass.
[2020-01-02] MEDS: HALOPERIDOL LACTATE 5 MG/ML 1 ML VIAL IVP PRN (09:31)
--- NOTE | 2020-01-02 12:46 | P.PN ---
Subjective Progress Note Date: 01/02/20 Principal diagnosis: Acute hypoxic respiratory failure This is a 59-year-old white male with history of right apical mass measuring 4.73.8 cm extending into the mediastinum with enlarged hilar lymph nodes back in 2018. Core biopsy on 01/09/2018 revealed a squamous cell carcinoma, moderately to poorly differentiated. Patient is now status post 3 cycles of chemotherapy, and he was staged as having an operable stage III squamous cell carcinoma. Since then, the patient was diagnosed as having distant metastasis including the right axilla and supraclavicular area, that means the patient had a stage IV squamous cell bronchogenic carcinoma. His last hospital admission was on 09/19/19, and he was discharged home on 09/22/19. At that time the patient presented with back pain along with nausea and vomiting, and he was seen by oncology for recommended bone scan were and the patient refused to have it done. Apparently the patient is following up with an oncologist out of [facility]. At any rate the patient was brought in yesterday with mostly symptoms of altered mental status, patient was noted to have hyperglycemia, hypernatremia, metabolic encephalopathy, and elevated lactic acid. Patient was admitted to 3 [address] and early this morning, I was notified about the patient extremely short of breath, and unresponsive. ABG this morning showed a pO2 of 48 pCO2 of 33 and pH of 7.53. This was on 36% FiO2. Hence I have recommended immediate intubation of the patient and immediate transfer to the ICU. Patient was intubated, follow-up ABG on 100% showed pO2 of 355 pCO2 of 43 pH of 7.42. And his most recent ABG on 50% showed a pO2 of 133 pCO2 of 40 pH of 7.39. I evaluated the patient in the ICU, and he was noted to be hypotensive. Patient was given fluids, and he was also given norepinephrine, patient went into atrial fibrillation with RVR, requiring cardioversion with 50 J given at bedside. While the patient was in A. fib/RVR, his blood pressure was as low as 60 systolic. However patient responded well to the cardioversion, and went into sinus rhythm, in the meantime patient was given amiodarone, and placed on amiodarone drip. Presently the patient is on tidal volume is 450 FiO2 is 40% assist control rate of 26 and PEEP is at 5. He is also on amiodarone drip, and he is on propofol, norepinephrine at 10 mcg/m, patient is also on antibiotics in the form of vancomycin and cefepime. His sodium earlier was as high as 159 and a sodium now is 153. Patient did receive fluid boluses in the form of D5W and D5 45. Patient was reevaluated today on 01/01/20, patient remains in the ICU, intubated and mechanically ventilated. His ventilator settings are assist control rate of 26 tidal volume is 450 FiO2 is 40% and PEEP of 5. ABG today showed a pO2 of 133 pCO2 of 37 pH of 7.43, hence I recommended cutting down the FiO2 to 35%. Patient was on amiodarone until early this morning which I have discontinued. He was also on norepinephrine at 0.12 mcg/kg/m which I have discontinued. He is on propofol at 20 mcg/kg/m, IV fluid in the form of 0.9 normal saline which I have switched to D5 W he is also on cefepime and vancomycin. Receiving free water through the nasogastric tube, and he has been on sliding scale for his elevated blood sugar. Patient remains sedated, and today I plan to hold propofol, and at least get a chance to assess his mental status. Patient is not quite ready for weaning. His chest x-ray continues to show significant left lower lobe opacity/consolidation, underlying mass is not entirely ruled out however on CT of the chest, the abnormality in the left lower lobe was more of a pneumonic process. WBC count today is 0.6, hemoglobin is 11. Platelets are 58,000. Basic metabolic profile showed sodium down to 153 potassium is 2.8 bicarb is normal renal profile is normal. Cultures including blood and sputum are nondiagnostic so far. Patient was reevaluated today on 01/02/20, remains intubated and mechanically ventilated. Patient is on propofol at 50 mcg/kg/m, he is hemodynamically stable, his IV fluid is 0.9 normal saline at 100 mL per hour. Patient remains on antibiotics in the form of cefepime and vancomycin. Cultures remain negative. And nondiagnostic. Chest x-ray is showing improvement in his left lower lobe pneumonia. Sodium is down to 143. Patient is also on enteral feeding. His ventilator settings are assist control rate of 26 FiO2 is 35% tidal volume is 450 and PEEP of 5. No ABG was done today. However the patient was taken off propofol, and I have awakened the patient although he was awake even on propofol. And went ahead and recommended a trial of pressure support of 8 and CPAP. Patient seemed to tolerate that quite well, then we proceeded to extubating the patient. Objective - Vital Signs Vital signs: Vital Signs Temp 98.1 F 01/02/20 04:00 Pulse 109 H 01/02/20 11:00 Resp 26 H 01/02/20 11:00 BP 107/57 01/02/20 07:00 Pulse Ox 94 L 01/02/20 11:00 Intake & Output 01/01/20 01/02/20 01/02/20 18:59 06:59 18:59 Intake Total 2726.169 2246.025 358.418 Output Total 860 1205 900 Balance 1108.850 3036.025 -541.582 Weight 75.6 kg 83.2 kg Intake: IV 1625 1533 215 Cefepime 2 gm In Sodium 100 100 Chloride 0.9% 100 ml @ 25 mls/hr IVPB Q12HR [facility] Rx #:[id number] Dextrose 5% in Water 1, 700 1200 200 000 ml @ 100 mls/hr IV . Q10H [facility] Rx#:[id number] Magnesium Sulfate-D5w Pmx 200 1 gm In Dextrose/Water 1 100ml.bag @ 100 mls/hr IVPB Q1H [facility] Rx#: [id number] Potassium Chloride 20 meq 200 In Water For Injection 1 100ml.bag @ 50 mls/hr IVPB Q2H [facility] Rx#: [id number] Pressure bag 33 15 Sodium Chloride 0.9% 1, 375 000 ml @ 125 mls/hr IV . Q8H [facility] Rx#:[id number] Vancomycin 1,500 mg In 250 Sodium Chloride 0.9% 250 ml @ 125 mls/hr IVPB ONCE ONE Rx#:[id number] Intake, IV Titration 411.169 233.025 103.418 Amount Amiodarone 300 mg In 214.583 Dextrose 5% in Water 250 ml @ 0.5 MG/MIN 25 mls/hr IV .Q10H [facility] Rx#: [id number] Insulin Regular 100 unit 0.53 In Sodium Chloride 0.9% 100 ml @ Per Protocol IV .Q0M [facility] Rx#:[id number] Norepinephrine 8 mg In 20.202 136.448 11.924 Sodium Chloride 0.9% 250 ml @ 0.05 MCG/KG/MIN 7. 014 mls/hr IV .Q24H [facility] Rx#:[id number] propofoL 1,000 mg In 175.854 96.577 91.494 Empty Bag 1 bag @ Titrate IV .Q0M [facility] Rx#: [id number] Tube Feeding 260 480 40 Other 430 Output: Urine 860 1205 900 Other: Voiding Method Indwelling Catheter Indwelling Catheter Indwelling Catheter ABP, PAP, CO, CI - Last Documented Arterial Blood Pressure 117/59 - Exam Physical Exam: Revealed a 59-year-old white male on mechanical ventilation, arousable, follows simple instructions. Head: Atraumatic, normocephalic. Endotracheal tube and orogastric tube are intact. HEENT:[Neck is supple.] [No neck masses.] [No thyromegaly.] [No JVD.]EOMI, no icterus. Chest: [Symmetrical chest expansion, fine crackles at the bases, no rhonchi no wheezes. Cardiac Exam: [Normal S1 and S2, no S3 gallop, no murmur.] Abdomen: [Soft, nontender, no megaly, no rebound, no guarding, normal bowel sounds.] Extremities: [No clubbing, no edema, no cyanosis.] Good pulses bilaterally. Neurological Exam: Arousable, and follows all simple instructions although he was on a small dose of propofol. More awake and responsive off propofol Skin: No rashes, no petechiae. Musculoskeletal: No deformities, no limitation in range of motion. Psychiatric: Anxious mood, blunt affect, normal mental status - Labs CBC & Chem 7: 01/02/20 04:00 01/02/20 04:00 Labs: Abnormal Lab Results - Last 24 Hours (Table) 01/01/20 01/01/20 01/01/20 Range/Units 16:45 16:46 16:46 WBC (3.8-10.6) k/uL RBC (4.30-5.90) m/uL Hgb (13.0-17.5) gm/dL Hct (39.0-53.0) % MCV (80.0-100.0) fL Plt Count (150-450) k/uL Sodium 148 H (137-145) mmol/L Potassium 2.9 L (3.5-5.1) mmol/L Chloride 120 H (98-107) mmol/L Glucose 242 H (74-99) mg/dL POC Glucose (mg/dL) 232 H (75-99) mg/dL Calcium 7.6 L (8.4-10.2) mg/dL AST (17-59) U/L Total Protein (6.3-8.2) g/dL Albumin (3.5-5.0) g/dL CMV IgG Ab Reactive A (Non-Reactive) 01/01/20 01/01/20 01/02/20 Range/Units 20:52 23:44 04:00 WBC 0.8 L* (3.8-10.6) k/uL RBC 2.89 L (4.30-5.90) m/uL Hgb 9.8 L (13.0-17.5) gm/dL Hct 31.1 L (39.0-53.0) % MCV 107.3 H (80.0-100.0) fL Plt Count 54 L (150-450) k/uL Sodium (137-145) mmol/L Potassium (3.5-5.1) mmol/L Chloride (98-107) mmol/L Glucose (74-99) mg/dL POC Glucose (mg/dL) 211 H 279 H (75-99) mg/dL Calcium (8.4-10.2) mg/dL AST (17-59) U/L Total Protein (6.3-8.2) g/dL Albumin (3.5-5.0) g/dL CMV IgG Ab (Non-Reactive) 01/02/20 01/02/20 Range/Units 04:00 04:08 WBC (3.8-10.6) k/uL RBC (4.30-5.90) m/uL Hgb (13.0-17.5) gm/dL Hct (39.0-53.0) % MCV (80.0-100.0) fL Plt Count (150-450) k/uL Sodium (137-145) mmol/L Potassium (3.5-5.1) mmol/L Chloride 113 H (98-107) mmol/L Glucose 294 H (74-99) mg/dL POC Glucose (mg/dL) 286 H (75-99) mg/dL Calcium 7.5 L (8.4-10.2) mg/dL AST 13 L (17-59) U/L Total Protein 5.0 L (6.3-8.2) g/dL Albumin 2.3 L (3.5-5.0) g/dL CMV IgG Ab (Non-Reactive) Microbiology - Last 24 Hours (Table) 12/31/19 23:38 Gram Stain - Preliminary Sputum Sputum Culture - Preliminary Mavis albicans 12/30/19 19:53 Blood Culture - Preliminary Blood No Growth after 48 hours Assessment and Plan Assessment: Impression: Acute hypoxic respiratory failure secondary to healthcare acquired pneumonia, in an immunocompromised host with known malignancy, likely gram-negative pneumonia. Patient required intubation and mechanical ventilation on 12/31/19 Advanced bronchogenic carcinoma stage IV. Sepsis and septic shock requiring fluids and norepinephrine to maintain reasonable blood pressure. Hyperglycemia on presentation, but no clear-cut evidence of diabetic ketoacidosis as his urine ketones were negative. Poorly controlled diabetes. Acute metabolic encephalopathy with hypoxemia and hypoxic respiratory failure as well as hypernatremia causing his acute metabolic encephalopathy. Elevated lactic acid on presentation secondary to sepsis and septic shock. Resolved. History of chronic obstructive pulmonary disease, presently inactive History of hypertension. History of chronic back pain dehydration and free water deficit on presentation. With hypernatremia, resolved with free water replacement. New onset atrial fibrillation with RVR, likely induced by norepinephrine while in the ICU, patient responded to amiodarone and cardioversion./Patient was defibrillated using 50 J as he was quite hypotensive while in A. fib/RVR Recommendation: Placed patient on pressure support and CPAP, and extubate if tolerated. Hold the tube feeding if extubated. Continue cefepime and vancomycin. Cultures remained nondiagnostic, will likely discontinue vancomycin in the next 24 hours. Continue bronchodilators and steroids. Continue GI prophylaxis, and use Venodyne boots for DVT prophylaxis as the patient has low platelets Critical care time is 32 minutes Will likely extubate and keep monitoring the patient in the ICU. Patient remains critically ill, and prognosis remains guarded. Time with Patient: Greater than 30
[2020-01-02 14:25] LABS: ABG Base Excess 4.9 mmol/L; ABG HCO3 27 mmol/L (21-25); ABG Oxygen Saturation 93.7 % (94-97); ABG PCO2 31 mmHg (35-45); ABG PO2 60 mmHg (83-108); ABG TCO2 28 mmol/L (19-24); Allen Test Performed? Yes
[2020-01-02] MEDS ORDERED: AMIODARONE 360 MG in DEXTROSE 5% IN WATER 200 ML IV ONE ×2 (14:30)
[2020-01-02] MEDS ORDERED: DEXTROSE 5% IN WATER 100 ML with AMIODARONE 150 MG IV ONE (14:30)
[2020-01-02 14:31] LABS: ABG PH 7.56 (7.35-7.45)
[2020-01-02] MEDS ORDERED: DIGOXIN 250 MCG/ML 2 ML AMP IVP ONE ×2 (15:25→17:26)
--- NOTE | 2020-01-02 16:29 | PN ---
PROGRESS NOTE DATE OF SERVICE: 01/02/2020 This 59-year-old gentleman was admitted with acute hypoxic respiratory failure and also had elevated blood sugars. The patient really had no significant evidence of diabetic ketoacidosis. Patient had hyperosmolar diabetic state. The patient was confused. The patient apparently had an episode of unresponsiveness and acute hypoxic respiratory. Patient mechanically intubated. Patient closely monitored. Patient extubated today. The patient is confused. The patient has squamous cell carcinoma. The patient was recently admitted to [facility] and apparently refused some of the other recommendations including bone scan recommended by Hematology/Oncology. The patient also had atrial fibrillation which was cardioverted, but currently the patient also had atrial fibrillation with rapid ventricular response. Cardiology is being consulted. PAST MEDICAL HISTORY: Reviewed. REVIEW OF SYSTEMS: Could not be taken. The patient is confused. CURRENT MEDICATIONS: Reviewed and include [place], albuterol, amiodarone drip, cefepime, Hexestrol, Lanoxin, Peptic, , Haldol, Levemir, p.r.n. medications. PHYSICAL EXAM: GENERAL: Patient is alert and oriented times two. VITAL SIGNS: Pulse 172 and irregular, blood pressure 97/51, respirations 26, temperature normal, pulse ox 98% on 6 liters. HEENT: Conjunctivae normal. Oral mucosa moist. NECK: No jugular venous distention. RESPIRATORY: Breath sounds diminished at the bases. Bilateral scattered rhonchi and crackles. HEART: S1 and S2, muffled. ABDOMEN: Soft, no tenderness. EXTREMITIES: No edema, no swelling. NERVOUS: No focal deficits. LABS: At this time shows WBC 0.8, hemoglobin 9.8, platelets of 54. PH noted. Other labs are noted. ASSESSMENT: 1. Acute hypoxic respiratory failure secondary to healthcare acquired pneumonia, immunocompromised patient with left lower lobe pneumonia, possibly gram- negative pneumonia on broad-spectrum IV antibiotics with severe sepsis and septic shock. 2. Status post mechanical ventilation. 3. Paroxysmal atrial fibrillation with fast ventricular rate. 4. Advanced lung carcinoma, stage IV. 5. Mavis from sputum. 6. Uncontrolled diabetes mellitus type 2 and hyperosmolar diabetic state with no evidence of diabetic ketoacidosis. 7. Hyponatremia. 8. Metabolic encephalopathy with change in mental status, multifactorial. 9. Diabetes mellitus type 2, uncontrolled. 10.Elevated lactic acid, possibly secondary to sepsis. 11.Hypertension. 12.Chronic back pain. 13.History of chronic obstructive pulmonary disease. 14.Pancytopenia secondary to chemotherapy. 15.Severe neutropenia. RECOMMENDATIONS AND DISCUSSION: This 59-year-old gentleman who presented with multiple complex medical issues, we will monitor the patient closely. Continue the current medications and continue symptomatic treatment. Will continue with broad-spectrum IV antibiotics. Otherwise, monitor CBC and follow the cultures which sputum culture showed Mavis. I would also recommend a course of Diflucan. Otherwise prognosis guarded because of multiple complex medical issues. Further recommendations to follow. An EKG done on 12/28 showed QTc of 590 milliseconds. We will repeat an EKG. MMODL / IJN: [id number] / MTDD
[2020-01-02 16:34] LABS: Glucose,Whole Blood 217 mg/dL (75-99)
[2020-01-02] MEDS: POTASSIUM CHLORIDE 20 MEQ in WATER FOR INJECTION 1 100ML.BAG IVPB SCH ×2 (17:02→20:40)
[2020-01-02 17:27] LABS: T4, Free (Free Thyroxine) 1.8 ng/dL (0.78-2.19)
--- NOTE | 2020-01-02 17:36 | P.CRDCN ---
History of Present Illness Consult date: 01/02/20 History of present illness: This is a 59-year-old gentleman with history of advanced lung cancer. Status post chemotherapy who was admitted on 12/29/2019 with altered mental status and also diagnosed to have a pneumonia and metabolic encephalopathy. Recently patient was hypotensive requiring norepinephrine. At the time patient developed atrial fibrillation with a rapid and corresponds. Patient required cardioversion at the time. Today patient went again into atrial fibrillation with rapid ventricular response. We are consulted to evaluate the patient patient is has metabolic encephalopathy. Patient was extubated today. Subsequently patient developed A. fib with a rapid and corresponds. Patient was initiated on amiodarone therapy. He was also given a dose of Lanoxin. Patient's blood pressures running low. We'll continue with amiodarone therapy and if necessary, we'll consider adding Cardizem. Patient is also being treated for possible pneumonia. Chest x-ray showed left basilar air space opacity along with a right lung mass. We'll also get an echocardiogram and thyroid function studies Past Medical History Past Medical History: Cancer, COPD, Diabetes Mellitus, Hypertension Additional Past Medical History / Comment(s): chronic back pain, Lung Cancer History of Any Multi-Drug Resistant Organisms: None Reported Past Surgical History: Cholecystectomy Additional Past Surgical History / Comment(s): R lung core biopsy. Gadiel believes pt has had orthopedic surgery to one of his legs with hardware. Past Anesthesia/Blood Transfusion Reactions: No Reported Reaction Past Psychological History: No Psychological Hx Reported Smoking Status: Current every day smoker Past Alcohol Use History: None Reported Past Drug Use History: None Reported - Past Family History Father Brother(s) Family Medical History: No Reported History Additional Family Medical History / Comment(s): Father was healthy Mother Family Medical History: No Reported History Medications and Allergies Home Medications Medication Instructions Recorded Confirmed Type HYDROcodone/APAP 10-325MG [[place] 2 mg PO Q6H PRN 08/27/17 12/29/19 History 10-325] Morphine Sulfate ER [Ms Contin] 30 mg PO Q12HR #14 tablet 05/06/18 12/29/19 Rx oxyCODONE-APAP 10-325MG [Percocet 2 tab PO Q6H PRN 09/20/19 12/29/19 History 10-325 mg] Dexamethasone [Decadron] 4 mg PO BID 12/29/19 12/29/19 History Ondansetron [Zofran] 4 mg PO Q8H PRN 12/29/19 12/29/19 History Prochlorperazine [Compazine] 10 mg PO Q6H PRN 12/29/19 12/29/19 History Allergies Allergy/AdvReac Type Severity Reaction Status Date / Time No Known Allergies Allergy Verified 12/29/19 09:09 Physical Exam Vitals: Vital Signs Temp Pulse Resp BP Pulse Ox 01/02/20 16:00 161 H 21 84/57 91 L 01/02/20 15:00 168 H 34 H 98/50 91 L 01/02/20 14:00 172 H 26 H 90 L 01/02/20 13:00 110 H 27 H 91 L 01/02/20 12:00 110 H 31 H 92 L 01/02/20 11:00 109 H 26 H 94 L 01/02/20 10:00 106 H 17 90 L 01/02/20 09:00 113 H 47 H 95 01/02/20 08:00 91 30 H 96 01/02/20 07:00 89 28 H 107/57 98 01/02/20 06:00 85 29 H 116/61 97 01/02/20 05:00 72 27 H 109/54 97 01/02/20 04:00 98.1 F 74 26 H 91/52 96 01/02/20 03:00 81 26 H 126/63 97 01/02/20 02:00 80 28 H 116/63 98 01/02/20 01:00 79 31 H 125/60 97 01/02/20 00:00 98.3 F 82 27 H 106/53 97 01/01/20 23:00 93 31 H 113/59 97 01/01/20 22:00 94 32 H 121/56 97 01/01/20 21:04 90 01/01/20 21:00 92 34 H 126/64 100 01/01/20 20:12 86 01/01/20 20:00 98.3 F 84 26 H 121/66 100 01/01/20 19:00 81 26 H 100 01/01/20 18:00 89 26 H 99 Intake and Output 01/02/20 01/02/20 01/02/20 06:59 14:59 22:59 Intake Total 1305.833 367.418 Output Total 825 1300 Balance 480.833 -932.582 Intake: IV 824 224 Dextrose 5% in Water 1, 800 200 000 ml @ 100 mls/hr IV . Q10H [facility] Rx#:[id number] Pressure bag 24 24 Intake, IV Titration 161.833 103.418 Amount Norepinephrine 8 mg In 65.256 11.924 Sodium Chloride 0.9% 250 ml @ 0.05 MCG/KG/MIN 7. 014 mls/hr IV .Q24H [facility] Rx#:[id number] propofoL 1,000 mg In 96.577 91.494 Empty Bag 1 bag @ Titrate IV .Q0M [facility] Rx#: [id number] Tube Feeding 320 40 Output: Urine 825 1300 Other: Voiding Method Indwelling Catheter Indwelling Catheter Weight 83.2 kg ABP, PAP, CO, CI - Last 8 Hours Arterial Blood Pressure 79/51 Arterial Blood Pressure 104/58 Arterial Blood Pressure 114/55 Arterial Blood Pressure 117/59 Arterial Blood Pressure 105/57 GENERAL EXAM: Patient is awake but disoriented HEENT: Normocephalic. Normal reaction of pupils, equal size, normal range of extraocular motion. No erythema or exudates in the throat. NECK: No masses, no nuchal rigidity. CHEST: No chest wall deformity. LUNGS: [Mr. sounds with rhonchi HEART: [S1 and S2 normal with no audible mumurs or gallops. Regular rhythm, femorals equal on both sides..] ABDOMEN: No hepatosplenomegaly, normal bowel sounds, no guarding or rigidity. SKIN: No rashes CENTRAL NERVOUS SYSTEM: Deferred EXTREMITIES: [No cyanosis, clubbing or edema.] Results 01/02/20 04:00 01/02/20 14:10 Cardiac Enzymes 01/02/20 Range/Units 04:00 AST 13 L (17-59) U/L Coagulation 01/02/20 Range/Units 04:00 PT 9.4 (9.0-12.0) sec APTT 27.1 (22.0-30.0) sec CBC 01/02/20 Range/Units 04:00 WBC 0.8 L* (3.8-10.6) k/uL RBC 2.89 L (4.30-5.90) m/uL Hgb 9.8 L (13.0-17.5) gm/dL Hct 31.1 L (39.0-53.0) % Plt Count 54 L (150-450) k/uL Comprehensive Metabolic Panel 01/01/20 01/02/20 01/02/20 Range/Units 16:46 04:00 14:10 Sodium 148 H 143 (137-145) mmol/L Potassium 2.9 L 3.6 3.3 L (3.5-5.1) mmol/L Chloride 120 H 113 H (98-107) mmol/L Carbon Dioxide 23 27 (22-30) mmol/L BUN 16 14 (9-20) mg/dL Creatinine 0.78 0.73 (0.66-1.25) mg/dL Glucose 242 H 294 H (74-99) mg/dL Calcium 7.6 L 7.5 L (8.4-10.2) mg/dL AST 13 L (17-59) U/L ALT 8 (4-49) U/L Alkaline Phosphatase 59 (38-126) U/L Total Protein 5.0 L (6.3-8.2) g/dL Albumin 2.3 L (3.5-5.0) g/dL Current Medications Generic Name Dose Route Start Last Admin Trade Name Freq PRN Reason Stop Dose Admin Hydrocodone Bitart/Acetaminophen 2 each 12/29/19 10:08 01/01/20 22:28 Hydrocodone/Apap 10-325mg 1 Each Tab PO 2 each Q6H PRN Administration Pain Albuterol/Ipratropium 3 ml 12/31/19 16:00 01/02/20 15:45 Ipratropium-Albuterol 3 Ml Neb INHALATION Not Given RT-QID [facility] Dexamethasone 4 mg 12/29/19 21:00 01/02/20 09:02 Dexamethasone 4 Mg Tab PO Not Given BID [facility] Digoxin 250 mcg 01/02/20 21:00 Digoxin 250 Mcg/Ml 2 Ml Amp IVP 01/02/20 21:01 Q6H [facility] Digoxin 125 mcg 01/02/20 17:26 Digoxin 250 Mcg/Ml 2 Ml Amp IVP 01/02/20 17:27 ONCE ONE Famotidine 20 mg 12/29/19 21:00 01/02/20 09:22 Famotidine 20 Mg/2 Ml Vial IV Not Given Q12HR [facility] Filgrastim-Sndz 480 mcg 01/01/20 12:00 01/02/20 09:22 Filgrastim-Sndz 480 Mcg/0.8 Ml Syringe SQ Not Given DAILY [facility] Folic Acid 1 mg 01/03/20 12:00 Folic Acid 1 Mg Tab PO DAILY@1200 [facility] Haloperidol Lactate 2 mg 01/02/20 09:11 01/02/20 09:31 Haloperidol Lactate 5 Mg/Ml 1 Ml Vial IVP 2 mg Q8HR PRN Administration Agitation or Acute Psychosis Sodium Chloride 500 mls @ 999 mls/hr 12/30/19 22:19 Saline 0.9% IV .Q31M PRN SBP < 100 Cefepime HCl 2 gm/ Sodium 100 mls @ 25 mls/hr 12/31/19 09:00 01/02/20 09:22 Chloride IVPB Not Given Q12HR [facility] Vancomycin HCl 1,250 mg/ 250 mls @ 125 mls/hr 12/31/19 18:00 01/02/20 17:02 Sodium Chloride IVPB 125 mls/hr Q8H [facility] Administration Norepinephrine Bitartrate 8 mg 258 mls @ 7.014 mls/hr 12/31/19 14:00 01/02/20 07:40 / Sodium Chloride IV 0 mcg/kg/min .Q24H [facility] 0 mls/hr Titration Protocol 0.05 MCG/KG/MIN Sodium Chloride 1,000 mls @ 100 mls/hr 01/02/20 09:00 01/02/20 17:02 Saline 0.9% IV 100 mls/hr .Q10H [facility] Administration Amiodarone HCl 360 mg/ 200 mls @ 33.333 mls/hr 01/02/20 14:30 01/02/20 14:55 Dextrose/Water IV 01/02/20 20:29 1 mg/min .Q6H ONE 33.333 mls/hr Administration Protocol 1 MG/MIN Amiodarone HCl 300 mg/ 250 mls @ 25 mls/hr 01/02/20 20:30 Dextrose/Water IV 01/03/20 14:29 .Q10H RAJ Protocol 0.5 MG/MIN Potassium Chloride 20 meq/ IV 100 mls @ 50 mls/hr 01/02/20 16:00 01/02/20 17:02 Solution IVPB 01/02/20 19:59 50 mls/hr Q2H [facility] Administration Protocol Insulin Aspart 0 unit 01/01/20 20:00 01/02/20 17:01 Insulin Aspart (Novolog) 100 Unit/Ml Vial SQ 3 unit Q4H [facility] Administration Protocol Insulin Detemir 15 unit 12/29/19 19:00 01/01/20 20:57 Insulin Detemir (Levemir) 100 Unit/Ml Syr SQ 15 unit HS [facility] Administration Miscellaneous Information 1 each 12/29/19 16:49 Magnesium Replacement Protocol 1 Each Misc MISCELLANE DAILY PRN Per Protocol Protocol Miscellaneous Information 1 each 12/29/19 16:49 Potassium Replacement Protocol 1 Each Misc MISCELLANE DAILY PRN Per Protocol Miscellaneous Information 1 each 12/29/19 21:40 Phosphorus Replacement Protoco 1 Each Mis MISCELLANE DAILY PRN Per Protocol Protocol Miscellaneous Information 0 each 01/03/20 09:00 Vancomycin Trough Due 1 Each Mis MISCELLANE 01/03/20 09:01 DIRECTED ONE Morphine Sulfate 30 mg 12/29/19 21:00 01/02/20 09:02 Morphine Sulfate Er 30 Mg Tablet PO Not Given Q12HR [facility] Multivitamins 1 each 01/03/20 12:00 Multivitamins, Thera 1 Each Tab PO DAILY@1200 [facility] Naloxone HCl 0.2 mg 12/31/19 02:10 Naloxone 0.4 Mg/Ml 1 Ml Vial IV Q2M PRN Opioid Reversal Ondansetron HCl 4 mg 12/29/19 10:08 Ondansetron 4 Mg Tab PO Q8H PRN Nausea Oxycodone/Acetaminophen 2 each 12/29/19 10:08 Oxycodone-Apap 10-325mg 1 Each Tab PO Q6H PRN Pain Prochlorperazine Maleate 10 mg 12/29/19 10:08 Prochlorperazine 10 Mg Tab PO Q6H PRN Nausea Thiamine HCl 100 mg 01/03/20 12:00 Thiamine 100 Mg Tab PO DAILY@1200 [facility] Intake and Output 01/02/20 01/02/20 01/02/20 06:59 14:59 22:59 Intake Total 1305.833 367.418 Output Total 825 1300 Balance 480.833 -932.582 Intake: IV 824 224 Dextrose 5% in Water 1, 800 200 000 ml @ 100 mls/hr IV . Q10H [facility] Rx#:[id number] Pressure bag 24 24 Intake, IV Titration 161.833 103.418 Amount Norepinephrine 8 mg In 65.256 11.924 Sodium Chloride 0.9% 250 ml @ 0.05 MCG/KG/MIN 7. 014 mls/hr IV .Q24H [facility] Rx#:[id number] propofoL 1,000 mg In 96.577 91.494 Empty Bag 1 bag @ Titrate IV .Q0M [facility] Rx#: [id number] Tube Feeding 320 40 Output: Urine 825 1300 Other: Voiding Method Indwelling Catheter Indwelling Catheter Weight 83.2 kg 01/02/20 04:00 01/02/20 14:10 EKG Interpretations (text) EKG showed atrial fibrillation with RVR Assessment and Plan (1) Paroxysmal atrial fibrillation Current Visit: Yes Status: Acute Code(s): I48.0 - PAROXYSMAL ATRIAL FIBRILLATION SNOMED Code(s): 520235110 (2) Altered mental status Current Visit: Yes Status: Acute Code(s): R41.82 - ALTERED MENTAL STATUS, UNSPECIFIED SNOMED Code(s): 290319944 (3) Lung cancer Current Visit: Yes Status: Acute Code(s): C34.90 - MALIGNANT NEOPLASM OF UNSP PART OF UNSP BRONCHUS OR LUNG SNOMED Code(s): 727445575 (4) COPD (chronic obstructive pulmonary disease) Current Visit: No Status: Acute Priority: Medium Code(s): J44.9 - CHRONIC OBSTRUCTIVE PULMONARY DISEASE, UNSPECIFIED SNOMED Code(s): 05285735 Plan: Continue with IV amiodarone. We'll add Lanoxin. May consider IV Cardizem if necessary. Get an echocardiogram. Thyroid function studies. Further recommendations depend upon the clinical course. Prognosis is poor
[2020-01-02] MEDS ORDERED: DILTIAZEM DRIP BOLUS FROM BAG 1 MG SOLN IV ONE (18:00)
[2020-01-02] MEDS ORDERED: HYDROmorphone 0.5 MG/0.5 ML SYRINGE IVP STA (18:11)
[2020-01-02] MEDS ORDERED: DILTIAZEM 125 MG in SODIUM CHLORIDE 0.9% 100 ML IV SCH (18:15)
[2020-01-02] MEDS ORDERED: SUCCINYLCHOLINE CHLORIDE VIAL 200 MG/10 ML VIAL IV ONE (19:15)
[2020-01-02] MEDS ORDERED: PROPOFOL 10 MG/ML 20 ML VIAL IV ONE (19:15)
[2020-01-02] MEDS ORDERED: KETAMINE 10 MG/ML 20 ML VIAL ONE (19:15)
[2020-01-02] MEDS ORDERED: propofoL 100 ML IV ONE (19:19)
--- NOTE | 2020-01-02 20:02 | XR ---
EXAMINATION TYPE: XR chest 1V portable DATE OF EXAM: 01/02/2020 COMPARISON: Today HISTORY: Tube placement TECHNIQUE: Single view endotracheal tube is 4 cm from the benny. There is nasogastric tube in the stomach. There is some ai rspace infiltrate left lower lobe. There is no heart failure. There are chest leads. IMPRESSION: There is increased left lower lobe infiltrate compared to exam this morning. No heart ricky lure seen.
[2020-01-02 20:29] LABS: ABG HCO3 28 mmol/L (21-25); ABG Oxygen Saturation 99.6 % (94-97); ABG PCO2 37 mmHg (35-45); ABG PH 7.48 (7.35-7.45); ABG PO2 >400 mmHg (83-108); ABG TCO2 29 mmol/L (19-24); Allen Test Performed? Yes
[2020-01-02 20:30] LABS: Glucose,Whole Blood 170 mg/dL (75-99)
[2020-01-02] MEDS: INSULIN DETEMIR (LEVEMIR) 100 UNIT/ML SYR SQ SCH (20:44)
[2020-01-02] MEDS: AMIODARONE 300 MG in DEXTROSE 5% IN WATER 250 ML IV SCH ×2 (20:53)
[2020-01-02] MEDS ORDERED: DIGOXIN 250 MCG/ML 2 ML AMP IVP SCH (21:00)
[2020-01-02 23:38] LABS: Glucose,Whole Blood 183 mg/dL (75-99)
[2020-01-03] MEDS: HALOPERIDOL LACTATE 5 MG/ML 1 ML VIAL IVP PRN (01:05)
[2020-01-03] MEDS: VANCOMYCIN 1,250 MG in SODIUM CHLORIDE 0.9% 250 ML IVPB SCH ×3 (02:10→17:43)
[2020-01-03 04:01] LABS: Glucose,Whole Blood 203 mg/dL (75-99)
[2020-01-03] MEDS: INSULIN ASPART (NovoLOG) 100 UNIT/ML VIAL SQ SCH ×6 (04:03→23:55)
[2020-01-03] MEDS: SODIUM CHLORIDE 0.9% 1,000 ML IV SCH ×2 (04:04→15:40)
[2020-01-03 04:29] LABS: HCT 36.4 % (39.0-53.0); HGB 11.6 gm/dL (13.0-17.5); Hypochromasia Slight; MCH 33.6 pg (25.0-35.0); MCHC 31.8 g/dL (31.0-37.0); MCV 105.8 fL (80.0-100.0); Macrocytosis Moderate; Mean Platelet Volume 9.8; RBC 3.44 m/uL (4.30-5.90); RDW 13.5 % (11.5-15.5)
[2020-01-03 04:43] LABS: ALT 15 U/L (4-49); AST 23 U/L (17-59); African American GFR (CKD) >90 (>60 ml/min/1.73 sqM); Albumin 2.4 g/dL (3.5-5.0); Alkaline Phosphatase 83 U/L (38-126); Anion Gap 5 mmol/L; Blood Urea Nitrogen 16 mg/dL (9-20); Carbon Dioxide 25 mmol/L (22-30); Chloride 111 mmol/L (98-107); Glucose 224 mg/dL (74-99); Non-African American GFR(CKD) >90 (>60 ml/min/1.73 sqM); Sodium 141 mmol/L (137-145); Total Bilirubin 0.6 mg/dL (0.2-1.3); Total Protein 5.2 g/dL (6.3-8.2)
[2020-01-03 05:13] LABS: Band Neutrophils % 20 %; Metamyelocytes % 2 %; Monocytes # (M) 0.34 k/uL (0-1.0); Myelocytes # (M) 0.04 k/uL (0); Myelocytes % 1 %; Neutrophils % (M) 53 %; Nucleated Red Blood Cells 3 /100 WBC (0-0); Total Cells Counted 200
[2020-01-03 05:14] LABS: Lymphocytes # (M) 0.71 k/uL (1.0-4.8); Metamyelocytes # (M) 0.08 k/uL (0); WBC 4.2 k/uL (3.8-10.6)
[2020-01-03] MEDS: NOREPINEPHRINE 8 MG in SODIUM CHLORIDE 0.9% 250 ML IV SCH (05:57)
[2020-01-03] MEDS: AMIODARONE 300 MG in DEXTROSE 5% IN WATER 250 ML IV SCH ×2 (05:57)
--- NOTE | 2020-01-03 07:17 | XR ---
EXAMINATION TYPE: XR chest 1V portable DATE OF EXAM: 01/03/2020 COMPARISON: 01/02/2020 HISTORY: SOB, Follow Up FINDINGS: Indwelling tubes and catheters are unchanged. Right upper lobe and left basilar infiltrates appear unchanged. Stable appearance of the cardio-mediastinal structures at this time. Pleural effusion unchanged. IMPRESSION: 1. Stable portable chest. Clinical correlation and follow up until resolution is recommended.
[2020-01-03 07:34] LABS: Platelet Count 90 k/uL (150-450)
[2020-01-03 07:46] LABS: ABG Base Excess 0.5 mmol/L; ABG HCO3 24 mmol/L (21-25); ABG Oxygen Saturation 99.6 % (94-97); ABG PCO2 35 mmHg (35-45); ABG PH 7.46 (7.35-7.45); ABG PO2 131 mmHg (83-108); ABG TCO2 26 mmol/L (19-24); Allen Test Performed? Yes
[2020-01-03 08:01] LABS: Glucose,Whole Blood 213 mg/dL (75-99)
[2020-01-03] MEDS: FILGRASTIM-SNDZ 480 MCG/0.8 ML SYRINGE SQ SCH (08:10)
[2020-01-03] MEDS: dexAMETHasone 4 MG TAB PO SCH ×2 (08:10→20:06)
[2020-01-03] MEDS: MORPHINE SULFATE ER 30 MG TABLET PO SCH ×2 (08:11→19:53)
[2020-01-03] MEDS: CEFEPIME 2 GM in SODIUM CHLORIDE 0.9% 100 ML IVPB SCH ×2 (08:11→20:06)
[2020-01-03] MEDS: FAMOTIDINE 20 MG/2 ML VIAL IV SCH ×2 (08:11→20:06)
[2020-01-03] MEDS: IPRATROPIUM-ALBUTEROL 3 ML NEB INHALATION SCH ×4 (08:50→21:16)
[2020-01-03] MEDS ORDERED: VANCOMYCIN TROUGH DUE 1 EACH MISC MISCELLANE ONE (09:00)
[2020-01-03] MEDS: ENOXAPARIN 40 MG/0.4 ML SYRINGE SQ SCH (09:25)
[2020-01-03] MEDS: DIGOXIN 250 MCG/ML 2 ML AMP IVP SCH (09:25)
[2020-01-03] MEDS ORDERED: SODIUM CHLORIDE 0.9% 1,000 ML IV ONE (09:28)
--- NOTE | 2020-01-03 10:24 | P.PN ---
Subjective Progress Note Date: 01/03/20 This 59-year-old gentleman with advanced lung cancer developed atrial fibrillation with rapid ventricular response. Patient was started on amiodarone and also IV digoxin. He could not tolerate IV Cardizem. Patient is intubated this morning. Since then his heart rate is better controlled. We'll continue Lanoxin 0.125 mg IV daily along with amiodarone. We'll get a digoxin level on Saturday. 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 Objective - Vital Signs Vital signs: Vital Signs Temp 98.7 F 01/03/20 08:00 Pulse 107 H 01/03/20 10:00 Resp 27 H 01/03/20 10:00 BP 120/69 01/03/20 07:00 Pulse Ox 97 01/03/20 10:00 Intake & Output 01/02/20 01/03/20 01/03/20 18:59 06:59 18:59 Intake Total 801.596 2381.865 1884.450 Output Total 1700 595 300 Balance -322.023 0161.865 1584.450 Weight 80.2 kg 80.2 kg Intake: IV 783 1183 1762 Cefepime 2 gm In Sodium 100 100 Chloride 0.9% 100 ml @ 25 mls/hr IVPB Q12HR [facility] Rx #:[id number] Dextrose 5% in Water 1, 200 000 ml @ 100 mls/hr IV . Q10H [facility] Rx#:[id number] Potassium Chloride 20 meq 100 100 In Water For Injection 1 100ml.bag @ 50 mls/hr IVPB Q2H [facility] Rx#: [id number] Pressure bag 33 33 12 Sodium Chloride 0.9% 1, 200 700 400 000 ml @ 100 mls/hr IV . Q10H [facility] Rx#:[id number] Sodium Chloride 0.9% 1, 1000 000 ml @ 999 mls/hr IV . Q1H1M ONE Rx#:[id number] Vancomycin 1,250 mg In 250 250 250 Sodium Chloride 0.9% 250 ml @ 125 mls/hr IVPB Q8H [facility] Rx#:[id number] Intake, IV Titration 104.001 471.865 112.450 Amount Amiodarone 300 mg In 226.667 Dextrose 5% in Water 250 ml @ 0.5 MG/MIN 25 mls/hr IV .Q10H [facility] Rx#: [id number] Diltiazem 125 mg In 0.583 Sodium Chloride 0.9% 100 ml @ Per Protocol IV .Q0M [facility] Rx#:[id number] Norepinephrine 8 mg In 11.924 156.632 19.266 Sodium Chloride 0.9% 250 ml @ 0.05 MCG/KG/MIN 7. 014 mls/hr IV .Q24H [facility] Rx#:[id number] propofoL 1,000 mg In 91.494 Empty Bag 1 bag @ Titrate IV .Q0M [facility] Rx#: [id number] propofoL 1,000 mg In 88.566 93.184 Empty Bag 1 bag @ Titrate IV .Q0M [facility] Rx#: [id number] Tube Feeding 40 10 Output: Urine 1700 595 300 Other: Voiding Method Indwelling Catheter Indwelling Catheter Indwelling Catheter ABP, PAP, CO, CI - Last Documented Arterial Blood Pressure 89/54 - Exam GENERAL EXAM: Patient is intubated and sedated. HEENT: Normocephalic. NECK: No masses, no nuchal rigidity. CHEST: Diminished breath sounds and rhonchi LUNGS: Diminished breath sounds and rhonchi HEART: S1 and S2 normal with no audible mumurs or gallops. Regular rhythm, femorals equal on both sides.. ABDOMEN: No hepatosplenomegaly, normal bowel sounds, no guarding or rigidity. SKIN: No rashes CENTRAL NERVOUS SYSTEM: Deferred EXTREMITIES: No cyanosis, clubbing or edema. - Labs CBC & Chem 7: 01/03/20 04:05 01/03/20 04:05 Labs: Abnormal Lab Results - Last 24 Hours (Table) 01/02/20 01/02/20 01/02/20 Range/Units 14:10 14:10 14:19 RBC (4.30-5.90) m/uL Hgb (13.0-17.5) gm/dL Hct (39.0-53.0) % MCV (80.0-100.0) fL Plt Count (150-450) k/uL Lymphocytes # (Manual) (1.0-4.8) k/uL Metamyelocytes # (Man) (0) k/uL Myelocytes # (Manual) (0) k/uL Nucleated RBCs (0-0) /100 WBC ABG pH 7.56 H* (7.35-7.45) ABG pCO2 31 L (35-45) mmHg ABG pO2 60 L (83-108) mmHg ABG HCO3 27 H (21-25) mmol/L ABG Total CO2 28 H (19-24) mmol/L ABG O2 Saturation 93.7 L (94-97) % Potassium 3.3 L (3.5-5.1) mmol/L Chloride (98-107) mmol/L Glucose (74-99) mg/dL POC Glucose (mg/dL) (75-99) mg/dL Calcium (8.4-10.2) mg/dL Total Protein (6.3-8.2) g/dL Albumin (3.5-5.0) g/dL TSH 0.067 L (0.465-4.680) mIU/L 01/02/20 01/02/20 01/02/20 Range/Units 16:33 20:24 20:29 RBC (4.30-5.90) m/uL Hgb (13.0-17.5) gm/dL Hct (39.0-53.0) % MCV (80.0-100.0) fL Plt Count (150-450) k/uL Lymphocytes # (Manual) (1.0-4.8) k/uL Metamyelocytes # (Man) (0) k/uL Myelocytes # (Manual) (0) k/uL Nucleated RBCs (0-0) /100 WBC ABG pH 7.48 H (7.35-7.45) ABG pCO2 (35-45) mmHg ABG pO2 >400 H (83-108) mmHg ABG HCO3 28 H (21-25) mmol/L ABG Total CO2 29 H (19-24) mmol/L ABG O2 Saturation 99.6 H (94-97) % Potassium (3.5-5.1) mmol/L Chloride (98-107) mmol/L Glucose (74-99) mg/dL POC Glucose (mg/dL) 217 H 170 H (75-99) mg/dL Calcium (8.4-10.2) mg/dL Total Protein (6.3-8.2) g/dL Albumin (3.5-5.0) g/dL TSH (0.465-4.680) mIU/L 01/02/20 01/03/20 01/03/20 Range/Units 23:37 03:59 04:05 RBC 3.44 L (4.30-5.90) m/uL Hgb 11.6 L (13.0-17.5) gm/dL Hct 36.4 L (39.0-53.0) % MCV 105.8 H (80.0-100.0) fL Plt Count 90 L D (150-450) k/uL Lymphocytes # (Manual) 0.71 L (1.0-4.8) k/uL Metamyelocytes # (Man) 0.08 H (0) k/uL Myelocytes # (Manual) 0.04 H (0) k/uL Nucleated RBCs 3 H (0-0) /100 WBC ABG pH (7.35-7.45) ABG pCO2 (35-45) mmHg ABG pO2 (83-108) mmHg ABG HCO3 (21-25) mmol/L ABG Total CO2 (19-24) mmol/L ABG O2 Saturation (94-97) % Potassium (3.5-5.1) mmol/L Chloride (98-107) mmol/L Glucose (74-99) mg/dL POC Glucose (mg/dL) 183 H 203 H (75-99) mg/dL Calcium (8.4-10.2) mg/dL Total Protein (6.3-8.2) g/dL Albumin (3.5-5.0) g/dL TSH (0.465-4.680) mIU/L 01/03/20 01/03/20 01/03/20 Range/Units 04:05 07:39 08:00 RBC (4.30-5.90) m/uL Hgb (13.0-17.5) gm/dL Hct (39.0-53.0) % MCV (80.0-100.0) fL Plt Count (150-450) k/uL Lymphocytes # (Manual) (1.0-4.8) k/uL Metamyelocytes # (Man) (0) k/uL Myelocytes # (Manual) (0) k/uL Nucleated RBCs (0-0) /100 WBC ABG pH 7.46 H (7.35-7.45) ABG pCO2 (35-45) mmHg ABG pO2 131 H (83-108) mmHg ABG HCO3 (21-25) mmol/L ABG Total CO2 26 H (19-24) mmol/L ABG O2 Saturation 99.6 H (94-97) % Potassium (3.5-5.1) mmol/L Chloride 111 H (98-107) mmol/L Glucose 224 H (74-99) mg/dL POC Glucose (mg/dL) 213 H (75-99) mg/dL Calcium 8.0 L (8.4-10.2) mg/dL Total Protein 5.2 L (6.3-8.2) g/dL Albumin 2.4 L (3.5-5.0) g/dL TSH (0.465-4.680) mIU/L Microbiology - Last 24 Hours (Table) 12/31/19 23:38 Gram Stain - Final Sputum Sputum Culture - Final Mavis albicans 12/30/19 19:53 Blood Culture - Preliminary Blood No Growth after 72 hours Assessment and Plan (1) Paroxysmal atrial fibrillation Current Visit: Yes Status: Acute Code(s): I48.0 - PAROXYSMAL ATRIAL FIBRILLATION SNOMED Code(s): 626576766 (2) Altered mental status Current Visit: Yes Status: Acute Code(s): R41.82 - ALTERED MENTAL STATUS, UNSPECIFIED SNOMED Code(s): 709378872 (3) Lung cancer Current Visit: Yes Status: Acute Code(s): C34.90 - MALIGNANT NEOPLASM OF UNSP PART OF UNSP BRONCHUS OR LUNG SNOMED Code(s): 704011783 (4) COPD (chronic obstructive pulmonary disease) Current Visit: No Status: Acute Priority: Medium Code(s): J44.9 - CHRONIC OBSTRUCTIVE PULMONARY DISEASE, UNSPECIFIED SNOMED Code(s): 30949361 Plan: Patient is intubated. Better control of heart rate. Patient is on IV amiodarone and digoxin. Blood pressure is more stable. Dig. Level on Saturday
[2020-01-03] MEDS: FOLIC ACID 1 MG TAB PO SCH (11:59)
[2020-01-03] MEDS: MULTIVITAMINS, THERA 1 EACH TAB PO SCH (11:59)
[2020-01-03] MEDS: THIAMINE 100 MG TAB PO SCH (11:59)
[2020-01-03 12:03] LABS: Glucose,Whole Blood 192 mg/dL (75-99)
--- NOTE | 2020-01-03 14:09 | P.PN ---
Subjective Progress Note Date: 01/03/20 Principal diagnosis: Acute hypoxic respiratory failure This is a 59-year-old white male with history of right apical mass measuring 4.73.8 cm extending into the mediastinum with enlarged hilar lymph nodes back in 2018. Core biopsy on 01/09/2018 revealed a squamous cell carcinoma, moderately to poorly differentiated. Patient is now status post 3 cycles of chemotherapy, and he was staged as having an operable stage III squamous cell carcinoma. Since then, the patient was diagnosed as having distant metastasis including the right axilla and supraclavicular area, that means the patient had a stage IV squamous cell bronchogenic carcinoma. His last hospital admission was on 09/19/19, and he was discharged home on 09/22/19. At that time the patient presented with back pain along with nausea and vomiting, and he was seen by oncology for recommended bone scan were and the patient refused to have it done. Apparently the patient is following up with an oncologist out of [facility]. At any rate the patient was brought in yesterday with mostly symptoms of altered mental status, patient was noted to have hyperglycemia, hypernatremia, metabolic encephalopathy, and elevated lactic acid. Patient was admitted to 3 [address] and early this morning, I was notified about the patient extremely short of breath, and unresponsive. ABG this morning showed a pO2 of 48 pCO2 of 33 and pH of 7.53. This was on 36% FiO2. Hence I have recommended immediate intubation of the patient and immediate transfer to the ICU. Patient was intubated, follow-up ABG on 100% showed pO2 of 355 pCO2 of 43 pH of 7.42. And his most recent ABG on 50% showed a pO2 of 133 pCO2 of 40 pH of 7.39. I evaluated the patient in the ICU, and he was noted to be hypotensive. Patient was given fluids, and he was also given norepinephrine, patient went into atrial fibrillation with RVR, requiring cardioversion with 50 J given at bedside. While the patient was in A. fib/RVR, his blood pressure was as low as 60 systolic. However patient responded well to the cardioversion, and went into sinus rhythm, in the meantime patient was given amiodarone, and placed on amiodarone drip. Presently the patient is on tidal volume is 450 FiO2 is 40% assist control rate of 26 and PEEP is at 5. He is also on amiodarone drip, and he is on propofol, norepinephrine at 10 mcg/m, patient is also on antibiotics in the form of vancomycin and cefepime. His sodium earlier was as high as 159 and a sodium now is 153. Patient did receive fluid boluses in the form of D5W and D5 45. Patient was reevaluated today on 01/01/20, patient remains in the ICU, intubated and mechanically ventilated. His ventilator settings are assist control rate of 26 tidal volume is 450 FiO2 is 40% and PEEP of 5. ABG today showed a pO2 of 133 pCO2 of 37 pH of 7.43, hence I recommended cutting down the FiO2 to 35%. Patient was on amiodarone until early this morning which I have discontinued. He was also on norepinephrine at 0.12 mcg/kg/m which I have discontinued. He is on propofol at 20 mcg/kg/m, IV fluid in the form of 0.9 normal saline which I have switched to D5 W he is also on cefepime and vancomycin. Receiving free water through the nasogastric tube, and he has been on sliding scale for his elevated blood sugar. Patient remains sedated, and today I plan to hold propofol, and at least get a chance to assess his mental status. Patient is not quite ready for weaning. His chest x-ray continues to show significant left lower lobe opacity/consolidation, underlying mass is not entirely ruled out however on CT of the chest, the abnormality in the left lower lobe was more of a pneumonic process. WBC count today is 0.6, hemoglobin is 11. Platelets are 58,000. Basic metabolic profile showed sodium down to 153 potassium is 2.8 bicarb is normal renal profile is normal. Cultures including blood and sputum are nondiagnostic so far. Patient was reevaluated today on 01/02/20, remains intubated and mechanically ventilated. Patient is on propofol at 50 mcg/kg/m, he is hemodynamically stable, his IV fluid is 0.9 normal saline at 100 mL per hour. Patient remains on antibiotics in the form of cefepime and vancomycin. Cultures remain negative. And nondiagnostic. Chest x-ray is showing improvement in his left lower lobe pneumonia. Sodium is down to 143. Patient is also on enteral feeding. His ventilator settings are assist control rate of 26 FiO2 is 35% tidal volume is 450 and PEEP of 5. No ABG was done today. However the patient was taken off propofol, and I have awakened the patient although he was awake even on propofol. And went ahead and recommended a trial of pressure support of 8 and CPAP. Patient seemed to tolerate that quite well, then we proceeded to extubating the patient. Patient was reevaluated today on 01/03/20, patient was extubated yesterday however later on in the evening patient had to be reintubated because he developed significant agitation requiring Haldol, and later on went to develop atrial fibrillation with RVR, could not be managed with medications, patient could not tolerate Cardizem, as he became very hypotensive, and he required more norepinephrine. Patient was also given digoxin by cardiology, and he was also given amiodarone again. Presently on amiodarone and on digoxin. He is also requiring norepinephrine at 0.02 mcg/kg/m. He is on amiodarone at 0.5 mcg/m patient is on propofol at 50 mcg/kg/m and his IV fluid is at 40 mL per hour. Considering that the patient failed extubation yesterday, I will recommend keeping the patient longer on mechanical ventilation before we address weaning and extubation again today, and he remains in A. fib with RVR in spite of amiodarone and digoxin. His ventilator settings are assist control rate of 26 t idal volume is 450 FiO2 40% PEEP of 5. ABG showed a pO2 of 131 pCO2 of 35 pH of 7.46, hence FiO2 was cut down to 35%. Antibiotics ramirez the patient remains on cefepime and vancomycin. His platelets are up a bit and I will start the patient on Lovenox, continue to watch the platelets and eventually fully heparinized the patient for his atrial fibrillation with RVR. All labs today were reviewed including a relatively normal CBC, normal basic metabolic profile and renal profile. Normal T4, normal magnesium and normal calcium. Chest x-ray showed no significant change in his right upper lobe and left basilar infiltrates Objective - Vital Signs Vital signs: Vital Signs Temp 98.6 F 01/03/20 12:00 Pulse 102 H 01/03/20 13:30 Resp 29 H 01/03/20 13:30 BP 120/69 01/03/20 07:00 Pulse Ox 98 01/03/20 13:30 Intake & Output 01/02/20 01/03/20 01/03/20 18:59 06:59 18:59 Intake Total 398.152 7077.865 1884.450 Output Total 1700 595 300 Balance -474.420 3657.865 1584.450 Weight 80.2 kg 80.2 kg Intake: IV 783 1183 1762 Cefepime 2 gm In Sodium 100 100 Chloride 0.9% 100 ml @ 25 mls/hr IVPB Q12HR [facility] Rx #:[id number] Dextrose 5% in Water 1, 200 000 ml @ 100 mls/hr IV . Q10H [facility] Rx#:[id number] Potassium Chloride 20 meq 100 100 In Water For Injection 1 100ml.bag @ 50 mls/hr IVPB Q2H [facility] Rx#: [id number] Pressure bag 33 33 12 Sodium Chloride 0.9% 1, 200 700 400 000 ml @ 100 mls/hr IV . Q10H [facility] Rx#:[id number] Sodium Chloride 0.9% 1, 1000 000 ml @ 999 mls/hr IV . Q1H1M [facility] Rx#:[id number] Vancomycin 1,250 mg In 250 250 250 Sodium Chloride 0.9% 250 ml @ 125 mls/hr IVPB Q8H [facility] Rx#:[id number] Intake, IV Titration 104.001 471.865 112.450 Amount Amiodarone 300 mg In 226.667 Dextrose 5% in Water 250 ml @ 0.5 MG/MIN 25 mls/hr IV .Q10H [facility] Rx#: [id number] Diltiazem 125 mg In 0.583 Sodium Chloride 0.9% 100 ml @ Per Protocol IV .Q0M [facility] Rx#:[id number] Norepinephrine 8 mg In 11.924 156.632 19.266 Sodium Chloride 0.9% 250 ml @ 0.05 MCG/KG/MIN 7. 014 mls/hr IV .Q24H [facility] Rx#:[id number] propofoL 1,000 mg In 91.494 Empty Bag 1 bag @ Titrate IV .Q0M [facility] Rx#: [id number] propofoL 1,000 mg In 88.566 93.184 Empty Bag 1 bag @ Titrate IV .Q0M [facility] Rx#: [id number] Tube Feeding 40 10 Output: Urine 1700 595 300 Other: Voiding Method Indwelling Catheter Indwelling Catheter Indwelling Catheter ABP, PAP, CO, CI - Last Documented Arterial Blood Pressure 113/63 - Exam Physical Exam: Revealed a 59-year-old white male on mechanical ventilation, sedated, in no distress. Head: Atraumatic, normocephalic. Endotracheal tube and orogastric tube are intact. HEENT:[Neck is supple.] [No neck masses.] [No thyromegaly.] [No JVD.]EOMI, no icterus. Chest: [Symmetrical chest expansion, fine crackles at the bases, no rhonchi no wheezes. Cardiac Exam: Irregular irregular rhythm, tachycardic. [Normal S1 and S2, no S3 gallop, no murmur.] Abdomen: [Soft, nontender, no megaly, no rebound, no guarding, normal bowel sounds.] Extremities: [No clubbing, no edema, no cyanosis.] Good pulses bilaterally. Neurological Exam: Could not assess, patient is fully sedated. Skin: No rashes, no petechiae. Musculoskeletal: No deformities Psychiatric: Could not assess. - Labs CBC & Chem 7: 01/03/20 04:05 01/03/20 04:05 Labs: Abnormal Lab Results - Last 24 Hours (Table) 01/02/20 01/02/20 01/02/20 Range/Units 14:10 14:10 14:19 RBC (4.30-5.90) m/uL Hgb (13.0-17.5) gm/dL Hct (39.0-53.0) % MCV (80.0-100.0) fL Plt Count (150-450) k/uL Lymphocytes # (Manual) (1.0-4.8) k/uL Metamyelocytes # (Man) (0) k/uL Myelocytes # (Manual) (0) k/uL Nucleated RBCs (0-0) /100 WBC ABG pH 7.56 H* (7.35-7.45) ABG pCO2 31 L (35-45) mmHg ABG pO2 60 L (83-108) mmHg ABG HCO3 27 H (21-25) mmol/L ABG Total CO2 28 H (19-24) mmol/L ABG O2 Saturation 93.7 L (94-97) % Potassium 3.3 L (3.5-5.1) mmol/L Chloride (98-107) mmol/L Glucose (74-99) mg/dL POC Glucose (mg/dL) (75-99) mg/dL Calcium (8.4-10.2) mg/dL Total Protein (6.3-8.2) g/dL Albumin (3.5-5.0) g/dL TSH 0.067 L (0.465-4.680) mIU/L 01/02/20 01/02/20 01/02/20 Range/Units 16:33 20:24 20:29 RBC (4.30-5.90) m/uL Hgb (13.0-17.5) gm/dL Hct (39.0-53.0) % MCV (80.0-100.0) fL Plt Count (150-450) k/uL Lymphocytes # (Manual) (1.0-4.8) k/uL Metamyelocytes # (Man) (0) k/uL Myelocytes # (Manual) (0) k/uL Nucleated RBCs (0-0) /100 WBC ABG pH 7.48 H (7.35-7.45) ABG pCO2 (35-45) mmHg ABG pO2 >400 H (83-108) mmHg ABG HCO3 28 H (21-25) mmol/L ABG Total CO2 29 H (19-24) mmol/L ABG O2 Saturation 99.6 H (94-97) % Potassium (3.5-5.1) mmol/L Chloride (98-107) mmol/L Glucose (74-99) mg/dL POC Glucose (mg/dL) 217 H 170 H (75-99) mg/dL Calcium (8.4-10.2) mg/dL Total Protein (6.3-8.2) g/dL Albumin (3.5-5.0) g/dL TSH (0.465-4.680) mIU/L 01/02/20 01/03/20 01/03/20 Range/Units 23:37 03:59 04:05 RBC 3.44 L (4.30-5.90) m/uL Hgb 11.6 L (13.0-17.5) gm/dL Hct 36.4 L (39.0-53.0) % MCV 105.8 H (80.0-100.0) fL Plt Count 90 L D (150-450) k/uL Lymphocytes # (Manual) 0.71 L (1.0-4.8) k/uL Metamyelocytes # (Man) 0.08 H (0) k/uL Myelocytes # (Manual) 0.04 H (0) k/uL Nucleated RBCs 3 H (0-0) /100 WBC ABG pH (7.35-7.45) ABG pCO2 (35-45) mmHg ABG pO2 (83-108) mmHg ABG HCO3 (21-25) mmol/L ABG Total CO2 (19-24) mmol/L ABG O2 Saturation (94-97) % Potassium (3.5-5.1) mmol/L Chloride (98-107) mmol/L Glucose (74-99) mg/dL POC Glucose (mg/dL) 183 H 203 H (75-99) mg/dL Calcium (8.4-10.2) mg/dL Total Protein (6.3-8.2) g/dL Albumin (3.5-5.0) g/dL TSH (0.465-4.680) mIU/L 01/03/20 01/03/20 01/03/20 Range/Units 04:05 07:39 08:00 RBC (4.30-5.90) m/uL Hgb (13.0-17.5) gm/dL Hct (39.0-53.0) % MCV (80.0-100.0) fL Plt Count (150-450) k/uL Lymphocytes # (Manual) (1.0-4.8) k/uL Metamyelocytes # (Man) (0) k/uL Myelocytes # (Manual) (0) k/uL Nucleated RBCs (0-0) /100 WBC ABG pH 7.46 H (7.35-7.45) ABG pCO2 (35-45) mmHg ABG pO2 131 H (83-108) mmHg ABG HCO3 (21-25) mmol/L ABG Total CO2 26 H (19-24) mmol/L ABG O2 Saturation 99.6 H (94-97) % Potassium (3.5-5.1) mmol/L Chloride 111 H (98-107) mmol/L Glucose 224 H (74-99) mg/dL POC Glucose (mg/dL) 213 H (75-99) mg/dL Calcium 8.0 L (8.4-10.2) mg/dL Total Protein 5.2 L (6.3-8.2) g/dL Albumin 2.4 L (3.5-5.0) g/dL TSH (0.465-4.680) mIU/L 01/03/20 Range/Units 12:02 RBC (4.30-5.90) m/uL Hgb (13.0-17.5) gm/dL Hct (39.0-53.0) % MCV (80.0-100.0) fL Plt Count (150-450) k/uL Lymphocytes # (Manual) (1.0-4.8) k/uL Metamyelocytes # (Man) (0) k/uL Myelocytes # (Manual) (0) k/uL Nucleated RBCs (0-0) /100 WBC ABG pH (7.35-7.45) ABG pCO2 (35-45) mmHg ABG pO2 (83-108) mmHg ABG HCO3 (21-25) mmol/L ABG Total CO2 (19-24) mmol/L ABG O2 Saturation (94-97) % Potassium (3.5-5.1) mmol/L Chloride (98-107) mmol/L Glucose (74-99) mg/dL POC Glucose (mg/dL) 192 H (75-99) mg/dL Calcium (8.4-10.2) mg/dL Total Protein (6.3-8.2) g/dL Albumin (3.5-5.0) g/dL TSH (0.465-4.680) mIU/L Microbiology - Last 24 Hours (Table) 12/31/19 23:38 Gram Stain - Final Sputum Sputum Culture - Final Mavis albicans 12/30/19 19:53 Blood Culture - Preliminary Blood No Growth after 72 hours Assessment and Plan Assessment: Impression: Acute hypoxic respiratory failure secondary to healthcare acquired pneumonia, in an immunocompromised host with known malignancy, likely gram-negative pneumonia. Patient required intubation and mechanical ventilation on 12/31/19, extubated on 01/02/20, reintubated about 8 hours later on 01/02/20. Advanced bronchogenic carcinoma stage IV. Sepsis and septic shock requiring fluids and norepinephrine to maintain r easonable blood pressure. Hyperglycemia on presentation, but no clear-cut evidence of diabetic ketoa cidosis as his urine ketones were negative. Poorly controlled diabetes. Acute metabolic encephalopathy with hypoxemia and hypoxic respiratory failure as well as hypernatremia causing his acute metabolic encephalopathy. Elevated lactic acid on presentation secondary to sepsis and septic shock. Reso lved. History of chronic obstructive pulmonary disease, presently inactive History of hypertension. History of chronic back pain dehydration and free water deficit on presentation. Resolved New onset atrial fibrillation with RVR, presently on digoxin and on amiodarone. Being followed by cardiology. Upon his initial presentation with A. fib/RVR and hypotension, I had to cardiovert the patient and he went into sinus rhythm. Recommendation: Continue ventilatory support. Continue hemodynamic support. Continue nutritional support. Continue antibiotics until final cultures are available. Continue bronchodilators. Continue GI and DVT prophylaxis. We will not wean and extubate the patient today since he had to be reintubated last night. And since his atrial fibrillation is not fairly well controlled yet. Overall prognosis remains poor and guarded, family may have to be approached again regarding CODE STATUS and possibly comfort care measures. Critical care time is 34 minutes Time with Patient: Greater than 30
[2020-01-03 15:31] LABS: Glucose,Whole Blood 159 mg/dL (75-99)
--- NOTE | 2020-01-03 16:32 | P.PN ---
Subjective Progress Note Date: 01/03/20 Principal diagnosis: Acute Hypoxic respiratory Failure Reviewed medical chart, spoke with RN, spoke with daughter. He was improving yesterday and able to be extubated although in afib with RVR and required recurrent intubation. Objective - Vital Signs Vital signs: Vital Signs Temp 98.6 F 01/03/20 12:00 Pulse 102 H 01/03/20 15:00 Resp 30 H 01/03/20 15:00 BP 120/69 01/03/20 07:00 Pulse Ox 98 01/03/20 15:00 Intake & Output 01/02/20 01/03/20 01/03/20 18:59 06:59 18:59 Intake Total 545.934 7780.865 2579.450 Output Total 1700 595 660 Balance -228.214 2383.865 1919.450 Weight 80.2 kg 80.2 kg Intake: IV 783 1183 2277 Cefepime 2 gm In Sodium 100 100 Chloride 0.9% 100 ml @ 25 mls/hr IVPB Q12HR [facility] Rx #:[id number] Dextrose 5% in Water 1, 200 000 ml @ 100 mls/hr IV . Q10H [facility] Rx#:[id number] Potassium Chloride 20 meq 100 100 In Water For Injection 1 100ml.bag @ 50 mls/hr IVPB Q2H [facility] Rx#: [id number] Pressure bag 33 33 27 Sodium Chloride 0.9% 1, 200 700 900 000 ml @ 100 mls/hr IV . Q10H [facility] Rx#:[id number] Sodium Chloride 0.9% 1, 1000 000 ml @ 999 mls/hr IV . Q1H1M [facility] Rx#:[id number] Vancomycin 1,250 mg In 250 250 250 Sodium Chloride 0.9% 250 ml @ 125 mls/hr IVPB Q8H [facility] Rx#:[id number] Intake, IV Titration 104.001 471.865 212.450 Amount Amiodarone 300 mg In 226.667 Dextrose 5% in Water 250 ml @ 0.5 MG/MIN 25 mls/hr IV .Q10H [facility] Rx#: [id number] Diltiazem 125 mg In 0.583 Sodium Chloride 0.9% 100 ml @ Per Protocol IV .Q0M [facility] Rx#:[id number] Norepinephrine 8 mg In 11.924 156.632 19.266 Sodium Chloride 0.9% 250 ml @ 0.05 MCG/KG/MIN 7. 014 mls/hr IV .Q24H [facility] Rx#:[id number] propofoL 1,000 mg In 91.494 Empty Bag 1 bag @ Titrate IV .Q0M [facility] Rx#: [id number] propofoL 1,000 mg In 88.566 193.184 Empty Bag 1 bag @ Titrate IV .Q0M [facility] Rx#: [id number] Tube Feeding 40 60 Other 30 Output: Urine 1700 595 660 Other: Voiding Method Indwelling Catheter Indwelling Catheter Indwelling Catheter ABP, PAP, CO, CI - Last Documented Arterial Blood Pressure 106/64 - Exam Through RN as telemedicine visit. intubated no bleeding - Labs CBC & Chem 7: 01/03/20 04:05 01/03/20 04:05 Labs: Abnormal Lab Results - Last 24 Hours (Table) 01/02/20 01/02/20 01/02/20 Range/Units 14:10 16:33 20:24 RBC (4.30-5.90) m/uL Hgb (13.0-17.5) gm/dL Hct (39.0-53.0) % MCV (80.0-100.0) fL Plt Count (150-450) k/uL Lymphocytes # (Manual) (1.0-4.8) k/uL Metamyelocytes # (Man) (0) k/uL Myelocytes # (Manual) (0) k/uL Nucleated RBCs (0-0) /100 WBC ABG pH 7.48 H (7.35-7.45) ABG pO2 >400 H (83-108) mmHg ABG HCO3 28 H (21-25) mmol/L ABG Total CO2 29 H (19-24) mmol/L ABG O2 Saturation 99.6 H (94-97) % Chloride (98-107) mmol/L Glucose (74-99) mg/dL POC Glucose (mg/dL) 217 H (75-99) mg/dL Calcium (8.4-10.2) mg/dL Total Protein (6.3-8.2) g/dL Albumin (3.5-5.0) g/dL TSH 0.067 L (0.465-4.680) mIU/L 01/02/20 01/02/20 01/03/20 Range/Units 20:29 23:37 03:59 RBC (4.30-5.90) m/uL Hgb (13.0-17.5) gm/dL Hct (39.0-53.0) % MCV (80.0-100.0) fL Plt Count (150-450) k/uL Lymphocytes # (Manual) (1.0-4.8) k/uL Metamyelocytes # (Man) (0) k/uL Myelocytes # (Manual) (0) k/uL Nucleated RBCs (0-0) /100 WBC ABG pH (7.35-7.45) ABG pO2 (83-108) mmHg ABG HCO3 (21-25) mmol/L ABG Total CO2 (19-24) mmol/L ABG O2 Saturation (94-97) % Chloride (98-107) mmol/L Glucose (74-99) mg/dL POC Glucose (mg/dL) 170 H 183 H 203 H (75-99) mg/dL Calcium (8.4-10.2) mg/dL Total Protein (6.3-8.2) g/dL Albumin (3.5-5.0) g/dL TSH (0.465-4.680) mIU/L 01/03/20 01/03/20 01/03/20 Range/Units 04:05 04:05 07:39 RBC 3.44 L (4.30-5.90) m/uL Hgb 11.6 L (13.0-17.5) gm/dL Hct 36.4 L (39.0-53.0) % MCV 105.8 H (80.0-100.0) fL Plt Count 90 L D (150-450) k/uL Lymphocytes # (Manual) 0.71 L (1.0-4.8) k/uL Metamyelocytes # (Man) 0.08 H (0) k/uL Myelocytes # (Manual) 0.04 H (0) k/uL Nucleated RBCs 3 H (0-0) /100 WBC ABG pH 7.46 H (7.35-7.45) ABG pO2 131 H (83-108) mmHg ABG HCO3 (21-25) mmol/L ABG Total CO2 26 H (19-24) mmol/L ABG O2 Saturation 99.6 H (94-97) % Chloride 111 H (98-107) mmol/L Glucose 224 H (74-99) mg/dL POC Glucose (mg/dL) (75-99) mg/dL Calcium 8.0 L (8.4-10.2) mg/dL Total Protein 5.2 L (6.3-8.2) g/dL Albumin 2.4 L (3.5-5.0) g/dL TSH (0.465-4.680) mIU/L 01/03/20 01/03/20 01/03/20 Range/Units 08:00 12:02 15:29 RBC (4.30-5.90) m/uL Hgb (13.0-17.5) gm/dL Hct (39.0-53.0) % MCV (80.0-100.0) fL Plt Count (150-450) k/uL Lymphocytes # (Manual) (1.0-4.8) k/uL Metamyelocytes # (Man) (0) k/uL Myelocytes # (Manual) (0) k/uL Nucleated RBCs (0-0) /100 WBC ABG pH (7.35-7.45) ABG pO2 (83-108) mmHg ABG HCO3 (21-25) mmol/L ABG Total CO2 (19-24) mmol/L ABG O2 Saturation (94-97) % Chloride (98-107) mmol/L Glucose (74-99) mg/dL POC Glucose (mg/dL) 213 H 192 H 159 H (75-99) mg/dL Calcium (8.4-10.2) mg/dL Total Protein (6.3-8.2) g/dL Albumin (3.5-5.0) g/dL TSH (0.465-4.680) mIU/L Microbiology - Last 24 Hours (Table) 12/31/19 23:38 Gram Stain - Final Sputum Sputum Culture - Final Mavis albicans 12/30/19 19:53 Blood Culture - Preliminary Blood No Growth after 72 hours Assessment and Plan (1) Altered mental status Current Visit: Yes Status: Acute Code(s): R41.82 - ALTERED MENTAL STATUS, UNSPECIFIED SNOMED Code(s): 280185166 (2) Lung cancer Current Visit: Yes Status: Acute Code(s): C34.90 - MALIGNANT NEOPLASM OF UNSP PART OF UNSP BRONCHUS OR LUNG SNOMED Code(s): 199916636 Plan: Acute Hypoxic Respiratory Failure: extubated 01/02/20, although requiring re-intubation with uncontrolled afb rvr - Currently Mechanical Ventilation - Overall improved from prior picture Septic Shock: improving - abx per ID/ICU Pancytopenia: Secondary to above Improving - Continue daily monitor of CBC with Diff - Monitor for s/s of bleeding, DIC - Platelets = 90K today - Transfuse PRBC hemoglobin less than 7, platelets less than 10K. Non-Small Cell Lung Cancer: Squamous Cell Carcinoma: Stage IV - Primary oncologist Orville Ballesteros - I did speak to his primary Oncologist today, and will keep posted as patients daughter has been calling there to check in. He did not receive any recent growth factors, therefore if GCSF is indicated patient may receive. Acute Metabolic Encephalopathy: Likely Secondary to Hypoxemia, respiratory failure - Possible component of Hypernatremia as well - Treatment of the underlying problem Recommendations: - Continue with one more dose of Zaxio today then DC - Still awaiting CVID - Discussed with Daughter >17 minutes - Anticoagulation for Atrial Fib with RVR is ok with platelet count >50K and no s/s bleeding. Telemedicine visit today with permission of Daughter. Speaking with nurse for physical exam assistance and review of all pertinent labs, diagnostics.
--- NOTE | 2020-01-03 16:35 | PN ---
PROGRESS NOTE DATE OF SERVICE: 01/03/2020 This 59-year-old gentleman who was admitted with healthcare associated pneumonia with acute hypoxic respiratory failure was immunocompromised. The patient is mechanically ventilated, intubated. The patient was extubated yesterday. The patient is mildly confused. Patient also had atrial fibrillation with a fast ventricular rate. The patient had previous history of cardioversion, but because of increasing rate with atrial fibrillation, patient was initially given amiodarone. Subsequently the patient received digoxin as well as Cardizem. The patient also had some hypotension patient was reintubated because of acute hypoxic respiratory failure. Patient being closely monitored. Dr. Marley is following the patient as well as Cardiology. A 2D echo with Doppler has been ordered. The most recent chest x-ray which was personally reviewed by me showed bilateral lesions, left more than the right at this time. Covid-19 is pending at this time. Past medical history reviewed. REVIEW OF SYSTEMS: Could not be taken. Sodium is 157. CURRENT MEDICATIONS: Reviewed and include: [place] 10 mg. DuoNeb, amiodarone, cefepime, Hexadrol, digoxin, Cardizem, Pepcid, folic acid, Haldol, NovoLog, Levemir, replacement protocol, MS Contin, Narcan, norepinephrine, Zofran, Percocet, Compazine, propofol, vitamin B1. PHYSICAL EXAM: Patient is mechanically ventilated and sedated. His pulse is 102. Blood pressure 130/60, respirations 20, temperature normal. Pulse ox 98% on mechanical ventilation. Vent settings are noted. HEENT: Conjunctivae normal. NECK: No JVD. CARDIOVASCULAR: S1, S2. RESPIRATORY SYSTEM: Breath sounds diminished at the bases. A few scattered rhonchi and crackles. ABDOMEN: Soft, nontender. LEGS are no edema. No swelling. NERVOUS SYSTEM: No focal deficits. LABS: WBC 3, hemoglobin 14.1, platelets 76. Sodium is 157. Yesterday it was 148. ASSESSMENT: 1. Acute hypoxic respiratory failure secondary to bilateral healthcare pneumonia, left more than the right with immunocompromised patient with gram-negative with possible sepsis and septic shock, on mechanical ventilation. 2. Change in mental status, metabolic encephalopathy, multifactorial. 3. Hypernatremia. 4. Paroxysmal atrial fibrillation with fast ventricular rate. 5. Advanced lung cancer stage IV. 6. Mavis from the sputum. 7. Diabetes mellitus type 2, uncontrolled with hyperosmolar diabetic state, present on admission with no evidence of diabetic ketoacidosis. 8. Hyponatremia. 9. Metabolic encephalopathy, change in mental status, multifactorial. 10.Elevated lactic acid possibly secondary to sepsis. 11.Hypertension. 12.Chronic back pain. 13.History of chronic obstructive pulmonary disease. 14.Pancytopenia secondary to chemotherapy. 15.Severe neutropenia. 16.FULL CODE. RECOMMENDATIONS AND DISCUSSION: This 59 -year-old gentleman who presented with multiple complex medical issues, we will monitor the patient closely, continue the current medications, management and symptomatic treatment. Continue with mechanical ventilation along with Dr. Marley. Oncology is following the patient also. Currently according the family, the patient is on FULL CODE, which is corroborated with the staff nurse. Otherwise, continue the atrial fibrillation control by Cardiology. Continue with amiodarone drip at this time. Obtain the fluid to D5 water with 40 of KCl, replacement protocols. Guarded prognosis. Further recommendations to follow. MMODL / IJN: [id number] / ZAK
[2020-01-03 19:52] LABS: Glucose,Whole Blood 128 mg/dL (75-99)
[2020-01-03] MEDS: INSULIN DETEMIR (LEVEMIR) 100 UNIT/ML SYR SQ SCH (21:19)
[2020-01-03 23:52] LABS: Glucose,Whole Blood 228 mg/dL (75-99)
[2020-01-04] MEDS: SODIUM CHLORIDE 0.9% 1,000 ML IV SCH ×3 (02:17→21:10)
[2020-01-04] MEDS: VANCOMYCIN 1,250 MG in SODIUM CHLORIDE 0.9% 250 ML IVPB SCH ×3 (02:17→17:49)
[2020-01-04 04:09] LABS: Glucose,Whole Blood 239 mg/dL (75-99)
[2020-01-04 04:23] LABS: ALT 13 U/L (4-49); AST 15 U/L (17-59); African American GFR (CKD) >90 (>60 ml/min/1.73 sqM); Albumin 2.3 g/dL (3.5-5.0); Alkaline Phosphatase 92 U/L (38-126); Anion Gap 5 mmol/L; Blood Urea Nitrogen 17 mg/dL (9-20); Calcium 7.9 mg/dL (8.4-10.2); Carbon Dioxide 22 mmol/L (22-30); Chloride 113 mmol/L (98-107); Glucose 252 mg/dL (74-99); Non-African American GFR(CKD) >90 (>60 ml/min/1.73 sqM); Potassium 3.9 mmol/L (3.5-5.1); Sodium 140 mmol/L (137-145); Total Bilirubin 0.5 mg/dL (0.2-1.3); Total Protein 5.2 g/dL (6.3-8.2)
[2020-01-04 04:32] LABS: HCT 35.6 % (39.0-53.0); HGB 11.5 gm/dL (13.0-17.5); Hypochromasia Slight; MCH 33.7 pg (25.0-35.0); MCHC 32.3 g/dL (31.0-37.0); MCV 104.2 fL (80.0-100.0); Macrocytosis Slight; Mean Platelet Volume 9.6; RBC 3.42 m/uL (4.30-5.90); RDW 13.5 % (11.5-15.5); WBC 15.4 k/uL (3.8-10.6)
[2020-01-04] MEDS: INSULIN ASPART (NovoLOG) 100 UNIT/ML VIAL SQ SCH ×5 (04:42→21:08)
[2020-01-04 05:43] LABS: Band Neutrophils % 23 %; Lymphocytes # (M) 0.92 k/uL (1.0-4.8); Metamyelocytes # (M) 0.15 k/uL (0); Metamyelocytes % 1 %; Monocytes # (M) 0.77 k/uL (0-1.0); Neutrophils % (M) 65 %; Nucleated Red Blood Cells 0 /100 WBC (0-0); Total Cells Counted 100
[2020-01-04 05:44] LABS: Platelet Count 99 k/uL (150-450)
[2020-01-04 05:45] LABS: ABG Base Excess -0.9 mmol/L; ABG HCO3 23 mmol/L (21-25); ABG PCO2 35 mmHg (35-45); ABG PH 7.43 (7.35-7.45); ABG PO2 111 mmHg (83-108); ABG TCO2 24 mmol/L (19-24); Allen Test Performed? Yes
[2020-01-04] MEDS ORDERED: POTASSIUM BICARBONATE/CIT AC 20 MEQ TABLET.EFF NG-TUBE SCH (06:00)
[2020-01-04] MEDS: IPRATROPIUM-ALBUTEROL 3 ML NEB INHALATION SCH ×4 (07:51→19:16)
[2020-01-04 08:21] LABS: Glucose,Whole Blood 221 mg/dL (75-99)
--- NOTE | 2020-01-04 08:21 | XR ---
EXAMINATION TYPE: XR chest 1V portable DATE OF EXAM: 01/04/2020 COMPARISON: Prior chest x-ray 01/03/2020 HISTORY: Intubated TECHNIQUE: Single frontal view of the chest is obtained. FINDINGS: Endotracheal tube, NG tube are overlying appropriate positions. Patient is rotated. No nella dent pneumothorax or sizable effusion. Lung volumes are low. Heart is likely stable. Patchy density p ersists in the left lower lobe, right perihilar density is again noted consistent with known chest ma ss IMPRESSION: No significant interval change.
[2020-01-04] MEDS: MORPHINE SULFATE ER 30 MG TABLET PO SCH ×2 (09:18→21:09)
[2020-01-04] MEDS: CEFEPIME 2 GM in SODIUM CHLORIDE 0.9% 100 ML IVPB SCH ×2 (09:24→21:09)
[2020-01-04] MEDS: DIGOXIN 250 MCG/ML 2 ML AMP IVP SCH (09:24)
[2020-01-04] MEDS: ENOXAPARIN 40 MG/0.4 ML SYRINGE SQ SCH (09:24)
[2020-01-04] MEDS: dexAMETHasone 4 MG TAB PO SCH ×2 (09:25→21:09)
[2020-01-04] MEDS: FAMOTIDINE 20 MG/2 ML VIAL IV SCH ×2 (09:25→21:09)
[2020-01-04] MEDS ORDERED: AMIODARONE 360 MG in DEXTROSE 5% IN WATER 200 ML IV ONE ×2 (09:31)
[2020-01-04] MEDS ORDERED: DEXTROSE 5% IN WATER 100 ML with AMIODARONE 150 MG IV ONE (09:31)
[2020-01-04] MEDS: NOREPINEPHRINE 8 MG in SODIUM CHLORIDE 0.9% 250 ML IV SCH (10:58)
--- NOTE | 2020-01-04 11:21 | P.PN ---
Subjective Progress Note Date: 01/04/20 HISTORY OF PRESENT ILLNESS: Patient examined this morning at the bedside. He remains intubated in the intensive care unit. Patient had been in A. fib with RVR and is receiving digoxin IV push daily. Patient was unable to tolerated IV cardizem and required additional vasopressor support. The patient did convert to sinus rhythm at 6:30 this morning per nursing. PHYSICAL EXAM: VITAL SIGNS: Reviewed. GENERAL: Well-developed in no acute distress-sedated on mechanical ventilation. NECK: Supple. No JVD or thyromegaly LUNGS: Respirations even and unlabored. Lungs diminished HEART: Regular rate and rhythm. S1 and S2 heard. EXTREMITIES: Normal range of motion. No clubbing or cyanosis. Peripheral pulses intact. Trace bilateral lower extremity edema ASSESSMENT: Stage IV lung cancer Acute hypoxic respiratory failure secondary to healthcare acquired pneumonia Paroxysmal atrial fibrillation with RVR, s/p cardioversion Septic shock History of COPD PLAN: Continue IV digoxin Resume amiodarone drip for today with plans to transition to oral amio tomorrow Patient currently not a candidate for anticoagulation secondary to metastatic lung cancer and thrombocytopenia Nurse practitioner note has been reviewed by physician. Signing provider agrees with the documented findings, assessment, and plan of care. Objective - Vital Signs Vital signs: Vital Signs Temp 99.7 F H 01/04/20 08:00 Pulse 93 01/04/20 09:30 Resp 32 H 01/04/20 09:30 BP 113/57 01/04/20 09:30 Pulse Ox 94 L 01/04/20 09:30 Intake & Output 01/03/20 01/04/20 01/04/20 18:59 06:59 18:59 Intake Total 3351.450 2313.274 187.096 Output Total 845 975 150 Balance 2506.450 1338.274 37.096 Weight 80.2 kg 82.6 kg Intake: IV 2939 1483 103 Cefepime 2 gm In Sodium 100 100 Chloride 0.9% 100 ml @ 25 mls/hr IVPB Q12HR [facility] Rx #:[id number] Pressure bag 39 33 3 Sodium Chloride 0.9% 1, 1300 1100 100 000 ml @ 100 mls/hr IV . Q10H [facility] Rx#:[id number] Sodium Chloride 0.9% 1, 1000 000 ml @ 999 mls/hr IV . Q1H1M [facility] Rx#:[id number] Vancomycin 1,250 mg In 500 250 Sodium Chloride 0.9% 250 ml @ 125 mls/hr IVPB Q8H [facility] Rx#:[id number] Intake, IV Titration 212.450 380.274 44.096 Amount Norepinephrine 8 mg In 19.266 108.722 Sodium Chloride 0.9% 250 ml @ 0.05 MCG/KG/MIN 7. 014 mls/hr IV .Q24H [facility] Rx#:[id number] propofoL 1,000 mg In 193.184 271.552 44.096 Empty Bag 1 bag @ Titrate IV .Q0M [facility] Rx#: [id number] Tube Feeding 140 360 40 Other 60 90 Output: Urine 845 975 150 Other: Voiding Method Indwelling Catheter Indwelling Catheter ABP, PAP, CO, CI - Last Documented Arterial Blood Pressure 91/49 - Labs CBC & Chem 7: 01/04/20 04:00 01/04/20 04:00 Labs: Abnormal Lab Results - Last 24 Hours (Table) 01/03/20 01/03/20 01/03/20 Range/Units 12:02 15:29 19:51 WBC (3.8-10.6) k/uL RBC (4.30-5.90) m/uL Hgb (13.0-17.5) gm/dL Hct (39.0-53.0) % MCV (80.0-100.0) fL Plt Count (150-450) k/uL Neutrophils # (Manual) (1.3-7.7) k/uL Lymphocytes # (Manual) (1.0-4.8) k/uL Metamyelocytes # (Man) (0) k/uL ABG pO2 (83-108) mmHg ABG O2 Saturation (94-97) % Chloride (98-107) mmol/L Glucose (74-99) mg/dL POC Glucose (mg/dL) 192 H 159 H 128 H (75-99) mg/dL Calcium (8.4-10.2) mg/dL AST (17-59) U/L Total Protein (6.3-8.2) g/dL Albumin (3.5-5.0) g/dL 01/03/20 01/04/20 01/04/20 Range/Units 23:51 04:00 04:00 WBC 15.4 H (3.8-10.6) k/uL RBC 3.42 L (4.30-5.90) m/uL Hgb 11.5 L (13.0-17.5) gm/dL Hct 35.6 L (39.0-53.0) % MCV 104.2 H (80.0-100.0) fL Plt Count 99 L (150-450) k/uL Neutrophils # (Manual) 13.50 H (1.3-7.7) k/uL Lymphocytes # (Manual) 0.92 L (1.0-4.8) k/uL Metamyelocytes # (Man) 0.15 H (0) k/uL ABG pO2 (83-108) mmHg ABG O2 Saturation (94-97) % Chloride 113 H (98-107) mmol/L Glucose 252 H (74-99) mg/dL POC Glucose (mg/dL) 228 H (75-99) mg/dL Calcium 7.9 L (8.4-10.2) mg/dL AST 15 L (17-59) U/L Total Protein 5.2 L (6.3-8.2) g/dL Albumin 2.3 L (3.5-5.0) g/dL 01/04/20 01/04/20 01/04/20 Range/Units 04:06 05:40 08:20 WBC (3.8-10.6) k/uL RBC (4.30-5.90) m/uL Hgb (13.0-17.5) gm/dL Hct (39.0-53.0) % MCV (80.0-100.0) fL Plt Count (150-450) k/uL Neutrophils # (Manual) (1.3-7.7) k/uL Lymphocytes # (Manual) (1.0-4.8) k/uL Metamyelocytes # (Man) (0) k/uL ABG pO2 111 H (83-108) mmHg ABG O2 Saturation 98.0 H (94-97) % Chloride (98-107) mmol/L Glucose (74-99) mg/dL POC Glucose (mg/dL) 239 H 221 H (75-99) mg/dL Calcium (8.4-10.2) mg/dL AST (17-59) U/L Total Protein (6.3-8.2) g/dL Albumin (3.5-5.0) g/dL Microbiology - Last 24 Hours (Table) 12/30/19 19:53 Blood Culture - Preliminary Blood No Growth after 96 hours 12/31/19 23:38 Gram Stain - Final Sputum Sputum Culture - Final Mavis albicans
--- NOTE | 2020-01-04 11:23 | ECHOF ---
Referral Reason:Chest pain and cardiomyopathy MEASUREMENTS -------- HEIGHT: 180.3 cm WEIGHT: 82.5 kg BP: IVSd: 1.4 cm (0.6 - 1.1) LVIDd: 2.8 cm (3.9 - 5.3) LVPWd: 1.7 cm (0.6 - 1.1) IVSs: 1.8 cm LVIDs: 1.7 cm LVPWs: 1.6 cm Ao Diam: 3.4 cm (2.0 - 3.7) LA Diam: 2.3 cm (2.7 - 3.8) MV E Miguel Angel: 0.82 m/s MV DecT: 173 ms MV A Miguel Angel: 0.69 m/s MV E/A Ratio: 1.19 RAP: 5.00 mmHg RVSP: 8.99 mmHg FINDINGS -------- This was a technically difficult study with suboptimal views. Pt. on a vent. The left ventricular size is normal. There is moderate concentric left ventricular hypertrophy. O verall left ventricular systolic function is normal with, an EF between 55 - 60 %. The RV was not well visualized. The left atrium was not well visualized. The right atrium was not well visualized. Lumason used The aortic valve was not well visualized. The mitral valve was not well visualized. The tricuspid valve was not well visualized. The pulmonic valve was not well visualized. The aortic root size is normal. IVC Not well visulized. CONCLUSIONS -------- 1. This was a technically difficult study with suboptimal views. 2. Pt. on a vent. 3. The left ventricular size is normal. 4. There is moderate concentric left ventricular hypertrophy. 5. Overall left ventricular systolic function is normal with, an EF between 55 - 60 %. [employer] SUPERVISOR: Lorie Ortega, [facility]
--- NOTE | 2020-01-04 12:19 | PN ---
PROGRESS NOTE PULMONARY/CRITICAL CARE PROGRESS NOTE: DATE OF SERVICE: 01/04/2020 This is a 59-year-old gentleman who was admitted back on December 28 for acute mental status changes, diabetic ketoacidosis, and non-small cell lung cancer, with metastasis. He was brought to the ICU on 12/30 and intubated on 12/30, extubated on t103/03 and reintubated on 01/01 for acute hypoxemic respiratory failure. Anyway, the patient remains on the volume assist-control mode rate of 26, tidal volume 450, FiO2 35% to be dropped to 30% and PEEP of 5. Blood gases show pO2 of 111, pCO2 of 35 and a pH of 7.43. Currently, the patient is on saline at 100 mL an hour, propofol at 50 mcg/kg per minute, norepinephrine at 5.7 mcg per minute and Vital high-protein at 40 with a goal of 55 mL an hour. In addition to acute hypoxemic respiratory failure secondary to pneumonia, the patient has a history of advanced stage IV bronchogenic carcinoma, sepsis with septic shock, hyperglycemia, acute metabolic encephalopathy, lactic acidemia, COPD, hypertension, and chronic back pain, among other things. In addition, the patient did develop atrial fibrillation with RVR. Currently, the patient is resting comfortably. Current vital signs are reviewed. Temperature is 99.7, heart rate 93, respiratory rate 28-32 breaths per minute, blood pressure 113/57 mean 75 and saturations are 96% on 30% FiO2 and 5 of PEEP. Currently appears in no acute distress. Currently sedated. HEENT: Examination is grossly unremarkable. There is an orally placed endotracheal tube. NECK: Supple, full range of motion. No adenopathy. Neck veins are flat. CARDIOVASCULAR: Examination reveals regular rhythm and rate. Heart rate 93 beats per minute. S1, S2 normal. Heart sounds are distant. LUNGS: Reveal diffuse coarse bilateral rhonchi. No wheezes or crackles. Breath sounds are diminished. ABDOMEN: Soft, bowel sounds are heard. EXTREMITIES: Intact. No edema. SKIN: Without rash. NEUROLOGIC: Examination cannot be adequately assessed as the patient is currently on propofol. LABS: Reviewed. White count 15.4, hemoglobin 11.5, hematocrit 35.6, platelet count 99,000, blood gases have been noted. Sodium 140, potassium 3.9, chloride is 113, CO2 is 22, anion gap is 5. BUN and creatinine were 17 and 0.73. Albumin 2.3, calcium 7.9. Microbiology is essentially negative. There was some Mavis albicans in the sputum. The most recent chest x-ray from January 03 shows no significant interval change. Endotracheal tube and NG tube are in appropriate position. The patient is rotated. No evidence of pneumothorax or effusion. Patchy density persists in the left lower lobe in the right perihilar mass/lung cancer is again noted. CURRENT MEDICATIONS: Reviewed. Currently, the patient is on amiodarone at 1 mg/minute, which is in new order, Maxipime, Decadron, digoxin, Lovenox, famotidine, folic acid, Haldol, NovoLog insulin, DuoNeb, morphine sulfate, magnesium replacement, multivitamins, Narcan, norepinephrine, Zofran, phosphorus replacement, potassium replacement, propofol, thiamine and vancomycin. ASSESSMENT: 1. Acute hypoxemic respiratory failure secondary to healthcare-acquired pneumonia, status post intubation on December 30, extubation on January 01, and re-intubation on January [id number]. 2. Stage IV non-small cell lung cancer, squamous cell type. 3. Sepsis and septic shock. 4. DKA. 5. Acute metabolic encephalopathy secondary to metabolic disturbances and hypoxemia. 6. Lactic acidemia, resolved. 7. COPD. 8. Essential hypertension. 9. History of chronic back pain. 10.New onset atrial fibrillation with RVR. PLAN: The patient remains on mechanical ventilator. FiO2 is dropped to 30%. Patient remains on propofol and norepinephrine at just under 6 mcg/minute. He is being nourished. We will continue to follow. Prognosis is very guarded. Will also talk to the family about code status. The patient does have advanced lung cancer. No additional recommendations are made. Medications are reviewed and adjustments were suggested. We will continue to follow. Critical care time 33 minutes. MMODL / IJN: [id number] /
[2020-01-04] MEDS: FOLIC ACID 1 MG TAB PO SCH (12:33)
[2020-01-04] MEDS: MULTIVITAMINS, THERA 1 EACH TAB PO SCH (12:33)
[2020-01-04] MEDS: THIAMINE 100 MG TAB PO SCH (12:33)
[2020-01-04 12:46] LABS: Glucose,Whole Blood 252 mg/dL (75-99)
[2020-01-04] MEDS ORDERED: propofoL 100 ML IV ONE (14:35)
[2020-01-04 16:08] LABS: Glucose,Whole Blood 275 mg/dL (75-99)
[2020-01-04] MEDS: AMIODARONE 300 MG in DEXTROSE 5% IN WATER 250 ML IV SCH ×2 (16:29)
--- NOTE | 2020-01-04 19:42 | P.PN ---
Subjective Progress Note Date: 01/04/20 Principal diagnosis: Acute Hypoxic respiratory Failure Stable, no change overnight Objective - Vital Signs Vital signs: Vital Signs Temp 98.7 F 01/04/20 04:00 Pulse 92 01/04/20 08:03 Resp 31 H 01/04/20 07:00 BP 107/59 01/04/20 07:00 Pulse Ox 97 01/04/20 07:00 Intake & Output 01/03/20 01/04/20 01/04/20 18:59 06:59 18:59 Intake Total 3351.450 2313.274 187.096 Output Total 845 975 150 Balance 2506.450 1338.274 37.096 Weight 80.2 kg 82.6 kg Intake: IV 2939 1483 103 Cefepime 2 gm In Sodium 100 100 Chloride 0.9% 100 ml @ 25 mls/hr IVPB Q12HR [facility] Rx #:[id number] Pressure bag 39 33 3 Sodium Chloride 0.9% 1, 1300 1100 100 000 ml @ 100 mls/hr IV . Q10H [facility] Rx#:[id number] Sodium Chloride 0.9% 1, 1000 000 ml @ 999 mls/hr IV . Q1H1M [facility] Rx#:[id number] Vancomycin 1,250 mg In 500 250 Sodium Chloride 0.9% 250 ml @ 125 mls/hr IVPB Q8H [facility] Rx#:[id number] Intake, IV Titration 212.450 380.274 44.096 Amount Norepinephrine 8 mg In 19.266 108.722 Sodium Chloride 0.9% 250 ml @ 0.05 MCG/KG/MIN 7. 014 mls/hr IV .Q24H [facility] Rx#:[id number] propofoL 1,000 mg In 193.184 271.552 44.096 Empty Bag 1 bag @ Titrate IV .Q0M [facility] Rx#: [id number] Tube Feeding 140 360 40 Other 60 90 Output: Urine 845 975 150 Other: Voiding Method Indwelling Catheter Indwelling Catheter ABP, PAP, CO, CI - Last Documented Arterial Blood Pressure 105/56 - Exam Through RN as telemedicine visit. intubated no bleeding - Labs CBC & Chem 7: 01/04/20 04:00 01/04/20 04:00 Labs: Abnormal Lab Results - Last 24 Hours (Table) 01/03/20 01/03/20 01/03/20 Range/Units 12:02 15:29 19:51 WBC (3.8-10.6) k/uL RBC (4.30-5.90) m/uL Hgb (13.0-17.5) gm/dL Hct (39.0-53.0) % MCV (80.0-100.0) fL Plt Count (150-450) k/uL Neutrophils # (Manual) (1.3-7.7) k/uL Lymphocytes # (Manual) (1.0-4.8) k/uL Metamyelocytes # (Man) (0) k/uL ABG pO2 (83-108) mmHg ABG O2 Saturation (94-97) % Chloride (98-107) mmol/L Glucose (74-99) mg/dL POC Glucose (mg/dL) 192 H 159 H 128 H (75-99) mg/dL Calcium (8.4-10.2) mg/dL AST (17-59) U/L Total Protein (6.3-8.2) g/dL Albumin (3.5-5.0) g/dL 01/03/20 01/04/20 01/04/20 Range/Units 23:51 04:00 04:00 WBC 15.4 H (3.8-10.6) k/uL RBC 3.42 L (4.30-5.90) m/uL Hgb 11.5 L (13.0-17.5) gm/dL Hct 35.6 L (39.0-53.0) % MCV 104.2 H (80.0-100.0) fL Plt Count 99 L (150-450) k/uL Neutrophils # (Manual) 13.50 H (1.3-7.7) k/uL Lymphocytes # (Manual) 0.92 L (1.0-4.8) k/uL Metamyelocytes # (Man) 0.15 H (0) k/uL ABG pO2 (83-108) mmHg ABG O2 Saturation (94-97) % Chloride 113 H (98-107) mmol/L Glucose 252 H (74-99) mg/dL POC Glucose (mg/dL) 228 H (75-99) mg/dL Calcium 7.9 L (8.4-10.2) mg/dL AST 15 L (17-59) U/L Total Protein 5.2 L (6.3-8.2) g/dL Albumin 2.3 L (3.5-5.0) g/dL 01/04/20 01/04/20 01/04/20 Range/Units 04:06 05:40 08:20 WBC (3.8-10.6) k/uL RBC (4.30-5.90) m/uL Hgb (13.0-17.5) gm/dL Hct (39.0-53.0) % MCV (80.0-100.0) fL Plt Count (150-450) k/uL Neutrophils # (Manual) (1.3-7.7) k/uL Lymphocytes # (Manual) (1.0-4.8) k/uL Metamyelocytes # (Man) (0) k/uL ABG pO2 111 H (83-108) mmHg ABG O2 Saturation 98.0 H (94-97) % Chloride (98-107) mmol/L Glucose (74-99) mg/dL POC Glucose (mg/dL) 239 H 221 H (75-99) mg/dL Calcium (8.4-10.2) mg/dL AST (17-59) U/L Total Protein (6.3-8.2) g/dL Albumin (3.5-5.0) g/dL Microbiology - Last 24 Hours (Table) 12/30/19 19:53 Blood Culture - Preliminary Blood No Growth after 96 hours 12/31/19 23:38 Gram Stain - Final Sputum Sputum Culture - Final Mavis albicans Assessment and Plan (1) Altered mental status Current Visit: Yes Status: Acute Code(s): R41.82 - ALTERED MENTAL STATUS, UNSPECIFIED SNOMED Code(s): 800006641 (2) Lung cancer Current Visit: Yes Status: Acute Code(s): C34.90 - MALIGNANT NEOPLASM OF UNSP PART OF UNSP BRONCHUS OR LUNG SNOMED Code(s): 208346520 Plan: Acute Hypoxic Respiratory Failure: extubated 01/02/20, although requiring re-intubation with uncontrolled afb rvr - Currently Mechanical Ventilation - Overall improved from prior picture Septic Shock: improving - abx per ID/ICU Pancytopenia: Secondary to above Improving - Continue daily monitor of CBC with Diff - Monitor for s/s of bleeding, DIC - Platelets = recovered - Transfuse PRBC hemoglobin less than 7, platelets less than 10K. Non-Small Cell Lung Cancer: Squamous Cell Carcinoma: Stage IV - Primary oncologist Orville Ballesteros Acute Metabolic Encephalopathy: Likely Secondary to Hypoxemia, respiratory failure - Possible component of Hypernatremia as well - Treatment of the underlying problem Recommendations: Zaxio DC - Still awaiting CVID - Discussed with Daughter >17 minutes - Anticoagulation for Atrial Fib with RVR is ok with platelet count >50K and no s/s bleeding. Physician attest: I have completed full history and physical and agree with above, dictated as a scribe
[2020-01-04 21:02] LABS: Glucose,Whole Blood 283 mg/dL (75-99)
[2020-01-04] MEDS: CHLORHEXIDINE GLUCONATE 15 ML CUP MUCOUS MEM SCH (21:09)
[2020-01-04] MEDS: INSULIN DETEMIR (LEVEMIR) 100 UNIT/ML SYR SQ SCH (21:09)
--- NOTE | 2020-01-04 22:01 | PN ---
PROGRESS NOTE DATE OF SERVICE: 01/04/2020 This is a 59-year-old gentleman with a past medical history of multiple medical problems admitted with uncontrolled diabetes, and subsequently patient has acute hypoxic respiratory failure. The patient was mechanically ventilated and extubated, and subsequently the patient became more drowsy. Patient also had atrial fibrillation, hypotension. Patient was re-intubated. Patient is being closely monitored at this time. Multiple consultants are following the patient closely. The most recent chest x- ray, which was done today and which was reviewed personally by me, showed some infiltrates in the left lower lobe, patchy density in the left lower lobe; otherwise, a 2D echo with Doppler was done by Cardiology, read by Cardiology, which showed ejection fraction about 50% to 60%. RV is not well visualized. Past medical history reviewed. Review of systems could not be taken; the patient is mechanically intubated. CURRENT MEDICATIONS: Albuterol, amiodarone, cefepime, Hexadrol, Lanoxin, Pepcid, Haldol, Levemir, replacement protocol, Narcan, propofol, vitamin B1. PHYSICAL EXAMINATION: Patient is mechanically ventilated and sedated. Pulse 87, blood pressure 100/70, respiration 30, temperature normal, pulse ox 94% on mechanical ventilation and and 30% FiO2. The vent settings are noted. HEENT: Conjunctivae normal. NECK: No jugular venous distention. CARDIOVASCULAR SYSTEM: S1, S2 muffled. RESPIRATORY SYSTEM: Breath sounds diminished at the bases. A few scattered rhonchi. ABDOMEN: Soft, non-tender. LEGS: No edema. No swelling. NERVOUS SYSTEM: No focal deficit. LABS: WBC 15.4, hemoglobin 11.1. Glucose noted, 221, 252. ASSESSMENT: 1. Acute hypoxic respiratory failure secondary to bilateral healthcare- associated pneumonia, left more than the right, with immunocompromised status with Gram- negative possible severe sepsis, septic shock, on mechanical ventilation and re- intubation. 2. Change in mental status, metabolic encephalopathy, acute, multifactorial. 3. Hypernatremia. 4. Paroxysmal atrial fibrillation with fast ventricular rate. 5. Advanced lung cancer, stage IV. 6. Mavis from the sputum. 7. Diabetes mellitus, type 2, uncontrolled, with hyperosmolar diabetic state, present on admission, with no evidence of diabetic ketoacidosis. 8. Hyponatremia. 9. Acute metabolic encephalopathy, change in mental status, multifactorial. 10.Elevated lactic acid, possibly secondary to sepsis. 11.Hypertension. 12.Chronic back pain. 13.History of chronic obstructive pulmonary disease. 14.Pancytopenia secondary to chemotherapy. 15.Severe neutropenia. 16.FULL CODE. RECOMMENDATIONS AND DISCUSSION: I recommend to continue current medications, continue with the monitoring, symptomatic treatment. Otherwise at this time I would recommend continuing with the bronchodilators. Continue with the antibiotics. Weaning per Pulmonary. Guarded prognosis because of multiple complex medical issues. Further recommendations to follow. Increase the dose of Levemir to 20 units from 15 units and continue to monitor. MMODL / IJN: [id number] / MTDD
[2020-01-05 00:04] LABS: Glucose,Whole Blood 327 mg/dL (75-99)
[2020-01-05] MEDS: INSULIN ASPART (NovoLOG) 100 UNIT/ML VIAL SQ SCH ×6 (00:10→20:50)
[2020-01-05] MEDS: AMIODARONE 300 MG in DEXTROSE 5% IN WATER 250 ML IV SCH ×2 (00:11)
[2020-01-05] MEDS: VANCOMYCIN 1,250 MG in SODIUM CHLORIDE 0.9% 250 ML IVPB SCH ×3 (02:05→20:45)
[2020-01-05 04:05] LABS: Glucose,Whole Blood 270 mg/dL (75-99)
[2020-01-05 05:14] LABS: African American GFR (CKD) >90 (>60 ml/min/1.73 sqM); Anion Gap 2 mmol/L; Blood Urea Nitrogen 20 mg/dL (9-20); Calcium 8.1 mg/dL (8.4-10.2); Carbon Dioxide 26 mmol/L (22-30); Chloride 111 mmol/L (98-107); Glucose 295 mg/dL (74-99); Non-African American GFR(CKD) >90 (>60 ml/min/1.73 sqM); Sodium 139 mmol/L (137-145)
[2020-01-05 05:23] LABS: Potassium 4.1 mmol/L (3.5-5.1)
[2020-01-05 05:25] LABS: ABG Base Excess 2.2 mmol/L; ABG HCO3 26 mmol/L (21-25); ABG Oxygen Saturation 97.5 % (94-97); ABG PCO2 38 mmHg (35-45); ABG PH 7.45 (7.35-7.45); ABG PO2 86 mmHg (83-108); ABG TCO2 27 mmol/L (19-24); Allen Test Performed? Yes
[2020-01-05 05:31] LABS: HCT 34.2 % (39.0-53.0); HGB 10.8 gm/dL (13.0-17.5); MCHC 31.7 g/dL (31.0-37.0); Macrocytosis Slight; Mean Platelet Volume 9.1; Platelet Count 107 k/uL (150-450); RBC 3.29 m/uL (4.30-5.90); RDW 14.3 % (11.5-15.5)
[2020-01-05 07:54] LABS: Glucose,Whole Blood 211 mg/dL (75-99)
[2020-01-05] MEDS: SODIUM CHLORIDE 0.9% 1,000 ML IV SCH ×3 (07:56→23:01)
[2020-01-05] MEDS: ENOXAPARIN 40 MG/0.4 ML SYRINGE SQ SCH (08:01)
[2020-01-05] MEDS: CHLORHEXIDINE GLUCONATE 15 ML CUP MUCOUS MEM SCH ×2 (08:01→20:34)
[2020-01-05] MEDS: DIGOXIN 250 MCG/ML 2 ML AMP IVP SCH (08:01)
[2020-01-05] MEDS: CEFEPIME 2 GM in SODIUM CHLORIDE 0.9% 100 ML IVPB SCH ×2 (08:01→20:47)
[2020-01-05] MEDS: MORPHINE SULFATE ER 30 MG TABLET PO SCH ×3 (08:01→20:47)
[2020-01-05] MEDS: FAMOTIDINE 20 MG/2 ML VIAL IV SCH ×2 (08:04→20:47)
[2020-01-05] MEDS: dexAMETHasone 4 MG TAB PO SCH ×2 (08:04→20:48)
[2020-01-05] MEDS: AMIODARONE 200 MG TAB PO SCH ×2 (08:10→20:47)
--- NOTE | 2020-01-05 08:36 | XR ---
EXAMINATION TYPE: XR chest 1V portable DATE OF EXAM: 01/05/2020 COMPARISON: 01/04/2020 HISTORY: Tube placement TECHNIQUE: Single frontal view of the chest is obtained. FINDINGS: ET and NG tube noted. Bilateral consolidation and small effusion. Prominence of the hilum bilaterally greater on the right. No sizable pneumothorax. Arthropathy of the shoulders. IMPRESSION: 1. Stable bilateral consolidation and small effusion. 2. Prominence of the right hilum seen consistent with the patient's history of previous chest mass.
[2020-01-05] MEDS: IPRATROPIUM-ALBUTEROL 3 ML NEB INHALATION SCH ×4 (08:41→21:12)
[2020-01-05] MEDS ORDERED: SODIUM CHLORIDE 0.9% 1,000 ML IV ONE (09:53)
--- NOTE | 2020-01-05 11:20 | P.PN ---
Subjective Progress Note Date: 01/05/20 HISTORY OF PRESENT ILLNESS: Patient examined this morning at the bedside. He remains intubated in the intensive care unit. Patient remains on vasopressor support this morning. He is maintaining sinus mechanism on telemetry. Blood pressure 125/66. PHYSICAL EXAM: VITAL SIGNS: Reviewed. GENERAL: Well-developed in no acute distress-sedated on mechanical ventilation. NECK: Supple. No JVD or thyromegaly LUNGS: Respirations even and unlabored. Lungs diminished HEART: Regular rate and rhythm. S1 and S2 heard. EXTREMITIES: Normal range of motion. No clubbing or cyanosis. Peripheral pulses intact. Trace bilateral lower extremity edema ASSESSMENT: Stage IV lung cancer Acute hypoxic respiratory failure secondary to healthcare acquired pneumonia Paroxysmal atrial fibrillation with RVR, s/p cardioversion Septic shock History of COPD PLAN: Continue IV digoxin Discontinue IV amio. Begin oral amio 400mg PO BID Patient currently not a candidate for anticoagulation secondary to metastatic lung cancer and thrombocytopenia Nurse practitioner note has been reviewed by physician. Signing provider agrees with the documented findings, assessment, and plan of care. Objective - Vital Signs Vital signs: Vital Signs Temp 97.7 F 01/05/20 08:00 Pulse 75 01/05/20 09:00 Resp 26 H 01/05/20 09:00 BP 119/65 01/05/20 09:00 Pulse Ox 95 01/05/20 09:00 Intake & Output 01/04/20 01/05/20 01/05/20 18:59 06:59 18:59 Intake Total 2336.957 2511.008 797.591 Output Total 1832 1875 500 Balance 504.957 636.008 297.591 Weight 87.8 kg Intake: IV 1630 1233 528 Cefepime 2 gm In Sodium 100 100 100 Chloride 0.9% 100 ml @ 25 mls/hr IVPB Q12HR [facility] Rx #:[id number] Pressure bag 30 33 3 Sodium Chloride 0.9% 1, 1000 1100 300 000 ml @ 100 mls/hr IV . Q10H [facility] Rx#:[id number] Vancomycin 1,250 mg In 500 125 Sodium Chloride 0.9% 250 ml @ 125 mls/hr IVPB Q8H [facility] Rx#:[id number] Intake, IV Titration 476.957 583.008 14.591 Amount Amiodarone 300 mg In 192.5 Dextrose 5% in Water 250 ml @ 0.5 MG/MIN 25 mls/hr IV .Q10H [facility] Rx#: [id number] Norepinephrine 8 mg In 44.681 190.508 14.591 Sodium Chloride 0.9% 250 ml @ 0.05 MCG/KG/MIN 7. 014 mls/hr IV .Q24H [facility] Rx#:[id number] Sodium Chloride 0.9% 1, 300 000 ml @ 100 mls/hr IV . Q10H [facility] Rx#:[id number] propofoL 1,000 mg In 132.276 Empty Bag 1 bag @ Titrate IV .Q0M [facility] Rx#: [id number] propofoL 1,000 mg In 200 Empty Bag 1 bag @ Titrate IV .Q0M [facility] Rx#: [id number] Oral 60 Tube Feeding 230 605 165 Other 90 30 Output: Urine 1832 1875 500 Other: Voiding Method Indwelling Catheter Indwelling Catheter Indwelling Catheter # Bowel Movements 1 ABP, PAP, CO, CI - Last Documented Arterial Blood Pressure 100/46 - Labs CBC & Chem 7: 01/05/20 04:15 01/05/20 04:15 Labs: Abnormal Lab Results - Last 24 Hours (Table) 01/04/20 01/04/20 01/04/20 Range/Units 12:45 16:06 21:00 WBC (3.8-10.6) k/uL RBC (4.30-5.90) m/uL Hgb (13.0-17.5) gm/dL Hct (39.0-53.0) % MCV (80.0-100.0) fL Plt Count (150-450) k/uL ABG HCO3 (21-25) mmol/L ABG Total CO2 (19-24) mmol/L ABG O2 Saturation (94-97) % Chloride (98-107) mmol/L Creatinine (0.66-1.25) mg/dL Glucose (74-99) mg/dL POC Glucose (mg/dL) 252 H 275 H 283 H (75-99) mg/dL Calcium (8.4-10.2) mg/dL 01/05/20 01/05/20 01/05/20 Range/Units 00:02 04:03 04:15 WBC 16.0 H (3.8-10.6) k/uL RBC 3.29 L (4.30-5.90) m/uL Hgb 10.8 L (13.0-17.5) gm/dL Hct 34.2 L (39.0-53.0) % MCV 104.0 H (80.0-100.0) fL Plt Count 107 L (150-450) k/uL ABG HCO3 (21-25) mmol/L ABG Total CO2 (19-24) mmol/L ABG O2 Saturation (94-97) % Chloride (98-107) mmol/L Creatinine (0.66-1.25) mg/dL Glucose (74-99) mg/dL POC Glucose (mg/dL) 327 H 270 H (75-99) mg/dL Calcium (8.4-10.2) mg/dL 01/05/20 01/05/20 01/05/20 Range/Units 04:15 05:20 07:53 WBC (3.8-10.6) k/uL RBC (4.30-5.90) m/uL Hgb (13.0-17.5) gm/dL Hct (39.0-53.0) % MCV (80.0-100.0) fL Plt Count (150-450) k/uL ABG HCO3 26 H (21-25) mmol/L ABG Total CO2 27 H (19-24) mmol/L ABG O2 Saturation 97.5 H (94-97) % Chloride 111 H (98-107) mmol/L Creatinine 0.63 L (0.66-1.25) mg/dL Glucose 295 H (74-99) mg/dL POC Glucose (mg/dL) 211 H (75-99) mg/dL Calcium 8.1 L (8.4-10.2) mg/dL Microbiology - Last 24 Hours (Table) 12/30/19 19:53 Blood Culture - Preliminary Blood No Growth after 120 hours
[2020-01-05] MEDS: MULTIVITAMINS, THERA 1 EACH TAB PO SCH (11:30)
[2020-01-05] MEDS: THIAMINE 100 MG TAB PO SCH (11:30)
[2020-01-05] MEDS: FOLIC ACID 1 MG TAB PO SCH (11:30)
[2020-01-05 11:48] LABS: Glucose,Whole Blood 223 mg/dL (75-99)
--- NOTE | 2020-01-05 14:34 | PN ---
PROGRESS NOTE PULMONARY/CRITICAL CARE PROGRESS NOTE: DATE OF SERVICE: 01/05/2020 Critical care time 33 minutes. A 59-year-old gentleman who was admitted back on December 28 for acute mental status changes, diabetic ketoacidosis, and non-small cell lung cancer with METS. He was brought to the ICU on December 30 and intubated on December 30, subsequently extubated on January 01 and reintubated on 01/01 for acute hypoxemic respiratory failure. Currently, the patient remains on the mechanical ventilator. He is on the volume assist-control mode rate of 26, tidal volume 450, FiO2 of 35%, PEEP of 5. Blood gases show a pO2 of 86, pCO2 of 30 and a pH of 7.45. Norepinephrine has been weaned off. Amiodarone has been weaned off. He is getting saline at 100 mL an hour, propofol at 50 mcg/kg per minute. He is also getting tube feeds. Today, will do another daily interruption of sedation. On January 03, on PSV 5, CPAP of 5, he only lasted about 20 minutes. He became very tachypneic, tachycardic and hypotensive. The patient's COVID test is currently pending. Today, I had a talk with the daughter, Precious. I asked about what to do next with Mr. Berkowitz. She was agreeable to a tracheostomy and PEG tube placement. We will go ahead and do another daily interruption of sedation and see how he does today. Maybe he will do a bit better. His tube feeds is Vital high-protein at 40 with a goal of 55. The patient had an uneventful night. MEDICAL HISTORY: Includes advanced stage IV bronchogenic carcinoma, sepsis with septic shock, hyperglycemia, metabolic encephalopathy, lactic acidemia, COPD, hypertension, chronic back pain, and atrial fibrillation with RVR. Current vital signs are reviewed, temperature is 97.7, heart rate is 75, respiratory rate 26, blood pressure 119/65 mean 83 and saturations are 95% on the FiO2 of 35%. Appears in no acute distress. HEENT: Examination is grossly unremarkable. There is an orally placed endotracheal tube and NG tube. NECK: Supple, full range of motion. No adenopathy. Neck veins are flat. CARDIOVASCULAR: Examination reveals a regular rhythm and rate. Heart rate mid 80s. S1, S2 normal. Heart sounds are distant. LUNGS: Reveal diffuse coarse bilateral rhonchi. There are no wheezes or crackles. Breath sounds are equal bilaterally but diminished throughout. ABDOMEN: Soft. Bowel sounds are noted. EXTREMITIES: Intact. No cyanosis, clubbing, or significant edema. SKIN: Without rash. NEUROLOGIC: Examination could not be adequately assessed. LABS: Reviewed. White count 16, hemoglobin 10.8, hematocrit 34.2, platelet count 107,000, blood gases show pO2 of 86, pCO2 of 38 and pH of 7.45. Sodium 139, potassium 4.1, chloride is 111, CO2 is 26, anion gap is 2. BUN and creatinine were 20 and 0.63. Microbiology is essentially negative. There was some Mavis in the sputum. A chest x-ray done on January 04 shows bilateral basilar consolidations and small effusions as well as prominence of the right hilum consistent with the patient's known chest malignancy. CURRENT MEDICATIONS: Reviewed. She is currently on Cordarone orally, cefepime, chlorhexidine, Decadron, Lanoxin, Lovenox, famotidine, folic acid, Haldol, insulin, DuoNeb, magnesium replacement, morphine sulfate, multivitamins, Narcan, Zofran, phosphorus replacement, potassium replacement, propofol, thiamine and vancomycin. ASSESSMENT: 1. Acute hypoxemic respiratory failure, secondary to healthcare acquired pneumonia, status post intubation on December 30, extubation on January 01, and re-intubation for respiratory failure on January 02, 2020. 2. Stage IV non-small cell lung cancer, squamous cell type. 3. Sepsis with septic shock. 4. DKA. 5. Acute metabolic encephalopathy, secondary to metabolic disturbances and hypoxemia. 6. Lactic acidemia, resolved. 7. COPD. 8. Essential hypertension. 9. History of chronic back pain. 10.New onset atrial fibrillation with RVR. 11.Failure to wean from mechanical ventilation. PLAN: The patient will have another daily interruption of sedation. He did very poorly yesterday. I talked to the daughter, Precious. She is agreeing for tracheostomy and PEG tube placement. We will wait and see how he does on his DIS today. The norepinephrine has been weaned off. Amiodarone has been converted from IV to oral. He remains on propofol. Additional recommendations and suggestions are forthcoming. Prognosis is poor. Critical care time 33 minutes. MMODL / IJN: [id number] /
[2020-01-05 16:30] LABS: Glucose,Whole Blood 183 mg/dL (75-99)
[2020-01-05 20:21] LABS: Glucose,Whole Blood 166 mg/dL (75-99)
[2020-01-05] MEDS: INSULIN DETEMIR (LEVEMIR) 100 UNIT/ML SYR SQ SCH (23:00)
--- NOTE | 2020-01-05 23:16 | PN ---
PROGRESS NOTE DATE OF SERVICE: 01/05/2020 This 59-year-old gentleman was admitted with significant acute hypoxic respiratory failure bilateral healthcare associated pneumonia, was re-intubated. Today, the patient apparently self-extubated. Patient is being closely monitored. Patient is mildly confused at this time. Patient has some sputum. Patient is on broad-spectrum IV antibiotics. The most recent chest x-ray showed significant lesions, especially on the left lower lobe, which was reviewed personally by me and Dr. Young and Cardiology is following the patient closely. PAST MEDICAL HISTORY: Reviewed. REVIEW OF SYSTEMS: Could not be taken. The patient is confused. CURRENT MEDICATIONS: Current medications are DuoNeb, Cordarone, cefepime, Peridex, Hexadrol, Lanoxin, Lovenox, Pepcid, folic acid, Haldol, NovoLog, Levemir, replacement protocols. PHYSICAL EXAMINATION: The patient is alert and oriented . Pulse 90, blood pressure 125/60, respiration 19, temperature 97.9, pulse ox 96% on 6 L nasal cannula. HEENT: Conjunctivae normal. NECK: No jugular venous distention. CARDIOVASCULAR: S1, S2 muffled. RESPIRATORY SYSTEM: Breath sounds diminished at the bases. Bilateral scattered rhonchi and crackles. ABDOMEN: Soft, nontender. LEGS: No edema. NERVOUS SYSTEM: As mentioned earlier. LABS: WBC 16, hemoglobin 10.8. Glucose sugar noted. ASSESSMENT: 1. Acute hypoxic respiratory failure secondary to bilateral healthcare associated pneumonia, left more than the right with immunocompromised status with Gram- negative possible severe sepsis septic shock status post mechanical ventilation and re-intubation. 2. Change in mental status acute metabolic encephalopathy multifactorial. 3. Hypernatremia, improved. 4. Paroxysmal atrial fibrillation with fast ventricular rate. 5. Advanced lung cancer stage IV. 6. Mavis from the sputum. 7. Diabetes mellitus type 2, uncontrolled with hyperosmolar diabetic state, present on admission with no evidence of diabetic ketoacidosis. 8. Hypernatremia. 9. Acute metabolic encephalopathy change in mental status, multifactorial. 10.Elevated lactic acid possibly secondary to sepsis. 11.Hypertension. 12.Chronic back pain. 13.History of chronic obstructive pulmonary disease. 14.Pancytopenia secondary to chemotherapy. 15.Severe neutropenia. 16.FULL CODE. RECOMMENDATIONS AND DISCUSSION: Recommend to continue current medication. Continues symptomatic treatment. Continue the bronchodilators. Continue with antibiotics. Continue steroids. Closely follow with Dr. Young. Prognosis extremely guarded because of multiple complex medical issues. Further recommendations to follow. MMODL / IJN: [id number] / ZAK
[2020-01-05 23:59] LABS: Glucose,Whole Blood 164 mg/dL (75-99)
[2020-01-06] MEDS: IPRATROPIUM-ALBUTEROL 3 ML NEB INHALATION SCH ×6 (00:30→19:56)
[2020-01-06] MEDS: INSULIN ASPART (NovoLOG) 100 UNIT/ML VIAL SQ SCH ×6 (00:36→20:47)
[2020-01-06] MEDS ORDERED: IPRATROPIUM-ALBUTEROL 3 ML NEB INHALATION PRN (00:43)
[2020-01-06] MEDS: VANCOMYCIN 1,250 MG in SODIUM CHLORIDE 0.9% 250 ML IVPB SCH (03:49)
[2020-01-06 04:00] LABS: Glucose,Whole Blood 140 mg/dL (75-99)
[2020-01-06 04:45] LABS: HCT 32.4 % (39.0-53.0); HGB 10.6 gm/dL (13.0-17.5); MCH 32.7 pg (25.0-35.0); MCHC 32.6 g/dL (31.0-37.0); MCV 100.3 fL (80.0-100.0); Mean Platelet Volume 9.2; Platelet Count 101 k/uL (150-450); RBC 3.23 m/uL (4.30-5.90); RDW 13.9 % (11.5-15.5); WBC 11.4 k/uL (3.8-10.6)
[2020-01-06 04:56] LABS: African American GFR (CKD) >90 (>60 ml/min/1.73 sqM); Anion Gap 3 mmol/L; Blood Urea Nitrogen 16 mg/dL (9-20); Carbon Dioxide 28 mmol/L (22-30); Chloride 106 mmol/L (98-107); Glucose 143 mg/dL (74-99); Non-African American GFR(CKD) >90 (>60 ml/min/1.73 sqM); Potassium 3.2 mmol/L (3.5-5.1); Sodium 137 mmol/L (137-145)
[2020-01-06] MEDS: POTASSIUM CHLORIDE 10 MEQ in WATER FOR INJECTION 1 100ML.BAG IVPB SCH ×4 (05:54→09:53)
[2020-01-06] MEDS: AMIODARONE 200 MG TAB PO SCH ×2 (08:00→20:06)
[2020-01-06] MEDS: ENOXAPARIN 40 MG/0.4 ML SYRINGE SQ SCH (08:00)
[2020-01-06] MEDS: CEFEPIME 2 GM in SODIUM CHLORIDE 0.9% 100 ML IVPB SCH ×2 (08:01→20:06)
[2020-01-06] MEDS: FAMOTIDINE 20 MG/2 ML VIAL IV SCH (08:01)
[2020-01-06] MEDS: DIGOXIN 250 MCG/ML 2 ML AMP IVP SCH (08:01)
[2020-01-06] MEDS: dexAMETHasone 4 MG TAB PO SCH ×2 (08:02→20:05)
[2020-01-06] MEDS: CHLORHEXIDINE GLUCONATE 15 ML CUP MUCOUS MEM SCH (08:02)
[2020-01-06] MEDS: MORPHINE SULFATE ER 30 MG TABLET PO SCH ×2 (08:03→20:05)
[2020-01-06 08:19] LABS: Glucose,Whole Blood 129 mg/dL (75-99)
--- NOTE | 2020-01-06 08:50 | XR ---
EXAMINATION TYPE: XR chest 1V portable DATE OF EXAM: 01/06/2020 COMPARISON: Prior chest x-ray 01/05/2020 HISTORY: Extubation, abnormal chest x-ray TECHNIQUE: Single frontal view of the chest is obtained. FINDINGS: There is been interval removal of the endotracheal and NG tube. Abnormal density persists in the right upper lobe. Right hemidiaphragm is elevated. Patchy basilar density is noted, lung volum es are low. No pneumothorax or evident effusion. Heart is likely stable but obscured. IMPRESSION: Interval extubation.
[2020-01-06] MEDS ORDERED: VANCOMYCIN TROUGH DUE 1 EACH MISC MISCELLANE ONE (09:00)
[2020-01-06] MEDS: DIGOXIN 125 MCG TAB PO SCH (09:41)
[2020-01-06 10:05] LABS: Glucose,Whole Blood 121 mg/dL (75-99)
[2020-01-06 11:02] VITALS: BMI 27.8
[2020-01-06] MEDS: MULTIVITAMINS, THERA 1 EACH TAB PO SCH (11:16)
--- NOTE | 2020-01-06 11:33 | P.PN ---
Subjective Progress Note Date: 01/06/20 HISTORY OF PRESENT ILLNESS: Patient examined this morning at the bedside. Patient has been extubated. He is on nasal cannula. He appears confused this morning. He denies chest pain or pressure. Reports mild shortness of breath. He is maintaining sinus mechanism on telemetry. Vital signs stable. He remains off vasopressors. PHYSICAL EXAM: VITAL SIGNS: Reviewed. GENERAL: Well-developed in no acute distress NECK: Supple. No JVD or thyromegaly LUNGS: Respirations even and unlabored. Lungs diminished HEART: Regular rate and rhythm. S1 and S2 heard. EXTREMITIES: Normal range of motion. No clubbing or cyanosis. Peripheral pulses intact. Trace bilateral lower extremity edema ASSESSMENT: Stage IV lung cancer Acute hypoxic respiratory failure secondary to healthcare acquired pneumonia Paroxysmal atrial fibrillation with RVR, s/p cardioversion Septic shock History of COPD PLAN: Change digoxin to oral dosing Continue oral amio 400mg PO BID Continue telemetry monitoring Discussed anticoagulation with oncology who states patient may be placed on anticoagulation. Will start Eliquis at 2.5mg PO BID per Dr. Negrete. Continue to monitor platelet count and hemoglobin. Nurse practitioner note has been reviewed by physician. Signing provider agrees with the documented findings, assessment, and plan of care. Objective - Vital Signs Vital signs: Vital Signs Temp 97.9 F 01/06/20 08:00 Pulse 83 01/06/20 11:00 Resp 12 01/06/20 11:05 BP 136/62 01/06/20 11:00 Pulse Ox 97 01/06/20 11:00 Intake & Output 01/05/20 01/06/20 01/06/20 18:59 06:59 18:59 Intake Total 2780.030 1236 609 Output Total 1950 1625 975 Balance 830.030 -389 -366 Weight 87.8 kg Intake: IV 2455 1236 609 Cefepime 2 gm In Sodium 100 100 Chloride 0.9% 100 ml @ 25 mls/hr IVPB Q12HR [facility] Rx #:[id number] Pressure bag 30 36 9 Sodium Chloride 0.9% 1, 1100 500 000 ml @ 100 mls/hr IV . Q10H [facility] Rx#:[id number] Sodium Chloride 0.9% 1, 1100 1200 000 ml @ 999 mls/hr IV . Q1H1M [facility] Rx#:[id number] Vancomycin 1,250 mg In 125 Sodium Chloride 0.9% 250 ml @ 125 mls/hr IVPB Q8H [facility] Rx#:[id number] Intake, IV Titration 15.030 Amount Norepinephrine 8 mg In 14.591 Sodium Chloride 0.9% 250 ml @ 0.05 MCG/KG/MIN 7. 014 mls/hr IV .Q24H [facility] Rx#:[id number] propofoL 1,000 mg In 0.439 Empty Bag 1 bag @ Titrate IV .Q0M [facility] Rx#: [id number] Oral 60 Tube Feeding 220 Other 30 Output: Urine 1950 1625 975 Other: Voiding Method Indwelling Catheter Indwelling Catheter Indwelling Catheter # Voids 3 ABP, PAP, CO, CI - Last Documented Arterial Blood Pressure 134/63 - Labs CBC & Chem 7: 01/06/20 04:00 01/06/20 04:00 Labs: Abnormal Lab Results - Last 24 Hours (Table) 01/05/20 01/05/20 01/05/20 Range/Units 11:47 16:28 20:20 WBC (3.8-10.6) k/uL RBC (4.30-5.90) m/uL Hgb (13.0-17.5) gm/dL Hct (39.0-53.0) % MCV (80.0-100.0) fL Plt Count (150-450) k/uL Potassium (3.5-5.1) mmol/L Glucose (74-99) mg/dL POC Glucose (mg/dL) 223 H 183 H 166 H (75-99) mg/dL Calcium (8.4-10.2) mg/dL 01/05/20 01/06/20 01/06/20 Range/Units 23:58 03:58 04:00 WBC 11.4 H (3.8-10.6) k/uL RBC 3.23 L (4.30-5.90) m/uL Hgb 10.6 L (13.0-17.5) gm/dL Hct 32.4 L (39.0-53.0) % MCV 100.3 H (80.0-100.0) fL Plt Count 101 L (150-450) k/uL Potassium (3.5-5.1) mmol/L Glucose (74-99) mg/dL POC Glucose (mg/dL) 164 H 140 H (75-99) mg/dL Calcium (8.4-10.2) mg/dL 01/06/20 01/06/20 01/06/20 Range/Units 04:00 08:17 10:03 WBC (3.8-10.6) k/uL RBC (4.30-5.90) m/uL Hgb (13.0-17.5) gm/dL Hct (39.0-53.0) % MCV (80.0-100.0) fL Plt Count (150-450) k/uL Potassium 3.2 L (3.5-5.1) mmol/L Glucose 143 H (74-99) mg/dL POC Glucose (mg/dL) 129 H 121 H (75-99) mg/dL Calcium 8.0 L (8.4-10.2) mg/dL Microbiology - Last 24 Hours (Table) 12/30/19 19:53 Blood Culture - Final Blood No Growth after 144 hours
--- NOTE | 2020-01-06 11:41 | PN ---
PROGRESS NOTE PULMONARY/CRITICAL CARE PROGRESS NOTE: DATE OF SERVICE: 01/06/2020 This is a 59-year-old gentleman who was admitted back on December 28 for acute mental status changes, diabetic ketoacidosis, and non-small cell lung cancer with METS. He was brought to the ICU 2 days later on 12/30 and intubated on 12/31/2019. He was successfully extubated 2 days later on 01/01 and reintubated for respiratory failure on the same day. The patient was on the ventilator up until yesterday at which time he self-extubated himself. Currently, he is on 4 L nasal cannula. He is getting saline at 100 mL an hour. The patient is doing much better in my opinion. Currently, he is still going back and forth as to whether or not he would want to go back on the mechanical ventilator or not. His COVID-19 test is currently pending. I did speak to his daughter, Precious, a couple of days ago. She was on the fence as to what to do next. Current vital signs are reviewed, temperature 97.9, heart rate 86, respiratory rate 12, blood pressure 129/66 mean 87, 4 L saturation 99%. Appears in no acute distress. HEENT: Examination is grossly unremarkable. NECK: Supple, full range of motion. No adenopathy. Neck veins are flat. CARDIOVASCULAR: Examination reveals regular rhythm and rate. S1, S2 normal. LUNGS: Reveal a few scattered rhonchi. No wheezes. A few scattered crackles. ABDOMEN: Soft. EXTREMITIES: Intact. No cyanosis, clubbing, or edema. SKIN: Without rash. NEUROLOGIC: Examination is nonfocal. LABS: Reviewed. White count 11.4, hemoglobin 10.6, hematocrit 32.4, platelet count 101,000. Sodium 137, potassium 3.2, chloride 106, CO2 is 28, anion gap is 3. BUN and creatinine were 16 and 0.68. Calcium 8. Microbiology is currently negative other than Mavis in the sputum. A chest x-ray dated today shows status post extubation. His abnormal density persists in the right upper lobe and the right diaphragm is elevated. There is some patchy bibasilar infiltrates and/or atelectasis. MEDICATIONS: Reviewed. Currently, the patient is on amiodarone, Eliquis, cefepime, chlorhexidine, Decadron, digoxin, famotidine, folic acid, Haldol, insulin, albuterol and Atrovent updrafts, magnesium replacement, morphine, multivitamins, Narcan, Zofran, phosphorus replacement, potassium replacement, saline IV, thiamine and vancomycin. ASSESSMENT: 1. Acute hypoxemic respiratory failure, secondary to healthcare acquired pneumonia, status post intubation on December 30, extubation on 01/01 and re-intubation for respiratory failure on January 02, 2020. 2. Stage IV non-small cell lung cancer, squamous cell type. 3. Sepsis with septic shock, resolved. 4. Diabetic ketoacidosis, improved. 5. Acute metabolic encephalopathy, resolved. 6. Lactic acidemia, improved. 7. COPD. 8. Essential hypertension. 9. History of chronic back pain. 10.New onset atrial fibrillation with RVR, resolved. 11.Failure to wean from mechanical ventilation, with successful self extubation on January 05, 2020. PLAN: Currently, the patient is doing much better. We will go through his medications and discontinue unnecessary medications. Additional recommendations and suggestions are forthcoming. The patient could be discharged out of the unit. No additional recommendations are made. COVID-19 testing is pending. Will continue to follow. MMODL / IJN: [id number] /
[2020-01-06] MEDS ORDERED: VANCOMYCIN 1,250 MG in SODIUM CHLORIDE 0.9% 250 ML IVPB SCH (12:00)
[2020-01-06] MEDS: SODIUM CHLORIDE 0.9% 1,000 ML IV SCH (12:44)
[2020-01-06] MEDS ORDERED: PANTOPRAZOLE 40 MG TABLET PO SCH (15:15)
[2020-01-06 15:45] LABS: Glucose,Whole Blood 170 mg/dL (75-99)
--- NOTE | 2020-01-06 17:18 | P.PN ---
Subjective Progress Note Date: 01/06/20 Principal diagnosis: Acute Hypoxic respiratory Failure Extubated, Confused, long discussion with daughter today regarding plan for home hospice at discharge. Discussion with Cardiology regarding anticoagulation ok as platelets are greater than 50k. He is on dexamethasone, although unable to take the PPI, therefore switched to IV especially with starting AC therapy PPI needed. Objective - Vital Signs Vital signs: Vital Signs Temp 97.9 F 01/06/20 08:00 Pulse 128 H 01/06/20 16:00 Resp 17 01/06/20 16:00 BP 134/67 01/06/20 16:00 Pulse Ox 96 01/06/20 16:00 Intake & Output 01/05/20 01/06/20 01/06/20 18:59 06:59 18:59 Intake Total 2780.030 1236 809 Output Total 1950 1625 1475 Balance 830.030 -389 -666 Weight 87.8 kg Intake: IV 2455 1236 809 Cefepime 2 gm In Sodium 100 100 Chloride 0.9% 100 ml @ 25 mls/hr IVPB Q12HR [facility] Rx #:[id number] Pressure bag 30 36 9 Sodium Chloride 0.9% 1, 1100 700 000 ml @ 100 mls/hr IV . Q10H [facility] Rx#:[id number] Sodium Chloride 0.9% 1, 1100 1200 000 ml @ 999 mls/hr IV . Q1H1M [facility] Rx#:[id number] Vancomycin 1,250 mg In 125 Sodium Chloride 0.9% 250 ml @ 125 mls/hr IVPB Q8H [facility] Rx#:[id number] Intake, IV Titration 15.030 Amount Norepinephrine 8 mg In 14.591 Sodium Chloride 0.9% 250 ml @ 0.05 MCG/KG/MIN 7. 014 mls/hr IV .Q24H [facility] Rx#:[id number] propofoL 1,000 mg In 0.439 Empty Bag 1 bag @ Titrate IV .Q0M [facility] Rx#: [id number] Oral 60 Tube Feeding 220 Other 30 Output: Urine 1950 1625 1475 Other: Voiding Method Indwelling Catheter Indwelling Catheter Indwelling Catheter # Voids 3 ABP, PAP, CO, CI - Last Documented Arterial Blood Pressure 134/63 - Labs CBC & Chem 7: 01/06/20 04:00 01/06/20 04:00 Labs: Abnormal Lab Results - Last 24 Hours (Table) 01/05/20 01/05/20 01/06/20 Range/Units 20:20 23:58 03:58 WBC (3.8-10.6) k/uL RBC (4.30-5.90) m/uL Hgb (13.0-17.5) gm/dL Hct (39.0-53.0) % MCV (80.0-100.0) fL Plt Count (150-450) k/uL Potassium (3.5-5.1) mmol/L Glucose (74-99) mg/dL POC Glucose (mg/dL) 166 H 164 H 140 H (75-99) mg/dL Calcium (8.4-10.2) mg/dL 01/06/20 01/06/20 01/06/20 Range/Units 04:00 04:00 08:17 WBC 11.4 H (3.8-10.6) k/uL RBC 3.23 L (4.30-5.90) m/uL Hgb 10.6 L (13.0-17.5) gm/dL Hct 32.4 L (39.0-53.0) % MCV 100.3 H (80.0-100.0) fL Plt Count 101 L (150-450) k/uL Potassium 3.2 L (3.5-5.1) mmol/L Glucose 143 H (74-99) mg/dL POC Glucose (mg/dL) 129 H (75-99) mg/dL Calcium 8.0 L (8.4-10.2) mg/dL 01/06/20 01/06/20 Range/Units 10:03 15:44 WBC (3.8-10.6) k/uL RBC (4.30-5.90) m/uL Hgb (13.0-17.5) gm/dL Hct (39.0-53.0) % MCV (80.0-100.0) fL Plt Count (150-450) k/uL Potassium (3.5-5.1) mmol/L Glucose (74-99) mg/dL POC Glucose (mg/dL) 121 H 170 H (75-99) mg/dL Calcium (8.4-10.2) mg/dL Microbiology - Last 24 Hours (Table) 12/30/19 19:53 Blood Culture - Final Blood No Growth after 144 hours Assessment and Plan (1) Altered mental status Current Visit: Yes Status: Acute Code(s): R41.82 - ALTERED MENTAL STATUS, UNSPECIFIED SNOMED Code(s): 990889125 (2) Lung cancer Current Visit: Yes Status: Acute Code(s): C34.90 - MALIGNANT NEOPLASM OF UNSP PART OF UNSP BRONCHUS OR LUNG SNOMED Code(s): 321204902 Plan: Acute Hypoxic Respiratory Failure: extubated 01/02/20, although requiring re-intubation with uncontrolled afb rvr - Extubated on 2 Liters - Overall improved from prior picture Septic Shock: improving - abx per ID/ICU Pancytopenia: Secondary to above Improving - Continue daily monitor of CBC with Diff - Monitor for s/s of bleeding, DIC - Platelets = recovered - Transfuse PRBC hemoglobin less than 7, platelets less than 10K. Non-Small Cell Lung Cancer: Squamous Cell Carcinoma: Stage IV - Primary oncologist Dr. Wright, [place] feels overall disease was minimal and other treatment options do exist if patient does improve and wants to consider after recovery of hospitalization. He will reach out to patient later next week. Acute Metabolic Encephalopathy: Likely Secondary to Hypoxemia, respiratory failure - Possible component of Hypernatremia as well - Treatment of the underlying problem Recommendations: - Recommend Fentanyl patch at discharge if unable to swallow pill - If on Steroids recommend PPI, IV ordered as unable to take PO - Anticoagulation for Atrial Fib with RVR is ok with platelet count >50K and no s/s bleeding. Telemedicine with daughter review of plan for home hospice, pain management, and re-connection with primary oncologist. His mental status is not adequate at this time to make decisions, although continue to monitor. Greater than 21 minutes spent with patients daughter, review of chart and counseling and coordinating care
[2020-01-06 19:52] LABS: Glucose,Whole Blood 192 mg/dL (75-99)
--- NOTE | 2020-01-06 20:02 | PN ---
PROGRESS NOTE DATE OF SERVICE: 01/06/2020 This 59-year-old gentleman who was admitted with acute hypoxic respiratory failure secondary to bilateral healthcare-associated pneumonia is being closely monitored. The patient has been re-intubated and extubated at this time. The most recent chest x-ray which was personally reviewed by me showed bilateral pneumonia with some improvement. Right hilar prominence also noted. The patient is FULL CODE at this time. Dr. Young and multiple consultants are following the patient closely. Past medical history reviewed. REVIEW OF SYSTEMS: CARDIOVASCULAR SYSTEM: As mentioned earlier. RESPIRATORY SYSTEM: As mentioned earlier. GI: As mentioned earlier. : No dysuria or retention. NERVOUS SYSTEM: No numbness, weakness. CURRENT MEDICATIONS: Reviewed. They include albuterol, amiodarone, Eliquis, cefepime, Hexadrol, Lanoxin, folic acid, p.r.n. medications PHYSICAL EXAMINATION: Patient is alert, oriented x3. Pulse 98, blood pressure 134/65, respirations 17, temperature normal, pulse ox 96% on 5 L. HEENT: Conjunctivae normal. NECK: No jugular venous distention. CARDIOVASCULAR SYSTEM: S1, S2 muffled. RESPIRATORY SYSTEM: Breath sounds diminished at the bases. Bilateral scattered rhonchi and crackles. ABDOMEN: Soft, non-tender. LEGS: No edema. No swelling. NERVOUS SYSTEM: No focal deficit. LABS: WBC 11.3, hemoglobin 10.6, platelets 101. Accu-Cheks noted. ASSESSMENT: 1. Acute hypoxic respiratory failure secondary to bilateral healthcare- associated pneumonia, left more than the right, with immunocompromised status with Gram- negative with possible severe sepsis, septic shock, status post mechanical ventilation and re-intubation. 2. Change in mental status, acute metabolic encephalopathy, multifactorial. 3. Hypernatremia, improved. 4. Paroxysmal atrial fibrillation with fast ventricular rate. 5. Advanced lung cancer, stage IV. 6. Mavis from the sputum. 7. Diabetes mellitus, type 2, uncontrolled with hyperosmolar diabetic state, present on admission, with no evidence of diabetic ketoacidosis. 8. Hypernatremia. 9. Acute metabolic encephalopathy, change in mental status, multifactorial. 10.Elevated lactic acid, possibly secondary to sepsis. 11.Hypertension. 12.Chronic back pain. 13.History of chronic obstructive pulmonary disease. 14.Pancytopenia secondary to chemotherapy. 15.Severe neutropenia. 16.FULL CODE. RECOMMENDATIONS AND DISCUSSION: I recommend to continue current medications, continue with the monitoring, symptomatic treatment. Continue with the antibiotics, bronchodilators. Otherwise, repeat labs. Add multivitamins, supplements and Risperdal. Prognosis extremely guarded, as mentioned earlier. The family also requested a hospice evaluation. Will continue to monitor. Further recommendations to follow. LEONARD / JUNITON: [id number] / MTDD
[2020-01-06] MEDS: INSULIN DETEMIR (LEVEMIR) 100 UNIT/ML SYR SQ SCH (20:04)
[2020-01-06] MEDS: APIXABAN 2.5 MG TABLET PO SCH (20:05)
[2020-01-06] MEDS ORDERED: risperiDONE 0.25 MG TAB PO SCH (21:00)
[2020-01-06 23:56] LABS: Glucose,Whole Blood 251 mg/dL (75-99)
[2020-01-07] MEDS: SODIUM CHLORIDE 0.9% 1,000 ML IV SCH (00:36)
[2020-01-07] MEDS: INSULIN ASPART (NovoLOG) 100 UNIT/ML VIAL SQ SCH ×4 (00:38→12:00)
[2020-01-07 03:55] LABS: Glucose,Whole Blood >600 mg/dL (75-99)
[2020-01-07 03:57] LABS: Glucose,Whole Blood 104 mg/dL (75-99)
[2020-01-07 06:18] LABS: HCT 34.6 % (39.0-53.0); HGB 11.4 gm/dL (13.0-17.5); MCH 33.1 pg (25.0-35.0); MCHC 32.9 g/dL (31.0-37.0); MCV 100.6 fL (80.0-100.0); Mean Platelet Volume 8.6; Platelet Count 118 k/uL (150-450); RBC 3.44 m/uL (4.30-5.90); RDW 13.2 % (11.5-15.5); WBC 8.1 k/uL (3.8-10.6)
[2020-01-07 06:29] LABS: African American GFR (CKD) >90 (>60 ml/min/1.73 sqM); Anion Gap 2 mmol/L; Blood Urea Nitrogen 15 mg/dL (9-20); Carbon Dioxide 33 mmol/L (22-30); Chloride 100 mmol/L (98-107); Glucose 95 mg/dL (74-99); Non-African American GFR(CKD) >90 (>60 ml/min/1.73 sqM); Potassium 3.4 mmol/L (3.5-5.1); Sodium 135 mmol/L (137-145)
[2020-01-07] MEDS: IPRATROPIUM-ALBUTEROL 3 ML NEB INHALATION SCH ×3 (07:19→16:24)
[2020-01-07 08:00] LABS: Glucose,Whole Blood 101 mg/dL (75-99)
[2020-01-07] MEDS: DIGOXIN 125 MCG TAB PO SCH (08:35)
[2020-01-07] MEDS: dexAMETHasone 4 MG TAB PO SCH (08:35)
[2020-01-07] MEDS: MORPHINE SULFATE ER 30 MG TABLET PO SCH (08:36)
[2020-01-07] MEDS ORDERED: PANTOPRAZOLE 40 MG/10 ML VIAL IVP SCH (09:00)
[2020-01-07] MEDS: APIXABAN 2.5 MG TABLET PO SCH (09:42)
[2020-01-07] MEDS: CEFEPIME 2 GM in SODIUM CHLORIDE 0.9% 100 ML IVPB SCH (09:42)
[2020-01-07] MEDS: AMIODARONE 200 MG TAB PO SCH (09:42)
[2020-01-07 11:47] LABS: Glucose,Whole Blood 123 mg/dL (75-99)
[2020-01-07] MEDS ORDERED: FOLIC ACID 1 MG TAB PO SCH (12:00)
[2020-01-07] MEDS ORDERED: THIAMINE 100 MG TAB PO SCH (12:00)
[2020-01-07] MEDS: MULTIVITAMINS, THERA 1 EACH TAB PO SCH (12:22)
[2020-01-07 13:58] VITALS: BP 95/61; RESP 16; TEMP 97.9
--- NOTE | 2020-01-07 15:06 | P.PN ---
Subjective Progress Note Date: 01/07/20 Principal diagnosis: Acute hypoxic respiratory failure This is a 59-year-old white male with history of right apical mass measuring 4.73.8 cm extending into the mediastinum with enlarged hilar lymph nodes back in 2018. Core biopsy on 01/09/2018 revealed a squamous cell carcinoma, moderately to poorly differentiated. Patient is now status post 3 cycles of chemotherapy, and he was staged as having an operable stage III squamous cell carcinoma. Since then, the patient was diagnosed as having distant metastasis including the right axilla and supraclavicular area, that means the patient had a stage IV squamous cell bronchogenic carcinoma. His last hospital admission was on 09/19/19, and he was discharged home on 09/22/19. At that time the patient presented with back pain along with nausea and vomiting, and he was seen by oncology for recommended bone scan were and the patient refused to have it done. Apparently the patient is following up with an oncologist out of [facility]. At any rate the patient was brought in yesterday with mostly symptoms of altered mental status, patient was noted to have hyperglycemia, hypernatremia, metabolic encephalopathy, and elevated lactic acid. Patient was admitted to 3 [address] and early this morning, I was notified about the patient extremely short of breath, and unresponsive. ABG this morning showed a pO2 of 48 pCO2 of 33 and pH of 7.53. This was on 36% FiO2. Hence I have recommended immediate intubation of the patient and immediate transfer to the ICU. Patient was intubated, follow-up ABG on 100% showed pO2 of 355 pCO2 of 43 pH of 7.42. And his most recent ABG on 50% showed a pO2 of 133 pCO2 of 40 pH of 7.39. I evaluated the patient in the ICU, and he was noted to be hypotensive. Patient was given fluids, and he was also given norepinephrine, patient went into atrial fibrillation with RVR, requiring cardioversion with 50 J given at bedside. While the patient was in A. fib/RVR, his blood pressure was as low as 60 systolic. However patient responded well to the cardioversion, and went into sinus rhythm, in the meantime patient was given amiodarone, and placed on amiodarone drip. Presently the patient is on tidal volume is 450 FiO2 is 40% assist control rate of 26 and PEEP is at 5. He is also on amiodarone drip, and he is on propofol, norepinephrine at 10 mcg/m, patient is also on antibiotics in the form of vancomycin and cefepime. His sodium earlier was as high as 159 and a sodium now is 153. Patient did receive fluid boluses in the form of D5W and D5 45. Patient was reevaluated today on 01/01/20, patient remains in the ICU, intubated and mechanically ventilated. His ventilator settings are assist control rate of 26 tidal volume is 450 FiO2 is 40% and PEEP of 5. ABG today showed a pO2 of 133 pCO2 of 37 pH of 7.43, hence I recommended cutting down the FiO2 to 35%. Patient was on amiodarone until early this morning which I have discontinued. He was also on norepinephrine at 0.12 mcg/kg/m which I have discontinued. He is on propofol at 20 mcg/kg/m, IV fluid in the form of 0.9 normal saline which I have switched to D5 W he is also on cefepime and vancomycin. Receiving free water through the nasogastric tube, and he has been on sliding scale for his elevated blood sugar. Patient remains sedated, and today I plan to hold propofol, and at least get a chance to assess his mental status. Patient is not quite ready for weaning. His chest x-ray continues to show significant left lower lobe opacity/consolidation, underlying mass is not entirely ruled out however on CT of the chest, the abnormality in the left lower lobe was more of a pneumonic process. WBC count today is 0.6, hemoglobin is 11. Platelets are 58,000. Basic metabolic profile showed sodium down to 153 potassium is 2.8 bicarb is normal renal profile is normal. Cultures including blood and sputum are nondiagnostic so far. Patient was reevaluated today on 01/02/20, remains intubated and mechanically ventilated. Patient is on propofol at 50 mcg/kg/m, he is hemodynamically stable, his IV fluid is 0.9 normal saline at 100 mL per hour. Patient remains on antibiotics in the form of cefepime and vancomycin. Cultures remain negative. And nondiagnostic. Chest x-ray is showing improvement in his left lower lobe pneumonia. Sodium is down to 143. Patient is also on enteral feeding. His ventilator settings are assist control rate of 26 FiO2 is 35% tidal volume is 450 and PEEP of 5. No ABG was done today. However the patient was taken off propofol, and I have awakened the patient although he was awake even on propofol. And went ahead and recommended a trial of pressure support of 8 and CPAP. Patient seemed to tolerate that quite well, then we proceeded to extubating the patient. Patient was reevaluated today on 01/03/20, patient was extubated yesterday however later on in the evening patient had to be reintubated because he developed significant agitation requiring Haldol, and later on went to develop atrial fibrillation with RVR, could not be managed with medications, patient could not tolerate Cardizem, as he became very hypotensive, and he required more norepinephrine. Patient was also given digoxin by cardiology, and he was also given amiodarone again. Presently on amiodarone and on digoxin. He is also requiring norepinephrine at 0.02 mcg/kg/m. He is on amiodarone at 0.5 mcg/m patient is on propofol at 50 mcg/kg/m and his IV fluid is at 40 mL per hour. Considering that the patient failed extubation yesterday, I will recommend keeping the patient longer on mechanical ventilation before we address weaning and extubation again today, and he remains in A. fib with RVR in spite of amiodarone and digoxin. His ventilator settings are assist control rate of 26 t idal volume is 450 FiO2 40% PEEP of 5. ABG showed a pO2 of 131 pCO2 of 35 pH of 7.46, hence FiO2 was cut down to 35%. Antibiotics ramirez the patient remains on cefepime and vancomycin. His platelets are up a bit and I will start the patient on Lovenox, continue to watch the platelets and eventually fully heparinized the patient for his atrial fibrillation with RVR. All labs today were reviewed including a relatively normal CBC, normal basic metabolic profile and renal profile. Normal T4, normal magnesium and normal calcium. Chest x-ray showed no significant change in his right upper lobe and left basilar infiltrates On 01/07/2020 patient is seen in follow-up on medical surgical floor, he was successfully weaned and extubated from the mechanical ventilator on 01/05/2020, actually he self extubated during the sedation holiday, however he is done very well, and did not require reintubation. He had remains stable, he was transferred out of intensive care unit yesterday, today she seen in follow-up on medical surgical floor, he remains on oxygen, at 5 L with a pulse ox of 99%, sometimes his oxygen is out of his nose, and at times he'll experience increased shortness of breath, he has his fan blowing right in his face because of dyspnea, oxygen was reapplied, vital signs have remained stable, his been afebrile, he is very confused at times, his been on cefepime and vancomycin for antibiotic coverage, his blood culture has shown no growth, his sputum culture was only positive for Mavis albicans. No increased cough or congestion or complaints of hemoptysis or chest pain. His last chest x-ray was yesterday, showing abnormal density in the right upper lobe consistent with patient's history of metastatic squamous cell carcinoma elevation of the right hemidiaphragm, and patchy basilar density with low lung volumes. Hospice has been consulted, however has not seen the patient yet, patient wants to go home. Family is also aware and has actually requested a hospice evaluation. Objective - Vital Signs Vital signs: Vital Signs Temp 97.9 F 01/07/20 13:00 Pulse 95 01/07/20 13:00 Resp 16 01/07/20 13:00 BP 95/61 01/07/20 13:00 Pulse Ox 95 01/07/20 13:00 Intake & Output 01/06/20 01/07/20 01/07/20 18:59 06:59 18:59 Intake Total 809 590 220 Output Total 1475 3850 Balance -666 590 -3630 Weight 87.8 kg 80.966 kg Intake: IV 809 Cefepime 2 gm In Sodium 100 Chloride 0.9% 100 ml @ 25 mls/hr IVPB Q12HR RA[facility] Rx #:[id number] Pressure bag 9 Sodium Chloride 0.9% 1, 700 000 ml @ 100 mls/hr IV . Q10H RAJ Rx#:[id number] Oral 590 220 Output: Urine 1475 3850 Other: Voiding Method Indwelling Catheter Indwelling Catheter # Bowel Movements 1 1 ABP, PAP, CO, CI - Last Documented Arterial Blood Pressure 134/63 - Exam GENERAL EXAM: Alert, very pleasant 59-year-old white male, on room air, with a pulse ox 95% has a fan blowing in his face, related to worsening dyspnea at times, comfortable in no apparent distress. HEAD: Normocephalic/atraumatic. EYES: Normal reaction of pupils, equal size. Conjunctiva pink, sclera white. NOSE: Clear with pink turbinates. THROAT: No erythema or exudates. NECK: No masses, no JVD, no thyroid enlargement, no adenopathy. CHEST: No chest wall deformity. Symmetrical expansion. LUNGS: Equal air entry with no crackles, wheeze, rhonchi or dullness. CVS: Regular rate and rhythm, normal S1 and S2, no gallops, no murmurs, no rubs ABDOMEN: Soft, nontender. No hepatosplenomegaly, normal bowel sounds, no guarding or rigidity. EXTREMITIES: No clubbing, no edema, no cyanosis, 2+ pulses and upper and lower extremities. MUSCULOSKELETAL: Muscle strength and tone normal. SPINE: No scoliosis or deformity SKIN: No rashes CENTRAL NERVOUS SYSTEM: Alert and oriented -3. No focal deficits, tone is normal in all 4 extremities. PSYCHIATRIC: Alert and oriented -3. Appropriate affect. Intact judgment and insight. - Labs CBC & Chem 7: 01/07/20 05:23 01/07/20 05:23 Labs: Abnormal Lab Results - Last 24 Hours (Table) 01/06/20 01/06/20 01/06/20 Range/Units 15:44 19:51 23:55 RBC (4.30-5.90) m/uL Hgb (13.0-17.5) gm/dL Hct (39.0-53.0) % MCV (80.0-100.0) fL Plt Count (150-450) k/uL Sodium (137-145) mmol/L Potassium (3.5-5.1) mmol/L Carbon Dioxide (22-30) mmol/L Creatinine (0.66-1.25) mg/dL POC Glucose (mg/dL) 170 H 192 H 251 H (75-99) mg/dL Calcium (8.4-10.2) mg/dL 01/07/20 01/07/20 01/07/20 Range/Units 03:54 03:56 05:23 RBC 3.44 L (4.30-5.90) m/uL Hgb 11.4 L (13.0-17.5) gm/dL Hct 34.6 L (39.0-53.0) % MCV 100.6 H (80.0-100.0) fL Plt Count 118 L (150-450) k/uL Sodium (137-145) mmol/L Potassium (3.5-5.1) mmol/L Carbon Dioxide (22-30) mmol/L Creatinine (0.66-1.25) mg/dL POC Glucose (mg/dL) >600 H 104 H (75-99) mg/dL Calcium (8.4-10.2) mg/dL 01/07/20 01/07/20 01/07/20 Range/Units 05:23 07:59 11:45 RBC (4.30-5.90) m/uL Hgb (13.0-17.5) gm/dL Hct (39.0-53.0) % MCV (80.0-100.0) fL Plt Count (150-450) k/uL Sodium 135 L (137-145) mmol/L Potassium 3.4 L (3.5-5.1) mmol/L Carbon Dioxide 33 H (22-30) mmol/L Creatinine 0.61 L (0.66-1.25) mg/dL POC Glucose (mg/dL) 101 H 123 H (75-99) mg/dL Calcium 8.0 L (8.4-10.2) mg/dL Assessment and Plan Plan: Assessment: Acute hypoxic respiratory failure secondary to healthcare acquired pneumonia, in an immunocompromised host with known malignancy, likely gram-negative pneumonia. Patient required intubation and mechanical ventilation on 12/31/19, extubated on 01/02/20, reintubated about 8 hours later on 01/02/20. Patient self extubated on 01/05/2020 and has not required reintubation Advanced bronchogenic carcinoma stage IV. Sepsis and septic shock requiring fluids and norepinephrine to maintain binu sonable blood pressure. Hyperglycemia on presentation, but no clear-cut evidence of diabetic ketoac idosis as his urine ketones were negative. Poorly controlled diabetes. Acute metabolic encephalopathy with hypoxemia and hypoxic respiratory failure as well as hypernatremia causing his acute metabolic encephalopathy. Elevated lactic acid on presentation secondary to sepsis and septic shock. Res olved. History of chronic obstructive pulmonary disease, presently inactive History of hypertension. History of chronic back pain dehydration and free water deficit on presentation. Resolved New onset atrial fibrillation with RVR, presently on digoxin and on amiodarone. Being followed by cardiology. Upon his initial presentation with A. fib/RVR and hypotension, I had to cardiovert the patient and he went into sinus rhythm. Plan: Patient and the family requested hospice evaluation, patient has not been seen by hospice, we'll request for him to be seen today in for discharge planning to start evaluating his needs at home to transition him home under the hospice care. No further recommendations at this time. Pulmonary service will sign off and follow on as-needed basis I performed a history & physical examination of the patient and discussed their management with my nurse practitioner, Marija Benitez. I reviewed the nurse practitioner's note and agree with the documented findings and plan of care. Lung sounds are positive for diminished breath sounds. The findings and the impression was discussed with the patient. I attest to the documentation by the nurse practitioner. Time with Patient: Less than 30
[2020-01-07 16:34] VITALS: PULSE 84
[2020-01-07 16:57] LABS: Glucose,Whole Blood 199 mg/dL (75-99)
--- NOTE | 2020-01-07 20:25 | DS ---
DISCHARGE SUMMARY DATE OF SERVICE: 01/07/2020 FINAL DIAGNOSES: 1. Acute hypoxic respiratory failure secondary to bilateral healthcare associated pneumonia, left more than the right with immunocompromised status with gram- negative bacilli possible severe sepsis, septic shock and status post mechanical ventilation and re-intubation. 2. Change in mental status acute metabolic encephalopathy multifactorial. 3. Hyponatremia, improved. 4. Paroxysmal atrial fibrillation with fast ventricular rate. 5. Advanced lung cancer stage IV. 6. Mavis from the sputum. 7. Diabetes mellitus type 2, uncontrolled with hyperosmolar diabetic state, present on admission with no evidence of diabetic ketoacidosis. 8. Hyponatremia. 9. Acute metabolic encephalopathy, change in mental status, multifactorial. 10.Elevated lactic acid possible secondary to sepsis. 11.Hypertension. 12.Chronic back pain. 13.History of chronic obstructive pulmonary disease. 14.Pancytopenia secondary to chemotherapy. 15.Severe neutropenia. 16.NO CODE, NO CPR. NO VENT. DISCHARGE DISPOSITION: The patient will be discharged in stable condition with guarded prognosis. Total time taken 35 minutes. HISTORY OF PRESENT ILLNESS: This 59-year-old gentleman with a past history of multiple problems including advanced lung cancer, admitted with multiple medical problems. Patient was intubated and actually extubated and re-intubation intubated also in the in the ICU. The patient did improve during the hospitalization, but however the case discussed with the patient's family and multiple consultants. It was decided to go with hospice care because of multiple complex medical issues. On exam vital signs stable stable. Patient is mildly confused. Cardiovascular S1, S2. Respiration: A few scattered rhonchi. DISCHARGE ADVICE AND MEDICATIONS: 1. Diet is cardiac diet. 2. Activity limited until followup. 3. Follow up with primary physician in 2-3 days. 4. Follow up with hospice as recommended. MEDICATIONS: Will be as follows: 1. Compazine 10 mg q.6 p.r.n. 2. Decadron 4 mg p.o. b.i.d. as before. 3. Hydrocodone 2 tablets q.6 p.r.n. as before. 4. Zofran 4 mg q.8 p.r.n. 5. Cordarone 400 mg p.o. b.i.d. for 2 weeks. 6. Further adjustment in outpatient setting. 7. DuoNeb q.i.d. and p.r.n. 8. Lanoxin 125 mcg p.o. daily. 9. Levemir 20 units subcu q.h.s. 10.MS Contin 30 mg p.o. b.i.d. 11.Multivitamins 1 p.o. daily. 12.Risperdal 0.125 mg q.h.s. 13.Accu-Cheks a.c. and at bedtime and continue to monitor in the outpatient setting. Follow up with Dr. Ruiz in 3-4 days. MMODL / IJN: [id number] /
== END 2020-01-07 19:12 | disposition home or self-care (01) | DRG 637 ==
LOC: EC 07:45 → 3SCARD 10:08 → 2SICU 12-31 01:52 → 5NMEDONC 01-06 22:19 → UNDODISIN 01-07 17:00
PROVIDERS: ADMIT Internal Medicine; ATTEND Internal Medicine
PROC: 5A1945Z Respiratory Ventilation, 24-96 Consecutive Hours (ICD-10-PCS; principal; 2019-12-31)
PROC: 0BH17EZ Insertion of Endotracheal Airway into Trachea, Via Natural or Artificial Opening (ICD-10-PCS; principal; 2019-12-31)
PROC: 3E033XZ Introduction of Vasopressor into Peripheral Vein, Percutaneous Approach (ICD-10-PCS; 2019-12-31)
PROC: 0D9670Z Drainage of Stomach with Drainage Device, Via Natural or Artificial Opening (ICD-10-PCS; 2019-12-31)
PROC: 4A133J1 Monitoring of Arterial Pulse, Peripheral, Percutaneous Approach (ICD-10-PCS; 2019-12-31)
PROC: 4A133B1 Monitoring of Arterial Pressure, Peripheral, Percutaneous Approach (ICD-10-PCS; 2019-12-31)
PROC: 06HM33Z Insertion of Infusion Device into Right Femoral Vein, Percutaneous Approach (ICD-10-PCS; 2019-12-31)
PROC: 03HY32Z Insertion of Monitoring Device into Upper Artery, Percutaneous Approach (ICD-10-PCS; 2019-12-31)
PROC: 0BH17EZ Insertion of Endotracheal Airway into Trachea, Via Natural or Artificial Opening (ICD-10-PCS; 2020-01-02)
PROC: 5A1945Z Respiratory Ventilation, 24-96 Consecutive Hours (ICD-10-PCS; 2020-01-02)
DX: E11.10 Type 2 diabetes mellitus with ketoacidosis without coma (principal); D61.810 Antineoplastic chemotherapy induced pancytopenia; A41.50 Gram-negative sepsis, unspecified; J15.6 Pneumonia due to other Gram-negative bacteria; R65.21 Severe sepsis with septic shock; J96.01 Acute respiratory failure with hypoxia; G93.41 Metabolic encephalopathy; C34.91 Malignant neoplasm of unspecified part of right bronchus or lung; D84.9 Immunodeficiency, unspecified; E87.0 Hyperosmolality and hypernatremia; E87.1 Hypo-osmolality and hyponatremia; J44.0 Chronic obstructive pulmonary disease with (acute) lower respiratory infection; E87.2 Acidosis; B37.89 Other sites of candidiasis; F17.210 Nicotine dependence, cigarettes, uncomplicated; E86.0 Dehydration; I10 Essential (primary) hypertension; I48.0 Paroxysmal atrial fibrillation; T45.1X5A Adverse effect of antineoplastic and immunosuppressive drugs, initial encounter; Y95 Nosocomial condition; Z66 Do not resuscitate; Z51.5 Encounter for palliative care; Z20.828 Contact with and (suspected) exposure to other viral communicable diseases; Z79.4 Long term (current) use of insulin; G89.29 Other chronic pain; M54.9 Dorsalgia, unspecified; Z92.21 Personal history of antineoplastic chemotherapy; Z79.891 Long term (current) use of opiate analgesic; Z79.899 Other long term (current) drug therapy; Z90.49 Acquired absence of other specified parts of digestive tract
CPT/HCPCS: 36415; 36600; 70450; 71045; 71046; 71275; 76770; 80048; 80051; 80053; 80162; 80202; 80306; 81003; 82009; 82565; 82803; 82805; 82947; 83036; 83605; 83735; 84100; 84132; 84145; 84439; 84443; 84484; 84520; 85025; 85027; 85610; 85730; 86644; 86645; 87040; 87070; 87205; 87502; 87634; 93005; 93306; 94002; 94003; 94640; 96361; 96365; 96375; 99285